=== PATIENT | female | born 1940 | race Caucasian/White ===

== ENCOUNTER 2018-12-15 08:48 | Day surgery (SDC) | payer OTHER ==
[2018-12-15] MEDS ORDERED: EPINEPHRINE/PF 1 MG/ML AMP ONE (09:22)
[2018-12-15] MEDS ORDERED: NS 0.9% VIAL 10 ML ONE (09:22)
[2018-12-15] MEDS ORDERED: DUOVISC 1 KIT OPTH ONE (09:23)
[2018-12-15] MEDS ORDERED: BALANCED SALT IRRIG PLAIN 500 ML BTL IRR ONE (09:23)
[2018-12-15] MEDS: TETRACAINE HCL 0.5% 2ML OPTH ONE ×2 (09:36→11:02)
[2018-12-15] MEDS: BUPIVACAINE 0.25% PF 10 ML VIAL ONE ×2 (09:36→11:03)
[2018-12-15] MEDS: LIDOCAINE 2% MPF 5 ML VIAL ONE ×2 (09:37→11:03)
[2018-12-15] MEDS ORDERED: NA CHLORIDE 0.9% 500 ML ONE (09:45)
[2018-12-15] MEDS: CYCLOPENTOLATE 1% OPTH 2 ML ONE ×3 (09:47→09:57)
[2018-12-15] MEDS: PHENYLEPHRINE 10% OPTH 5ML ONE ×3 (09:47→09:57)
[2018-12-15] MEDS ORDERED: PROPOFOL 200 MG/20 ML VIAL IV ONE (10:56)
[2018-12-15] MEDS ORDERED: LIDOCAINE 2% MPF 5 ML VIAL ONE (10:57)
--- NOTE | 2018-12-15 11:47 | P.BOP ---
Preoperative diagnosis: Nuclear sclerotic cataract and regular astigmatism OD Postoperative diagnosis: Same Primary procedure: Phacoemulsification with IOL OD Estimated blood loss: None Anesthesia: Local (Subtenon's infusion with anesthesia for cataract surgery) Complications: None Implants: SA6AT3 +21.0 @ 4 degrees Transferred to: Other (Day surgery) Condition: Good
[2018-12-15] MEDS ORDERED: MOXIFLOXACIN HCL 10 DROPS/ML **OR USE OPTH ONE (12:01)
[2018-12-15 12:28] VITALS: BP 124/60; TEMP 98.5; O2SAT 100
--- NOTE | 2018-12-16 02:19 | OP ---
Date of Procedure: 12/15/2018 Surgeon: Sindhu Jimenez MD Anesthesiologist: Jade Hamilton CRNA and Yovani Blackburn MD. Preoperative Diagnosis: Nuclear sclerotic cataract and regular astigmatism, right eye. Operation Performed: Phacoemulsification with toric intraocular lens implant, right eye. Anesthesia: Per cataract surgery. Complications: None. Description Of Procedure: In day surgery, the patient was prepped with Betadine and draped. A conjunctival incision was made in the inferior nasal quadrant with Connie scissors. A sub-Tenon block consisting of a 1:1 mixture of 2% Xylocaine and 0.25% bupivacaine was placed through the conjunctival incision with a blunt cannula. A Honan balloon was placed over the eye and the patient was transferred to the operating room. In the operating room the patient was prepped and draped in the usual sterile fashion for ophthalmic surgery. A lid speculum was placed in the right eye. Two paracentesis sites were made superiorly and inferiorly in the limbal cornea. Viscoat was placed in the anterior chamber and a crescent blade was used to make a corneal groove and tunnel, and a keratome was used to enter the anterior chamber. Provisc was placed in the anterior chamber and a 360 degree capsulotomy was performed with a cystitome. The lens was hydrodissected with BSS and rotated freely. The lens was removed with a stop and chop technique. 21.07 Phaco CDE was used to remove the lens. Residual cortex was removed with the irrigation and aspiration. Provisc was placed in the capsular bag. A SA6AT3 +21.0 lens was placed at 4 degrees in the capsular bag without complications. Irrigation and aspiration were used to remove residual viscoelastic. The paracentesis sites were hydrated with BSS. The wound and paracentesis sites were inspected and found to be watertight. Vigamox 0.07 cc was placed intracamerally at the end of the procedure. The eye was irrigated with balanced salt solution. The eye was patched with a soft cotton patch and Eldridge metal shield. The patient was returned to day surgery in good condition. Comments: Discharge Instructions: Ms. Rai is discharged to home in good condition and is to follow up with Dr. Jimenez in the morning. JESSY/MICHAEL Voice ID: [id number] Report ID: [id number] MTDD
== END 2018-12-15 12:20 | disposition home or self-care (01) ==
LOC: OR 08:48
PROVIDERS: ATTEND Ophthalmology Retina Specialist
PROC: 08RJ3JZ Replacement of Right Lens with Synthetic Substitute, Percutaneous Approach (ICD-10-PCS; principal; 2018-12-15 10:00)
DX: H25.11 Age-related nuclear cataract, right eye (principal); H52.221 Regular astigmatism, right eye; I10 Essential (primary) hypertension; G20 Parkinson's disease; E03.9 Hypothyroidism, unspecified; E78.00 Pure hypercholesterolemia, unspecified; Z79.82 Long term (current) use of aspirin; Z88.0 Allergy status to penicillin; Z88.2 Allergy status to sulfonamides; Z83.518 Family history of other specified eye disorder
CPT/HCPCS: 66984; J2704; J0171; V2630; V2787

== ENCOUNTER 2019-02-09 06:52 | Day surgery (SDC) | payer OTHER ==
[2019-02-09] MEDS ORDERED: LIDOCAINE 2% MPF 5 ML VIAL ONE ×2 (07:24→08:14)
[2019-02-09] MEDS ORDERED: BUPIVACAINE 0.25% PF 10 ML VIAL ONE (07:24)
[2019-02-09] MEDS ORDERED: CYCLOPENTOLATE 1% OPTH 2 ML ONE (07:24)
[2019-02-09] MEDS ORDERED: NA CHLORIDE 0.9% 500 ML ONE (07:25)
[2019-02-09] MEDS ORDERED: TETRACAINE HCL 0.5% 4ML OPTH ONE (07:25)
[2019-02-09] MEDS ORDERED: PHENYLEPHRINE 10% OPTH 5ML ONE (07:25)
[2019-02-09] MEDS ORDERED: PHENYLEPHRINE 10% OPTH 5ML OPTH ONE ×2 (07:40→07:45)
[2019-02-09] MEDS ORDERED: CYCLOPENTOLATE 1% OPTH 2 ML OPTH ONE ×2 (07:40→07:45)
[2019-02-09] MEDS ORDERED: PROPOFOL 200 MG/20 ML VIAL IV ONE (08:14)
[2019-02-09] MEDS ORDERED: BALANCED SALT IRRIG PLAIN 500 ML BTL IRR ONE (08:16)
[2019-02-09] MEDS ORDERED: EPINEPHRINE/PF 1 MG/ML AMP ONE (08:16)
[2019-02-09] MEDS ORDERED: NS 0.9% VIAL 10 ML ONE (08:16)
[2019-02-09] MEDS ORDERED: DUOVISC 1 KIT OPTH ONE (08:17)
[2019-02-09] MEDS ORDERED: MOXIFLOXACIN HCL 10 DROPS/ML **OR USE OPTH ONE (08:18)
--- NOTE | 2019-02-09 09:08 | P.BOP ---
Preoperative diagnosis: Nuclear sclerotic cataract OS Postoperative diagnosis: Same Primary procedure: Phacoemulsification with IOL OS Estimated blood loss: None Anesthesia: Local (Subtenon's infusion with anesthesia for cataract surgery) Complications: None Implants: SA60WF +20.0 Transferred to: Other (Day surgery) Condition: Good
[2019-02-09 09:24] VITALS: BP 121/65; TEMP 97.4; O2SAT 97
--- NOTE | 2019-02-09 18:53 | OP ---
Date of Procedure: 02/09/2019 Surgeon: Sindhu Jimenez MD Anesthesiologist: 1. Chavez Welsh CRNA. 2. Yovani Blackburn MD. Preoperative Diagnosis: Nuclear sclerotic cataract, left eye. Operation Performed: Phacoemulsification with intraocular lens implant, left eye. Anesthesia: Per cataract surgery. Complications: None. Description Of Procedure: In day surgery, the patient was prepped with Betadine and draped. A conjunctival incision was made in the inferior nasal quadrant with Connie scissors. A sub-Tenon block consisting of a 1:1 mixture of 2% Xylocaine and 0.25% bupivacaine was placed through the conjunctival incision with a blunt cannula. A Honan balloon was placed over the eye and the patient was transferred to the operating room. In the operating room the patient was prepped and draped in the usual sterile fashion for ophthalmic surgery. A lid speculum was placed in the left eye. Two paracentesis sites were made superiorly and inferiorly in the limbal cornea. Viscoat was placed in the anterior chamber and a crescent blade was used to make a corneal groove and tunnel, and a keratome was used to enter the anterior chamber. Provisc was placed in the anterior chamber and a 360 degree capsulotomy was performed with a cystitome. The lens was hydrodissected with BSS and rotated freely. The lens was removed with a stop and chop technique. 15.22 Phaco CDE was used to remove the lens. Residual cortex was removed with the irrigation and aspiration. Provisc was placed in the capsular bag. A SA60WF +20.0 lens was placed in the capsular bag without complications. Irrigation and aspiration was used to remove residual viscoelastic. The paracentesis sites were hydrated with BSS. The wound and paracentesis sites were inspected and found to be watertight. Vigamox 0.07 cc was placed intracamerally at the end of the procedure. The eye was irrigated with balanced salt solution. The eye was patched with a soft cotton patch and Eldridge metal shield. The patient was returned to day surgery in good condition. Comments: Discharge Instructions: Ms. Rai is discharged to home in good condition and is to follow up with Dr. Jimenez in the morning. JESSY/MICHAEL Voice ID: [id number] Report ID: [id number] MTDD
== END 2019-02-09 09:43 | disposition home or self-care (01) ==
LOC: OR 06:52
PROVIDERS: ATTEND Ophthalmology Retina Specialist
PROC: 08RK3JZ Replacement of Left Lens with Synthetic Substitute, Percutaneous Approach (ICD-10-PCS; principal; 2019-02-09 08:30)
DX: H25.12 Age-related nuclear cataract, left eye (principal); E03.9 Hypothyroidism, unspecified; I10 Essential (primary) hypertension; G20 Parkinson's disease; Z79.82 Long term (current) use of aspirin; Z79.899 Other long term (current) drug therapy
CPT/HCPCS: 66984; J2704; J0171

== ENCOUNTER 2021-07-06 18:08 | Emergency (ER) | payer OTHER ==
[2021-07-06] MEDS ORDERED: MECLIZINE HCL 12.5 MG TAB ONE (19:54)
[2021-07-06] MEDS ORDERED: METOCLOPRAMIDE 10 MG/2mL INJ ONE (19:54)
[2021-07-06] MEDS ORDERED: KETOROLAC 30 MG/ML INJ ONE (19:55)
[2021-07-06] MEDS ORDERED: ONDANSETRON 4 MG/2 ML VIAL ONE (19:55)
[2021-07-06] MEDS ORDERED: NA CHLORIDE 0.9% 1,000 ML ONE (19:55)
[2021-07-06 20:05] LABS: ALT/SGPT 8 U/L (12-78); AST/SGOT 15 U/L (15-37); Albumin 3.5 g/dL (3.4-5.0); Alkaline Phosphatase 60 U/L (45-117); BUN Blood Urea Nitrogen 15 mg/dL (7-18); Bicarbonate 29 mmol/L (21-32); Bilirubin Direct 0.1 mg/dL (0-0.2); Bilirubin Total 0.4 mg/dL (0.2-1.0); Glucose Level 116 mg/dL (74-106); Magnesium 2.3 mg/dL (1.8-2.4); NT PRO-BNP 352 pg/mL (<450); Potassium 3.8 mmol/L (3.5-5.1); Protein, Total 7.1 g/dL (6.4-8.2); Sodium Level 141 mmol/L (136-145); Troponin (Emerg Dept Use Only) < 0.02 ng/mL (0.0-0.045)
[2021-07-06 20:09] LABS: Urine Blood Negative (Negative); Urine Glucose Negative (Negative); Urine Protein Negative (Negative)
--- NOTE | 2021-07-06 20:34 | RAD REPORT ---
EXAM DESCRIPTION: CT - Head Brain Wo Cont - 07/06/2021 8:08 pm CLINICAL HISTORY: Dizziness COMPARISON: 2013 TECHNIQUE: Computed axial tomography of the head was obtained. IV contrast was not requested. All CT scans are performed using dose optimization technique as appropriate and may include automated exposure control or mA/KV adjustment according to patient size. FINDINGS: An intracranial bleed is not seen . The ventricles are normal in caliber. No extra-axial fluid collection is noted. Mild low-density areas within periventricular, deep and subcortical white matter likely represent isc hemic changes secondary to small vessel disease. Fluid within the sinuses/ mastoids is not seen. IMPRESSION: No acute intracranial abnormality is seen. If patient's symptoms persist MRI of the bra in would be recommended.
[2021-07-06 20:58] LABS: Absolute Lymphocytes (CBC) 1.3 K/uL (0.7-4.9); Basophils % 0.8 % (0-1.3); Hematocrit 43.6 % (36.0-45.0); MPV 9.1 fL (7.6-11.3); Protime INR 1.03; RBC Red Blood Cell Count 4.65 M/uL (3.86-4.86)
--- NOTE | 2021-07-06 22:03 | EDPHYS ---
Physician Documentation [facility] Name: Marti Rai Age: 80 yrs Sex: Female : 1940 Arrival Date: 07/06/2021 Time: 18:10 Bed 7 Private MD: ED Physician Renetta Boles HPI: 07/06 21:30 This 80 yrs old Female presents to ER via Ambulatory with complaints of ma2 Dizziness, High Blood Pressure. 21:30 The patient presents with vertigo. Onset: The symptoms/episode began/occurred suddenly, ma2 2 hour(s) ago. Associated signs and symptoms: Pertinent positives: Pertinent negatives: ataxia, combativeness, focal weakness, head injury, headache, palpitations, seizure, vomiting. Severity of symptoms: At their worst the symptoms were mild in the emergency department the symptoms are unchanged. The patient has experienced similar episodes in the past. He has had positional vertigo in the past, presents with same symptoms, feels spinning when she moves her head to the right side. No other symptom.. Historical: - Allergies: 18:26 PENICILLINS; vg1 - Home Meds: 18:26 levothyroxine oral [Active]; Metoprolol Tartrate Oral [Active]; amlodipine oral vg1 [Active]; duloxetine oral [Active]; Aspirin Oral [Active]; rosuvastatin oral [Active]; - PMHx: 18:26 Hypertensive disorder; Parkinson's disease; Hypothyroidism; vg1 - Immunization history:: Adult Immunizations up to date, Client reports receiving the 2nd dose of the Covid vaccine. - Social history:: Smoking status: Patient denies any tobacco usage or history of. - Family history:: not pertinent. ROS: 21:30 Constitutional: Negative for fever, chills, and weight loss. ma2 21:30 All other systems are negative. Exam: 21:30 Constitutional: This is a well developed, well nourished patient who is awake, alert, ma2 and in no acute distress. Head/Face: Normocephalic, atraumatic. Eyes: Pupils equal round and reactive to light, extra-ocular motions intact. Lids and lashes normal. Conjunctiva and sclera are non-icteric and not injected. Cornea within normal limits. Periorbital areas with no swelling, redness, or edema. ENT: Nares patent. No nasal discharge, no septal abnormalities noted. Tympanic membranes are normal and external auditory canals are clear. Oropharynx with no redness, swelling, or masses, exudates, or evidence of obstruction, uvula midline. Mucous membranes moist. Neck: Trachea midline, no thyromegaly or masses palpated, and no cervical lymphadenopathy. Supple, full range of motion without nuchal rigidity, or vertebral point tenderness. No Meningismus. Chest/axilla: Normal chest wall appearance and motion. Nontender with no deformity. No lesions are appreciated. Cardiovascular: Regular rate and rhythm with a normal S1 and S2. No gallops, murmurs, or rubs. Normal PMI, no JVD. No pulse deficits. Respiratory: Lungs have equal breath sounds bilaterally, clear to auscultation and percussion. No rales, rhonchi or wheezes noted. No increased work of breathing, no retractions or nasal flaring. Abdomen/GI: Soft, non-tender, with normal bowel sounds. No distension or tympany. No guarding or rebound. No evidence of tenderness throughout. Back: No spinal tenderness. No costovertebral tenderness. Full range of motion. Skin: Warm, dry with normal turgor. Normal color with no rashes, no lesions, and no evidence of cellulitis. MS/ Extremity: Pulses equal, no cyanosis. Neurovascular intact. Full, normal range of motion. Neuro: Awake and alert, GCS 15, oriented to person, place, time, and situation. Cranial nerves II-XII grossly intact. Motor strength 5/5 in all extremities. Sensory grossly intact. Cerebellar exam normal. Normal gait. Psych: Awake, alert, with orientation to person, place and time. Behavior, mood, and affect are within normal limits. Vital Signs: 18:23 BP 138 / 80; Pulse 68; Resp 16; Temp 97.9; Pulse Ox 98% ; Weight 68.49 kg; Height 5 ft. vg1 2 in. (157.48 cm); Pain 2/10; 18:23 Body Mass Index 27.62 (68.49 kg, 157.48 cm) vg1 MDM: 19:01 Patient medically screened. ma2 21:30 Differential diagnosis: hyperventilation, hypovolemia, idiopathic dizziness, ma2 near-syncope, vertigo. Data reviewed: vital signs, nurses notes. Counseling: I had a detailed discussion with the patient and/or guardian regarding: the historical points, exam findings, and any diagnostic results supporting the discharge/admit diagnosis, the presence of at least one elevated blood pressure reading (>120/80) during this emergency department visit. 22:00 Response to treatment: the patient's symptoms have markedly improved after treatment. ma2 ED course: And still have some vertigo, I recommend admission, given her symptoms not completely resolved, although work-up is unremarkable. She has UTI will treat with antibiotics. I had a detailed discussion with the patient she would like to go home, she is with the . She would like to go home and she will return if symptoms got worse. I discussed the risk of leaving despite my recommendation of being admitted. She understands all risk associated.. 07/06 19:01 Order name: Basic Metabolic Panel [facility] 07/06 19:01 Order name: CBC with Diff; Complete Time: 21:52 [facility] 07/06 19:01 Order name: LFT's; Complete Time: 20:31 [facility] 07/06 19:01 Order name: Magnesium; Complete Time: 20:31 [facility] 07/06 19:01 Order name: NT PRO-BNP; Complete Time: 20:31 [facility] 07/06 19:01 Order name: PT-INR; Complete Time: 21:52 [facility] 07/06 19:01 Order name: Troponin (emerg Dept Use Only); Complete Time: 20:31 [facility]2 07/06 19:02 Order name: Basic Metabolic Panel; Complete Time: 20:31 [facility] 07/06 19:04 Order name: CT Head Brain wo Cont; Complete Time: 20:50 il2 07/06 20:09 Order name: Urine Dipstick-Ancillary; Complete Time: 20:31 [facility] 07/06 19:01 Order name: EKG; Complete Time: 19:02 [facility] 07/06 19:01 Order name: Cardiac monitoring; Complete Time: 19:24 il2 07/06 19:01 Order name: EKG - Nurse/Tech; Complete Time: 19:24 il2 07/06 19:01 Order name: IV Saline Lock; Complete Time: 19:24 [facility] 07/06 19:01 Order name: Labs collected and sent; Complete Time: 19:24 [facility] 07/06 19:01 Order name: O2 Per Protocol; Complete Time: 19:24 ma2 07/06 19:01 Order name: O2 Sat Monitoring; Complete Time: 19:24 ma2 07/06 19:04 Order name: Urine Dipstick-Ancillary (obtain specimen); Complete Time: 20:15 ma2 Administered Medications: 19:43 Drug: NS 0.9% 1000 ml Route: IV; Rate: 1 bolus; Site: right antecubital; ea 19:43 Drug: Meclizine 50 mg Route: PO; ea 19:43 Drug: Zofran (Ondansetron) 4 mg Route: IVP; Site: right antecubital; ea 19:43 Drug: Reglan (metoCLOPramide) 20 mg Route: IVP; Site: right antecubital; ea 19:43 Drug: Ketorolac 30 mg Route: IVP; Site: right antecubital; ea 21:30 Drug: Rocephin (cefTRIAXone) 1 grams Route: IV; Rate: calculated rate; Site: right ea antecubital; Disposition Summary: 07/06/21 22:02 Discharge Ordered Location: Home ma2 Condition: Stable ma2 Diagnosis - Benign paroxysmal vertigo ma2 - UTI/ Urinary tract infection, site not specified ma2 Followup: ma2 - With: Gaetano Borden MD - When: Tomorrow - Reason: If symptoms return, Continuance of care Discharge Instructions: - Discharge Summary Sheet ma2 - Urinary Tract Infection, Adult ma2 - Vertigo, Soax-gp-Tmop ma2 Forms: - Medication Reconciliation Form ma2 - Thank You Letter ma2 - Antibiotic Education ma2 - Prescription Opioid Use ma2 Prescriptions: - Meclizine 25 mg Oral Tablet - take 1 tablet by ORAL route every 8 hours As needed; 30 tablet; Refills: 0, ma2 Product Selection Permitted - Cipro 500 mg Oral Tablet - take 1 tablet by ORAL route every 12 hours for 7 days; 14 tablet; Refills: 0, ma2 Product Selection Permitted Signatures: Dispatcher [employer] EDMS Li Franco, RN Renetta Garcia ea, MD MD ma2 Garcia, Victoria RN RN vg1 Corrections: (The following items were deleted from the chart) 19:59 19:02 Chest Single View+RAD.RAD.BRZ ordered. EDMS EDMS 22:24 19:37 CORONAVIRUS+MR.LAB.BRZ ordered. EDMS EDMS
--- NOTE | 2021-07-06 22:03 | ER ---
Nurse's Notes [facility] Name: Marti Rai Age: 80 yrs Sex: Female : 1940 Arrival Date: 07/06/2021 Time: 18:10 Bed 7 Private MD: Diagnosis: Benign paroxysmal vertigo;UTI/ Urinary tract infection, site not specified Presentation: 07/06 18:23 Chief complaint: Patient states: Pt states BP was high today, stated 153/80. Pt states vg1 has a headache, feels dizzy, and nauseous. Denies blurred vision or chest pain. Coronavirus screen: Vaccine status: Patient reports receiving the 2nd dose of the covid vaccine. Ebola Screen: Patient negative for fever greater than or equal to 101.5 degrees Fahrenheit, and additional compatible Ebola Virus Disease symptoms. Initial Sepsis Screen: Does the patient meet any 2 criteria? No. Patient's initial sepsis screen is negative. Does the patient have a suspected source of infection? No. Patient's initial sepsis screen is negative. Risk Assessment: Do you want to hurt yourself or someone else? Patient reports no desire to harm self or others. Onset of symptoms was July 06, 2021. 18:23 Method Of Arrival: Ambulatory vg1 18:23 Acuity: PAVAN 3 vg1 Triage Assessment: 18:26 General: Appears in no apparent distress. comfortable, Behavior is calm, cooperative. vg1 Pain: Denies pain. Historical: - Allergies: 18:26 PENICILLINS; vg1 - Home Meds: 18:26 levothyroxine oral [Active]; Metoprolol Tartrate Oral [Active]; amlodipine oral vg1 [Active]; duloxetine oral [Active]; Aspirin Oral [Active]; rosuvastatin oral [Active]; - PMHx: 18:26 Hypertensive disorder; Parkinson's disease; Hypothyroidism; vg1 - Immunization history:: Adult Immunizations up to date, Client reports receiving the 2nd dose of the Covid vaccine. - Social history:: Smoking status: Patient denies any tobacco usage or history of. - Family history:: not pertinent. Screenin:45 Abuse screen: Denies threats or abuse. Nutritional screening: No deficits noted. ea Tuberculosis screening: No symptoms or risk factors identified. Fall Risk None identified. Assessment: 19:45 General: Appears in no apparent distress. Behavior is calm, cooperative, appropriate ea for age. Pain: Denies pain. Neuro: Level of Consciousness is awake, alert, obeys commands, Oriented to person, place, time. Cardiovascular: Patient's skin is warm and dry. Respiratory: Airway is patent Respiratory effort is even, unlabored, Respiratory pattern is regular, symmetrical. Derm: Skin is pink, warm \T\ dry. Vital Signs: 18:23 BP 138 / 80; Pulse 68; Resp 16; Temp 97.9; Pulse Ox 98% ; Weight 68.49 kg; Height 5 ft. vg1 2 in. (157.48 cm); Pain 2/10; 18:23 Body Mass Index 27.62 (68.49 kg, 157.48 cm) vg1 ED Course: 18:10 Patient arrived in ED. rg4 18:25 Triage completed. vg1 18:26 Arm band placed on. vg1 18:30 Patient placed in an exam room, on a stretcher. ll1 19:01 Kl[facility]-C [facility]. la1 19:01 Renetta Boles MD is Attending Physician. ma2 19:04 Yaakov Rivers, JOSEE is Primary Nurse. ll1 19:30 Inserted saline lock: 20 gauge in right antecubital area, using aseptic technique. ea 19:45 Patient has correct armband on for positive identification. Bed in low position. Call ea light in reach. Side rails up X2. 20:08 CT Head Brain wo Cont In Process Unspecified. EDMS 20:12 Basic Metabolic Panel Sent. wg 22:02 Gaetano Borden MD is Referral Physician. ma2 Administered Medications: 19:43 Drug: NS 0.9% 1000 ml Route: IV; Rate: 1 bolus; Site: right antecubital; ea 19:43 Drug: Meclizine 50 mg Route: PO; ea 19:43 Drug: Zofran (Ondansetron) 4 mg Route: IVP; Site: right antecubital; ea 19:43 Drug: Reglan (metoCLOPramide) 20 mg Route: IVP; Site: right antecubital; ea 19:43 Drug: Ketorolac 30 mg Route: IVP; Site: right antecubital; ea 21:30 Drug: Rocephin (cefTRIAXone) 1 grams Route: IV; Rate: calculated rate; Site: right ea antecubital; Outcome: 22:02 Discharge ordered by MD. arias 23:05 Patient left the ED. [place] Signatures: Dispatcher [employer] EDNehal Chris RN RN Klaus Hernández, WASHATERIA ATTENDANT-C WASHATERIA ATTENDANT-Cla1 Helena Pete rg4 Li Franco RN RN ea Alzahri, Mohammad, MD MD ma2 Garcia, Victoria, RN RN vg1 Yaakov Rivers RN RN 1 Murali Webb RN wg
[2021-07-06] MEDS ORDERED: CEFTRIAXONE 1000 MG/VIAL ONE (22:12)
[2021-07-06 23:13] VITALS: BP 138/80; TEMP 97.9; O2SAT 98
--- NOTE | 2021-07-07 10:41 | EKG ---
Test Date: 2021-07-06 Test Time: 19:19:59 Treadle Cut Off Saw Operator: RONNIE MEASUREMENT RESULTS: Intervals: Rate: 66 [place]: 176 QRSD: 78 QT: 386 QTc: 404 [place]: P: 11 [place]: 176 QRS: -52 T: -20 INTERPRETIVE STATEMENTS: Normal sinus rhythm Left axis deviation Anterior infarct, age undetermined Abnormal ECG Compared to ECG 01/31/2014 14:07:46 No significant changes Electronically Signed On 07-07-21 10:39:48 CDT by Emerson Carrero
== END 2021-07-06 23:05 | disposition home or self-care (01) ==
LOC: ER 18:08
DX: H81.10 Benign paroxysmal vertigo, unspecified ear (principal); N39.0 Urinary tract infection, site not specified; I10 Essential (primary) hypertension; E03.9 Hypothyroidism, unspecified; G20 Parkinson's disease; Z79.82 Long term (current) use of aspirin; Z88.0 Allergy status to penicillin; Z20.822 Contact with and (suspected) exposure to COVID-19
CPT/HCPCS: 93005; 85025; 80048; 36415; 83735; 85610; 80076; 81003; 84484; 83880; 70450; 96375; 96374; 99284; U0003; J2765; J7030; J2405

== ENCOUNTER 2021-07-22 12:30 | Inpatient (IN) | payer OTHER ==
--- NOTE | 2021-07-22 14:02 | RAD REPORT ---
EXAM DESCRIPTION: RAD - Hip Left 2 View - 07/22/2021 1:57 pm CLINICAL HISTORY: PAIN COMPARISON: No comparisons FINDINGS: AP and frogleg views of the left hip were obtained. There is no fracture or dislocation. No acute or destructive bony process seen. Minimal hip joint de generative change present. Fracture of the left ephraim pelvis seen. IMPRESSION: Negative left hip examination for acute or significant findings.
--- NOTE | 2021-07-22 14:03 | RAD REPORT ---
EXAM DESCRIPTION: RAD - Knee Left 2 View - 07/22/2021 1:57 pm CLINICAL HISTORY: PAIN COMPARISON: No comparisons FINDINGS: No fracture, dislocation or periosteal reaction.No joint effusion seen. Lateral compartmen t narrowing is present. Minimal spurring at the patella articular margins. No soft tissue abnormality . IMPRESSION: Left knee joint degenerative change as detailed. No acute bone or joint finding. Clinical concerns for internal derangement or occult bony injury could be further assessed with MR im aging.
--- NOTE | 2021-07-22 14:03 | RAD REPORT ---
EXAM DESCRIPTION: RAD - Elbow Left 2 View - 07/22/2021 1:57 pm CLINICAL HISTORY: PAIN, fall COMPARISON: None. FINDINGS: No fracture is identified and no elevated posterior fat pad. There is no dislocation or pe riosteal reaction noted. No foreign body identified. Bandaging is in place posterior to the elbow emmanuel int. IMPRESSION: Negative left elbow examination.
[2021-07-22 14:17] LABS: Urine Blood Trace-intact (Negative); Urine Glucose Negative (Negative); Urine Protein 1+ (Negative)
[2021-07-22] MEDS ORDERED: LIDOCAINE 1% W/EPI 1:100,000 MDV 20 ML VIAL ONE (14:23)
--- NOTE | 2021-07-22 14:38 | RAD REPORT ---
EXAM DESCRIPTION: CT - Pelvis Wo Cont - 07/22/2021 2:17 pm CLINICAL HISTORY: Pain;Trauma, fall COMPARISON: Hip Left 2 View dated 07/22/2021 TECHNIQUE: Axial 2 millimeter thick images of the pelvis were obtained. Sagittal and coronal reforma tted images were generated and reviewed. All CT scans are performed using dose optimization technique as appropriate and may include automate d exposure control or mA/KV adjustment according to patient size. FINDINGS: Vertically-oriented left sacral ala fracture is present. Degenerative change present at th e left SI joint without acute component. Nondisplaced inferior pubic ramus fracture is present. There is fracture of the left superior pubic ramus at the pubic symphysis. No pubic symphysis diastases pr esent. Right hemipelvis is intact. Lower lumbar degenerative changes are present not fully assessed. Right h ip joint and proximal right femur is intact as well. No fracture of the left femoral head or neck. No dislocation is seen. There are subtle lucency change s in the superior aspect of the left greater trochanter. However, fracture is not confirmed. Contusion and edema changes are seen in the lateral subcutaneous fatty tissues of the pelvis. IMPRESSION: Left sacral ala fracture. Nondisplaced left ischium fracture Left superior pubic rami fracture extending into the pubic symphysis. Left femoral head and neck are intact. There is faint lucency along the superior aspect of the greate r trochanter without definitive fracture. Fracture is doubtful but can be re-evaluated with CT or MR imaging as clinical findings warrant.
--- NOTE | 2021-07-22 15:02 | ER ---
Nurse's Notes [facility] Name: Marti Rai Age: 80 yrs Sex: Female : 1940 Arrival Date: 07/22/2021 Time: 12:46 Bed 18 Private MD: Diagnosis: Fall on same level, unspecified;Laceration without foreign body of left elbow-hematoma;Fracture of other parts of pelvis-left sacral ala, nondisplaced left ischium fx, left superior rami fx extending iinto the pubic symphysis;Contusion of left knee Presentation: 07/22 12:50 Chief complaint: Patient states: MECHANICAL FALL FROM STANDING. Coronavirus screen: At bp this time, the client does not indicate any symptoms associated with coronavirus-19. Ebola Screen: No symptoms or risks identified at this time. Initial Sepsis Screen: Does the patient meet any 2 criteria? No. Patient's initial sepsis screen is negative. Does the patient have a suspected source of infection? No. Patient's initial sepsis screen is negative. Risk Assessment: Do you want to hurt yourself or someone else? Patient reports no desire to harm self or others. Onset of symptoms was July 22, 2021 at 12:00. 12:50 Method Of Arrival: EMS: [facility] bp 12:50 Acuity: PAVAN 3 bp Triage Assessment: 12:50 General: Appears in no apparent distress. uncomfortable, Behavior is cooperative, bp appropriate for age, anxious. Pain: Complains of pain in left hip, left elbow and left knee. EENT: No deficits noted. Neuro: Level of Consciousness is awake, alert, obeys commands, Oriented to Appropriate for age. Cardiovascular: No deficits noted. Respiratory: No deficits noted. GI: No signs and/or symptoms were reported involving the gastrointestinal system. : No signs and/or symptoms were reported regarding the genitourinary system. Derm: Wound noted left elbow. Musculoskeletal: No deficits noted. Historical: - Allergies: 13:00 PENICILLINS; bp - Home Meds: 13:01 amlodipine 2.5 mg oral tab 1 tab once daily [Active]; aspirin 81 mg oral tab 81 mg bp daily [Active]; rosuvastatin 5 mg oral tab 1 tab once daily [Active]; levothyroxine 75 mcg oral tab 1 tab once daily [Active]; duloxetine 30 mg oral CDRS 1 cap once daily [Active]; metoprolol succinate 50 mg oral CSpX 1 cap once daily [Active]; - PMHx: 13:00 Hypertensive disorder; Hypothyroidism; Parkinson's disease; bp - Immunization history:: Adult Immunizations unknown. - Social history:: Smoking status: Patient denies any tobacco usage or history of. Screenin:50 Abuse screen: Denies threats or abuse. Denies injuries from another. Nutritional bp screening: No deficits noted. Tuberculosis screening: No symptoms or risk factors identified. Fall Risk None identified. Assessment: 12:50 General: SEE TRIAGE NOTE. bp 15:00 Reassessment: No changes from previously documented assessment. Patient and/or family bp updated on plan of care and expected duration. Pain level reassessed. Patient is alert, oriented x 3, equal unlabored respirations, skin warm/dry/pink. ADMIT INITIATED. 16:30 Reassessment: PT MOVED TO HOSPITAL BED FROM STRETCHER. bp Vital Signs: 12:48 BP 140 / 84; Pulse 73; Resp 18; Temp 97.8(O); Pulse Ox 95% on R/A; Weight 68.04 kg; mh5 Height 5 ft. 2 in. (157.48 cm); Pain 5/10; 15:00 BP 128 / 99; Pulse 70; Resp 17; Pulse Ox 98% ; bp 17:00 BP 116 / 72; Pulse 72; Resp 18; Pulse Ox 98% ; bp 19:00 BP 113 / 64; Pulse 78; Resp 15; Temp 98; Pulse Ox 97% ; bp 20:52 BP 129 / 71 RA Sitting (auto/reg); Pulse 80 MON; Resp 15 S; Temp 98.4(O); Pulse Ox 96% bs2 on R/A; Pain 9/10; 12:48 Body Mass Index 27.44 (68.04 kg, 157.48 cm) [facility] ED Course: 12:46 Patient arrived in ED. [facility] 12:47 Patient has correct armband on for positive identification. Bed in low position. Call [facility] light in reach. Side rails up X2. Adult w/ patient. Warm blanket given. Pillow given. hall monitor on. Pulse ox on. NIBP on. 12:47 EKG done, by ED staff, reviewed by Lowell Kelly MD. mh5 12:49 Lowell Kelly MD is Attending Physician. dora 12:50 Arm band placed on. bp 12:56 Ben Zayas, JOSEE is Primary Nurse. bp 12:58 Triage completed. bp 13:57 Hip Left 2 View XRAY In Process Unspecified. EDMS 13:57 Elbow Left 2 View XRAY In Process Unspecified. EDMS 13:57 Knee Left 2 View XRAY In Process Unspecified. EDMS 14:17 CT Pelvis wo Cont: include both hips In Process Unspecified. EDMS 14:58 Geri Borden MD is Hospitalizing Provider. dora 15:07 Wound care: to laceration located on left elbow was cleaned with soap and water, mh5 dressed with ABD pads, PRESSURE DRESSING. 16:11 CLEANED UP PATIENT AND MOVED HER INTO A HOSPITAL BED . 5 16:25 Inserted saline lock: 20 gauge in right antecubital area, using aseptic technique. bp 17:30 Macias cath inserted, using sterile technique, 16 Fr., by ok, balloon inflated, to mh5 gravity drainage. 20:45 XRAY Chest (1 view) Sent. bs2 21:02 No provider procedures requiring assistance completed. Patient admitted, IV remains in bs2 place. 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 Exp: bp 02/17/2023. Lot #: [id number]. } Route: IM; Site: right deltoid; 16:28 Follow up: Response: No adverse reaction bp 14:15 Drug: Lidocaine-Epinephrine -1%: (1:100,000) 10 ml {Note: AT B/S FOR LMP.} Volume: 20 bp ml; Route: Infiltration; 16:25 Drug: NS 0.9% 1000 ml Route: IV; Rate: 125 ml/hr; Site: right forearm; bp 19:06 Follow up: IV Status: Infusion continued upon admission bp 16:25 Drug: Ancef (cefazolin) 1 grams Route: IVPB; Site: right forearm; bp 19:06 Follow up: IV Status: Completed infusion; IV Intake: 100ml bp 21:30 Drug: morphine 4 mg Route: IVP; Site: right forearm; bs2 21:31 Follow up: Response: No adverse reaction bs2 21:30 Drug: Zofran (Ondansetron) 4 mg Route: IVP; Site: right forearm; bs2 21:31 Follow up: Response: No adverse reaction bs2 Intake: 19:06 IV: 100ml; Total: 100ml. bp Outcome: 15:01 Decision to Hospitalize by Provider. dora 21:03 Admitted to Med/surg accompanied by carolyn, via stretcher, room 210, with chart. bs2 21:03 Condition: stable 21:03 Instructed on the need for admit. 21:56 Admitted to Med/surg Report called to Arpan TRIPP bs2 21:57 Patient left the ED. bs2 Signatures: Dispatcher [employer] EDLowell Macias MD MD cha Martinez, Maria [facility] Ben Zayas RN RN Cherelle Mchugh RN RN bs2 Corrections: (The following items were deleted from the chart) 13:08 13:00 Home Meds: amlodipine oral; bp bp 13:08 13:00 Home Meds: Aspirin Oral; bp bp 13:08 13:00 Home Meds: rosuvastatin Oral; bp bp 13:08 13:00 Home Meds: Metoprolol Tartrate Oral; bp bp 13:08 13:00 Home Meds: levothyroxine oral; bp bp 13:08 13:00 Home Meds: duloxetine Oral; bp bp
--- NOTE | 2021-07-22 15:02 | EDPHYS ---
Physician Documentation [facility] Name: Marti Rai Age: 80 yrs Sex: Female : 1940 Arrival Date: 07/22/2021 Time: 12:46 Bed 18 Private MD: ED Physician Lowell Kelly HPI: 07/22 14:52 This 80 yrs old Female presents to ER via EMS with complaints of Fall Injury. dora 14:52 Details of fall: The patient fell from an upright position, while walking. Onset: The dora symptoms/episode began/occurred just prior to arrival. Associated injuries: The patient sustained left arm and left leg, decreased range of motion. Severity of symptoms: At their worst the symptoms were moderate, in the emergency department the symptoms are unchanged. The patient has not experienced similar symptoms in the past. Historical: - Allergies: 13:00 PENICILLINS; bp - Home Meds: 13:01 amlodipine 2.5 mg oral tab 1 tab once daily [Active]; aspirin 81 mg oral tab 81 mg bp daily [Active]; rosuvastatin 5 mg oral tab 1 tab once daily [Active]; levothyroxine 75 mcg oral tab 1 tab once daily [Active]; duloxetine 30 mg oral CDRS 1 cap once daily [Active]; metoprolol succinate 50 mg oral CSpX 1 cap once daily [Active]; - PMHx: 13:00 Hypertensive disorder; Hypothyroidism; Parkinson's disease; bp - Immunization history:: Adult Immunizations unknown. - Social history:: Smoking status: Patient denies any tobacco usage or history of. ROS: 14:54 Constitutional: Negative for fever, chills, and weight loss, Eyes: Negative for injury, dora pain, redness, and discharge, ENT: Negative for injury, pain, and discharge, Neck: Negative for injury, pain, and swelling, Cardiovascular: Negative for chest pain, palpitations, and edema, Respiratory: Negative for shortness of breath, cough, wheezing, and pleuritic chest pain, Abdomen/GI: Negative for abdominal pain, nausea, vomiting, diarrhea, and constipation, Back: Negative for injury and pain, : Negative for injury, bleeding, discharge, and swelling, Skin: Negative for injury, rash, and discoloration, Psych: Negative for depression, anxiety, suicide ideation, homicidal ideation, and hallucinations, Allergy/Immunology: Negative for hives, rash, and allergies, Endocrine: Negative for neck swelling, polydipsia, polyuria, polyphagia, and marked weight changes. 14:54 MS/extremity: Positive for decreased range of motion, pain, tenderness, of the left elbow, left hip and groin, and left knee. Exam: 14:54 Constitutional: This is a well developed, well nourished patient who is awake, alert, dora and in no acute distress. Head/Face: Normocephalic, atraumatic. Eyes: Pupils equal round and reactive to light, extra-ocular motions intact. Lids and lashes normal. Conjunctiva and sclera are non-icteric and not injected. Cornea within normal limits. Periorbital areas with no swelling, redness, or edema. ENT: Nares patent. No nasal discharge, no septal abnormalities noted. Tympanic membranes are normal and external auditory canals are clear. Oropharynx with no redness, swelling, or masses, exudates, or evidence of obstruction, uvula midline. Mucous membranes moist. Neck: Trachea midline, no thyromegaly or masses palpated, and no cervical lymphadenopathy. Supple, full range of motion without nuchal rigidity, or vertebral point tenderness. No Meningismus. Chest/axilla: Normal chest wall appearance and motion. Nontender with no deformity. No lesions are appreciated. Cardiovascular: Regular rate and rhythm with a normal S1 and S2. No gallops, murmurs, or rubs. Normal PMI, no JVD. No pulse deficits. Respiratory: Lungs have equal breath sounds bilaterally, clear to auscultation and percussion. No rales, rhonchi or wheezes noted. No increased work of breathing, no retractions or nasal flaring. Abdomen/GI: Soft, non-tender, with normal bowel sounds. No distension or tympany. No guarding or rebound. No evidence of tenderness throughout. Back: No spinal tenderness. No costovertebral tenderness. Full range of motion. Female : Normal external genitalia. Neuro: Awake and alert, GCS 15, oriented to person, place, time, and situation. Cranial nerves II-XII grossly intact. Motor strength 5/5 in all extremities. Sensory grossly intact. Cerebellar exam normal. Normal gait. Psych: Awake, alert, with orientation to person, place and time. Behavior, mood, and affect are within normal limits. 14:54 Skin: injury, laceration(s), the wound is approximately 2.5 cm(s), with a depth of 1 cm(s), of the left elbow. 15:14 ECG was reviewed by the Attending Physician. [facility] Vital Signs: 12:48 BP 140 / 84; Pulse 73; Resp 18; Temp 97.8(O); Pulse Ox 95% on R/A; Weight 68.04 kg; 5 Height 5 ft. 2 in. (157.48 cm); Pain 5/10; 15:00 BP 128 / 99; Pulse 70; Resp 17; Pulse Ox 98% ; bp 17:00 BP 116 / 72; Pulse 72; Resp 18; Pulse Ox 98% ; bp 19:00 BP 113 / 64; Pulse 78; Resp 15; Temp 98; Pulse Ox 97% ; bp 20:52 BP 129 / 71 RA Sitting (auto/reg); Pulse 80 MON; Resp 15 S; Temp 98.4(O); Pulse Ox 96% bs2 on R/A; Pain 9/10; 12:48 Body Mass Index 27.44 (68.04 kg, 157.48 cm) [facility] MDM: 12:49 Patient medically screened. [facility] 14:54 Differential diagnosis: dislocation, open fracture, closed fracture, contusion, hip dora fracture, intertrochanteric fracture, femoral neck fracture, femoral shaft fracture. Differential diagnosis: abrasion, contusion, fracture, laceration, multiple trauma, sprain, strain. Data reviewed: vital signs, nurses notes, lab test result(s), EKG, radiologic studies, CT scan, plain films. 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 Test interpretation: by ED physician or midlevel provider: ECG, plain radiologic studies. Counseling: I had a detailed discussion with the patient and/or guardian regarding: the historical points, exam findings, and any diagnostic results supporting the discharge/admit diagnosis, lab results, radiology results, the need for further work-up and treatment in the hospital. 07/22 14:16 Order name: Urine Dipstick-Ancillary; Complete Time: 14:30 EDMS 07/22 14:52 Order name: Basic Metabolic Panel [facility] 07/22 14:52 Order name: CBC with Diff [facility] 07/22 14:52 Order name: LFT's [facility] 07/22 14:52 Order name: Magnesium [facility] 07/22 14:52 Order name: NT PRO-BNP [facility] 07/22 12:59 Order name: Hip Left 2 View XRAY; Complete Time: 14:30 bp 07/22 12:59 Order name: Elbow Left 2 View XRAY; Complete Time: 14:30 bp 07/22 12:59 Order name: Knee Left 2 View XRAY; Complete Time: 14:30 bp 07/22 13:58 Order name: CT Pelvis wo Cont: include both hips; Complete Time: 14:50 [facility] 07/22 14:52 Order name: PT-INR [facility] 07/22 14:52 Order name: Troponin (emerg Dept Use Only) [facility] 07/22 15:09 Order name: COVID-19 (Coronavirus) Document "Date of Onset" if Symptomatic 07/22 17:30 Order name: SARS-COV-2 RT PCR [facility] 07/22 13:59 Order name: Suture Tray Setup; Complete Time: 15:46 [facility] 07/22 13:59 Order name: Prolene, Sutures; Complete Time: 15:46 [facility] 07/22 14:52 Order name: XRAY Chest (1 view) [facility] 07/22 14:52 Order name: EKG; Complete Time: 14:53 [facility] 07/22 14:52 Order name: Cardiac monitoring; Complete Time: 16:29 [facility] 07/22 14:52 Order name: EKG - Nurse/Tech; Complete Time: 16:29 [facility] 07/22 14:52 Order name: IV Saline Lock; Complete Time: 16:29 [facility] 07/22 14:52 Order name: Labs collected and sent; Complete Time: 16:29 [facility] 07/22 15:06 Order name: CONS Physician Consult; Complete Time: 20:45 [facility] 07/22 16:28 Order name: RAD [facility] 07/22 14:52 Order name: O2 Per Protocol; Complete Time: 16:29 [facility] 07/22 14:52 Order name: O2 Sat Monitoring; Complete Time: 16:29 [facility] 07/22 14:52 Order name: Wound dressing: elbow; Complete Time: 15:07 [facility] EC:14 Rate is 73 beats/min. Rhythm is regular. QRS [place] is Normal. DE interval is normal. QRS dora interval is normal. QT interval is normal. No Q waves. T waves are Normal. No ST changes noted. Clinical impression: NSR w/ Non-specific ST/T Changes and No evidence of ischemia. Interpreted by me. Reviewed by me. 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 Exp: bp 02/17/2023. Lot #: [id number]. } Route: IM; Site: right deltoid; 16:28 Follow up: Response: No adverse reaction bp 14:15 Drug: Lidocaine-Epinephrine -1%: (1:100,000) 10 ml {Note: AT B/S FOR LMP.} Volume: 20 bp ml; Route: Infiltration; 16:25 Drug: NS 0.9% 1000 ml Route: IV; Rate: 125 ml/hr; Site: right forearm; bp 19:06 Follow up: IV Status: Infusion continued upon admission bp 16:25 Drug: Ancef (cefazolin) 1 grams Route: IVPB; Site: right forearm; bp 19:06 Follow up: IV Status: Completed infusion; IV Intake: 100ml bp 21:30 Drug: morphine 4 mg Route: IVP; Site: right forearm; bs2 21:31 Follow up: Response: No adverse reaction bs2 21:30 Drug: Zofran (Ondansetron) 4 mg Route: IVP; Site: right forearm; bs2 21:31 Follow up: Response: No adverse reaction bs2 Disposition Summary: 07/22/21 15:01 Hospitalization Ordered Hospitalization Status: Inpatient Admission dora Provider: Geri Borden cha Location: Telemetry/MedSurg (Inpatient) dora Condition: Stable dora Problem: new dora Symptoms: have improved dora Bed/Room Type: Standard dora Room Assignment: 210(07/22/21 18:43) eb Diagnosis - Fall on same level, unspecified dora - Laceration without foreign body of left elbow - hematoma dora - Fracture of other parts of pelvis - left sacral ala, nondisplaced left ischium fx, dora left superior rami fx extending iinto the pubic symphysis - Contusion of left knee dora Forms: - Medication Reconciliation Form dora - SBAR form dora Signatures: Dispatcher [employer] Lowell Arana MD MD cha Peltier, Brian, RN RN bp Brandie Liriano Bridget, RN RN bs2 Corrections: (The following items were deleted from the chart) 13:08 13:00 Home Meds: amlodipine oral; bp bp 13: 13:00 Home Meds: Aspirin Oral; bp bp 13: 13:00 Home Meds: rosuvastatin Oral; bp bp 13: 13:00 Home Meds: Metoprolol Tartrate Oral; bp bp 13: 13:00 Home Meds: levothyroxine oral; bp bp 13: 13:00 Home Meds: duloxetine Oral; bp bp 18:43 15:01 [facility] eb
[2021-07-22] MEDS ORDERED: NA CHLORIDE 0.9% 100 ML ONE (15:48)
[2021-07-22] MEDS ORDERED: CEFAZOLIN SODIUM 1 GM/VIAL ONE ×2 (15:48→23:34)
[2021-07-22] MEDS ORDERED: NA CHLORIDE 0.9% 1,000 ML ONE (15:48)
[2021-07-22] MEDS ORDERED: TETANUS & DIPHTHERIA TOX,ADULT 0.5 ML VIAL ONE (15:49)
--- NOTE | 2021-07-22 16:27 | RAD REPORT ---
EXAM DESCRIPTION: RAD - Chest Single View - 07/22/2021 3:26 pm CLINICAL HISTORY: COUGH COMPARISON: October 2019 TECHNIQUE: AP portable chest image was obtained 07/22/2021 3:26 pm . FINDINGS: No mass, consolidation or failure finding. Mild prominent interstitial pattern similar to comparison. Heart and vasculature are normal. No measurable pleural effusion and no pneumothorax. No acute bony abnormality seen. No acute aortic findings suspected. IMPRESSION: No acute cardiopulmonary process. No significant change from comparison study.
[2021-07-22 16:47] LABS: Absolute Lymphocytes (CBC) 1.1 K/uL (0.7-4.9); Basophils % 0.5 % (0-1.3); Hematocrit 48.3 % (36.0-45.0); Lymphocytes % 11.3 % (15.3-44.8); MPV 8.6 fL (7.6-11.3); RBC Red Blood Cell Count 5.11 M/uL (3.86-4.86)
[2021-07-22 16:53] LABS: Protime INR 1.03
[2021-07-22 17:10] LABS: ALT/SGPT 8 U/L (12-78); AST/SGOT 23 U/L (15-37); Albumin 3.9 g/dL (3.4-5.0); Alkaline Phosphatase 61 U/L (45-117); BUN Blood Urea Nitrogen 12 mg/dL (7-18); Bicarbonate 27 mmol/L (21-32); Bilirubin Direct 0.1 mg/dL (0-0.2); Bilirubin Total 0.5 mg/dL (0.2-1.0); Glucose Level 103 mg/dL (74-106); Magnesium 2.3 mg/dL (1.8-2.4); NT PRO-BNP 380 pg/mL (<450); Potassium 3.7 mmol/L (3.5-5.1); Protein, Total 7.8 g/dL (6.4-8.2); Sodium Level 142 mmol/L (136-145); Troponin (Emerg Dept Use Only) < 0.02 ng/mL (0.0-0.045)
[2021-07-22] MEDS ORDERED: ONDANSETRON 4 MG/2 ML VIAL IV PRN (20:47)
[2021-07-22] MEDS ORDERED: ACETAMINOPHEN 500 MG TAB PO PRN (20:47)
[2021-07-22] MEDS ORDERED: FAMOTIDINE 20 MG/2 ML VIAL IV ONE (21:00)
[2021-07-22] MEDS ORDERED: MORPHINE 4 MG/ML SYR ONE (21:42)
[2021-07-22] MEDS ORDERED: ONDANSETRON 4 MG/2 ML VIAL ONE (21:42)
[2021-07-22] MEDS: CEFAZOLIN/NS 1gm 1 GM/50 ML BAG IVPB SCH (22:00)
[2021-07-22] MEDS: NA CHLORIDE 0.9% 1,000 ML IV SCH (23:32)
[2021-07-22] MEDS ORDERED: NA CHLORIDE 0.9% 50 ML ONE (23:34)
[2021-07-23] MEDS: CEFAZOLIN/NS 1gm 1 GM/50 ML BAG IVPB SCH ×3 (04:00→17:02)
[2021-07-23] MEDS ORDERED: CEFAZOLIN SODIUM 1 GM/VIAL ONE (04:31)
[2021-07-23] MEDS ORDERED: NA CHLORIDE 0.9% 50 ML ONE (04:31)
[2021-07-23] MEDS: MORPHINE 2 MG/ML SYR IV PRN (05:29)
[2021-07-23] MEDS: NA CHLORIDE 0.9% 1,000 ML IV SCH (05:33)
[2021-07-23 06:04] LABS: Potassium 3.9 mmol/L (3.5-5.1)
[2021-07-23 06:11] LABS: Absolute Lymphocytes (CBC) 1.5 K/uL (0.7-4.9); Basophils % 0.4 % (0-1.3); Hematocrit 39.3 % (36.0-45.0); Lymphocytes % 21.3 % (15.3-44.8); MPV 8.5 fL (7.6-11.3); RBC Red Blood Cell Count 4.21 M/uL (3.86-4.86)
[2021-07-23] MEDS ORDERED: FAMOTIDINE 20 MG/2 ML VIAL IV SCH (09:00)
[2021-07-23] MEDS ORDERED: MAGNESIUM HYDROXIDE 8% 30 ML PO PRN (10:02)
--- NOTE | 2021-07-23 11:21 | CON ---
Date of Consultation: 07/23/2021 History Of Present Illness: This is my first time seeing this patient to my knowledge. She is a 80- year-old female, who unfortunately injured her left side after a fall. She was complaining of pain i n the left groin as well as left back and left elbow. She has a wrapped left elbow from apparent lac eration, which has been treated by the emergency department and I am not consulted for this. I am co nsulted, however, for pubic fractures as well as sacral ala fracture. Physical Examination: Otherwise she denies any other pain. Review of CT scan reveals a vertical fracture of the sacrum as well as fracture of the pubic rami. There does not appear to be any significant displacement, specif ically no vertical displacement. The SI joint itself appears to be intact. Assessment: This is a 80-year-old female, now with a sacral ala fracture as well as pubic rami fract ures. I think that she can treat this with protected weightbearing obviously, will be very painful a t least the beginning and definitely needs physical therapy. She can be weightbearing as tolerated; however, most likely we would relegate her to the use of a walker for at least 2 weeks, but not longe rAlexandru ARRIAGA/MICHAEL Voice ID: [id number] Report ID: [id number]
[2021-07-23] MEDS ORDERED: PNEUMOCOCCAL VACCINE 0.5 ML IMVAC ONE (12:00)
[2021-07-23] MEDS ORDERED: INFLUENZA VACCINE (for 6+ mo) 0.5 ML DOSE IMVAC ONE (12:00)
--- NOTE | 2021-07-23 12:08 | HP ---
Date of Admission: 07/23/2021 Chief Complaint: Fall and pain. History Of Present Illness: This is a 80-year-old very pleasant female patient, who was outside in her yard with flip-flops on and as she moved, she lost her balance and fell down on the ground. She was assisted to go back in her house and ambulance was called and she was brought into ER. After further evaluation, she was admitted to the hospital with left elbow laceration and fracture of pelvis and sacral ala. This morning when I saw her, she denied any complaints. Pain medication seems to be helping her with the pain. Allergies: TO PENICILLIN CAUSING THROAT SWELLING AND SULFA CAUSING NAUSEA. Medications: Amlodipine 2.5 mg daily, aspirin 81 mg daily, Caltrate plus D 1 tablet 2 times a day, carbidopa/levodopa 25/100 takes 1 tablet by mouth 4 times a day, vitamin D3 1000 units daily, duloxetine 30 mg daily, famotidine 40 mg daily at bedtime, fluticasone nasal spray 1 spray each nostril 2 times a day as needed for allergies, levothyroxine 75 mcg p.o. daily, metoprolol succinate 50 mg p.o. daily, pantoprazole 40 mg p.o. daily, rosuvastatin 5 mg p.o. daily, topiramate 25 mg p.o. daily at bedtime, and zolpidem 10 mg daily at bedtime as needed for sleep. Review of Systems: Musculoskeletal: As mentioned above. All other systems reviewed and negative. Past Medical History: Significant for Parkinson disease, hypothyroidism, impaired fasting glucose, hypertension, hyperlipidemia, gastroesophageal reflux disease, diverticulosis, osteoarthritis at multiple sites, osteoporosis. Past Surgical History: Cataract surgery, tubal ligation, D and C, arthroscopic knee surgery on the left knee. Family History: Father , had emphysema. Mother , had atherosclerosis. Brother has high blood pressure. Sister , had cerebral aneurysm and stroke. Social History: Negative for smoking and alcohol use. Immunization History: Her COVID-19 vaccine first dose was November 10, 2020, second dose December 08, 2020. Physical Examination: Vital Signs: Temperature 97.9, pulse 88, respiratory rate 97, blood pressure 111/61, height 5 feet 2 inches, weight 150 pounds. General: Awake, alert, oriented, not in distress. HEENT: Head atraumatic, normocephalic. Conjunctivae nonerythematous. Sclerae white. Mouth, no thrush or edema noted. Ears/Nose, no mass, lesion, discharge noted. Neck: Supple. No JVD, lymph nodes, bruit, thyromegaly noted. Lungs: Bilateral good equal air entry. Clear to auscultation. No rhonchi. No rales. Heart: Normal heart sounds, no murmur or gallop. Abdomen: Soft, bowel sounds normal. No guarding, rigidity, tenderness, mass, hepatosplenomegaly, distention, or bruit noted. Extremities: No leg edema. No calf tenderness. Skin: No rash, ulcer, cellulitis. Lymphatics: No lymph node enlargement in neck, supraclavicular, infraclavicular region. Neuro: No focal neurological deficit. Chest: Unremarkable. External Genitalia: Deferred. Rectal: Deferred. Musculoskeletal: Left elbow has a small laceration with sutures present. No evidence of any active discharge or bleeding. Has some surrounding bruising of the skin. Laboratory Data: Yesterday; white count 10.10, hemoglobin 16.1, platelets 191. Today; white count 6.9, hemoglobin 13.5, platelets 172. Yesterday; sodium 142, potassium 3.7, chloride 107, bicarb 27, BUN 12, creatinine 0.87, glucose 103. Liver function tests unremarkable. Troponin less than 0.02. This morning; sodium 141, potassium 3.9, chloride 110, bicarb 24, BUN 13, creatinine 0.88, glucose 105. Urinalysis; trace blood, 1+ protein, otherwise negative. COVID-19 test negative. CAT scan of the pelvis shows left sacral ala fracture, known displaced left ischium fracture, left superior pubic rami fracture extending into the pubic symphysis. Left femoral head and neck are intact. There is faint lucency along the superior aspect of the greater trochanter without definite fracture. X-ray of knee negative for any acute fracture. Impression: 1. Fracture of left superior pubic rami, pubic symphysis and left sacral ala. 2. Left elbow laceration. 3. Parkinson disease. 4. Hypertension. 5. Hyperlipidemia. 6. Impaired fasting glucose. 7. Gastroesophageal reflux disease. 8. Diverticulosis. 9. Osteoarthritis, multiple sites. 10. Osteoporosis. Plan: Admit the patient to hospital for further evaluation and management of this problem. The patient is appropriate for inpatient and is expected to spend 2 midnights in hospital. IV morphine was ordered on as needed basis for pain control and that seems to be helping her. We will start her on [place] 5 mg 3 times a day on a scheduled basis for pain control and still continue to use morphine as needed. We will go ahead and give her stool softener, Senokot-S 2 tablets 2 times a day and milk of magnesia daily as needed. She reports her last bowel movement was 2 days ago. Normally, she has bowel movement every day. We will continue home medications per order and DVT prophylaxis will be started using SCD and starting tomorrow, we will start Lovenox 40 mg subcutaneous injection daily. Orthopedic consultation from Dr. Harris was requested and we will consult Inpatient Rehab, Physical Therapy and Occupational Therapy. Details and plan of treatment discussed with the patient. Daily dressing changes will be provided to left elbow area. We will continue empiric antibiotic. She was started on cefazolin in the emergency room and she has tolerated that very well without any allergic reaction, so we will continue that at this point. MICHELLE/MODL Voice ID: [id number] MTDD
[2021-07-23] MEDS: CARBIDOPA/LEVODOPA 25/100 TAB PO SCH ×3 (13:05→21:07)
[2021-07-23] MEDS: HYDROCODONE/APAP 5/325 MG TAB PO SCH ×2 (14:00→21:07)
[2021-07-23] MEDS: TOPIRAMATE 25 MG PO SCH (21:00)
[2021-07-23] MEDS: ZOLPIDEM TARTRATE 5 MG TABLET PO SCH (21:07)
[2021-07-23] MEDS: DOCUSATE NA/SENNA CONC 1 TAB PO SCH (21:14)
[2021-07-24] MEDS: CEFAZOLIN/NS 1gm 1 GM/50 ML BAG IVPB SCH ×3 (01:27→17:29)
[2021-07-24] MEDS: AMLODIPINE 2.5 MG TAB PO SCH (05:24)
[2021-07-24] MEDS: METOPROLOL TAR 25 MG TAB PO SCH (05:25)
[2021-07-24 07:49] LABS: Absolute Lymphocytes (CBC) 1.1 K/uL (0.7-4.9); Basophils % 0.5 % (0-1.3); Hematocrit 38.8 % (36.0-45.0); Lymphocytes % 18.6 % (15.3-44.8); MPV 7.9 fL (7.6-11.3); RBC Red Blood Cell Count 4.12 M/uL (3.86-4.86)
--- NOTE | 2021-07-24 07:51 | PN ---
Date of Progress Note: 07/24/2021 Subjective: The patient was seen this morning for followup. She was lying in bed, not in distress. Slept well last night. She still has pain in her left pelvis area and left elbow region, which is u nder good control with current pain medication. Did not have any bowel movement yesterday. She does have a Macias catheter in place, which will think about removing it either later today or tomorrow. Objective: Vital Signs: Reviewed. Last temperature 97.8, pulse 76, respiratory rate 18, blood pres sure 126/59. HEENT: Examination unremarkable. Lungs: Clear to auscultation. Heart: Sounds normal. Abdomen: Soft. Bowel sounds normal. No guarding, rigidity, tenderness, or distention. Extremities: No leg edema. Impression: 1.Laceration, left elbow. 2.Fracture, left pelvis, involving pubic symphysis, left superior pubic rami, and left sacral ala. 3.Parkinson disease. 4.Hypertension. 5.Hyperlipidemia. 6.Osteoarthritis, multiple sites. Plan: We will go ahead and continue current medication. Continue current pain medication. We will go ahead and have Physical therapy and Occupational therapy work with the patient. We will request r the [facility] to evaluate her for inpatient rehab benefit and will see her tomorrow for followup. When I saw her this morning, she still did not have her SCD on, which was ordered yesterday morning and I did br ing this to charge nurse attention to have patient place SCD now and she will receive Lovenox for DVT prophylaxis as well. MICHELLE/MODL Voice ID: [id number] Report ID: [id number]
[2021-07-24 08:12] LABS: Magnesium 2.1 mg/dL (1.8-2.4); Potassium 3.4 mmol/L (3.5-5.1)
[2021-07-24 08:13] LABS: Thyroid Stimulating Hormone 4.96 uIU/mL (0.360-3.740)
[2021-07-24] MEDS: ROSUVASTATIN 5 MG PO SCH (09:00)
[2021-07-24] MEDS: DOCUSATE NA/SENNA CONC 1 TAB PO SCH ×2 (09:00→20:39)
[2021-07-24] MEDS: HYDROCODONE/APAP 5/325 MG TAB PO SCH ×3 (09:01→20:38)
[2021-07-24] MEDS: ASPIRIN EC 81 MG TAB PO SCH (09:01)
--- NOTE | 2021-07-24 09:01 | EKG ---
Test Date: 2021-07-22 Test Time: 11:38:53 Fruit Grader: MORRO MEASUREMENT RESULTS: Intervals: Rate: 73 RI: 164 QRSD: 84 QT: 378 QTc: 416 [place]: P: -1 RI: 164 QRS: -52 T: -4 INTERPRETIVE STATEMENTS: Sinus rhythm with premature atrial complexes Left axis deviation Low voltage QRS Abnormal ECG Compared to ECG 07/06/2021 19:19:59 Atrial premature complex(es) now present Low QRS voltage now present Myocardial infarct finding no longer present Electronically Signed On 07-24-21 08:57:42 CDT by Emerson Carrero
[2021-07-24] MEDS: ENOXAPARIN 40 MG/0.4 ML SQ SCH (09:03)
[2021-07-24] MEDS: CARBIDOPA/LEVODOPA 25/100 TAB PO SCH ×4 (09:04→20:39)
[2021-07-24] MEDS: LEVOTHYROXINE SOD 0.075 MG TAB PO SCH (09:05)
[2021-07-24] MEDS ORDERED: ACETAMINOPHEN 325 MG TABLET PO PRN (16:00)
[2021-07-24] MEDS ORDERED: POTASSIUM CL SA 10 MEQ TAB PO ONE (16:00)
[2021-07-24] MEDS: ZOLPIDEM TARTRATE 5 MG TABLET PO SCH (20:39)
[2021-07-24] MEDS: TOPIRAMATE 25 MG PO SCH (20:40)
[2021-07-25] MEDS: CEFAZOLIN/NS 1gm 1 GM/50 ML BAG IVPB SCH ×3 (00:45→17:22)
[2021-07-25] MEDS: METOPROLOL TAR 25 MG TAB PO SCH (05:15)
[2021-07-25] MEDS: AMLODIPINE 2.5 MG TAB PO SCH (05:16)
[2021-07-25] MEDS: HYDROCODONE/APAP 5/325 MG TAB PO SCH ×3 (08:27→20:22)
[2021-07-25] MEDS: ASPIRIN EC 81 MG TAB PO SCH (08:27)
[2021-07-25] MEDS: DOCUSATE NA/SENNA CONC 1 TAB PO SCH ×2 (08:27→20:24)
[2021-07-25] MEDS: CARBIDOPA/LEVODOPA 25/100 TAB PO SCH ×4 (08:27→20:24)
[2021-07-25] MEDS: LEVOTHYROXINE SOD 0.075 MG TAB PO SCH (08:27)
[2021-07-25] MEDS: ENOXAPARIN 40 MG/0.4 ML SQ SCH (08:29)
[2021-07-25] MEDS: ROSUVASTATIN 5 MG PO SCH (09:00)
--- NOTE | 2021-07-25 12:53 | PN ---
Date of Progress Note: 07/25/2021 Subjective: The patient was seen for followup this morning. She was lying in her bed, not in distre ss. Denies any new complaints. Her was with her at bedside. Vital signs reviewed. Intake- output records reviewed. She has not had a bowel movement since she has been in the hospital but tel ls me this is not unusual for her. Denies any abdominal pain. She has a Macias catheter in place ami t is draining yellowish-colored urine. Objective: Vital Signs: Reviewed. HEENT: Unremarkable. Lungs: Clear to auscultation. Heart: Sounds normal. Abdomen: Soft. Bowel sounds normal. No guarding, rigidity, tenderness, or distention. Extremities: No leg edema. Laboratory Data: There were no new labs today. Impression: 1.Laceration, left elbow. 2.Fracture, left pelvis involving pubic symphysis and left superior pubic rami and left sacral ala. 3.Hypertension. 4.Parkinson's disease. 5.Osteoarthritis, multiple sites. 6.Constipation. Plan: We will go ahead and remove her Macias catheter. The patient may use bedside commode. Physica l Therapy and Occupational Therapy to continue to work with her. We will continue DVT prophylaxis. Stool softener Senokot-S 2 tablets 2 times a day was ordered. We will continue that and she also has order for milk of magnesia on a p.r.n. basis. The patient was encouraged to participate with physic al therapy and we have consulted inpatient rehab yesterday. We are waiting for insurance approval. The patient's was in the room with her today and all the det ails were discussed with him. MICHELLE/MODL Voice ID: [id number] Report ID: [id number]
[2021-07-25] MEDS: ZOLPIDEM TARTRATE 5 MG TABLET PO SCH (20:23)
[2021-07-25] MEDS: TOPIRAMATE 25 MG PO SCH (20:24)
[2021-07-26] MEDS: CEFAZOLIN/NS 1gm 1 GM/50 ML BAG IVPB SCH ×3 (00:59→16:06)
[2021-07-26 06:09] LABS: Potassium 3.2 mmol/L (3.5-5.1)
[2021-07-26] MEDS ORDERED: POTASSIUM CL SA 10 MEQ TAB PO ONE (06:49)
[2021-07-26] MEDS: ROSUVASTATIN 5 MG PO SCH (09:00)
[2021-07-26] MEDS: AMLODIPINE 2.5 MG TAB PO SCH (09:02)
[2021-07-26] MEDS: CARBIDOPA/LEVODOPA 25/100 TAB PO SCH ×4 (09:03→21:00)
[2021-07-26] MEDS: DOCUSATE NA/SENNA CONC 1 TAB PO SCH ×2 (09:03→20:56)
[2021-07-26] MEDS: LEVOTHYROXINE SOD 0.075 MG TAB PO SCH (09:03)
[2021-07-26] MEDS: METOPROLOL TAR 25 MG TAB PO SCH (09:04)
[2021-07-26] MEDS: ASPIRIN EC 81 MG TAB PO SCH (09:04)
[2021-07-26] MEDS: HYDROCODONE/APAP 5/325 MG TAB PO SCH ×3 (09:04→20:56)
[2021-07-26] MEDS: ENOXAPARIN 40 MG/0.4 ML SQ SCH (09:05)
[2021-07-26] MEDS: ZOLPIDEM TARTRATE 5 MG TABLET PO SCH (20:57)
[2021-07-26] MEDS: TOPIRAMATE 25 MG PO SCH (21:00)
[2021-07-27] MEDS: CEFAZOLIN/NS 1gm 1 GM/50 ML BAG IVPB SCH (01:00)
[2021-07-27] MEDS: MORPHINE 2 MG/ML SYR IV PRN ×5 (01:03→20:32)
[2021-07-27 01:13] VITALS: BMI 25.0
[2021-07-27 05:37] LABS: Absolute Lymphocytes (CBC) 1.1 K/uL (0.7-4.9); Basophils % 0.5 % (0-1.3); Hematocrit 35.6 % (36.0-45.0); Lymphocytes % 16.7 % (15.3-44.8); MPV 8.5 fL (7.6-11.3); RBC Red Blood Cell Count 3.81 M/uL (3.86-4.86)
[2021-07-27 05:49] LABS: Magnesium 2.1 mg/dL (1.8-2.4); Potassium 3.5 mmol/L (3.5-5.1)
[2021-07-27] MEDS: AMLODIPINE 2.5 MG TAB PO SCH (06:00)
[2021-07-27] MEDS: METOPROLOL TAR 25 MG TAB PO SCH (06:00)
[2021-07-27] MEDS ORDERED: POTASSIUM CL SA 10 MEQ TAB PO ONE (06:57)
[2021-07-27] MEDS: D5 0.9 NS 1,000 ML IV SCH ×3 (07:36→20:37)
[2021-07-27] MEDS: Levofloxacin 750mg IV 750 MG/150 ML BAG IV SCH (08:09)
[2021-07-27] MEDS: ASPIRIN EC 81 MG TAB PO SCH (08:10)
[2021-07-27] MEDS: ENOXAPARIN 40 MG/0.4 ML SQ SCH (08:10)
[2021-07-27] MEDS: HYDROCODONE/APAP 5/325 MG TAB PO SCH ×5 (08:10→20:37)
[2021-07-27] MEDS: VANCOMYCIN 1.25 GM in NA CHLORIDE 0.9% 250 ML IVPB SCH (08:10)
[2021-07-27] MEDS: CARBIDOPA/LEVODOPA 25/100 TAB PO SCH ×7 (08:11→20:41)
[2021-07-27] MEDS: ROSUVASTATIN 5 MG PO SCH (08:11)
[2021-07-27] MEDS: DOCUSATE NA/SENNA CONC 1 TAB PO SCH ×2 (08:11→20:43)
[2021-07-27] MEDS: LEVOTHYROXINE SOD 0.075 MG TAB PO SCH (08:12)
--- NOTE | 2021-07-27 08:32 | DS ---
DAILY NOTE At this time, I am called to see her for her elbow. I was not really asked to see her before as most ly concerned about her sacral and pubic rami fracture. However, apparently, she is having some blood y discharge from her elbow and I am asked to see her. On physical examination, she was taken out of her dressing. Her skin is intact. There are some Prolene sutures there. There does appear to be a little bit of blood under the skin. She does have some redness, but I would not call this erythemato us or fluctuant. It does not appear to be frankly infected. At this time, I will go head and contin ue treating that with dressing, may have some continued bloody drainage. Hopefully, this will cease with time. Definitely, we would place a padded dressing on her elbow as she has already. Observe he r closely for any signs of infection. She is on antibiotics now for UTI, however, would check for an y signs of worsening. Otherwise, hopefully, this will improve with time. X-rays are normal. /MICHAEL Voice ID: [id number] Report ID: [id number]
--- NOTE | 2021-07-27 08:55 | PN ---
Date of Progress Note: 07/27/2021 Subjective: The patient was seen this morning for followup. Her was with her at bedside. S he reports that yesterday she did ambulate approximately 300 feet. She ambulated in the hallway very well which is much better than the day before, so it appears that she is progressing well with the p hysical therapy. She continues to have pain in her pelvis and left elbow and that requires narcotic pain medication use, but current pain medication seems to be helping her well. She did have bowel mo vement last night after we gave her laxatives. No abdominal pain. No nausea, no vomiting. Objective: Vital signs: Reviewed. She remains afebrile. HEENT: Unremarkable. Lungs: Clear to auscultation. Heart: Sounds normal. Abdomen: Soft. Bowel sounds normal. No guarding, rigidity, tenderness, or distention. Extremities: No leg edema. Left elbow was examined again and today the soft tissue swelling is jossy le more than yesterday, approximately 5-6 cm area of soft tissue swelling around the laceration. The superior part of the skin superior to the laceration has some loss of epidermal skin and appears sli ghtly yellowish in color. There is no active discharge or bleeding. Skin over the swelling is sligh tly warm to touch and erythematous. Laboratory Data: Sodium 141, potassium 3.5, chloride 107, bicarb 27, BUN 13, creatinine 0.65, glucos e 114. White count 6.5, hemoglobin 12.2, platelets 183. Impression: 1.Left elbow laceration. 2.Fracture, left sacral ala, left pubic symphysis, and left superior pubic rami. 3.Hypertension. 4.Hypokalemia. Plan: The patient's left elbow appears slightly worse today than yesterday. She has some soft tissu e swelling. I am concerned whether this is some blood collected inside or possibility of infected bl ood or pus. Considering her today's examination, I will go ahead and discontinue her cefazolin and w e will start her on vancomycin as well as Levaquin. We will keep her n.p.o. right now in case if Dr. Harris decides to take her to operating room for debridement procedure. Start her on IV fluid D5 normal saline. We will give 1 dose of potassium chloride 20 mEq p.o. x1 dose. Yesterday potassium was 3.2, today it is 3.5, so it is much better than yesterday. She continues to receive DVT prophyla xis with Lovenox. We will continue that and details of the plan of treatment discussed with the reji ent and her who was at bedside. MICHELLE/MODL Voice ID: [id number] Report ID: [id number]
--- NOTE | 2021-07-27 09:01 | PN ---
Date of Progress Note: 07/26/2021 Subjective: The patient was seen this morning for followup. No new complaints or problems reported by the patient. Lying in bed, not in distress. She did ambulate with physical therapy yesterday. C ontinues to have pain in her left elbow and pelvis region, but pain medication seems to help. Vital signs reviewed. She has not had a bowel movement since she has been in the hospital. Denies any abd ominal pain. Has a good appetite. Objective: Vital Signs: Reviewed. HEENT: Examination unremarkable. Lungs: Clear to auscultation. Heart: Sounds normal. Abdomen: Soft. Bowel sounds normal. No guarding, rigidity, tenderness, or distention. Extremities: No leg edema. Left elbow was examined today and has sutures present over this left elb ow laceration, has some underlying soft tissue swelling and range of motion is painful. There is no discharge, no bleeding. Laboratory Data: Sodium 141, potassium 3.2, chloride 106, bicarb 28, BUN 13, creatinine 0.76, glucos e 110. Impression: 1.Left elbow laceration. 2.Fracture, left pubic symphysis, left superior pubic rami and left sacral ala. 3.Hypokalemia. 4.Hypertension. 5.Parkinson disease. Plan: We will go ahead and replace potassium per order. Physical Therapy to continue to work with t he patient. Dr. Harris had evaluated her for pelvis fracture, but I have requested him to evaluat e her for left elbow laceration considering this soft tissue swelling that she has need to find out i f she needs any debridement procedure done or not. Meanwhile, we will continue her current antibiotic which is cefazolin. We will repeat blood work tomorrow. I will see her tomorrow for foll owup. MICHELLE/MODL Voice ID: [id number] Report ID: [id number]
--- NOTE | 2021-07-27 14:44 | ECHO ---
HEIGHT: 5 ft 5 in WEIGHT: 150 lb 0 oz DATE OF STUDY: 07/24/[address]: Gaetano Borden MD 2-DIMENSIONAL: YES M.MODE: YES DOPPLER: YES COLOR FLOW: YES TDS: YES PORTABLE: DEFINITY: BUBBLE STUDY: DIAGNOSIS: SUPRAVENTRICULAR TACHYCARDIA CARDIAC HISTORY: CATHERIZATION: NO SURGERY: NO PROSTHETIC VALVE: NO PACEMAKER: NO MEASUREMENTS (cm) DIASTOLIC (NORMALS) SYSTOLIC (NORMALS) IVSd 1.2 (0.6-1.2) LA Diam 2.9 (1.9-4.0) LVEF 61% LVIDd 4.7 (3.5-5.7) LVIDs 3.2 (2.0-3.5) %FS 32% LVPWd 1.1 (0.6-1.2) Ao Diam 2.6 (2.0-3.7) 2 DIMENSIONAL ASSESSMENT: RIGHT ATRIUM: NORMAL LEFT ATRIUM: NORMAL RIGHT VENTRICLE: NORMAL LEFT VENTRICLE: NORMAL TRICUSPID VALVE: NORMAL MITRAL VALVE: MILD MITRAL REGURGITATION PULMONIC VALVE: MILD PULMONIC INSUFFIENCY AORTIC VALVE: NORMAL PERICARDIAL EFFUSION: NONE AORTIC ROOT: NORMAL LEFT VENTRICULAR WALL MOTION: NORMAL DOPPLER/COLOR FLOW: SEE BELOW COMMENTS: NORMAL LEFT VENTRICULAR EJECTION FRACTION 60-65%. NORMAL WALL MOTION. MILD MITRAL REGURGITATION, MILD PULMONIC INSUFFIENCY. TECHNOLOGIST: NORMA ALEX
[2021-07-27 20:16] VITALS: O2SAT 97
[2021-07-27] MEDS: ZOLPIDEM TARTRATE 5 MG TABLET PO SCH ×2 (20:33→20:37)
[2021-07-27] MEDS: TOPIRAMATE 25 MG PO SCH (21:00)
[2021-07-28] MEDS: VANCOMYCIN 1.25 GM in NA CHLORIDE 0.9% 250 ML IVPB SCH (02:00)
[2021-07-28] MEDS: MORPHINE 2 MG/ML SYR IV PRN (04:56)
[2021-07-28] MEDS: METOPROLOL TAR 25 MG TAB PO SCH (06:34)
[2021-07-28] MEDS: AMLODIPINE 2.5 MG TAB PO SCH (06:34)
[2021-07-28] MEDS ORDERED: HYDROCODONE/APAP 7.5/325 MG TAB PO SCH (08:00)
[2021-07-28 08:05] VITALS: BP 134/66; TEMP 98.6
[2021-07-28] MEDS: Levofloxacin 750mg IV 750 MG/150 ML BAG IV SCH (08:39)
[2021-07-28] MEDS: DOCUSATE NA/SENNA CONC 1 TAB PO SCH (08:40)
[2021-07-28] MEDS: ASPIRIN EC 81 MG TAB PO SCH (08:40)
[2021-07-28] MEDS: ROSUVASTATIN 5 MG PO SCH (08:41)
[2021-07-28] MEDS: CARBIDOPA/LEVODOPA 25/100 TAB PO SCH (08:41)
[2021-07-28] MEDS: ENOXAPARIN 40 MG/0.4 ML SQ SCH (08:41)
[2021-07-28] MEDS: LEVOTHYROXINE SOD 0.075 MG TAB PO SCH (08:42)
--- NOTE | 2021-07-29 03:50 | DS ---
Date of Discharge: 07/28/2021 Disposition: Discharged to go to inpatient rehab. Physical Examination: HEENT: Unremarkable. Lungs: Clear to auscultation. Heart: Sounds normal. Abdomen: Soft. Bowel sounds normal. No guarding, rigidity, tenderness, distention. Extremities: No leg edema. Left buttocks and left upper lateral thigh have large area of bruising. Left upper extremity has sutures present over elbow laceration. No active discharge or bleeding. T his has a small area of soft tissue swelling over this elbow 4-5 cm in size, appears smaller today th an yesterday and has slightly pink and warm to touch skin over this, but overall it appears slightly better today than yesterday. The patient does have some bruising of the left arm as well. Laboratory Data: Upon admission; white count 10.10, hemoglobin 16.1, platelets 191. Last CBC yester day; white count 6.5, hemoglobin 12.2, platelets 183. Initial chemistry; sodium 142, potassium 3.7, chloride 107, bicarb 27, BUN 12, creatinine 0.87, glucose 103. Liver function tests unremarkable. T SH 4.96. Last chemistry yesterday; sodium 141, potassium 3.5, chloride 107, bicarb 27, BUN 13, creat inine 0.65, glucose 114. Lowest potassium was 3.2 on 07/26/2021. Echocardiogram on 07/24/2021; ejec tion fraction 61%, mild mitral regurgitation, mild pulmonary regurgitation. Final Diagnoses: 1.Fracture of left superior pubic rami, pubic symphysis, left sacral ala. 2.Left elbow laceration. 3.Hypokalemia. 4.Hypothyroidism. 5.Parkinson disease. 6.Hypertension. 7.Hyperlipidemia. 8.Impaired fasting glucose. 9.Gastroesophageal reflux disease. 10.Diverticulosis. 11.Osteoarthritis, multiple sites. 12.Osteoporosis. 13.Constipation. Hospital Course: This is a 80-year-old pleasant female patient, who was admitted to the hospital aft er she fell down in her backyard. Please see dictated H and P for more information. After the patie nt was evaluated in emergency room, she was admitted to hospital. SCD was ordered for DVT prophylaxi s. She was started on Lovenox 40 mg subcutaneous injection daily also for DVT prophylaxis. Home med ications were continued. Physical Therapy and Occupational Therapy were consulted and the patient di d start to participate well with the therapy. Inpatient rehab was consulted. Dr. Harris from [facility] was consulted for left elbow laceration as well as fracture of pelvis. No surgical i ntervention was recommended by him. Initially, the patient was on cefazolin antibiotic for her left elbow laceration problem and yesterday I changed antibiotic to Levaquin and vancomycin considering co ncerns about worsening of the left elbow soft tissue swelling underneath the laceration and some area of concern with warm and pink skin tender to touch over this left elbow region. I am concerned abou t some cellulitis. Dr. Harris did not suggest any debridement or any surgical intervention. So, we will continue this empiric antibiotics. Initially, she was given Menan 5 mg 3 times a day on a sc heduled basis with p.r.n. morphine for pain control. Today, she told me that she has experienced mor e pain so I have changed her Menan medication from 5 to 7.5 mg every 6 hours and we will still contin ue p.r.n. morphine. For first few days, she did not have any bowel movement, but after giving laxati ves, she had a bowel movement. We will continue to see her on rehab floor and she will receive physi carlos therapy per guidance of Dr. Campbell. MICHELLE/MODL Voice ID: [id number] Report ID: [id number]
== END 2021-07-28 10:06 | DRG 552 ==
LOC: ER 12:30 → ERHOLD 15:03 → 2ND 21:41
PROVIDERS: ADMIT Internal Medicine; ATTEND Internal Medicine
PROC: 0HQEXZZ Repair Left Lower Arm Skin, External Approach (ICD-10-PCS; principal; 2021-07-22)
DX: S32.10XA Unspecified fracture of sacrum, initial encounter for closed fracture (principal); S32.512A Fracture of superior rim of left pubis, initial encounter for closed fracture; S32.602A Unspecified fracture of left ischium, initial encounter for closed fracture; S32.502A Unspecified fracture of left pubis, initial encounter for closed fracture; N39.0 Urinary tract infection, site not specified; L03.114 Cellulitis of left upper limb; S51.012A Laceration without foreign body of left elbow, initial encounter; S80.02XA Contusion of left knee, initial encounter; E03.9 Hypothyroidism, unspecified; G20 Parkinson's disease; W18.30XA Fall on same level, unspecified, initial encounter; Y93.01 Activity, walking, marching and hiking; Y92.9 Unspecified place or not applicable; Z88.0 Allergy status to penicillin; Z79.82 Long term (current) use of aspirin; Z79.890 Hormone replacement therapy; Z79.899 Other long term (current) drug therapy; Z20.822 Contact with and (suspected) exposure to COVID-19; Z88.1 Allergy status to other antibiotic agents; K21.9 Gastro-esophageal reflux disease without esophagitis; M19.90 Unspecified osteoarthritis, unspecified site; E78.5 Hyperlipidemia, unspecified; I10 Essential (primary) hypertension; Z98.51 Tubal ligation status; R73.01 Impaired fasting glucose; K57.90 Diverticulosis of intestine, part unspecified, without perforation or abscess without bleeding; M81.0 Age-related osteoporosis without current pathological fracture; K59.00 Constipation, unspecified; E87.6 Hypokalemia
CPT/HCPCS: 36415; 51702; 71045; 72192; 80048; 80076; 81003; 83735; 83880; 84439; 84443; 84484; 85025; 85610; 90471; 90714; 93005; 93306; 96365; 96366; 96375; 97110; 97112; 97116; 97161; 97530; 99285; J0690; J1650; J2270; J2405; J3370; J7030; J7042; J7050; U0003

== ENCOUNTER 2021-07-24 11:09 | Inpatient (IN) | payer OTHER ==
--- NOTE | 2021-07-28 09:31 | R.PREADM ---
PRE-ADMISSION SCREENING FORM SCREENING DATE AND TIME 07/26/2021 08:53 (CDT) ANTICIPATED REHAB ADMISSION DATE 07/28/2021 REFERRING FACILITY [facility] REFERRAL DATE AND TIME 07/23/2021 10:03 (CDT) REFERRAL ROOM# 210 ACUTE ADMIT DATE 07/22/2021 Previous Rehabilitation(s): No. ATTENDING PHYSICIAN Roger Wall MD REFERRING PHYSICIAN [facility] CLINICAL LIAISON Jessie Erickson PHYSICIAN REVIEWER Dr. Abdelrahman Campbell M.D. MR# [id number] [facility] [id number] NAME PRABHAKAR HASTINGS [address] [facility] [facility] PHONE [facility] [id number] DATE OF 1940 AGE 80 SSN# [id number] GENDER female MARITAL STATUS RACE white ADMIT FROM 02 - [facility] PRE-HOSPITAL LIVING SETTING 01 - Home (private home/apt. board/care, assisted living, snf, transitional living) HOME TYPE AND DETAILS Type of home: single family house # of steps to enter the residence: 0 # of steps within the residence: 13 # of levels in the residence: 2 PRE-HOSPITAL LIVING WITH Family/Relatives FAMILY SUPPORT Yes FAMILY SUPPORT DETAILS Pt lives at home with PRIMARY FAMILY CONTACT NAME Galo Hastings PRIMARY FAMILY CONTACT PHONE PRIMARY FAMILY CONTACT RELATIONSHIP Spouse PHONE PRIMARY FAMILY CONTACT ON ADM.? no IS PRIMARY FAMILY CONTACT AUTH. REP.? no 1ST EMERGENCY CONTACT Galo Hastings 1ST CONTACT PHONE 1ST CONTACT RELATIONSHIP Spouse PHONE 1ST CONTACT ON ADM. no IS 1ST CONTACT AUTH. REP.? no PHONE 2ND CONTACT ON ADM.? no PATIENT EMPLOYMENT STATUS Retired (for age) PATIENT EMPLOYER No Employer PAYOR INFORMATION: 1ST PAYOR NAME Jacob Medicare 1ST PAYOR PHONE [phone] 1ST PAYOR POLICY ID [id number] INJURY/ILLNESS DUE TO ACCIDENT? No ANOTHER DEMOCRAT RESPONSIBLE? No PRIMARY REHAB/ACUTE DIAGNOSIS: Parkinson's Disease with resulting pelvic fx ONSET DATE 07/22/2021 REHAB IMPAIRMENT CATEGORY (HOLLY): 06 Neurological (Neuro) MEETS 60% rule PRIMARY DIAGNOSIS-RELATED SURGERIES: N/A INTERVENTIONS: - Fall Prevention Educate patient on proper use of AE/D to minimize fall risk Educate patient/family on fall prevention strategies Educate patient/family on fall hazards within the family Educate the patient with fall recovery - Safety Educate patient/family on proper caregiver assistance with a person with Parkinson's Disease Educate patient on memory recall strategies to increase carryover Educate patient on proper footwear when on uneven surfaces - Medication Management Assist with blood sugar control per doctor orders Assist with pain management - Diet Educate patient on diet to control glucose levels, gastroesophageal reflux disease, and diverticulosi s RISK FOR COMPLICATIONS: - Fx Educate on prevention of worsening pelvic fx Educate on proper precautions post sx - UTI Monitor for frequency, burning, discomfort, or incontinence - DVT CIELO hose; sequential compression device as needed/prescribed Routine checks/assessments of pt - Skin Breakdown Nursing will assess skin daily using assessment tool and will place on Skin Breakdown Precautions as Indicated per protocol - Pain Clinical staff will assess patient's pain level every shift per protocol to monitor for pain manageme nt effectiveness Medications will be given and the pain level reassessed. Clinical Staff may employ other methods such as: massage, distraction, decrease stimulus, etc. as needed Educate patient on pain management strategies - Falls Educated pt on fall prevention strategies to reduce/eliminate fall risk Patient will be evaluated for Fall Precautions and will be placed on Fall Precautions as indicated pe r protocol. - Impaired Safety Educate patient on safety hazards Educate patient on safety awareness strategies. SUMMARY OF ACUTE HOSPITALIZATION: Pt. is a 80 yo white female. On 07/22/2021 she was admitted to [facility] with diagnosis Parkinson's Diseas e with resulting pelvic fx. Her impairment category is Neurologic Conditions 03 - Parkinsonism (03.2). Pre-morbidly, Pt. was independent/mod-I in Locomotion, Safety Awareness, Social Cognition, Balance, S phincter Control, Communication, Endurance, Self-Care, and Transfers Control; and she had good Locomo tion, Safety Awareness, Social Cognition, Balance, Transfers Control, Sphincter Control, Self-Care, E ndurance, and Communication. Currently, she has deficits of Locomotion, Safety Awareness, Balance, Transfers Control, Self-Care, a nd Endurance. Pt. is now referred to [facility] for acute in-patient rehabilitation in order to maximize patient's functional independence in activities of daily living, strength, ROM, and mobi lity. Patient has realistic goal of being discharged at assistance level 7-Ind to reside at Home with Fami ly/Relatives. Ms. Prabhakar Hastings is a 80 yo white female that lives in a 2-story house with her . Ms. Hastings report s having her bedroom on the second floor. Ms. Hastings reported she was independent with all tasks, prior to hospitalization, within the community and at home. Ms. Hastings reported to [facility] on 07/22/2021 due to a reported mechanical fall from standing on an uneven surface while wearing flip -flops outside in her yard. Ms. Hastings recalls losing her balance and falling. Ms. Hastings was assisted to go back in her house and EMS brought her to the ED. Radiology reports indicate patient sustained a l aceration without foreign body of left elbow-hematoma, fracture of other parts of pelvis-left sacral ala, nondisplaced left ischium fx, left superior rami fx extending into the pubic symphysis, and cont usion of the left knee. Ms. Hastings has reported 2/10 pain on the left side to nursing; pain has been ad dressed. Ms. Hastings's lab results indicate low EGFR at 73 and elevated BP at 150/79 on 07/26/2021. Ms. Hastings is currently working with OT/PT. OT initial eval reports: Patient experiencing recent significan t decline in independence due to injuries from fall. She will benefit from skilled OT services to us e appropriate equipment and maximize independence with ADLs and IADLs. OT most recent assessment repo rts: Patient found seated in bedside chair, stating she was fatigued from her PT session, where she f eels she performed very well, and agreeable to OT session. UB exercises performed in all available pl anes/joints 2x10 reps for 5 different sets with increased timing, due to elbow "stinging pain" to lac eration area. Patient required min assist to steady elbow due to soreness during horizontal elbow fle x/extension with shoulder at 90 degrees abduction. Patient very participatory. PT initial eval report s: pt required MOD/MIN A with bed mobility, MIN A with transfers and gait using FWW. Pt exhibits impa ired ROM and strength on L LE, impaired standing b/t and decreased OOB tolerance indicating the need for PT services. PT recent visit reports: Patient requested to "try and use the restroom". Supine > sit w/ Min A. Unsupported EOB sitting for approx. 10 minutes x 1. Patient performed stand pivot tra nsfer to BS w/ Min A. Patient had a successful urination. Sit <> stand w/ Min A. Patient particip ated in gait tx. w/ RW w/ SBA for safety 130 ft. x 1. Patient presented w/ slow rubia, and receive d VC for upright posture. Patient performed a stand pivot transfer from WC > bedside chair w/ Min A. Pt demonstrates fair progress from initial evaluation. Pt demonstrates good cooperation and desire t o improve functional mobility to return to PLOF. Ms. Hastings expresses desire to maximize independence w ith ADL's/IADL's, safely return to her community, and decrease caregiver burden from her . Ms. Hastings demonstrates a strong necessity for acute IRF to also safely get to her room upstairs. With an interdisciplinary approach by acute IRF, pt. demonstrates great potential and motivation to get stron rosa, safer, and more independent to return to PLOF. It is reasonable and necessary for the patient t o come to acute IRF to safely dc. Pt is medically stable but in need of 24 hour nursing, doctor super vision, and oversight while receiving active and ongoing intensive (OT/PT/ST). The patient is reasona maria teresa expected to participate in 3 hours of therapy a day/15 hours a week. COVID-19 screening performed . Patient denies a new onset off ever, cough, difficulty breathing, sore throat, body aches and non- allergy nasal congestion in the past 24 hours. Patient denies travel outside of [place] in the past 14 days. Patient denies any contact with someone who has a confirmed diagnosis of or is under investigat ion for COVID-19 in the past 14days. Patient has been tested negative for COVID- 19. CONSULT: Neuro consult PAST MEDICAL HISTORY Parkinson's Disease Hypothyroidism Impaired Fasting Glucose Hypertension Hyperlipidemia gastroesophageal reflux disease (GERD) Diverticulosis Osteoarthritis at multiple sites osteoporosis PAST SURGICAL HISTORY: Cataract sx Tubal Ligation D and C Arthroscopic Knee Sx on left knee dates not provided MEDICATION ALLERGIES: Penicillins Sulfa ENVIRONMENTAL ALLERGIES: None Known - Substance Allergies None Known - Other Allergies None Known CODE STATUS: Full code WEIGHT/HEIGHT/BMI: WEIGHT 150 lbs HEIGHT 5' 2" BMI 27.4 DIET: - Diet Type Heart Healthy - Diet - Solid Texture Regular - Diet - Liquid Texture Regular - Tube Feed N/A SKIN DIAGRAM: Aching Left arm pain from laceration 11/16 Aching Left elbow pain from laceration 11/16 Aching Left knee pain from contusion 11/16 Aching pelvic pain from fx . REVIEW OF SYSTEMS: - Gen Alert and awake Lying in bed No apparent distress Oriented to: person, time, and place - Vital Signs Temperature: 98.2 F SBP/DBP: 150/79 Pulse: 100 Resp: 16 Vital signs stable, afebrile - CVS RRR VITAL SIGNS Temperature: 98.2 F forehead SBP/DBP: 150/79 Pulse: 100 Resp: 16 Vital signs stable, afebrile Vitals reported by nursing 07/26/2021 at 8 am. MEDICATIONS/TREATMENT: Other- See attached MAR (Medication Administration Record). CURRENT SPHINCTER CONTROL: Pre-hospital bladder status: unspecified # of bladder accidents in the last 7 days prior to screenin Pre-hospital bowel status: unspecified # of bowel accidents in the last 7 days prior to screenin Last Bowel Movement Date: 07/26/2021 CURRENT LOCOMOTION STATUS: distance walked 130 feet with RW DETAILED CURRENT FUNCTIONAL STATUS: - Bladder accident frequency: 7-Ind - No accidents in the past 7 days - Bowel accident frequency: 7-Ind - No accidents in the past 7 days - Walking score based on distance walked: 0(N/A) score based on distance walked: 2(50-149ft) - Wheelchair score based on distance traveled: 0(N/A) QI SCORES: - Self-Care A. Eating 05-Setup or clean-up assistance B. Oral hygiene 03-Partial/moderate assistance C. Toileting hygiene 03-Partial/moderate assistance E. Shower/bathe self 88-Not attempted due to medical condition or safety concerns F. Upper body dressing 03-Partial/moderate assistance G. Lower body dressing 03-Partial/moderate assistance H. Putting on/taking off footwear 02-Substantial/maximal assistance - Mobility A. Roll left and right 03-Partial/moderate assistance B. Sit to lying 03-Partial/moderate assistance C. Lying to sitting on side of bed 03-Partial/moderate assistance D. Sit to stand 03-Partial/moderate assistance E. Chair/vod-ls-tjbbb transfer 03-Partial/moderate assistance F. Toilet transfer 03-Partial/moderate assistance G. Car transfer 88-Not attempted due to medical condition or safety concerns I. Walk 10 feet 04-Supervision or touching assistance J. Walk 50 feet with two turns 04-Supervision or touching assistance K. Walk 150 feet 88-Not attempted due to medical condition or safety concerns L. Walking 10 feet on uneven surfaces 88-Not attempted due to medical condition or safety concerns M. 1 step (curb) 88-Not attempted due to medical condition or safety concerns N. 4 steps 88-Not attempted due to medical condition or safety concerns O. 12 steps 88-Not attempted due to medical condition or safety concerns P. Picking up object 88-Not attempted due to medical condition or safety concerns R. Wheel 50 feet with two turns S. Wheel 150 feet 09-Not applicable - Bladder and Bowel Bladder continence Bowel continence - Endurance Fair - Balance Fair - Safety Awareness Fair CURRENT FUNC. DEFICITS: Self-Care, Mobility, Endurance, Balance, and Safety Awareness CURRENT / PREVIOUS ASSISTIVE DEVICES: BSC Rolling Walker pt currently using these devices in the hospital HISTORY OF FALLS. HAS THE PATIENT HAD TWO OR MORE FALLS IN THE PAST YEAR OR ANY FALL WITH INJURY IN T HE PAST YEAR?: Yes PRIOR SURGERY. DID THE PATIENT HAVE MAJOR SURGERY DURING THE 100 DAYS PRIOR TO ADMISSION?: Unknown THERAPY NOTES FROM ACUTE CARE: Attached. SPECIAL NEEDS: - Safety Concerns Skin breakdown precautions needed due to skin breakdown risk - Weight-bearing status WBAT 2WW for 2weeks PRECAUTIONS: - Weight Bearing Precaution Weight bearing as tolerated 2WW for 2weeks - Fall Precaution Bed alarm fall bracelet PATIENT NEEDS ACTIVE AND ONGOING THERAPEUTIC INTERVENTION OF MULTIPLE THERAPY DISCIPLINES, INCLUDING: - Dietary and Nutrition Adequate Nutrition. Nutritional Education. Nutritional Supplements. - Occupational Therapy Cognitive Retraining. Evaluate and Treat. ADL Training. Transfer Training. Household Tasks. UE ROM. C ommunity Reintegration. Adaptive Equipment. Safety Awareness. UE Strengthening. Patient/Family Educat ion. Visual Perceptual Training. - Speech Therapy Cognitive Training. Expressive Language Skills. Memory Strategies. Receptive Language Skills. Speech Intelligibility Training. - Physical Therapy Gait Training. Evaluate and Treat. LE Strengthening. Balance Training. Mobility Training. Transfer Tr aining. Patient/Family Education. LE ROM. Safety Awareness. Medical Equipment Assessment and Evaluati on. PATIENT NEEDS CLOSE MEDICAL SUPERVISION BY A REHABILITATION PHYSICIAN FOR: Coordination of Treatment Team Wound Care Pain Management DVT Management medication management Medical and Co-Morbidity Management PATIENT REQUIRES 24X7 REHAB NURSING FOR MEDICAL AND FUNCTIONAL MGT. OF THE FOLLOWING DEFICITS: Disease Management Medication Management Patient/Family Education Providing Safe Environment Skin Integrity PATIENT REQUIRES INTENSIVE, COORDINATED INTERDISCIPLINARY APPROACH TO REHAB: Arranging Home Equipment/Services Discharge Planning Family Intervention/Training Commissions Analyst/Case Management PATIENT REHAB POTENTIAL: Linda HASTINGS is able and expected to receive 3 hours of individualized therapy daily on at least 5 of ever y 7 days Linda HASTINGS'luis enrique prognosis for significant practical improvement within a reasonable period of time appears Good Expected level of measurable improvement will be of a practical value to Linda HASTINGS's functional capacit y or adaptations to impairments Has a viable Discharge Plan Medically appropriate; condition is sufficiently stable to participate in intensive rehab program DISCHARGE PLAN: - Estimated Length of Stay (days) 13. - Consensus on plan Discharge plan has been discussed with primary caregiver. Patient/Family is in agreement with the ratna n. Primary caregiver is in agreement with the plan. - Patient/Family Goals Return home independently. - Planned Living Setting Upon Discharge Home, to live with Family/Relatives. Transitional Living. RECOMMENDED CARE LEVEL: IRF RECOMMENDATION DETAILS: Recommended Admission to Comprehensive Rehabilitation Program to Increase Functional Iron SCREENER'S COMPLETENESS CONFIRMATION: - Screening Confirmation The patient data collection on this preadmission screening form is finished PHYSICIANS REVIEW AND ADMISSION DETERMINATION Admit - Based on my review of the Pre-Admission Screening results, in my medical judgment and experie nce, I concur with the findings and recommend admission to [facility], as this patient requires an IRF level of care. SIGNATURE PANEL: Account Support Analyst - [electronically] signed by Yaneth Mondragon on 07/28/2021 at 08:47 (CDT) Account Support Analyst - [electronically] signed by Tay Means PT on 07/28/2021 at 08:50 (CDT) Physician Reviewer - [electronically] signed by Dr. Abdelrahman Campbell M.D. on 07/28/2021 at 09:30 (CDT )
[2021-07-28] MEDS: CARBIDOPA/LEVODOPA 25/100 TAB PO SCH ×3 (14:21→22:29)
[2021-07-28] MEDS: HYDROCODONE/APAP 5/325 MG TAB PO PRN ×2 (14:32→18:28)
--- NOTE | 2021-07-28 15:28 | R.HP ---
HISTORY AND PHYSICAL FACILITY: [facility] ENCOUNTER DATE AND TIME: 07/28/2021 15:22 (CDT) MR#: [id number] NAME PRABHAKAR HASTINGS ADDRESS: [address] [address] CITY: [place] STATE: [place]IP [id number] PHONE: DATE OF : 1940 AGE: 80 SSN# [id number] GENDER: Female DEXTERITY Unknown dexterity MARITAL STATUS RACE White PRE-HOSPITAL LIVING SETTING 01 - Home (private home/apt. board/care, assisted living, chcf, transitional living) PRE-HOSPITAL LIVING WITH Family/Relatives ENCOUNTER PHYSICIAN: Dr. Abdelrahman Campbell M.D. REFERRING DOCTOR: ROGER WALL DATE OF ADMISSION: 07/28/2021 10:50 (CDT) REFERRING FACILITY [facility] HOME TYPE AND DETAILS: Type of home: single family house # of steps to enter the residence: 0 # of steps within the residence: 13 # of levels in the residence: 2 ONSET DATE: 07/22/2021 PRIMARY DIAGNOSIS-RELATED SURGERIES: N/A HISTORY OF PRESENT ILLNESS (HPI): Pt. is a 80 yo white female. On 07/22/2021 she was admitted to [facility] with diagnosis Parkinson's Diseas e with resulting pelvic fx. Her impairment category is Neurologic Conditions 03 - Parkinsonism (03.2). Pre-morbidly, Pt. was independent/mod-I in Locomotion, Safety Awareness, Social Cognition, Balance, S phincter Control, Communication, Endurance, Self-Care, and Transfers Control; and she had good Locomo tion, Safety Awareness, Social Cognition, Balance, Transfers Control, Sphincter Control, Self-Care, E ndurance, and Communication. Currently, she has deficits of Locomotion, Safety Awareness, Balance, Transfers Control, Self-Care, a nd Endurance. Pt. is now referred to [facility] for acute in-patient rehabilitation in order to maximize patient's functional independence in activities of daily living, strength, ROM, and mobi lity. Patient has realistic goal of being discharged at assistance level 7-Ind to reside at Home with Fami ly/Relatives. Ms. Prabhakar Hastings is a 80 yo white female that lives in a 2-story house with her . Ms. Hastings report s having her bedroom on the second floor. Ms. Hastings reported she was independent with all tasks, prior to hospitalization, within the community and at home. Ms. Hastings reported to [facility] on 07/22/2021 due to a reported mechanical fall from standing on an uneven surface while wearing flip -flops outside in her yard. Ms. Hastings recalls losing her balance and falling. Ms. Hastings was assisted to go back in her house and EMS brought her to the ED. Radiology reports indicate patient sustained a l aceration without foreign body of left elbow-hematoma, fracture of other parts of pelvis-left sacral ala, nondisplaced left ischium fx, left superior rami fx extending into the pubic symphysis, and cont usion of the left knee. Ms. Hastings has reported 2/10 pain on the left side to nursing; pain has been ad dressed. Ms. Hastings's lab results indicate low EGFR at 73 and elevated BP at 150/79 on 07/26/2021. Ms. Hastings is currently working with OT/PT. OT initial eval reports: Patient experiencing recent significan t decline in independence due to injuries from fall. She will benefit from skilled OT services to us e appropriate equipment and maximize independence with ADLs and IADLs. OT most recent assessment repo rts: Patient found seated in bedside chair, stating she was fatigued from her PT session, where she f eels she performed very well, and agreeable to OT session. UB exercises performed in all available pl anes/joints 2x10 reps for 5 different sets with increased timing, due to elbow "stinging pain" to lac eration area. Patient required min assist to steady elbow due to soreness during horizontal elbow fle x/extension with shoulder at 90 degrees abduction. Patient very participatory. PT initial eval report s: pt required MOD/MIN A with bed mobility, MIN A with transfers and gait using FWW. Pt exhibits impa ired ROM and strength on L LE, impaired standing b/t and decreased OOB tolerance indicating the need for PT services. PT recent visit reports: Patient requested to "try and use the restroom". Supine > sit w/ Min A. Unsupported EOB sitting for approx. 10 minutes x 1. Patient performed stand pivot tra nsfer to [facility] w/ Min A. Patient had a successful urination. Sit <> stand w/ Min A. Patient particip ated in gait tx. w/ RW w/ SBA for safety 130 ft. x 1. Patient presented w/ slow rubia, and receive d VC for upright posture. Patient performed a stand pivot transfer from WC > bedside chair w/ Min A. Pt demonstrates fair progress from initial evaluation. Pt demonstrates good cooperation and desire t o improve functional mobility to return to PLOF. Ms. Hastings expresses desire to maximize independence w ith ADL's/IADL's, safely return to her community, and decrease caregiver burden from her . Ms. Hastings demonstrates a strong necessity for acute IRF to also safely get to her room upstairs. With an interdisciplinary approach by acute IRF, pt. demonstrates great potential and motivation to get stron rosa, safer, and more independent to return to PLOF. It is reasonable and necessary for the patient t o come to acute IRF to safely dc. Pt is medically stable but in need of 24 hour nursing, doctor super vision, and oversight while receiving active and ongoing intensive (OT/PT/ST). The patient is mahesh morel expected to participate in 3 hours of therapy a day/15 hours a week. COVID-19 screening performed . Patient denies a new onset off ever, cough, difficulty breathing, sore throat, body aches and non- allergy nasal congestion in the past 24 hours. Patient denies travel outside of [place] in the past 14 days. Patient denies any contact with someone who has a confirmed diagnosis of or is under investigat ion for COVID-19 in the past 14days. Patient has been tested negative for COVID- 19. MEDICATION ALLERGIES: Penicillins Sulfa ENVIRONMENTAL ALLERGIES: None Known - Substance Allergies None Known - Other Allergies None Known PAST MEDICAL HISTORY: Parkinson's Disease Hypothyroidism Impaired Fasting Glucose Hypertension Hyperlipidemia gastroesophageal reflux disease (GERD) Diverticulosis Osteoarthritis at multiple sites osteoporosis PAST SURGICAL HISTORY: Cataract sx Tubal Ligation D and C Arthroscopic Knee Sx on left knee dates not provided SOCIAL HISTORY: - Home Living Family/Relatives REVIEW OF SYSTEMS: - Gen No Chills Fatigue No Fever - Eyes No Double Vision No itchiness - ENMT Difficulty Swallowing - CVS No Chest Discomfort No Chest Pain No Fatigue No Weight Gain - Resp No Cough No Shortness of Breath - GI Continent No Abdominal Pain No Constipation No Diarrhea - Continent No Kidney Pain No Painful Urination No Urinary Urgency - MSK No Joint Pain Muscle Cramps Stiffness - Skin No Itching No Rash No Suspicious Lesions - Neuro Coordination Difficulty No Difficulty with Concentration No Memory Loss No Seizures Weakness - Psych No Anxiety No Depression No HIV Exposure No Persistent Infections No Seasonal Allergies - Endo No Cold/Heat Intolerance No Excessive Hunger No Excessive Thirst No Excessive Urination PHYSICAL EXAM - Gen Alert and awake Lying in bed No apparent distress Oriented to: person, time, and place - Skin No skin breakdown. Normacephalic - Eyes No abnormalities - ENMT No abnormalities - Neck No abnormalities - CVS RRR - Chest No abnormalities - Resp Clear to auscultation - Abd + bowel sounds - GI Soft Deferred - No abnormalities - Ext No significant edema - MSK 4/5 weakness in both lower extremities. - Neuro 4/5 strength bilaterally upper and lower extremities. - Psych No abnormalities VITAL SIGNS Temperature: 97.6 F SBP/DBP: 116/62 Pulse: 80 Resp: 16 NURSING: - Shower allowing shower PRECAUTIONS: - Weight Bearing Precaution Weight bearing as tolerated 2WW for 2weeks - Fall Precaution Bed alarm fall bracelet ACTIVITIES OOB only with supervision QI SCORES: - Self-Care A. Eating 05-Setup or clean-up assistance B. Oral hygiene 03-Partial/moderate assistance C. Toileting hygiene 03-Partial/moderate assistance E. Shower/bathe self 88-Not attempted due to medical condition or safety concerns F. Upper body dressing 03-Partial/moderate assistance G. Lower body dressing 03-Partial/moderate assistance H. Putting on/taking off footwear 02-Substantial/maximal assistance - Mobility A. Roll left and right 03-Partial/moderate assistance B. Sit to lying 03-Partial/moderate assistance C. Lying to sitting on side of bed 03-Partial/moderate assistance D. Sit to stand 03-Partial/moderate assistance E. Chair/qlm-[id number]-bdiud transfer 03-Partial/moderate assistance F. Toilet transfer 03-Partial/moderate assistance G. Car transfer 88-Not attempted due to medical condition or safety concerns I. Walk 10 feet 04-Supervision or touching assistance J. Walk 50 feet with two turns 04-Supervision or touching assistance K. Walk 150 feet 88-Not attempted due to medical condition or safety concerns L. Walking 10 feet on uneven surfaces 88-Not attempted due to medical condition or safety concerns M. 1 step (curb) 88-Not attempted due to medical condition or safety concerns N. 4 steps 88-Not attempted due to medical condition or safety concerns O. 12 steps 88-Not attempted due to medical condition or safety concerns P. Picking up object 88-Not attempted due to medical condition or safety concerns R. Wheel 50 feet with two turns S. Wheel 150 feet 09-Not applicable - Bladder and Bowel Bladder continence Bowel continence - Endurance Fair - Balance Fair - Safety Awareness Fair CURRENT FUNC. DEFICITS: Self-Care, Mobility, Endurance, Balance, and Safety Awareness MEDICATIONS: - Other See attached MAR (Medication Administration Record) ASSESSMENT: Pt. is a 80 yo white female.On 07/22/2021 she was admitted to [facility] with diagnosis Parkinson's Disease with resulting pelvic fx.Her impairment category is Neurologic Conditio ns 03 - Parkinsonism (03.2).Pre-morbidly, Pt. was independent/mod-I in Locomotion, Safety Awareness, Social Cognition, Balance, Sphincter Control, Communication, Endurance, Self-Care, and Transfers Con trol; and she had good Locomotion, Safety Awareness, Social Cognition, Balance, Transfers Control, Sp hincter Control, Self-Care, Endurance, and Communication.Currently, she has deficits of Locomotion, S afety Awareness, Balance, Transfers Control, Self-Care, and Endurance.Pt. is now referred to [facility] for acute in-patient rehabilitation in order to maximize patient's function al independence in activities of daily living, strength, ROM, and mobility.- Rehab Goal Patient has realistic goal of being discharged at assistance level 7-Ind to reside at Home with Fami ly/Relatives. Ms. Prabhakar Hastings is a 80 yo white female that lives in a 2-story house with her . Ms. Hastings report s having her bedroom on the second floor. Ms. Hastings reported she was independent with all tasks, prior to hospitalization, within the community and at home. Ms. Hastings reported to [facility] on 07/22/2021 due to a reported mechanical fall from standing on an uneven surface while wearing flip -flops outside in her yard. Ms. Hastings recalls losing her balance and falling. Ms. Hastings was assisted to go back in her house and EMS brought her to the ED. Radiology reports indicate patient sustained a l aceration without foreign body of left elbow-hematoma, fracture of other parts of pelvis-left sacral ala, nondisplaced left ischium fx, left superior rami fx extending into the pubic symphysis, and cont usion of the left knee. Ms. Hastings has reported 2/10 pain on the left side to nursing; pain has been ad dressed. Ms. Hastings's lab results indicate low EGFR at 73 and elevated BP at 150/79 on 07/26/2021. Ms. Hastings is currently working with OT/PT. OT initial eval reports: Patient experiencing recent significan t decline in independence due to injuries from fall. She will benefit from skilled OT services to us e appropriate equipment and maximize independence with ADLs and IADLs. OT most recent assessment repo rts: Patient found seated in bedside chair, stating she was fatigued from her PT session, where she f eels she performed very well, and agreeable to OT session. UB exercises performed in all available pl anes/joints 2x10 reps for 5 different sets with increased timing, due to elbow "stinging pain" to lac eration area. Patient required min assist to steady elbow due to soreness during horizontal elbow fle x/extension with shoulder at 90 degrees abduction. Patient very participatory. PT initial eval report s: pt required MOD/MIN A with bed mobility, MIN A with transfers and gait using FWW. Pt exhibits impa ired ROM and strength on L LE, impaired standing b/t and decreased OOB tolerance indicating the need for PT services. PT recent visit reports: Patient requested to "try and use the restroom". Supine > sit w/ Min A. Unsupported EOB sitting for approx. 10 minutes x 1. Patient performed stand pivot tra nsfer to [facility] w/ Min A. Patient had a successful urination. Sit <> stand w/ Min A. Patient particip ated in gait tx. w/ RW w/ SBA for safety 130 ft. x 1. Patient presented w/ slow rubia, and receive d VC for upright posture. Patient performed a stand pivot transfer from WC > bedside chair w/ Min A. Pt demonstrates fair progress from initial evaluation. Pt demonstrates good cooperation and desire t o improve functional mobility to return to OF. Ms. Hastings expresses desire to maximize independence w ith ADL's/IADL's, safely return to her community, and decrease caregiver burden from her . Ms. Hastings demonstrates a strong necessity for acute IRF to also safely get to her room upstairs. With an interdisciplinary approach by acute IRF, pt. demonstrates great potential and motivation to get stron rosa, safer, and more independent to return to [facility]. It is reasonable and necessary for the patient t o come to acute IRF to safely dc. Pt is medically stable but in need of 24 hour nursing, doctor super vision, and oversight while receiving active and ongoing intensive (OT/PT/ST). The patient is mahesh morel expected to participate in 3 hours of therapy a day/15 hours a week. COVID-19 screening performed . Patient denies a new onset off ever, cough, difficulty breathing, sore throat, body aches and non- allergy nasal congestion in the past 24 hours. Patient denies travel outside of [place] in the past 14 days. Patient denies any contact with someone who has a confirmed diagnosis of or is under investigat ion for COVID-19 in the past 14days. Patient has been tested negative for COVID- 19.REHAB PLAN: - Physical Therapy Gait dysfunction - to improve, our physical therapists will perform initial evaluation of pt's status upon admission and devise an individualized program for Gait Training, and Wheel Chair mobility Inability to transfer - to improve, our physical therapists will perform initial evaluation of pt's s tatus upon admission and devise an individualized program for Bed mobility Need for home safety evaluation - to improve, our physical therapists will perform initial evaluation of pt's status upon admission and devise an individualized program for Home Evaluation Need in caregiver upon discharge - to improve, our physical therapists will perform initial evaluatio n of pt's status upon admission and devise an individualized program for Caregiver Training New precaution - to improve, our physical therapists will perform initial evaluation of pt's status u bhavesh admission and devise an individualized program for Patient precaution education Edema - to improve, our physical therapists will perform initial evaluation of pt's status upon admi ssion and devise an individualized program for Elevation Training, and Lymphedema Therapy Poor balance - to improve, our physical therapists will perform initial evaluation of pt's status upo n admission and devise an individualized program for Balance Training Poor endurance - to improve, our physical therapists will perform initial evaluation of pt's status u bhavesh admission and devise an individualized program for Endurance Training Weakness - to improve, our physical therapists will perform initial evaluation of pt's status upon ad mission and devise an individualized program for Aquatic Therapy, Neuromuscular Reeducation, and Stre ngthening Achieving independence - to improve, our physical therapists will perform initial evaluation of pt's status upon admission and devise an individualized program for Community Reintegration Activities - Occupational Therapy ADL deficits - to improve, our occupation therapists will perform initial evaluation of pt's status u bhavesh admission and devise an individualized program for Bathing, Bed mobility, Community Reintegration , Cooking, Dressing, Eating, Fine Motor Skills, Grooming, Homemaking, Kitchen Mobility, Laundry, Beckie ent Education, Safety Awareness, Splinting - Positioning, Transfers(Toilet, Tub, Shower), and Wheel C hair Management Need for health care law specialist - to improve, our occupation therapists will perform initial evaluation of pt's s tatus upon admission and devise an individualized program for Caregiver Training Weakness - to improve, our occupation therapists will perform initial evaluation of pt's status upon admission and devise an individualized program for Aquatic Therapy, Balance, Endurance, UE ROM, and U E strengthening MEDICAL PLAN: - Diet Type Start Heart Healthy - Diet - Liquid Texture Start Regular - Tube Feed Start N/A - Weight Bearing Precaution Weight bearing as tolerated 2WW for 2weeks - Fall Precaution Bed alarm fall bracelet - Other See attached MAR (Medication Administration Record) - N/A Perform Neuro consult - Diet - Solid Texture Regular - Shower shower DISCHARGE PLAN: - Estimated Length of Stay (days) 13. - Consensus on plan Discharge plan has been discussed with primary caregiver. Patient/Family is in agreement with the ratna n. Primary caregiver is in agreement with the plan. - Patient/Family Goals Return home independently. - Planned Living Setting Upon Discharge Home, to live with Family/Relatives. Transitional Living. SIGNATURE PANEL: (CDT)
--- NOTE | 2021-07-28 15:31 | PAPE ---
POST ADMISSION PHYSICIAN EVALUATION PATIENT: [facility] MR# [id number] REFERRING DOCTOR ROGER WALL EVALUATION DATE AND TIME 07/28/2021 15:29 (CDT) NAME PRABHAKAR HASTINGS DATE OF 1940 AGE 80 PHONE SSN# [id number] GENDER female EVALUATING PHYSICIAN Dr. Abdelrahman Campbell M.D. ADMISSION DIAGNOSIS: Parkinson's Disease with resulting pelvic fx ONSET DATE 07/22/2021 POST-ADMISSION FUNCTIONAL/MEDICAL STATUS: - Bladder Same accident frequency: 7-Ind - No accidents in the past 7 days - Bowel Same accident frequency: 7-Ind - No accidents in the past 7 days - Walking Same score based on distance walked: 0(N/A) Same score based on distance walked: 2(50-149ft) - Wheelchair Same score based on distance traveled: 0(N/A) STATUS CHANGE EVALUATION: No change in Functional or Medical Status is identified compared with Pre-Admission screening. PATIENT NEEDS CLOSE MEDICAL SUPERVISION BY A REHABILITATION PHYSICIAN FOR: Coordination of Treatment Team Wound Care Pain Management DVT Management medication management Medical and Co-Morbidity Management PATIENT REQUIRES 24X7 REHAB NURSING FOR MEDICAL AND FUNCTIONAL MGT. OF THE FOLLOWING DEFICITS: Disease Management Medication Management Patient/Family Education Providing Safe Environment Skin Integrity PATIENT REQUIRES INTENSIVE, COORDINATED INTERDISCIPLINARY APPROACH TO REHAB: Arranging Home Equipment/Services Discharge Planning Family Intervention/Training Architectural Technician/Case Management LIST OF IDENTIFIED AND POTENTIAL PROBLEMS: Alteration in leisure activities Bladder, Incontinence Bowel, Incontinence Infection, Actual or Potential Mobility Impaired Pain, Alteration in Comfort Self Care Deficit Skin Integrity, Actual or Potential Urinary Tract Infection (UTI), Actual or Potential RISK FOR COMPLICATIONS - Fx Educate on prevention of worsening pelvic fx. Educate on proper precautions post sx. - UTI Monitor for frequency, burning, discomfort, or incontinence. - DVT CIELO hose; sequential compression device as needed/prescribed. Routine checks/assessments of pt. - Skin Breakdown Nursing will assess skin daily using assessment tool and will place on Skin Breakdown Precautions as Indicated per protocol. - Pain Clinical staff will assess patient's pain level every shift per protocol to monitor for pain manageme nt effectiveness. Medications will be given and the pain level reassessed. Clinical Staff may employ other methods such as: massage, distraction, decrease stimulus, etc. as needed. Educate patient on pa in management strategies. - Falls Educated pt on fall prevention strategies to reduce/eliminate fall risk. Patient will be evaluated fo r Fall Precautions and will be placed on Fall Precautions as indicated per protocol. - Impaired Safety Educate patient on safety hazards. Educate patient on safety awareness strategies. INTERVENTIONS - Fall Prevention Educate patient on proper use of AE/D to minimize fall risk. Educate patient/family on fall preventio n strategies. Educate patient/family on fall hazards within the family. Educate the patient with fall recovery. - Safety Educate patient/family on proper caregiver assistance with a person with Parkinson's Disease. Educate patient on memory recall strategies to increase carryover. Educate patient on proper footwear when o n uneven surfaces. - Medication Management Assist with blood sugar control per doctor orders. Assist with pain management. - Diet Educate patient on diet to control glucose levels, gastroesophageal reflux disease, and diverticulosi s. PATIENT COULD BE AT RISK FOR COMPLICATIONS FROM ADVERSE MEDICAL CONDITIONS DUE TO HIS/HER COMORBIDITI ES AND THE RIGORS OF THE INTENSIVE REHABILLITATION PROGRAM. METHODS OR INTERVENTIONS TO AVOID COMPLIC ATIONS INCLUDE: - Deep Vein Thrombosis (DVT) Prophylaxis therapy for prevention . Sequential Compression Device (SCD). TE D Hose. - Bleeding Assess lab values and manage abnormalities. Nursing to teach precautions for anti-coagulation therapy . Wound to be assessed every shift. - Infection Clinical staff to assess and manage the signs and symptoms of infection including fever, redness, war mth, etc. - Urinary Tract Infection - Falls Patient will be evaluated for Fall Precautions and will be placed on Fall Precautions as indicated pe r protocol. - Skin Breakdown Nursing will assess skin daily using assessment tool and will place on Skin Breakdown Precautions as indicated per protocol. - Pain Clinical staff may employ non-medication methods such as massage, distraction, decrease stimulus, etc . as needed. Clinical staff will assess patient's pain level every shift per protocol to assess and e nsure pain management effectiveness. Medications will be given and the pain level re-assessed. PRELIMINARY PLAN OF CARE: - Physical Therapy Patient needs Physical Therapy for a daily minimum of 1.5 hours at least 5 out of 7 days, to improve: Mobility, Strengthening, Transfers, Stretching, ROM, Endurance, Ability to manage stairs, Gait, and Balance. - Speech Therapy Patient needs Speech Therapy for a daily minimum of 0.5 hours at least 5 out of 7 days, to improve: S wallowing, Cognition, Language Skills, and Compensatory Strategies. - Rehabilitation Nursing Patient requires 24x7 Rehabilitation Nursing for: Pain Issues, Identifying and preventing risk factor s, Monitoring and reporting current medical conditions, Assisting with ambulation and transfer, Gm ting with all ADL-s, Teaching patients about disease process and medications, Family teaching, Provid ing safe environment, Bowel and Bladder Issues, Skin Integrity, and Medication Management. Patient needs Architectural Technician and/or Case Management for: Discharge Planning, Arranging Home Equipmen t or Services, and Family Interventions. - Dietary and Nutrition Services Patient needs Dietary and Nutrition Services for: Adequate Nutrition, Nutritional Supplements, and Nu tritional Education. - Occupational Therapy Patient needs Occupational Therapy for a daily minimum of 1.5 hours at least 5 out of 7 days, to impr ove Activities of Daily Living, including: Eating, Grooming, Bathing, Dressing, Toileting, Toilet Tra nsfers, Community Reintegration, Higher functional activities, Adaptive Equipment, Splinting, Househo ld Tasks, and Other activities as determined. QI SCORES: - Self-Care A. Eating 05-Setup or clean-up assistance B. Oral hygiene 03-Partial/moderate assistance C. Toileting hygiene 03-Partial/moderate assistance E. Shower/bathe self 88-Not attempted due to medical condition or safety concerns F. Upper body dressing 03-Partial/moderate assistance G. Lower body dressing 03-Partial/moderate assistance H. Putting on/taking off footwear 02-Substantial/maximal assistance - Mobility A. Roll left and right 03-Partial/moderate assistance B. Sit to lying 03-Partial/moderate assistance C. Lying to sitting on side of bed 03-Partial/moderate assistance D. Sit to stand 03-Partial/moderate assistance E. Chair/yda-fu-lsncg transfer 03-Partial/moderate assistance F. Toilet transfer 03-Partial/moderate assistance G. Car transfer 88-Not attempted due to medical condition or safety concerns I. Walk 10 feet 04-Supervision or touching assistance J. Walk 50 feet with two turns 04-Supervision or touching assistance K. Walk 150 feet 88-Not attempted due to medical condition or safety concerns L. Walking 10 feet on uneven surfaces 88-Not attempted due to medical condition or safety concerns M. 1 step (curb) 88-Not attempted due to medical condition or safety concerns N. 4 steps 88-Not attempted due to medical condition or safety concerns O. 12 steps 88-Not attempted due to medical condition or safety concerns P. Picking up object 88-Not attempted due to medical condition or safety concerns R. Wheel 50 feet with two turns S. Wheel 150 feet 09-Not applicable - Bladder and Bowel Bladder continence Bowel continence - Endurance Fair - Balance Fair - Safety Awareness Fair POTENTIAL FUNCTIONAL GOALS FOR PATIENT TO ACHIEVE BY DISCHARGE: - Safety Precaution Patient will remain free from falls or injury at time of discharge. - Bed Mobility Patient will perform bed mobility at 4-Bindu level of assistance. - Transfers Patient will complete transfers from bed to chair at 4-Bindu level of assistance. - Mobility Patient will ambulate 150 ft with 4-Bindu level of assistance with RW. PATIENT REHAB POTENTIAL Linda HASTINGS is able and expected to receive 3 hours of individualized therapy daily on at least 5 of ever y 7 days Linda HASTINGS's prognosis for significant practical improvement within a reasonable period of time appears Good Expected level of measurable improvement will be of a practical value to JaeAlexandru DARLING's functional capacit y or adaptations to impairments Has a viable Discharge Plan Medically appropriate; condition is sufficiently stable to participate in intensive rehab program DISCHARGE PLAN: - Estimated Length of Stay (days) 13. - Consensus on plan Discharge plan has been discussed with primary caregiver. Patient/Family is in agreement with the ratna n. Primary caregiver is in agreement with the plan. - Patient/Family Goals Return home independently. - Planned Living Setting Upon Discharge Home, to live with Family/Relatives. Transitional Living. CONCLUSION ON REHABILITATION NECESSITY: I have evaluated patient's pre-admission functional status and, comparing it to the patient's post-ad mission functional status now, I conclude that the pre-admission assessment was accurate. Patient's c ondition on admission supports the medical necessity of admission to IR[facility]. It is safe to proceed with patient's therapy program. SIGNATURE PANEL: (CDT)
[2021-07-28] MEDS: ZOLPIDEM TARTRATE 5 MG TABLET PO SCH (20:49)
[2021-07-28] MEDS: TOPIRAMATE 25 MG TAB PO SCH (20:50)
[2021-07-28] MEDS ORDERED: DOCUSATE NA/SENNA CONC 1 TAB PO PRN (20:53)
[2021-07-28] MEDS ORDERED: TOPIRAMATE 25 MG TAB PO SCH (21:00)
[2021-07-28] MEDS: TRAMADOL HCL 50 MG TAB PO PRN (21:18)
[2021-07-29] MEDS: METOPROLOL TAR 50 MG TAB PO SCH ×2 (05:53→08:52)
[2021-07-29] MEDS: AMLODIPINE 2.5 MG TAB PO SCH ×2 (05:54→08:52)
[2021-07-29] MEDS: HYDROCODONE/APAP 5/325 MG TAB PO PRN (05:54)
[2021-07-29 06:30] LABS: Absolute Lymphocytes (CBC) 1.2 K/uL (0.7-4.9); Basophils % 0.9 % (0-1.3); Hematocrit 34.9 % (36.0-45.0); Lymphocytes % 26.2 % (15.3-44.8); MPV 7.8 fL (7.6-11.3); RBC Red Blood Cell Count 3.72 M/uL (3.86-4.86)
[2021-07-29] MEDS: LEVOTHYROXINE SOD 0.075 MG TAB PO SCH (07:21)
[2021-07-29 07:44] LABS: Urine Appearance CLEAR (Clear); Urine Bilirubin NEGATIVE (Negative); Urine Blood NEGATIVE (Negative); Urine Color YELLOW (Yellow); Urine Glucose NEGATIVE (Negative); Urine Protein NEGATIVE (Negative); Urine Specific Gravity 1.015 (1.005-1.030); Urine Urobilinogen 0.2 mg/dL (0.2-1.0)
[2021-07-29] MEDS: CRESTOR 5 MG PO SCH (08:00)
[2021-07-29] MEDS: CALCIUM CARB 500MG/VIT D 200 IU TAB PO SCH (08:00)
[2021-07-29 08:01] LABS: Urine Bacteria <20 /HPF (<20); Urine Mucus 2+ /HPF (NONE SEEN); Urine RBC <5 /HPF (NONE SEEN); Urine Urothelial Cells <5 /HPF (NONE SEEN)
[2021-07-29] MEDS: TRAMADOL HCL 50 MG TAB PO PRN (08:30)
[2021-07-29] MEDS: ASPIRIN EC 81 MG TAB PO SCH (08:51)
[2021-07-29] MEDS: ENOXAPARIN 40 MG/0.4 ML SQ SCH (08:51)
[2021-07-29] MEDS: CARBIDOPA/LEVODOPA 25/100 TAB PO SCH ×4 (08:52→20:02)
[2021-07-29] MEDS: HYDROCODONE/APAP 7.5/325 MG TAB PO SCH ×3 (10:00→20:03)
--- NOTE | 2021-07-29 11:22 | PN ---
Date of Progress Note: 07/29/2021 Subjective: The patient was seen for followup. She was lying on the rehab floor. When I saw her, s he was sitting in the wheelchair. Objective: Vital Signs: Reviewed. HEENT: Unremarkable. Lungs: Clear to auscultation. No rhonchi. No rales. Heart: Sounds normal. Abdomen: Soft. Bowel sounds normal. No guarding, rigidity, tenderness, or distention. Extremities: No leg edema. Left elbow exam remains unchanged from yesterday. Laboratory Data: Today's chemistry result is pending. CBC shows white count 4.8, hemoglobin 11.9, p latelets 231. Urinalysis was negative. Impression: 1.Laceration, left elbow. 2.Cellulitis, left elbow. 3.Left pubic symphysis fracture, left sacral ala fracture, left superior pubic rami fracture. 4.Hypertension. 5.Constipation. 6.Parkinson disease. 7.Gastroesophageal reflux disease. Plan: We will continue current antihypertensive medication. After the patient was transferred yeste rday, I see some of her medications did not get continued, so I have reviewed her medications. Her p antoprazole and famotidine will be restarted. Her pain medication was increased yesterday on the [facility] floor, but unfortunately after transfer, she did not get that increase dose of pain medications, so I have made appropriate changes and we will put her back on hydrocodone 7.5 mg every 6 hours and discontinue 5 mg dose as well as discontinue tramadol. She was getting IV antibiotic yesterday on ma dical floor, but her IV got infiltrated, and nurses were not able to restart it, so I will go ahead a nd change it to oral antibiotic which will be Levaquin. She has not had a bowel movement in the last 3 days or so. We will go ahead and give her her Senokot-S 2 tablets 2 times a day and p.r.n. order for milk of magnesia as well as Dulcolax rectal suppository was ordered. Physical therapy will be co ntinued under guidance of Dr. Campbell. MICHELLE/MODL Voice ID: [id number] Report ID: [id number]
[2021-07-29] MEDS: levoFLOXacin 500 MG TAB PO SCH (12:31)
[2021-07-29 19:14] LABS: Albumin 2.6 g/dL (3.4-5.0); Magnesium 2.1 mg/dL (1.8-2.4); Potassium 3.3 mmol/L (3.5-5.1)
[2021-07-29] MEDS: ZOLPIDEM TARTRATE 5 MG TABLET PO SCH (20:02)
[2021-07-29] MEDS: TOPIRAMATE 25 MG TAB PO SCH (20:02)
[2021-07-29] MEDS: DOCUSATE NA/SENNA CONC 1 TAB PO SCH (20:02)
[2021-07-29] MEDS: FAMOTIDINE 20 MG TAB PO SCH (20:02)
[2021-07-30] MEDS: HYDROCODONE/APAP 7.5/325 MG TAB PO SCH ×4 (03:37→21:40)
[2021-07-30] MEDS: LEVOTHYROXINE SOD 0.075 MG TAB PO SCH (07:09)
[2021-07-30] MEDS: PANTOPRAZOLE 40MG TABLET PO SCH (07:09)
[2021-07-30] MEDS: AMLODIPINE 2.5 MG TAB PO SCH (08:00)
[2021-07-30] MEDS: METOPROLOL TAR 50 MG TAB PO SCH (08:00)
[2021-07-30] MEDS: CRESTOR 5 MG PO SCH (08:00)
[2021-07-30] MEDS: CALCIUM CARB 500MG/VIT D 200 IU TAB PO SCH (08:00)
[2021-07-30] MEDS: ENOXAPARIN 40 MG/0.4 ML SQ SCH (08:00)
[2021-07-30] MEDS: DOCUSATE NA/SENNA CONC 1 TAB PO SCH ×2 (08:00→19:25)
[2021-07-30] MEDS: ASPIRIN EC 81 MG TAB PO SCH (08:00)
[2021-07-30] MEDS: levoFLOXacin 500 MG TAB PO SCH (08:00)
[2021-07-30] MEDS: CARBIDOPA/LEVODOPA 25/100 TAB PO SCH ×4 (09:00→21:40)
[2021-07-30] MEDS ORDERED: POTASSIUM CL SA 10 MEQ TAB PO ONE (09:11)
--- NOTE | 2021-07-30 11:35 | PN ---
Date of Progress Note: 07/30/2021 Subjective: The patient was seen this morning for followup. She was in the wheelchair. Does not alejandro ve any abdominal pain, nausea, vomiting. Her appetite is fair. Objective: Vital Signs: Reviewed. HEENT: Unremarkable. Lungs: Clear to auscultation. Heart: Sounds normal. Abdomen: Soft. Bowel sounds normal. No guarding, rigidity, tenderness, or distention. Extremities: No leg edema. Impression: 1.Left elbow laceration. 2.Left superior pubic rami fracture. 3.Left sacral ala fracture. 4.Left pubic symphysis fracture. 5.Hypokalemia. 6.Hypertension. 7.Parkinson disease. 8.Constipation. Plan: The patient's potassium level from yesterday was 3.3. We will go ahead and give her 40 mEq po tassium chloride p.o. x1 today and then starting tomorrow 10 mEq potassium chloride daily. We will c ontinue current pain medication that seems to be helping her. Continue current Parkinson's medicatio n. Continue physical therapy under guidance of Dr. Campbell. We will also continue current antibiot ic, which is Levaquin for her cellulitis over left elbow laceration. She was encouraged to eat all h er 3 meals and to go ahead and have Ensure 1 can 2 times a day. Nurse was advised to go ahead and gi ve milk of magnesia 1 dose this afternoon around lunch time and if no bowel movement by evening time, then to use Dulcolax rectal suppository as the patient has not had a bowel movement in last 3 to 4 days. MICHELLE/MODL Voice ID: [id number] Report ID: [id number]
[2021-07-30] MEDS: MAGNESIUM HYDROXIDE 8% 30 ML PO PRN ×2 (11:38→19:25)
[2021-07-30] MEDS: ENSURE ENLIVE 237 ML CAN PO SCH (19:25)
[2021-07-30] MEDS: TOPIRAMATE 25 MG TAB PO SCH (21:40)
[2021-07-30] MEDS: ZOLPIDEM TARTRATE 5 MG TABLET PO SCH (21:40)
[2021-07-30] MEDS: FAMOTIDINE 20 MG TAB PO SCH (21:40)
[2021-07-31] MEDS: BISACODYL 10 MG RECTAL SUPP PR PRN (03:22)
[2021-07-31] MEDS: HYDROCODONE/APAP 7.5/325 MG TAB PO SCH ×4 (03:22→21:30)
[2021-07-31] MEDS: PANTOPRAZOLE 40MG TABLET PO SCH (06:39)
[2021-07-31] MEDS: ENOXAPARIN 40 MG/0.4 ML SQ SCH (06:39)
[2021-07-31] MEDS: LEVOTHYROXINE SOD 0.075 MG TAB PO SCH (06:39)
[2021-07-31] MEDS: LIDOCAINE 4% PATCH TOP SCH (07:26)
[2021-07-31] MEDS: ENSURE ENLIVE 237 ML CAN PO SCH ×2 (07:38→19:17)
[2021-07-31] MEDS: DOCUSATE NA/SENNA CONC 1 TAB PO SCH ×2 (07:38→19:18)
[2021-07-31] MEDS: AMLODIPINE 2.5 MG TAB PO SCH (07:38)
[2021-07-31] MEDS: levoFLOXacin 500 MG TAB PO SCH (07:39)
[2021-07-31] MEDS: POTASSIUM CL SA 10 MEQ TAB PO SCH (07:39)
[2021-07-31] MEDS: METOPROLOL TAR 50 MG TAB PO SCH (07:39)
[2021-07-31] MEDS: ASPIRIN EC 81 MG TAB PO SCH (07:39)
[2021-07-31] MEDS: CARBIDOPA/LEVODOPA 25/100 TAB PO SCH ×4 (07:51→21:30)
[2021-07-31] MEDS: CALCIUM CARB 500MG/VIT D 200 IU TAB PO SCH (07:55)
[2021-07-31] MEDS: CRESTOR 5 MG PO SCH (08:00)
[2021-07-31] MEDS: MAGNESIUM HYDROXIDE 8% 30 ML PO PRN (11:51)
[2021-07-31] MEDS: TRAMADOL HCL 50 MG TAB PO PRN ×2 (12:45→19:16)
--- NOTE | 2021-07-31 18:04 | R.PN ---
PROGRESS NOTES ENCOUNTER DATE AND TIME: 07/31/2021 17:57 (CDT) NAME PRABHAKAR HASTINGS DATE OF : 1940 DATE OF ADMISSION: 07/28/2021 10:50 (CDT) Parkinson's Disease with resulting pelvic fxCHIEF COMPLAINT: Traumatic pelvic fracture and left elbow laceration SUBJECTIVE: Pt denied any depression. Pt denied any Shortness of Breath. She reports moderate pelvic pain with therapy. Her medication regimen was adjusted. She is making fair overall progress with therapy. Her labs were reviewed and are stable. VITAL SIGNS Temperature: 97.8 F SBP/DBP: 118/72 Pulse: 78 Resp: 15 MEDICATION ALLERGIES: Penicillins Sulfa ENVIRONMENTAL ALLERGIES: None Known - Substance Allergies None Known - Other Allergies None Known CONSULT: Perform Neuro consult NURSING: - Shower allowing shower PRECAUTIONS: - Weight Bearing Precaution Weight bearing as tolerated 2WW for 2weeks - Fall Precaution Bed alarm fall bracelet ACTIVITIES OOB only with supervision THERAPIES: - Dietary and Nutrition Adequate Nutrition. Nutritional Education. Nutritional Supplements. - Occupational Therapy Cognitive Retraining. Evaluate and Treat. ADL Training. Transfer Training. Household Tasks. UE ROM. C ommunity Reintegration. Adaptive Equipment. Safety Awareness. UE Strengthening. Patient/Family Educat ion. Visual Perceptual Training. - Speech Therapy Cognitive Training. Expressive Language Skills. Memory Strategies. Receptive Language Skills. Speech Intelligibility Training. - Physical Therapy Gait Training. Evaluate and Treat. LE Strengthening. Balance Training. Mobility Training. Transfer Tr aining. Patient/Family Education. LE ROM. Safety Awareness. Medical Equipment Assessment and Evaluati on. PHYSICAL EXAM - Gen Alert and awake Lying in bed No apparent distress Oriented to: person, time, and place - Skin No skin breakdown. Normacephalic - Eyes No abnormalities - ENMT No abnormalities - Neck No abnormalities - CVS RRR - Chest No abnormalities - Resp Clear to auscultation - Abd + bowel sounds - GI Soft Deferred - No abnormalities - Ext No significant edema - MSK 4/5 weakness in both lower extremities. - Neuro 4/5 strength bilaterally upper and lower extremities. - Psych No abnormalities ASSESSMENT: Pt. is a 80 yo white female.On 07/22/2021 she was admitted to [facility] with diagnosis Parkinson's Disease with resulting pelvic fx.Her impairment category is Neurologic Conditio ns 03 - Parkinsonism (03.2).Pre-morbidly, Pt. was independent/mod-I in Locomotion, Safety Awareness, Social Cognition, Balance, Sphincter Control, Communication, Endurance, Self-Care, and Transfers Con trol; and she had good Locomotion, Safety Awareness, Social Cognition, Balance, Transfers Control, Sp hincter Control, Self-Care, Endurance, and Communication.Currently, she has deficits of Locomotion, S afety Awareness, Balance, Transfers Control, Self-Care, and Endurance.Pt. is now referred to [facility] for acute in-patient rehabilitation in order to maximize patient's function al independence in activities of daily living, strength, ROM, and mobility.- Rehab Goal Patient has realistic goal of being discharged at assistance level 7-Ind to reside at Home with Fami ly/Relatives. MDM/PLAN: - Physical Therapy Gait dysfunction - to improve, our physical therapists will perform initial evaluation of pt's statu s upon admission and devise an individualized program for Gait Training, and Wheel Chair mobility Inability to transfer - to improve, our physical therapists will perform initial evaluation of pt's status upon admission and devise an individualized program for Bed mobility Need for home safety evaluation - to improve, our physical therapists will perform initial evaluatio n of pt's status upon admission and devise an individualized program for Home Evaluation Need in caregiver upon discharge - to improve, our physical therapists will perform initial evaluati on of pt's status upon admission and devise an individualized program for Caregiver Training New precaution - to improve, our physical therapists will perform initial evaluation of pt's status upon admission and devise an individualized program for Patient precaution education Edema - to improve, our physical therapists will perform initial evaluation of pt's status upon admis keli and devise an individualized program for Elevation Training, and Lymphedema Therapy Poor balance - to improve, our physical therapists will perform initial evaluation of pt's status up on admission and devise an individualized program for Balance Training Poor endurance - to improve, our physical therapists will perform initial evaluation of pt's status upon admission and devise an individualized program for Endurance Training Weakness - to improve, our physical therapists will perform initial evaluation of pt's status upon a dmission and devise an individualized program for Aquatic Therapy, Neuromuscular Reeducation, and Str engthening Achieving independence - to improve, our physical therapists will perform initial evaluation of pt's status upon admission and devise an individualized program for Community Reintegration Activities - Occupational Therapy ADL deficits - to improve, our occupation therapists will perform initial evaluation of pt's status upon admission and devise an individualized program for Bathing, Bed mobility, Community Reintegratio n, Cooking, Dressing, Eating, Fine Motor Skills, Grooming, Homemaking, Kitchen Mobility, Laundry, Pat ient Education, Safety Awareness, Splinting - Positioning, Transfers(Toilet, Tub, Shower), and Wheel Chair Management Need for child day care teacher - to improve, our occupation therapists will perform initial evaluation of pt's status upon admission and devise an individualized program for Caregiver Training Weakness - to improve, our occupation therapists will perform initial evaluation of pt's status upon admission and devise an individualized program for Aquatic Therapy, Balance, Endurance, UE ROM, and UE strengthening - Other See attached MAR (Medication Administration Record) - Diet Type Continue Heart Healthy - Diet - Liquid Texture Continue Regular - Tube Feed Continue N/A - Weight Bearing Precaution Weight bearing as tolerated 2WW for 2weeks - Fall Precaution Bed alarm fall bracelet - N/A Perform Neuro consult - Diet - Solid Texture Continue Regular - Shower allowing shower FUNCTIONAL STATUS: UPDATED AT WEEKLY TEAM CONFERENCE - Bladder Same accident frequency: 7-Ind - No accidents in the past 7 days - Bowel Same accident frequency: 7-Ind - No accidents in the past 7 days - Walking Same score based on distance walked: 0(N/A) Same score based on distance walked: 2(50-149ft) - Wheelchair Same score based on distance traveled: 0(N/A) FUNCTIONAL STATUS: - Self-Care A. Eating Ind B. Grooming Ind C. Bathing Bindu D. Dressing - Upper Bindu E. Dressing - Lower modA F. Toileting Bindu - Sphincter Control G. Bladder control Vi H. Bowel control Vi - Transfers Control I. Bed/Chair/Wheelchair sup J. Toilet sup K. Tub/Shower sup - Locomotion L. Walk/Wheelchair (B) Bindu M. Stairs maxA - Communication N. Comprehension (B) Vi O. Expression (B) Vi - Social Cognition P. Social Interaction Ind Q. Problem Solving Vi R. Memory Vi - Endurance Fair - Balance Fair - Safety Awareness Good QI SCORES: - Self-Care A. Eating 05-Setup or clean-up assistance B. Oral hygiene 03-Partial/moderate assistance C. Toileting hygiene 03-Partial/moderate assistance E. Shower/bathe self 88-Not attempted due to medical condition or safety concerns F. Upper body dressing 03-Partial/moderate assistance G. Lower body dressing 03-Partial/moderate assistance H. Putting on/taking off footwear 02-Substantial/maximal assistance - Mobility A. Roll left and right 03-Partial/moderate assistance B. Sit to lying 03-Partial/moderate assistance C. Lying to sitting on side of bed 03-Partial/moderate assistance D. Sit to stand 03-Partial/moderate assistance E. Chair/bov-bo-cifbx transfer 03-Partial/moderate assistance F. Toilet transfer 03-Partial/moderate assistance G. Car transfer 88-Not attempted due to medical condition or safety concerns I. Walk 10 feet 04-Supervision or touching assistance J. Walk 50 feet with two turns 04-Supervision or touching assistance K. Walk 150 feet 88-Not attempted due to medical condition or safety concerns L. Walking 10 feet on uneven surfaces 88-Not attempted due to medical condition or safety concerns M. 1 step (curb) 88-Not attempted due to medical condition or safety concerns N. 4 steps 88-Not attempted due to medical condition or safety concerns O. 12 steps 88-Not attempted due to medical condition or safety concerns P. Picking up object 88-Not attempted due to medical condition or safety concerns R. Wheel 50 feet with two turns S. Wheel 150 feet 09-Not applicable - Bladder and Bowel Bladder continence Bowel continence - Endurance Fair - Balance Fair - Safety Awareness Fair [facility] DEFIC[facility]: Self-Care, Mobility, Endurance, Balance, and Safety Awareness SIGNATURE PANEL: (CDT)
[2021-07-31] MEDS: FAMOTIDINE 20 MG TAB PO SCH (19:16)
[2021-07-31] MEDS: TOPIRAMATE 25 MG TAB PO SCH (19:18)
[2021-07-31] MEDS: ZOLPIDEM TARTRATE 5 MG TABLET PO SCH (21:30)
--- NOTE | 2021-07-31 23:04 | PN ---
Date of Progress Note: 07/31/2021 Subjective: The patient was seen for followup this morning. She was sitting at the bedside. Denied any complaints. Objective: Vital Signs: Reviewed. HEENT: Unremarkable. Lungs: Clear to auscultation. Heart: Sounds normal. Abdomen: Soft. Bowel sounds normal. No guarding, rigidity, tenderness, or distention. Extremities: No leg edema. Left elbow exam shows improvement in area of swelling and redness. There is definite improvement compared to how it was for last several days. Impression: 1. Cellulitis, left elbow. 2. Laceration, left elbow. 3. Fracture, left sacral ala, left pubic symphysis, left superior pubic rami. 4. Hypertension. 5. Parkinson disease. 6. Constipation. Plan: The patient had a small bowel movement early this morning. Nurse was advised to give her milk of magnesia this morning, and if needed, Dulcolax rectal suppository to be given again today. Continue Senokot-S. Continue current Parkinson's medication and continue current pain medication, which seems to be controlling her pain well. We will continue to follow with Dr. Campbell for physical therapy. We will also continue Levaquin for her cellulitis of left elbow and it appears that she has responded well to this treatment. MICHELLE/MODL Voice ID: [id number] Report ID: [id number] MTDD
[2021-08-01] MEDS: HYDROCODONE/APAP 7.5/325 MG TAB PO SCH ×5 (04:00→21:44)
[2021-08-01] MEDS: PANTOPRAZOLE 40MG TABLET PO SCH (06:17)
[2021-08-01] MEDS: LEVOTHYROXINE SOD 0.075 MG TAB PO SCH (06:17)
[2021-08-01] MEDS: LIDOCAINE 4% PATCH TOP SCH (06:49)
[2021-08-01] MEDS: ENOXAPARIN 40 MG/0.4 ML SQ SCH (07:24)
[2021-08-01] MEDS: AMLODIPINE 2.5 MG TAB PO SCH (07:54)
[2021-08-01] MEDS: METOPROLOL TAR 50 MG TAB PO SCH (07:55)
[2021-08-01] MEDS: DOCUSATE NA/SENNA CONC 1 TAB PO SCH ×3 (07:55→20:11)
[2021-08-01] MEDS: POTASSIUM CL SA 10 MEQ TAB PO SCH (07:55)
[2021-08-01] MEDS: ASPIRIN EC 81 MG TAB PO SCH (07:55)
[2021-08-01] MEDS: levoFLOXacin 500 MG TAB PO SCH (07:56)
[2021-08-01] MEDS: IBUPROFEN 200 MG TAB PO SCH ×3 (07:56→17:26)
[2021-08-01] MEDS: ENSURE ENLIVE 237 ML CAN PO SCH ×2 (07:57→20:00)
[2021-08-01] MEDS: CALCIUM CARB 500MG/VIT D 200 IU TAB PO SCH (07:57)
[2021-08-01] MEDS: CARBIDOPA/LEVODOPA 25/100 TAB PO SCH ×4 (07:57→20:11)
[2021-08-01] MEDS: CRESTOR 5 MG PO SCH (08:00)
[2021-08-01] MEDS: TOPIRAMATE 25 MG TAB PO SCH (20:11)
[2021-08-01] MEDS: FAMOTIDINE 20 MG TAB PO SCH (20:11)
[2021-08-01] MEDS: ZOLPIDEM TARTRATE 5 MG TABLET PO SCH (20:11)
[2021-08-01] MEDS: TRAMADOL HCL 50 MG TAB PO PRN (23:54)
--- NOTE | 2021-08-02 01:01 | PN ---
Date of Progress Note: 08/01/2021 Subjective: The patient was seen this morning for followup. She was lying in bed, not in distress. Her was with her at bedside. She still continues to have lot of pain in her hip area. Objective: Vital Signs: Reviewed. HEENT: Unremarkable. Lungs: Clear to auscultation. Heart: Sounds normal. Abdomen: Soft. Bowel sounds normal. No guarding, rigidity, tenderness, or distention. Extremities: No leg edema. Her left elbow exam shows area of swelling is improving and warmness has improved significantly from area of swelling. No open wound. No discharge. No bleeding. In the l ast 48 hours, I have seen significant improvement. Impression: 1.Left elbow laceration. 2.Cellulitis, left elbow. 3.Fracture, left sacral ala, left pubic symphysis, left superior pubic rami. 4.Hypertension. 5.Parkinson's disease. 6.Constipation, had multiple bowel movements after we gave her some laxatives yesterday, so she will not obviously take any laxative today. Plan: We will continue current pain medication, which is her hydrocodone, but she is still reporting significant pain, so we will add Motrin 400 mg 3 times a day after each meal. Continue current Levaquin. Continue physical therapy under guidance of Dr. Campbell, and I will see her tomorrow for followup. MICHELLE/MODL Voice ID: [id number] Report ID: [id number]
[2021-08-02] MEDS: HYDROCODONE/APAP 7.5/325 MG TAB PO SCH ×4 (03:49→22:05)
[2021-08-02 05:11] LABS: Absolute Lymphocytes (CBC) 1.4 K/uL (0.7-4.9); Basophils % 0.8 % (0-1.3); Hematocrit 34.5 % (36.0-45.0); Lymphocytes % 28.9 % (15.3-44.8); RBC Red Blood Cell Count 3.69 M/uL (3.86-4.86)
[2021-08-02 05:25] LABS: Albumin 2.5 g/dL (3.4-5.0); Magnesium 2.5 mg/dL (1.8-2.4); Potassium 3.9 mmol/L (3.5-5.1); Prealbumin 14.7 mg/dL (20-40)
[2021-08-02] MEDS: PANTOPRAZOLE 40MG TABLET PO SCH (06:22)
[2021-08-02] MEDS: ENOXAPARIN 40 MG/0.4 ML SQ SCH (06:22)
[2021-08-02] MEDS: LEVOTHYROXINE SOD 0.075 MG TAB PO SCH (06:22)
[2021-08-02] MEDS: LIDOCAINE 4% PATCH TOP SCH (07:20)
[2021-08-02] MEDS: CRESTOR 5 MG PO SCH (08:00)
[2021-08-02] MEDS: TRAMADOL HCL 50 MG TAB PO PRN (08:08)
[2021-08-02] MEDS: CARBIDOPA/LEVODOPA 25/100 TAB PO SCH ×4 (08:39→20:18)
[2021-08-02] MEDS: POTASSIUM CL SA 10 MEQ TAB PO SCH (08:39)
[2021-08-02] MEDS: IBUPROFEN 200 MG TAB PO SCH ×3 (08:39→17:20)
[2021-08-02] MEDS: ASPIRIN EC 81 MG TAB PO SCH (08:39)
[2021-08-02] MEDS: METOPROLOL TAR 50 MG TAB PO SCH (08:40)
[2021-08-02] MEDS: ENSURE ENLIVE 237 ML CAN PO SCH ×2 (08:40→20:00)
[2021-08-02] MEDS: DOCUSATE NA/SENNA CONC 1 TAB PO SCH ×3 (08:40→20:18)
[2021-08-02] MEDS: CALCIUM CARB 500MG/VIT D 200 IU TAB PO SCH (08:40)
[2021-08-02] MEDS: AMLODIPINE 2.5 MG TAB PO SCH (08:40)
[2021-08-02] MEDS: levoFLOXacin 500 MG TAB PO SCH (08:40)
[2021-08-02] MEDS: FAMOTIDINE 20 MG TAB PO SCH (20:18)
[2021-08-02] MEDS: TOPIRAMATE 25 MG TAB PO SCH (20:18)
[2021-08-02] MEDS: ZOLPIDEM TARTRATE 5 MG TABLET PO SCH (20:18)
[2021-08-03] MEDS: TRAMADOL HCL 50 MG TAB PO PRN ×2 (01:14→07:08)
[2021-08-03] MEDS: HYDROCODONE/APAP 7.5/325 MG TAB PO SCH ×4 (04:10→21:05)
--- NOTE | 2021-08-03 06:54 | PN ---
Date of Progress Note: 08/02/2021 Subjective: The patient was seen this morning for followup. She was lying in bed, not in distress. Her was with her at bedside. Overall, her pain is under better control with addition of ibu profen. She also had a bowel movement yesterday. Denies any abdominal pain, nausea, vomiting. Over all feels better. Objective: Vital Signs: Reviewed. HEENT: Unremarkable. Lungs: Clear to auscultation. Heart: Sounds normal. Abdomen: Soft. Bowel sounds normal. No guarding, rigidity, tenderness, or distention. Extremities: No leg edema. Left elbow examination shows significant improvement compared to a few d ays ago. The swelling is less. Area of redness and warmness is also significantly better. No open wound. No discharge. No bleeding. Laboratory Data: Sodium 138, potassium 3.9, chloride 103, bicarb 32, BUN 20, creatinine 0.95, glucos e 100. White count 5, hemoglobin 11.7, and platelet count 276. Impression: 1.Laceration, left elbow. 2.Cellulitis, left elbow. 3.Fracture, left sacral ala, left pubic symphysis, left superior pubic rami. 4.Hypertension. 5.Parkinson disease. Plan: We will continue current medications, continue current antibiotics which is Levaquin, continue current DVT prophylaxis, Parkinson's medications, and current pain medications. The patient will co ntinue to receive physical therapy under guidance of Dr. Campbell. Left elbow is improving very well for the last 2 to 3 days, then we will continue dressing changes daily and I will follow up tomorrow. MICHELLE/MODL Voice ID: [id number] Report ID: [id number]
[2021-08-03] MEDS: LEVOTHYROXINE SOD 0.075 MG TAB PO SCH (07:08)
[2021-08-03] MEDS: PANTOPRAZOLE 40MG TABLET PO SCH (07:09)
[2021-08-03] MEDS: CRESTOR 5 MG PO SCH (08:00)
[2021-08-03] MEDS: CALCIUM CARB 500MG/VIT D 200 IU TAB PO SCH (08:26)
[2021-08-03] MEDS: ASPIRIN EC 81 MG TAB PO SCH (08:26)
[2021-08-03] MEDS: ENOXAPARIN 40 MG/0.4 ML SQ SCH (08:26)
[2021-08-03] MEDS: LIDOCAINE 4% PATCH TOP SCH (08:26)
[2021-08-03] MEDS: AMLODIPINE 2.5 MG TAB PO SCH (08:26)
[2021-08-03] MEDS: METOPROLOL TAR 50 MG TAB PO SCH (08:26)
[2021-08-03] MEDS: levoFLOXacin 500 MG TAB PO SCH (08:27)
[2021-08-03] MEDS: DOCUSATE NA/SENNA CONC 1 TAB PO SCH ×2 (08:27→20:02)
[2021-08-03] MEDS: IBUPROFEN 200 MG TAB PO SCH ×3 (08:27→16:29)
[2021-08-03] MEDS: MAGNESIUM HYDROXIDE 8% 30 ML PO PRN (08:27)
[2021-08-03] MEDS: POTASSIUM CL SA 10 MEQ TAB PO SCH (08:27)
[2021-08-03] MEDS: CARBIDOPA/LEVODOPA 25/100 TAB PO SCH ×4 (08:27→20:02)
[2021-08-03] MEDS: ENSURE ENLIVE 237 ML CAN PO SCH ×2 (08:28→20:02)
--- NOTE | 2021-08-03 09:52 | P.RH.PN ---
Estimated Length of Stay: 14 Expected Discharge Date: 08/11/21 Discharge Disposition Plan: Home Family Support: Yes Halfway Goal: Mobility, Transfers, Self Care Vital Signs: Last Vital Signs Temp 97.8 F 08/03/21 07:17 Pulse 85 08/03/21 08:26 Resp 18 08/03/21 08:08 BP 138/61 08/03/21 08:26 Pulse Ox 96 08/03/21 08:08 Laboratory: Laboratory Last Values WBC 5.00 K/uL (4.3-10.9) 08/02/21 04:15 RBC 3.69 M/uL (3.86-4.86) L 08/02/21 04:15 Hgb 11.7 g/dL (12.0-15.0) L 08/02/21 04:15 Hct 34.5 % (36.0-45.0) L 08/02/21 04:15 MCV 93.5 fL (80-100) 08/02/21 04:15 MCH 31.7 pg (27.0-35.0) 08/02/21 04:15 MCHC 33.9 g/dL (32.0-36.0) 08/02/21 04:15 RDW 13.1 % (12.1-15.2) 08/02/21 04:15 Plt Count 276 K/uL (152-406) 08/02/21 04:15 MPV 8.0 fL (7.6-11.3) 08/02/21 04:15 Neutrophils % 51.3 % (41.7-73.7) 08/02/21 04:15 Lymphocytes % 28.9 % (15.3-44.8) 08/02/21 04:15 Monocytes % 14.3 % (3.3-12.3) H 08/02/21 04:15 Eosinophils % 4.7 % (0-4.4) H 08/02/21 04:15 Basophils % 0.8 % (0-1.3) 08/02/21 04:15 Absolute Neutrophils 2.5 K/uL (1.8-8.0) 08/02/21 04:15 Absolute Lymphocytes 1.4 K/uL (0.7-4.9) 08/02/21 04:15 Absolute Monocytes 0.7 K/uL (0.1-1.3) 08/02/21 04:15 Absolute Eosinophils 0.2 K/uL (0-0.5) 08/02/21 04:15 Absolute Basophils 0.0 K/uL (0-0.5) 08/02/21 04:15 Sodium 138 mmol/L (136-145) 08/02/21 04:15 Potassium 3.9 mmol/L (3.5-5.1) 08/02/21 04:15 Chloride 103 mmol/L (98-107) 08/02/21 04:15 Carbon Dioxide 32 mmol/L (21-32) 08/02/21 04:15 BUN 20 mg/dL (7-18) H 08/02/21 04:15 Creatinine 0.95 mg/dL (0.55-1.3) 08/02/21 04:15 Estimated GFR 57 mL/min (=/>90) L 08/02/21 04:15 Glucose 100 mg/dL (74-106) 08/02/21 04:15 Calcium 9.0 mg/dL (8.5-10.1) 08/02/21 04:15 Magnesium 2.5 mg/dL (1.8-2.4) H 08/02/21 04:15 Albumin 2.5 g/dL (3.4-5.0) L 08/02/21 04:15 Prealbumin 14.7 mg/dL (20-40) L 08/02/21 04:15 Urine Color Yellow (Yellow) 07/29/21 06:00 Urine Appearance Clear (Clear) 07/29/21 06:00 Urine pH 7.0 (5.0-7.0) 07/29/21 06:00 Ur Specific [place] 1.015 (1.005-1.030) 07/29/21 06:00 Glucose (UA)(Auto) Negative (Negative) 07/29/21 06:00 Urine Ketones 1+ (Negative) H 07/29/21 06:00 Urine Blood Negative (Negative) 07/29/21 06:00 Urine Nitrite Negative (Negative) 07/29/21 06:00 Urine Bilirubin Negative (Negative) 07/29/21 06:00 Urine Urobilinogen 0.2 mg/dL (0.2-1.0) 07/29/21 06:00 Ur Leukocyte Esterase Negative (Negative) 07/29/21 06:00 Urine RBC <5 /HPF (NONE SEEN) 07/29/21 06:00 Urine WBC 5-10 /HPF (<5) H 07/29/21 06:00 Ur Squamous Epith Cells 5-10 /HPF (NONE SEEN) H 07/29/21 06:00 Ur Urothelial Cells <5 /HPF (NONE SEEN) 07/29/21 06:00 Urine Bacteria <20 /HPF (<20) 07/29/21 06:00 Hyaline Casts 0-5 /LPF (NONE SEEN) 07/29/21 06:00 Urine Mucus 2+ /HPF (NONE SEEN) 07/29/21 06:00 Urine Culture Reflexed Not needed 07/29/21 06:00 Urine Total Protein Negative (Negative) 07/29/21 06:00 Weight: 155 lb Wound Present: Yes Closed Surgical Incision Present: No Negative Pressure Wound Therapy Present: No Physician Update: Bed mobility contact guard. Walking 250' with standby assistance. Improving well overall. She still complains of up to 8/10 pain. 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 Please see the Rehabilitation Signature page for all necessary signatures.
[2021-08-03] MEDS: FAMOTIDINE 20 MG TAB PO SCH (20:02)
[2021-08-03] MEDS: TOPIRAMATE 25 MG TAB PO SCH (20:02)
[2021-08-03] MEDS: ZOLPIDEM TARTRATE 5 MG TABLET PO SCH (20:56)
--- NOTE | 2021-08-04 01:57 | PN ---
Date of Progress Note: 08/03/2021 Subjective: Patient was seen this morning for followup. No new complaints, problems reported. Her was with her at bedside. Objective: General: Lying in bed, not in distress. Vital Signs: Reviewed. HEENT: Examination unremarkable. Lungs: Clear to auscultation. Cardiac: Heart sounds normal. Abdomen: Soft. Bowel sounds normal. No guarding, rigidity, tenderness, or distention. Extremities: No leg edema. Left elbow exam shows significant improvement in the area of swelling, r edness, warmness, etc. Impression: 1.Left elbow laceration. 2.Left elbow cellulitis. 3.Fracture, left sacral ala, left superior pubic rami, left pubic symphysis. 4.Parkinson's disease. 5.Hypertension. Plan: We will go ahead and continue current medications. Continue Levaquin. Continue current DVT p rophylaxis, antihypertensive medication, and Parkinson medication. The patient's pain is under fan r control with current pain medication, and we will continue physical therapy under guidance of Dr. Giancarlo stallings. I will be out of town starting tomorrow morning until Saturday morning and Hospitalist Renetta wang will cover this patient in my absence, and I have communicated details with Dr. Ogden. MICHELLE/MODL Voice ID: [id number] Report ID: [id number]
--- NOTE | 2021-08-04 02:10 | R.PN ---
PROGRESS NOTES ENCOUNTER DATE AND TIME: 08/02/2021 16:59 (CDT) NAME PRABHAKAR HASTINGS DATE OF : 1940 DATE OF ADMISSION: 07/28/2021 10:50 (CDT) Parkinson's Disease with resulting pelvic fxCHIEF COMPLAINT: Traumatic pelvic fracture and left elbow laceration SUBJECTIVE: Pt denied any depression. Pt denied any Shortness of Breath. She reports moderate pelvic pain with therapy. Her medication regimen was adjusted. Her labs were reviewed and are stable. Ambulated 450' with standby assistance using a rolling walker. WBC 5.0, RBC 11.7, prealbumin 14.7 VITAL SIGNS Temperature: 97.8 F SBP/DBP: 119/62 Pulse: 86 Resp: 15 MEDICATION ALLERGIES: Penicillins Sulfa ENVIRONMENTAL ALLERGIES: None Known - Substance Allergies None Known - Other Allergies None Known CONSULT: Perform Neuro consult NURSING: - Shower allowing shower PRECAUTIONS: - Weight Bearing Precaution Weight bearing as tolerated 2WW for 2weeks - Fall Precaution Bed alarm fall bracelet ACTIVITIES OOB only with supervision THERAPIES: - Dietary and Nutrition Adequate Nutrition. Nutritional Education. Nutritional Supplements. - Occupational Therapy Cognitive Retraining. Evaluate and Treat. ADL Training. Transfer Training. Household Tasks. UE ROM. C ommunity Reintegration. Adaptive Equipment. Safety Awareness. UE Strengthening. Patient/Family Educat ion. Visual Perceptual Training. - Speech Therapy Cognitive Training. Expressive Language Skills. Memory Strategies. Receptive Language Skills. Speech Intelligibility Training. - Physical Therapy Gait Training. Evaluate and Treat. LE Strengthening. Balance Training. Mobility Training. Transfer Tr aining. Patient/Family Education. LE ROM. Safety Awareness. Medical Equipment Assessment and Evaluati on. PHYSICAL EXAM - Gen Alert and awake Lying in bed No apparent distress Oriented to: person, time, and place - Skin No skin breakdown. Normacephalic - Eyes No abnormalities - ENMT No abnormalities - Neck No abnormalities - CVS RRR - Chest No abnormalities - Resp Clear to auscultation - Abd + bowel sounds - GI Soft Deferred - No abnormalities - Ext No significant edema - MSK 4/5 weakness in both lower extremities. - Neuro 4/5 strength bilaterally upper and lower extremities. - Psych No abnormalities ASSESSMENT: Pt. is a 80 yo white female.On 07/22/2021 she was admitted to [facility] with diagnosis Parkinson's Disease with resulting pelvic fx.Her impairment category is Neurologic Conditio ns 03 - Parkinsonism (03.2).Pre-morbidly, Pt. was independent/mod-I in Locomotion, Safety Awareness, Social Cognition, Balance, Sphincter Control, Communication, Endurance, Self-Care, and Transfers Con trol; and she had good Locomotion, Safety Awareness, Social Cognition, Balance, Transfers Control, Sp hincter Control, Self-Care, Endurance, and Communication.Currently, she has deficits of Locomotion, S afety Awareness, Balance, Transfers Control, Self-Care, and Endurance.Pt. is now referred to [facility] for acute in-patient rehabilitation in order to maximize patient's function al independence in activities of daily living, strength, ROM, and mobility.- Rehab Goal Patient has realistic goal of being discharged at assistance level 7-Ind to reside at Home with Fami ly/Relatives. MDM/PLAN: - Physical Therapy Gait dysfunction - to improve, our physical therapists will perform initial evaluation of pt's statu s upon admission and devise an individualized program for Gait Training, and Wheel Chair mobility Inability to transfer - to improve, our physical therapists will perform initial evaluation of pt's status upon admission and devise an individualized program for Bed mobility Need for home safety evaluation - to improve, our physical therapists will perform initial evaluatio n of pt's status upon admission and devise an individualized program for Home Evaluation Need in caregiver upon discharge - to improve, our physical therapists will perform initial evaluati on of pt's status upon admission and devise an individualized program for Caregiver Training New precaution - to improve, our physical therapists will perform initial evaluation of pt's status upon admission and devise an individualized program for Patient precaution education Edema - to improve, our physical therapists will perform initial evaluation of pt's status upon admi ssion and devise an individualized program for Elevation Training, and Lymphedema Therapy Poor balance - to improve, our physical therapists will perform initial evaluation of pt's status up on admission and devise an individualized program for Balance Training Poor endurance - to improve, our physical therapists will perform initial evaluation of pt's status upon admission and devise an individualized program for Endurance Training Weakness - to improve, our physical therapists will perform initial evaluation of pt's status upon a dmission and devise an individualized program for Aquatic Therapy, Neuromuscular Reeducation, and Str engthening Achieving independence - to improve, our physical therapists will perform initial evaluation of pt's status upon admission and devise an individualized program for Community Reintegration Activities - Occupational Therapy ADL deficits - to improve, our occupation therapists will perform initial evaluation of pt's status upon admission and devise an individualized program for Bathing, Bed mobility, Community Reintegratio n, Cooking, Dressing, Eating, Fine Motor Skills, Grooming, Homemaking, Kitchen Mobility, Laundry, Pat ient Education, Safety Awareness, Splinting - Positioning, Transfers(Toilet, Tub, Shower), and Wheel Chair Management Need for landcare officer - to improve, our occupation therapists will perform initial evaluation of pt's status upon admission and devise an individualized program for Caregiver Training Weakness - to improve, our occupation therapists will perform initial evaluation of pt's status upon admission and devise an individualized program for Aquatic Therapy, Balance, Endurance, UE ROM, and UE strengthening - Other See attached MAR (Medication Administration Record) - Diet Type Continue Heart Healthy - Diet - Liquid Texture Continue Regular - Tube Feed Continue N/A - Weight Bearing Precaution Weight bearing as tolerated 2WW for 2weeks - Fall Precaution Bed alarm fall bracelet - N/A Perform Neuro consult - Diet - Solid Texture Continue Regular - Shower allowing shower FUNCTIONAL STATUS: UPDATED AT WEEKLY TEAM CONFERENCE - Bladder Same accident frequency: 7-Ind - No accidents in the past 7 days - Bowel Same accident frequency: 7-Ind - No accidents in the past 7 days - Walking Same score based on distance walked: 0(N/A) Same score based on distance walked: 2(50-149ft) - Wheelchair Same score based on distance traveled: 0(N/A) FUNCTIONAL STATUS: - Self-Care A. Eating Ind B. Grooming Ind C. Bathing Bindu D. Dressing - Upper Bindu E. Dressing - Lower modA F. Toileting Bindu - Sphincter Control G. Bladder control Vi H. Bowel control Vi - Transfers Control I. Bed/Chair/Wheelchair sup J. Toilet sup K. Tub/Shower sup - Locomotion L. Walk/Wheelchair (B) Bindu M. Stairs maxA - Communication N. Comprehension (B) Vi O. Expression (B) Vi - Social Cognition P. Social Interaction Ind Q. Problem Solving Vi R. Memory Vi - Endurance Fair - Balance Fair - Safety Awareness Good QI SCORES: - Self-Care A. Eating 05-Setup or clean-up assistance B. Oral hygiene 03-Partial/moderate assistance C. Toileting hygiene 03-Partial/moderate assistance E. Shower/bathe self 88-Not attempted due to medical condition or safety concerns F. Upper body dressing 03-Partial/moderate assistance G. Lower body dressing 03-Partial/moderate assistance H. Putting on/taking off footwear 02-Substantial/maximal assistance - Mobility A. Roll left and right 03-Partial/moderate assistance B. Sit to lying 03-Partial/moderate assistance C. Lying to sitting on side of bed 03-Partial/moderate assistance D. Sit to stand 03-Partial/moderate assistance E. Chair/[id number] transfer 03-Partial/moderate assistance F. Toilet transfer 03-Partial/moderate assistance G. Car transfer 88-Not attempted due to medical condition or safety concerns I. Walk 10 feet 04-Supervision or touching assistance J. Walk 50 feet with two turns 04-Supervision or touching assistance K. Walk 150 feet 88-Not attempted due to medical condition or safety concerns L. Walking 10 feet on uneven surfaces 88-Not attempted due to medical condition or safety concerns M. 1 step (curb) 88-Not attempted due to medical condition or safety concerns N. 4 steps 88-Not attempted due to medical condition or safety concerns O. 12 steps 88-Not attempted due to medical condition or safety concerns P. Picking up object 88-Not attempted due to medical condition or safety concerns R. Wheel 50 feet with two turns S. Wheel 150 feet 09-Not applicable - Bladder and Bowel Bladder continence Bowel continence - Endurance Fair - Balance Fair - Safety Awareness Fair CURRENT FUNC. DEFICITS: Self-Care, Mobility, Endurance, Balance, and Safety Awareness SIGNATURE PANEL: (CDT)
--- NOTE | 2021-08-04 02:10 | R.PN ---
PROGRESS NOTES ENCOUNTER DATE AND TIME: 08/01/2021 18:24 (CDT) NAME PRABHAKAR HASTINGS DATE OF : 1940 DATE OF ADMISSION: 07/28/2021 10:50 (CDT) Parkinson's Disease with resulting pelvic fxCHIEF COMPLAINT: Traumatic pelvic fracture and left elbow laceration SUBJECTIVE: Pt denied any depression. Pt denied any Shortness of Breath. She reports moderate pelvic pain with therapy. Her medication regimen was adjusted. Her labs were reviewed and are stable. Ambulated 400' with supervision using a rolling walker. VITAL SIGNS Temperature: 97.3 F SBP/DBP: 136/58 Pulse: 89 Resp: 16 MEDICATION ALLERGIES: Penicillins Sulfa ENVIRONMENTAL ALLERGIES: None Known - Substance Allergies None Known - Other Allergies None Known CONSULT: Perform Neuro consult NURSING: - Shower allowing shower PRECAUTIONS: - Weight Bearing Precaution Weight bearing as tolerated 2WW for 2weeks - Fall Precaution Bed alarm fall bracelet ACTIVITIES OOB only with supervision THERAPIES: - Dietary and Nutrition Adequate Nutrition. Nutritional Education. Nutritional Supplements. - Occupational Therapy Cognitive Retraining. Evaluate and Treat. ADL Training. Transfer Training. Household Tasks. UE ROM. C ommunity Reintegration. Adaptive Equipment. Safety Awareness. UE Strengthening. Patient/Family Educat ion. Visual Perceptual Training. - Speech Therapy Cognitive Training. Expressive Language Skills. Memory Strategies. Receptive Language Skills. Speech Intelligibility Training. - Physical Therapy Gait Training. Evaluate and Treat. LE Strengthening. Balance Training. Mobility Training. Transfer Tr aining. Patient/Family Education. LE ROM. Safety Awareness. Medical Equipment Assessment and Evaluati on. PHYSICAL EXAM - Gen Alert and awake Lying in bed No apparent distress Oriented to: person, time, and place - Skin No skin breakdown. Normacephalic - Eyes No abnormalities - ENMT No abnormalities - Neck No abnormalities - CVS RRR - Chest No abnormalities - Resp Clear to auscultation - Abd + bowel sounds - GI Soft Deferred - No abnormalities - Ext No significant edema - MSK 4/5 weakness in both lower extremities. - Neuro 4/5 strength bilaterally upper and lower extremities. - Psych No abnormalities ASSESSMENT: Pt. is a 80 yo white female.On 07/22/2021 she was admitted to [facility] with diagnosis Parkinson's Disease with resulting pelvic fx.Her impairment category is Neurologic Conditio ns 03 - Parkinsonism (03.2).Pre-morbidly, Pt. was independent/mod-I in Locomotion, Safety Awareness, Social Cognition, Balance, Sphincter Control, Communication, Endurance, Self-Care, and Transfers Con trol; and she had good Locomotion, Safety Awareness, Social Cognition, Balance, Transfers Control, Sp hincter Control, Self-Care, Endurance, and Communication.Currently, she has deficits of Locomotion, S afety Awareness, Balance, Transfers Control, Self-Care, and Endurance.Pt. is now referred to [facility] for acute in-patient rehabilitation in order to maximize patient's function al independence in activities of daily living, strength, ROM, and mobility.- Rehab Goal Patient has realistic goal of being discharged at assistance level 7-Ind to reside at Home with Fami ly/Relatives. MDM/PLAN: - Physical Therapy Gait dysfunction - to improve, our physical therapists will perform initial evaluation of pt's statu s upon admission and devise an individualized program for Gait Training, and Wheel Chair mobility Inability to transfer - to improve, our physical therapists will perform initial evaluation of pt's status upon admission and devise an individualized program for Bed mobility Need for home safety evaluation - to improve, our physical therapists will perform initial evaluatio n of pt's status upon admission and devise an individualized program for Home Evaluation Need in caregiver upon discharge - to improve, our physical therapists will perform initial evaluati on of pt's status upon admission and devise an individualized program for Caregiver Training New precaution - to improve, our physical therapists will perform initial evaluation of pt's status upon admission and devise an individualized program for Patient precaution education Edema - to improve, our physical therapists will perform initial evaluation of pt's status upon admi ssion and devise an individualized program for Elevation Training, and Lymphedema Therapy Poor balance - to improve, our physical therapists will perform initial evaluation of pt's status up on admission and devise an individualized program for Balance Training Poor endurance - to improve, our physical therapists will perform initial evaluation of pt's status upon admission and devise an individualized program for Endurance Training Weakness - to improve, our physical therapists will perform initial evaluation of pt's status upon a dmission and devise an individualized program for Aquatic Therapy, Neuromuscular Reeducation, and Str engthening Achieving independence - to improve, our physical therapists will perform initial evaluation of pt's status upon admission and devise an individualized program for Community Reintegration Activities - Occupational Therapy ADL deficits - to improve, our occupation therapists will perform initial evaluation of pt's status upon admission and devise an individualized program for Bathing, Bed mobility, Community Reintegratio n, Cooking, Dressing, Eating, Fine Motor Skills, Grooming, Homemaking, Kitchen Mobility, Laundry, Pat ient Education, Safety Awareness, Splinting - Positioning, Transfers(Toilet, Tub, Shower), and Wheel Chair Management Need for physician primary care sports medicine - to improve, our occupation therapists will perform initial evaluation of pt's status upon admission and devise an individualized program for Caregiver Training Weakness - to improve, our occupation therapists will perform initial evaluation of pt's status upon admission and devise an individualized program for Aquatic Therapy, Balance, Endurance, UE ROM, and UE strengthening - Other See attached MAR (Medication Administration Record) - Diet Type Continue Heart Healthy - Diet - Liquid Texture Continue Regular - Tube Feed Continue N/A - Weight Bearing Precaution Weight bearing as tolerated 2WW for 2weeks - Fall Precaution Bed alarm fall bracelet - N/A Perform Neuro consult - Diet - Solid Texture Continue Regular - Shower allowing shower FUNCTIONAL STATUS: UPDATED AT WEEKLY TEAM CONFERENCE - Bladder Same accident frequency: 7-Ind - No accidents in the past 7 days - Bowel Same accident frequency: 7-Ind - No accidents in the past 7 days - Walking Same score based on distance walked: 0(N/A) Same score based on distance walked: 2(50-149ft) - Wheelchair Same score based on distance traveled: 0(N/A) FUNCTIONAL STATUS: - Self-Care A. Eating Ind B. Grooming Ind C. Bathing Bindu D. Dressing - Upper Bindu E. Dressing - Lower modA F. Toileting Bindu - Sphincter Control G. Bladder control Vi H. Bowel control Vi - Transfers Control I. Bed/Chair/Wheelchair sup J. Toilet sup K. Tub/Shower sup - Locomotion L. Walk/Wheelchair (B) Bindu M. Stairs maxA - Communication N. Comprehension (B) Vi O. Expression (B) Vi - Social Cognition P. Social Interaction Ind Q. Problem Solving Vi R. Memory Vi - Endurance Fair - Balance Fair - Safety Awareness Good QI SCORES: - Self-Care A. Eating 05-Setup or clean-up assistance B. Oral hygiene 03-Partial/moderate assistance C. Toileting hygiene 03-Partial/moderate assistance E. Shower/bathe self 88-Not attempted due to medical condition or safety concerns F. Upper body dressing 03-Partial/moderate assistance G. Lower body dressing 03-Partial/moderate assistance H. Putting on/taking off footwear 02-Substantial/maximal assistance - Mobility A. Roll left and right 03-Partial/moderate assistance B. Sit to lying 03-Partial/moderate assistance C. Lying to sitting on side of bed 03-Partial/moderate assistance D. Sit to stand 03-Partial/moderate assistance E. Chair/[id number] transfer 03-Partial/moderate assistance F. Toilet transfer 03-Partial/moderate assistance G. Car transfer 88-Not attempted due to medical condition or safety concerns I. Walk 10 feet 04-Supervision or touching assistance J. Walk 50 feet with two turns 04-Supervision or touching assistance K. Walk 150 feet 88-Not attempted due to medical condition or safety concerns L. Walking 10 feet on uneven surfaces 88-Not attempted due to medical condition or safety concerns M. 1 step (curb) 88-Not attempted due to medical condition or safety concerns N. 4 steps 88-Not attempted due to medical condition or safety concerns O. 12 steps 88-Not attempted due to medical condition or safety concerns P. Picking up object 88-Not attempted due to medical condition or safety concerns R. Wheel 50 feet with two turns S. Wheel 150 feet 09-Not applicable - Bladder and Bowel Bladder continence Bowel continence - Endurance Fair - Balance Fair - Safety Awareness Fair [facility] DEFIC[facility]: Self-Care, Mobility, Endurance, Balance, and Safety Awareness SIGNATURE PANEL: (CDT)
[2021-08-04] MEDS: HYDROCODONE/APAP 7.5/325 MG TAB PO SCH ×4 (03:26→21:07)
[2021-08-04] MEDS: TRAMADOL HCL 50 MG TAB PO PRN ×2 (05:38→12:52)
[2021-08-04] MEDS: PANTOPRAZOLE 40MG TABLET PO SCH (06:35)
[2021-08-04] MEDS: LEVOTHYROXINE SOD 0.075 MG TAB PO SCH (06:36)
[2021-08-04] MEDS: CRESTOR 5 MG PO SCH (08:00)
[2021-08-04] MEDS: ENOXAPARIN 40 MG/0.4 ML SQ SCH (08:34)
[2021-08-04] MEDS: LIDOCAINE 4% PATCH TOP SCH (08:34)
[2021-08-04] MEDS: POTASSIUM CL SA 10 MEQ TAB PO SCH (08:34)
[2021-08-04] MEDS: DOCUSATE NA/SENNA CONC 1 TAB PO SCH ×2 (08:34→19:37)
[2021-08-04] MEDS: METOPROLOL TAR 50 MG TAB PO SCH (08:34)
[2021-08-04] MEDS: levoFLOXacin 500 MG TAB PO SCH (08:34)
[2021-08-04] MEDS: CARBIDOPA/LEVODOPA 25/100 TAB PO SCH ×4 (08:34→21:07)
[2021-08-04] MEDS: ASPIRIN EC 81 MG TAB PO SCH (08:34)
[2021-08-04] MEDS: AMLODIPINE 2.5 MG TAB PO SCH (08:35)
[2021-08-04] MEDS: IBUPROFEN 200 MG TAB PO SCH ×3 (08:35→18:03)
[2021-08-04] MEDS: CALCIUM CARB 500MG/VIT D 200 IU TAB PO SCH (08:36)
[2021-08-04] MEDS: ENSURE ENLIVE 237 ML CAN PO SCH ×2 (08:36→19:37)
[2021-08-04] MEDS: FAMOTIDINE 20 MG TAB PO SCH (19:36)
[2021-08-04] MEDS: TOPIRAMATE 25 MG TAB PO SCH (19:36)
[2021-08-04] MEDS: ZOLPIDEM TARTRATE 5 MG TABLET PO SCH (21:08)
[2021-08-05] MEDS: HYDROCODONE/APAP 7.5/325 MG TAB PO SCH ×4 (03:47→21:24)
[2021-08-05 05:25] VITALS: BMI 26.4
[2021-08-05] MEDS: PANTOPRAZOLE 40MG TABLET PO SCH (06:46)
[2021-08-05] MEDS: LEVOTHYROXINE SOD 0.075 MG TAB PO SCH (06:46)
[2021-08-05] MEDS: LIDOCAINE 4% PATCH TOP SCH (06:46)
[2021-08-05] MEDS: TRAMADOL HCL 50 MG TAB PO PRN ×2 (06:50→19:07)
[2021-08-05] MEDS: ENOXAPARIN 40 MG/0.4 ML SQ SCH (06:56)
[2021-08-05] MEDS: CRESTOR 5 MG PO SCH (08:00)
[2021-08-05] MEDS: ENSURE ENLIVE 237 ML CAN PO SCH ×2 (08:19→19:07)
[2021-08-05] MEDS: ASPIRIN EC 81 MG TAB PO SCH (08:19)
[2021-08-05] MEDS: DOCUSATE NA/SENNA CONC 1 TAB PO SCH ×2 (08:19→19:07)
[2021-08-05] MEDS: CALCIUM CARB 500MG/VIT D 200 IU TAB PO SCH (08:19)
[2021-08-05] MEDS: POTASSIUM CL SA 10 MEQ TAB PO SCH (08:20)
[2021-08-05] MEDS: levoFLOXacin 500 MG TAB PO SCH (08:20)
[2021-08-05] MEDS: METOPROLOL TAR 50 MG TAB PO SCH (08:20)
[2021-08-05] MEDS: AMLODIPINE 2.5 MG TAB PO SCH (08:20)
[2021-08-05] MEDS: CARBIDOPA/LEVODOPA 25/100 TAB PO SCH ×4 (08:20→21:24)
[2021-08-05] MEDS: IBUPROFEN 200 MG TAB PO SCH ×3 (08:21→17:20)
[2021-08-05] MEDS: FAMOTIDINE 20 MG TAB PO SCH (19:06)
[2021-08-05] MEDS: TOPIRAMATE 25 MG TAB PO SCH (19:06)
[2021-08-05] MEDS: ZOLPIDEM TARTRATE 5 MG TABLET PO SCH (21:24)
[2021-08-06] MEDS: HYDROCODONE/APAP 7.5/325 MG TAB PO SCH ×4 (04:58→21:24)
[2021-08-06 05:41] LABS: Urine Appearance CLOUDY (Clear); Urine Bilirubin NEGATIVE (Negative); Urine Blood NEGATIVE (Negative); Urine Color YELLOW (Yellow); Urine Glucose NEGATIVE (Negative); Urine Microscopic Reflex NO UMIC; Urine Protein NEGATIVE (Negative); Urine Specific Gravity 1.015 (1.005-1.030); Urine Urobilinogen 0.2 mg/dL (0.2-1.0); Urine pH 7.5 (5.0-7.0)
[2021-08-06] MEDS: PANTOPRAZOLE 40MG TABLET PO SCH (06:32)
[2021-08-06] MEDS: ENOXAPARIN 40 MG/0.4 ML SQ SCH (06:32)
[2021-08-06] MEDS: LEVOTHYROXINE SOD 0.075 MG TAB PO SCH (06:32)
[2021-08-06] MEDS: LIDOCAINE 4% PATCH TOP SCH (06:33)
[2021-08-06] MEDS: ENSURE ENLIVE 237 ML CAN PO SCH ×2 (07:48→18:16)
[2021-08-06] MEDS: CRESTOR 5 MG PO SCH (08:00)
[2021-08-06] MEDS: IBUPROFEN 200 MG TAB PO SCH ×3 (08:06→17:05)
[2021-08-06] MEDS: ASPIRIN EC 81 MG TAB PO SCH (08:06)
[2021-08-06] MEDS: CALCIUM CARB 500MG/VIT D 200 IU TAB PO SCH (08:07)
[2021-08-06] MEDS: CARBIDOPA/LEVODOPA 25/100 TAB PO SCH ×4 (08:07→21:25)
[2021-08-06] MEDS: METOPROLOL TAR 50 MG TAB PO SCH (08:07)
[2021-08-06] MEDS: DOCUSATE NA/SENNA CONC 1 TAB PO SCH ×2 (08:08→18:15)
[2021-08-06] MEDS: AMLODIPINE 2.5 MG TAB PO SCH (08:08)
[2021-08-06] MEDS: levoFLOXacin 500 MG TAB PO SCH (08:08)
[2021-08-06] MEDS: POTASSIUM CL SA 10 MEQ TAB PO SCH (08:09)
[2021-08-06] MEDS: TRAMADOL HCL 50 MG TAB PO PRN (18:15)
[2021-08-06] MEDS: FAMOTIDINE 20 MG TAB PO SCH (18:18)
[2021-08-06] MEDS: TOPIRAMATE 25 MG TAB PO SCH (18:18)
[2021-08-06] MEDS: ZOLPIDEM TARTRATE 5 MG TABLET PO SCH (21:24)
[2021-08-07] MEDS: HYDROCODONE/APAP 7.5/325 MG TAB PO SCH ×4 (03:07→21:27)
[2021-08-07] MEDS: TRAMADOL HCL 50 MG TAB PO PRN ×2 (05:03→12:41)
[2021-08-07 05:22] LABS: Absolute Lymphocytes (CBC) 1.7 K/uL (0.7-4.9); Basophils % 0.6 % (0-1.3); Hematocrit 38.9 % (36.0-45.0); Lymphocytes % 29.5 % (15.3-44.8); MPV 7.7 fL (7.6-11.3); RBC Red Blood Cell Count 4.13 M/uL (3.86-4.86)
[2021-08-07 05:46] LABS: Magnesium 2.4 mg/dL (1.8-2.4); Potassium 3.4 mmol/L (3.5-5.1)
[2021-08-07] MEDS ORDERED: FENTANYL 25 MCG/PATCH TD SCH (07:00)
[2021-08-07] MEDS: LEVOTHYROXINE SOD 0.075 MG TAB PO SCH (07:01)
[2021-08-07] MEDS: PANTOPRAZOLE 40MG TABLET PO SCH (07:01)
[2021-08-07] MEDS: CRESTOR 5 MG PO SCH (08:00)
[2021-08-07] MEDS: ENOXAPARIN 40 MG/0.4 ML SQ SCH (08:34)
[2021-08-07] MEDS: DOCUSATE NA/SENNA CONC 1 TAB PO SCH ×2 (08:35→20:00)
[2021-08-07] MEDS: AMLODIPINE 2.5 MG TAB PO SCH (08:35)
[2021-08-07] MEDS: IBUPROFEN 200 MG TAB PO SCH ×3 (08:35→17:08)
[2021-08-07] MEDS: ASPIRIN EC 81 MG TAB PO SCH (08:35)
[2021-08-07] MEDS: POTASSIUM CL SA 10 MEQ TAB PO SCH (08:35)
[2021-08-07] MEDS: CALCIUM CARB 500MG/VIT D 200 IU TAB PO SCH (08:37)
[2021-08-07] MEDS: METOPROLOL TAR 50 MG TAB PO SCH (08:37)
[2021-08-07] MEDS: levoFLOXacin 500 MG TAB PO SCH (08:37)
[2021-08-07] MEDS: CARBIDOPA/LEVODOPA 25/100 TAB PO SCH ×4 (08:37→21:26)
[2021-08-07] MEDS: ENSURE ENLIVE 237 ML CAN PO SCH ×2 (08:38→20:14)
[2021-08-07] MEDS: LIDOCAINE 4% PATCH TOP SCH (08:38)
--- NOTE | 2021-08-07 14:09 | RAD REPORT ---
EXAM DESCRIPTION: RAD - Hip Left 2 View - 08/07/2021 1:58 pm CLINICAL HISTORY: fracture, followup COMPARISON: Hip Left 2 View dated 07/22/2021; Pelvis Wo Cont dated 07/22/2021 FINDINGS: Increased displacement noted at the left inferior pubic ramus fracture. Comminuted pubic s ymphysis fractures not as well appreciated. Mild left acetabular degenerative changes. IMPRESSION: The left inferior pubic ramus fracture has slight increased displacement. Comminuted pub ic symphysis fracture not as well visualized
--- NOTE | 2021-08-07 14:10 | RAD REPORT ---
EXAM DESCRIPTION: RAD - Pelvis - 08/07/2021 1:58 pm CLINICAL HISTORY: fracture, followup COMPARISON: Pelvis Wo Cont dated 07/22/2021; Chest Single View dated 07/22/2021; Hip Left 2 View manuel ed 07/22/2021 FINDINGS: Grossly similar alignment of the left sacral sanya are fracture. The left inferior pubic emmanuel us fracture displacement is slightly worse. There has also been some increased displacement at the co mminuted pubic symphyseal fracture . IMPRESSION: Compared with the CT from 07/22/2021, increased displacement of the left pubic symphysea l and inferior pubic ramus fracture.
--- NOTE | 2021-08-07 14:12 | RAD REPORT ---
EXAM DESCRIPTION: RAD - Sacrum - 08/07/2021 1:58 pm CLINICAL HISTORY: fracture, followup COMPARISON: No comparisons FINDINGS: The known left sacral alar fracture is not as well visualized. There is overlying bowel co ntents. These fractures are also not well also. Pubic symphysis and left inferior pubic ramus fractur e again noted. IMPRESSION: Difficult to evaluate/compare the known left sacral alar fracture as it is not well visu alized without CT. As noted on the pelvic radiograph, there is increased displacement at the left obt urator ring fractures.
--- NOTE | 2021-08-07 17:58 | R.PN ---
PROGRESS NOTES ENCOUNTER DATE AND TIME: 08/07/2021 17:49 (CDT) NAME PRABHAKAR HASTINGS DATE OF : 1940 DATE OF ADMISSION: 07/28/2021 10:50 (CDT) Parkinson's Disease with resulting pelvic fxCHIEF COMPLAINT: Traumatic pelvic fracture and left elbow laceration SUBJECTIVE: Pt denied any depression. Pt denied any Shortness of Breath. She reports moderate pelvic pain with therapy. Her medication regimen was adjusted. Her labs were reviewed and are stable. Ambulated 500' with supervision using a rolling walker. CBC with differential is normal. K+ is 3.4. Self-propelled wheelchair 250' with standby assistance. Repeat left inferior pubic ramus and symphyseal fractures show slight increased displacement. Now on fentanyl patch 25 mcg every 3 days. VITAL SIGNS Temperature: 97.9 F SBP/DBP: 128/60 Pulse: 81 Resp: 16 MEDICATION ALLERGIES: Penicillins Sulfa ENVIRONMENTAL ALLERGIES: None Known - Substance Allergies None Known - Other Allergies None Known CONSULT: Perform Neuro consult NURSING: - Shower allowing shower PRECAUTIONS: - Weight Bearing Precaution Weight bearing as tolerated 2WW for 2weeks - Fall Precaution Bed alarm fall bracelet ACTIVITIES OOB only with supervision THERAPIES: - Dietary and Nutrition Adequate Nutrition. Nutritional Education. Nutritional Supplements. - Occupational Therapy Cognitive Retraining. Evaluate and Treat. ADL Training. Transfer Training. Household Tasks. UE ROM. C ommunity Reintegration. Adaptive Equipment. Safety Awareness. UE Strengthening. Patient/Family Educat ion. Visual Perceptual Training. - Speech Therapy Cognitive Training. Expressive Language Skills. Memory Strategies. Receptive Language Skills. Speech Intelligibility Training. - Physical Therapy Gait Training. Evaluate and Treat. LE Strengthening. Balance Training. Mobility Training. Transfer Tr aining. Patient/Family Education. LE ROM. Safety Awareness. Medical Equipment Assessment and Evaluati on. PHYSICAL EXAM - Gen Alert and awake Lying in bed No apparent distress Oriented to: person, time, and place - Skin No skin breakdown. Normacephalic - Eyes No abnormalities - ENMT No abnormalities - Neck No abnormalities - CVS RRR - Chest No abnormalities - Resp Clear to auscultation - Abd + bowel sounds - GI Soft Deferred - No abnormalities - Ext No significant edema - MSK 4/5 weakness in both lower extremities. - Neuro 4/5 strength bilaterally upper and lower extremities. - Psych No abnormalities ASSESSMENT: Pt. is a 80 yo white female.On 07/22/2021 she was admitted to [facility] with diagnosis Parkinson's Disease with resulting pelvic fx.Her impairment category is Neurologic Conditio ns 03 - Parkinsonism (03.2).Pre-morbidly, Pt. was independent/mod-I in Locomotion, Safety Awareness, Social Cognition, Balance, Sphincter Control, Communication, Endurance, Self-Care, and Transfers Con trol; and she had good Locomotion, Safety Awareness, Social Cognition, Balance, Transfers Control, Sp hincter Control, Self-Care, Endurance, and Communication.Currently, she has deficits of Locomotion, S afety Awareness, Balance, Transfers Control, Self-Care, and Endurance.Pt. is now referred to [facility] for acute in-patient rehabilitation in order to maximize patient's function al independence in activities of daily living, strength, ROM, and mobility.- Rehab Goal Patient has realistic goal of being discharged at assistance level 7-Ind to reside at Home with Fami ly/Relatives. MDM/PLAN: - Physical Therapy Gait dysfunction - to improve, our physical therapists will perform initial evaluation of pt's statu s upon admission and devise an individualized program for Gait Training, and Wheel Chair mobility Inability to transfer - to improve, our physical therapists will perform initial evaluation of pt's status upon admission and devise an individualized program for Bed mobility Need for home safety evaluation - to improve, our physical therapists will perform initial evaluatio n of pt's status upon admission and devise an individualized program for Home Evaluation Need in caregiver upon discharge - to improve, our physical therapists will perform initial evaluati on of pt's status upon admission and devise an individualized program for Caregiver Training New precaution - to improve, our physical therapists will perform initial evaluation of pt's status upon admission and devise an individualized program for Patient precaution education Edema - to improve, our physical therapists will perform initial evaluation of pt's status upon admi ssion and devise an individualized program for Elevation Training, and Lymphedema Therapy Poor balance - to improve, our physical therapists will perform initial evaluation of pt's status up on admission and devise an individualized program for Balance Training Poor endurance - to improve, our physical therapists will perform initial evaluation of pt's status upon admission and devise an individualized program for Endurance Training Weakness - to improve, our physical therapists will perform initial evaluation of pt's status upon a dmission and devise an individualized program for Aquatic Therapy, Neuromuscular Reeducation, and Str engthening Achieving independence - to improve, our physical therapists will perform initial evaluation of pt's status upon admission and devise an individualized program for Community Reintegration Activities - Occupational Therapy ADL deficits - to improve, our occupation therapists will perform initial evaluation of pt's status upon admission and devise an individualized program for Bathing, Bed mobility, Community Reintegratio n, Cooking, Dressing, Eating, Fine Motor Skills, Grooming, Homemaking, Kitchen Mobility, Laundry, Pat ient Education, Safety Awareness, Splinting - Positioning, Transfers(Toilet, Tub, Shower), and Wheel Chair Management Need for direct care counselor - to improve, our occupation therapists will perform initial evaluation of pt's status upon admission and devise an individualized program for Caregiver Training Weakness - to improve, our occupation therapists will perform initial evaluation of pt's status upon admission and devise an individualized program for Aquatic Therapy, Balance, Endurance, UE ROM, and UE strengthening - Other See attached MAR (Medication Administration Record) - Diet Type Continue Heart Healthy - Diet - Liquid Texture Continue Regular - Tube Feed Continue N/A - Weight Bearing Precaution Weight bearing as tolerated 2WW for 2weeks - Fall Precaution Bed alarm fall bracelet - N/A Perform Neuro consult - Diet - Solid Texture Continue Regular - Shower allowing shower FUNCTIONAL STATUS: UPDATED AT WEEKLY TEAM CONFERENCE - Bladder Same accident frequency: 7-Ind - No accidents in the past 7 days - Bowel Same accident frequency: 7-Ind - No accidents in the past 7 days - Walking Same score based on distance walked: 0(N/A) Same score based on distance walked: 2(50-149ft) - Wheelchair Same score based on distance traveled: 0(N/A) FUNCTIONAL STATUS: - Self-Care A. Eating Ind B. Grooming Ind C. Bathing Bindu D. Dressing - Upper Bindu E. Dressing - Lower modA F. Toileting Bindu - Sphincter Control G. Bladder control Vi H. Bowel control Vi - Transfers Control I. Bed/Chair/Wheelchair sup J. Toilet sup K. Tub/Shower sup - Locomotion L. Walk/Wheelchair (B) Bindu M. Stairs maxA - Communication N. Comprehension (B) Vi O. Expression (B) Vi - Social Cognition P. Social Interaction Ind Q. Problem Solving Vi R. Memory Vi - Endurance Fair - Balance Fair - Safety Awareness Good QI SCORES: - Self-Care A. Eating 05-Setup or clean-up assistance B. Oral hygiene 03-Partial/moderate assistance C. Toileting hygiene 03-Partial/moderate assistance E. Shower/bathe self 88-Not attempted due to medical condition or safety concerns F. Upper body dressing 03-Partial/moderate assistance G. Lower body dressing 03-Partial/moderate assistance H. Putting on/taking off footwear 02-Substantial/maximal assistance - Mobility A. Roll left and right 03-Partial/moderate assistance B. Sit to lying 03-Partial/moderate assistance C. Lying to sitting on side of bed 03-Partial/moderate assistance D. Sit to stand 03-Partial/moderate assistance E. Chair/cmm-la-[id number] transfer 03-Partial/moderate assistance F. Toilet transfer 03-Partial/moderate assistance G. Car transfer 88-Not attempted due to medical condition or safety concerns I. Walk 10 feet 04-Supervision or touching assistance J. Walk 50 feet with two turns 04-Supervision or touching assistance K. Walk 150 feet 88-Not attempted due to medical condition or safety concerns L. Walking 10 feet on uneven surfaces 88-Not attempted due to medical condition or safety concerns M. 1 step (curb) 88-Not attempted due to medical condition or safety concerns N. 4 steps 88-Not attempted due to medical condition or safety concerns O. 12 steps 88-Not attempted due to medical condition or safety concerns P. Picking up object 88-Not attempted due to medical condition or safety concerns R. Wheel 50 feet with two turns S. Wheel 150 feet 09-Not applicable - Bladder and Bowel Bladder continence Bowel continence - Endurance Fair - Balance Fair - Safety Awareness Fair CURRENT FUNC. DEFICITS: Self-Care, Mobility, Endurance, Balance, and Safety Awareness SIGNATURE PANEL: (CDT)
[2021-08-07] MEDS: TOPIRAMATE 25 MG TAB PO SCH (19:59)
[2021-08-07] MEDS: FAMOTIDINE 20 MG TAB PO SCH (20:00)
[2021-08-07] MEDS: ZOLPIDEM TARTRATE 5 MG TABLET PO SCH (21:27)
--- NOTE | 2021-08-08 01:02 | PN ---
Date of Progress Note: 08/07/2021 Subjective: The patient was seen this morning for followup. Her was with her at bedside. T he patient was complaining of a lot of pain in her left hip and pelvis area that started on Saturday. She had pain ever since she came into the hospital, but it was under fairly good control with pain medication, but over the weekend, her pain got worse. This morning she was very uncomfortable with o ngoing pain and requested something to be done for her pain control. She still has some constipation , but has had small bowel movement. Objective: Vital Signs: Reviewed. HEENT: Unremarkable. Lungs: Clear to auscultation. Heart: Heart sounds normal. Abdomen: Soft. Bowel sounds normal. No guarding, rigidity, tenderness, or distention. Extremities: No leg edema. Left elbow exam shows very minimal area of soft tissue swelling over lef t elbow region, overall much better. No tenderness. Well-healed laceration. Laboratory Data: White count 5.7, hemoglobin 13.3, platelets 346. Sodium 139, potassium 3.4, chlori de 103, bicarb 28, BUN 14, creatinine 0.88, glucose 108. Impression: 1.Left elbow laceration. 2.Cellulitis, left elbow. 3.Fracture, left sacral ala, left pubic symphysis, left superior pubic rami. 4.Hypertension. 5.Parkinson disease. 6.Constipation. Plan: We will continue current medication, continue current stool softener, milk of magnesia, [place] rectal suppository. Continue current Parkinson's medication. The patient is currently on hydroco done and ibuprofen. We will continue that and I will add fentanyl patch 25 mcg every 3 days. X-ray was ordered. We will follow up on her pelvis and sacrum x-ray. I will see her tomorrow for followup. MICHELLE/MODL Voice ID: [id number] Report ID: [id number]
[2021-08-08] MEDS: HYDROCODONE/APAP 7.5/325 MG TAB PO SCH ×4 (04:32→21:30)
[2021-08-08] MEDS: PANTOPRAZOLE 40MG TABLET PO SCH (07:07)
[2021-08-08] MEDS: LEVOTHYROXINE SOD 0.075 MG TAB PO SCH (07:27)
[2021-08-08] MEDS: TRAMADOL HCL 50 MG TAB PO PRN ×3 (07:28→16:56)
[2021-08-08] MEDS: CRESTOR 5 MG PO SCH (08:00)
[2021-08-08] MEDS: AMLODIPINE 2.5 MG TAB PO SCH (08:14)
[2021-08-08] MEDS: IBUPROFEN 200 MG TAB PO SCH ×4 (08:14→17:00)
[2021-08-08] MEDS: METOPROLOL TAR 50 MG TAB PO SCH (08:15)
[2021-08-08] MEDS: ENOXAPARIN 40 MG/0.4 ML SQ SCH (08:35)
[2021-08-08] MEDS: levoFLOXacin 500 MG TAB PO SCH (08:36)
[2021-08-08] MEDS: ASPIRIN EC 81 MG TAB PO SCH (08:36)
[2021-08-08] MEDS: DOCUSATE NA/SENNA CONC 1 TAB PO SCH ×2 (08:36→20:23)
[2021-08-08] MEDS: CARBIDOPA/LEVODOPA 25/100 TAB PO SCH ×5 (08:36→20:23)
[2021-08-08] MEDS: POTASSIUM CL SA 10 MEQ TAB PO SCH (08:37)
[2021-08-08] MEDS: LIDOCAINE 4% PATCH TOP SCH (08:37)
[2021-08-08] MEDS: ENSURE ENLIVE 237 ML CAN PO SCH ×2 (08:37→20:00)
[2021-08-08] MEDS: CALCIUM CARB 500MG/VIT D 200 IU TAB PO SCH (08:44)
--- NOTE | 2021-08-08 13:18 | RAD REPORT ---
EXAM DESCRIPTION: CT - Pelvis Wo Cont - 08/08/2021 12:56 pm CLINICAL HISTORY: fracture Fall, pain, history fracture. COMPARISON: Pelvis Wo Cont dated 07/22/2021; Hip Left 2 View dated 08/07/2021; Pelvis dated 08/07/2021 TECHNIQUE: All CT scans are performed using dose optimization technique as appropriate and may inclu de automated exposure control or mA/KV adjustment according to patient size. FINDINGS: Moderately displaced fracture of the inferior pubic ramus and superior pubic ramus at the symphysis seen. The left hip appears intact. A left hip fracture is not seen. Left sacral ala fracture again noted. No intrapelvic mass or hematoma seen. IMPRESSION: No acute fractures seen.
--- NOTE | 2021-08-08 17:33 | R.PN ---
PROGRESS NOTES ENCOUNTER DATE AND TIME: 08/08/2021 17:26 (CDT) NAME PRABHAKAR HASTINGS DATE OF : 1940 DATE OF ADMISSION: 07/28/2021 10:50 (CDT) Parkinson's Disease with resulting pelvic fxCHIEF COMPLAINT: Traumatic pelvic fracture and left elbow laceration SUBJECTIVE: Pt denied any depression. Pt denied any Shortness of Breath. She reports moderate pelvic pain with therapy. Her medication regimen was adjusted. Her labs were reviewed and are stable. Ambulated 500' with supervision using a rolling walker. CBC with differential is normal. K+ is 3.4. Self-propelled wheelchair 250' with standby assistance and slow rubia. Repeat left inferior pubic ramus and symphyseal fractures show slight increased displacement. Now on fentanyl patch 25 mcg every [address] shows moderate displaced fracture of the inferior and superior pubic ramus at the symphysis . VITAL SIGNS Temperature: 97.4 F SBP/DBP: 134/81 Pulse: 88 Resp: 16 MEDICATION ALLERGIES: Penicillins Sulfa ENVIRONMENTAL ALLERGIES: None Known - Substance Allergies None Known - Other Allergies None Known CONSULT: Perform Neuro consult NURSING: - Shower allowing shower PRECAUTIONS: - Weight Bearing Precaution Weight bearing as tolerated 2WW for 2weeks - Fall Precaution Bed alarm fall bracelet ACTIVITIES OOB only with supervision THERAPIES: - Dietary and Nutrition Adequate Nutrition. Nutritional Education. Nutritional Supplements. - Occupational Therapy Cognitive Retraining. Evaluate and Treat. ADL Training. Transfer Training. Household Tasks. UE ROM. C ommunity Reintegration. Adaptive Equipment. Safety Awareness. UE Strengthening. Patient/Family Educat ion. Visual Perceptual Training. - Speech Therapy Cognitive Training. Expressive Language Skills. Memory Strategies. Receptive Language Skills. Speech Intelligibility Training. - Physical Therapy Gait Training. Evaluate and Treat. LE Strengthening. Balance Training. Mobility Training. Transfer Tr aining. Patient/Family Education. LE ROM. Safety Awareness. Medical Equipment Assessment and Evaluati on. PHYSICAL EXAM - Gen Alert and awake Lying in bed No apparent distress Oriented to: person, time, and place - Skin No skin breakdown. Normacephalic - Eyes No abnormalities - ENMT No abnormalities - Neck No abnormalities - CVS RRR - Chest No abnormalities - Resp Clear to auscultation - Abd + bowel sounds - GI Soft Deferred - No abnormalities - Ext No significant edema - MSK 4/5 weakness in both lower extremities. - Neuro 4/5 strength bilaterally upper and lower extremities. - Psych No abnormalities ASSESSMENT: Pt. is a 80 yo white female.On 07/22/2021 she was admitted to [facility] with diagnosis Parkinson's Disease with resulting pelvic fx.Her impairment category is Neurologic Conditio ns 03 - Parkinsonism (03.2).Pre-morbidly, Pt. was independent/mod-I in Locomotion, Safety Awareness, Social Cognition, Balance, Sphincter Control, Communication, Endurance, Self-Care, and Transfers Con trol; and she had good Locomotion, Safety Awareness, Social Cognition, Balance, Transfers Control, Sp hincter Control, Self-Care, Endurance, and Communication.Currently, she has deficits of Locomotion, S afety Awareness, Balance, Transfers Control, Self-Care, and Endurance.Pt. is now referred to [facility] for acute in-patient rehabilitation in order to maximize patient's function al independence in activities of daily living, strength, ROM, and mobility.- Rehab Goal Patient has realistic goal of being discharged at assistance level 7-Ind to reside at Home with Fami ly/Relatives. MDM/PLAN: - Physical Therapy Gait dysfunction - to improve, our physical therapists will perform initial evaluation of pt's statu s upon admission and devise an individualized program for Gait Training, and Wheel Chair mobility Inability to transfer - to improve, our physical therapists will perform initial evaluation of pt's status upon admission and devise an individualized program for Bed mobility Need for home safety evaluation - to improve, our physical therapists will perform initial evaluatio n of pt's status upon admission and devise an individualized program for Home Evaluation Need in caregiver upon discharge - to improve, our physical therapists will perform initial evaluati on of pt's status upon admission and devise an individualized program for Caregiver Training New precaution - to improve, our physical therapists will perform initial evaluation of pt's status upon admission and devise an individualized program for Patient precaution education Edema - to improve, our physical therapists will perform initial evaluation of pt's status upon admi ssion and devise an individualized program for Elevation Training, and Lymphedema Therapy Poor balance - to improve, our physical therapists will perform initial evaluation of pt's status up on admission and devise an individualized program for Balance Training Poor endurance - to improve, our physical therapists will perform initial evaluation of pt's status upon admission and devise an individualized program for Endurance Training Weakness - to improve, our physical therapists will perform initial evaluation of pt's status upon a dmission and devise an individualized program for Aquatic Therapy, Neuromuscular Reeducation, and Str engthening Achieving independence - to improve, our physical therapists will perform initial evaluation of pt's status upon admission and devise an individualized program for Community Reintegration Activities - Occupational Therapy ADL deficits - to improve, our occupation therapists will perform initial evaluation of pt's status upon admission and devise an individualized program for Bathing, Bed mobility, Community Reintegratio n, Cooking, Dressing, Eating, Fine Motor Skills, Grooming, Homemaking, Kitchen Mobility, Laundry, Pat ient Education, Safety Awareness, Splinting - Positioning, Transfers(Toilet, Tub, Shower), and Wheel Chair Management Need for animal caregiver - to improve, our occupation therapists will perform initial evaluation of pt's status upon admission and devise an individualized program for Caregiver Training Weakness - to improve, our occupation therapists will perform initial evaluation of pt's status upon admission and devise an individualized program for Aquatic Therapy, Balance, Endurance, UE ROM, and UE strengthening - Other See attached MAR (Medication Administration Record) - Diet Type Continue Heart Healthy - Diet - Liquid Texture Continue Regular - Tube Feed Continue N/A - Weight Bearing Precaution Weight bearing as tolerated 2WW for 2weeks - Fall Precaution Bed alarm fall bracelet - N/A Perform Neuro consult - Diet - Solid Texture Continue Regular - Shower allowing shower FUNCTIONAL STATUS: UPDATED AT WEEKLY TEAM CONFERENCE - Bladder Same accident frequency: 7-Ind - No accidents in the past 7 days - Bowel Same accident frequency: 7-Ind - No accidents in the past 7 days - Walking Same score based on distance walked: 0(N/A) Same score based on distance walked: 2(50-149ft) - Wheelchair Same score based on distance traveled: 0(N/A) FUNCTIONAL STATUS: - Self-Care A. Eating Ind B. Grooming Ind C. Bathing Bindu D. Dressing - Upper Bindu E. Dressing - Lower modA F. Toileting Bindu - Sphincter Control G. Bladder control Vi H. Bowel control Vi - Transfers Control I. Bed/Chair/Wheelchair sup J. Toilet sup K. Tub/Shower sup - Locomotion L. Walk/Wheelchair (B) Bindu M. Stairs maxA - Communication N. Comprehension (B) Vi O. Expression (B) Vi - Social Cognition P. Social Interaction Ind Q. Problem Solving Vi R. Memory Vi - Endurance Fair - Balance Fair - Safety Awareness Good QI SCORES: - Self-Care A. Eating 05-Setup or clean-up assistance B. Oral hygiene 03-Partial/moderate assistance C. Toileting hygiene 03-Partial/moderate assistance E. Shower/bathe self 88-Not attempted due to medical condition or safety concerns F. Upper body dressing 03-Partial/moderate assistance G. Lower body dressing 03-Partial/moderate assistance H. Putting on/taking off footwear 02-Substantial/maximal assistance - Mobility A. Roll left and right 03-Partial/moderate assistance B. Sit to lying 03-Partial/moderate assistance C. Lying to sitting on side of bed 03-Partial/moderate assistance D. Sit to stand 03-Partial/moderate assistance E. Chair/ytl-rp-[id number] transfer 03-Partial/moderate assistance F. Toilet transfer 03-Partial/moderate assistance G. Car transfer 88-Not attempted due to medical condition or safety concerns I. Walk 10 feet 04-Supervision or touching assistance J. Walk 50 feet with two turns 04-Supervision or touching assistance K. Walk 150 feet 88-Not attempted due to medical condition or safety concerns L. Walking 10 feet on uneven surfaces 88-Not attempted due to medical condition or safety concerns M. 1 step (curb) 88-Not attempted due to medical condition or safety concerns N. 4 steps 88-Not attempted due to medical condition or safety concerns O. 12 steps 88-Not attempted due to medical condition or safety concerns P. Picking up object 88-Not attempted due to medical condition or safety concerns R. Wheel 50 feet with two turns S. Wheel 150 feet 09-Not applicable - Bladder and Bowel Bladder continence Bowel continence - Endurance Fair - Balance Fair - Safety Awareness Fair CURRENT FUNC. DEFICITS: Self-Care, Mobility, Endurance, Balance, and Safety Awareness SIGNATURE PANEL: (CDT)
[2021-08-08] MEDS: GABAPENTIN 100 MG CAP PO SCH (20:22)
[2021-08-08] MEDS: FAMOTIDINE 20 MG TAB PO SCH (20:22)
[2021-08-08] MEDS: TOPIRAMATE 25 MG TAB PO SCH (20:23)
--- NOTE | 2021-08-08 21:12 | PN ---
Date of Progress Note: 08/08/2021 Subjective: The patient was seen this morning for followup. Her was with her at bedside. S he still continues to have significant amount of pain to her left pelvis area. Current pain medicati on has not helped her adequately. Objective: Vital Signs: Reviewed. HEENT: Examination unremarkable. Lungs: Clear to auscultation. Heart: Sounds normal. Abdomen: Soft, bowel sounds normal. No guarding, rigidity, tenderness, distention. Extremities: No leg edema. Laboratory Data: The patient's x-ray results from yesterday reviewed with her today. Impression: 1.Fracture, left sacral ala, left pubic symphysis, left superior pubic rami. 2.Hypertension. 3.Parkinson disease. Plan: We will continue current medications. Continue current pain medication. Orthopedic consultat ion was requested from Dr. Harris and he did call me and discussed details with me and he requeste d that we should go ahead and get a CAT scan of the pelvis done, which was ordered and we will follow up with him for his recommendation. We will see patient tomorrow morning for followup. MICHELLE/MODL Voice ID: [id number] Report ID: [id number]
[2021-08-08] MEDS: ZOLPIDEM TARTRATE 5 MG TABLET PO SCH (21:30)
[2021-08-09] MEDS: HYDROCODONE/APAP 7.5/325 MG TAB PO SCH ×4 (04:18→21:10)
[2021-08-09] MEDS: LEVOTHYROXINE SOD 0.075 MG TAB PO SCH (06:45)
[2021-08-09] MEDS: ENOXAPARIN 40 MG/0.4 ML SQ SCH (06:45)
[2021-08-09] MEDS: PANTOPRAZOLE 40MG TABLET PO SCH (06:45)
[2021-08-09] MEDS ORDERED: ONDANSETRON 4 MG/2 ML VIAL IV PRN (07:49)
[2021-08-09] MEDS ORDERED: FENTANYL 50 MCG/PATCH TD SCH (08:00)
[2021-08-09] MEDS ORDERED: FENTANYL 25 MCG/PATCH TD SCH (08:00)
[2021-08-09] MEDS: CRESTOR 5 MG PO SCH (08:00)
[2021-08-09] MEDS: MORPHINE 2 MG/ML SYR IV PRN ×3 (08:12→22:30)
[2021-08-09] MEDS: DOCUSATE NA/SENNA CONC 1 TAB PO SCH ×2 (08:36→19:35)
[2021-08-09] MEDS: GABAPENTIN 100 MG CAP PO SCH ×2 (08:36→19:36)
[2021-08-09] MEDS: AMLODIPINE 2.5 MG TAB PO SCH (08:37)
[2021-08-09] MEDS: ASPIRIN EC 81 MG TAB PO SCH (08:37)
[2021-08-09] MEDS: levoFLOXacin 500 MG TAB PO SCH (08:38)
[2021-08-09] MEDS: CALCIUM CARB 500MG/VIT D 200 IU TAB PO SCH (08:38)
[2021-08-09] MEDS: POTASSIUM CL SA 10 MEQ TAB PO SCH (08:38)
[2021-08-09] MEDS: CARBIDOPA/LEVODOPA 25/100 TAB PO SCH ×4 (08:38→21:02)
[2021-08-09] MEDS: METOPROLOL TAR 50 MG TAB PO SCH (08:39)
[2021-08-09] MEDS: IBUPROFEN 200 MG TAB PO SCH ×3 (08:39→17:12)
[2021-08-09] MEDS: ENSURE ENLIVE 237 ML CAN PO SCH ×2 (08:40→19:36)
[2021-08-09] MEDS: LIDOCAINE 4% PATCH TOP SCH (09:18)
--- NOTE | 2021-08-09 09:30 | CON ---
Date of Consultation: 08/08/2021 I am called by Dr. Borden as the patient apparently has had increasing pain over the weekend. Had x-ra ys taken. X-rays demonstrate perhaps some superior migration of the left hemipelvis, although it cou ld also be in the coronal plane posteriorly. Posterior structures are not well visualized on the x-r ay. I have discussed this with Dr. Borden. I think she should be touchdown weightbearing for now. We will obtain a CT scan. Her sacral fracture and pelvic fracture are somewhat consistent with a later al compression type fracture and assumed would be stable, though slightly displaced. If she has had some displacement, most likely our options are limited as the fixation of this area is complicated by osteopenia and perhaps touchdown weightbearing and observation would be considered as the pain impro ves. Obviously, keeping her bed-bound with could possibly be an option; however, this wou ld most likely cause more problems that with all. We will follow up with Dr. Borden. CRIS Voice ID: [id number] Report ID: [id number]
[2021-08-09] MEDS: MAGNESIUM HYDROXIDE 8% 30 ML PO PRN (11:29)
[2021-08-09] MEDS: BISACODYL 10 MG RECTAL SUPP PR PRN (15:46)
--- NOTE | 2021-08-09 20:24 | R.PN ---
PROGRESS NOTES ENCOUNTER DATE AND TIME: 08/09/2021 20:20 (CDT) NAME PRABHAKAR HASTINGS DATE OF : 1940 DATE OF ADMISSION: 07/28/2021 10:50 (CDT) Parkinson's Disease with resulting pelvic fxCHIEF COMPLAINT: Traumatic pelvic fracture and left elbow laceration SUBJECTIVE: Pt denied any depression. Pt denied any Shortness of Breath. She reports moderate pelvic pain with therapy. Her medication regimen was adjusted. Her labs were reviewed and are stable. Ambulated 500' with supervision using a rolling walker. CBC with differential is normal. K+ is 3.4. Pelvic CT shows moderate displaced fracture of the inferior and superior pubic ramus at the symphysis . Dr. Harris recommends conservative nonsurgical treatment. Therapeutic exercises done with minimum assistance in bed. Transfers done with minimum assistance. VITAL SIGNS Temperature: 97.6 F SBP/DBP: 142/67 Pulse: 102 Resp: 16 MEDICATION ALLERGIES: Penicillins Sulfa ENVIRONMENTAL ALLERGIES: None Known - Substance Allergies None Known - Other Allergies None Known CONSULT: Perform Neuro consult NURSING: - Shower allowing shower PRECAUTIONS: - Weight Bearing Precaution Weight bearing as tolerated 2WW for 2weeks - Fall Precaution Bed alarm fall bracelet ACTIVITIES OOB only with supervision THERAPIES: - Dietary and Nutrition Adequate Nutrition. Nutritional Education. Nutritional Supplements. - Occupational Therapy Cognitive Retraining. Evaluate and Treat. ADL Training. Transfer Training. Household Tasks. UE ROM. C ommunity Reintegration. Adaptive Equipment. Safety Awareness. UE Strengthening. Patient/Family Educat ion. Visual Perceptual Training. - Speech Therapy Cognitive Training. Expressive Language Skills. Memory Strategies. Receptive Language Skills. Speech Intelligibility Training. - Physical Therapy Gait Training. Evaluate and Treat. LE Strengthening. Balance Training. Mobility Training. Transfer Tr aining. Patient/Family Education. LE ROM. Safety Awareness. Medical Equipment Assessment and Evaluati on. PHYSICAL EXAM - Gen Alert and awake Lying in bed No apparent distress Oriented to: person, time, and place - Skin No skin breakdown. Normacephalic - Eyes No abnormalities - ENMT No abnormalities - Neck No abnormalities - CVS RRR - Chest No abnormalities - Resp Clear to auscultation - Abd + bowel sounds - GI Soft Deferred - No abnormalities - Ext No significant edema - MSK 4/5 weakness in both lower extremities. - Neuro 4/5 strength bilaterally upper and lower extremities. - Psych No abnormalities ASSESSMENT: Pt. is a 80 yo white female.On 07/22/2021 she was admitted to [facility] with diagnosis Parkinson's Disease with resulting pelvic fx.Her impairment category is Neurologic Conditio ns 03 - Parkinsonism (03.2).Pre-morbidly, Pt. was independent/mod-I in Locomotion, Safety Awareness, Social Cognition, Balance, Sphincter Control, Communication, Endurance, Self-Care, and Transfers Con trol; and she had good Locomotion, Safety Awareness, Social Cognition, Balance, Transfers Control, Sp hincter Control, Self-Care, Endurance, and Communication.Currently, she has deficits of Locomotion, S afety Awareness, Balance, Transfers Control, Self-Care, and Endurance.Pt. is now referred to [facility] for acute in-patient rehabilitation in order to maximize patient's function al independence in activities of daily living, strength, ROM, and mobility.- Rehab Goal Patient has realistic goal of being discharged at assistance level 7-Ind to reside at Home with Fami ly/Relatives. MDM/PLAN: - Physical Therapy Gait dysfunction - to improve, our physical therapists will perform initial evaluation of pt's statu s upon admission and devise an individualized program for Gait Training, and Wheel Chair mobility Inability to transfer - to improve, our physical therapists will perform initial evaluation of pt's status upon admission and devise an individualized program for Bed mobility Need for home safety evaluation - to improve, our physical therapists will perform initial evaluatio n of pt's status upon admission and devise an individualized program for Home Evaluation Need in caregiver upon discharge - to improve, our physical therapists will perform initial evaluati on of pt's status upon admission and devise an individualized program for Caregiver Training New precaution - to improve, our physical therapists will perform initial evaluation of pt's status upon admission and devise an individualized program for Patient precaution education Edema - to improve, our physical therapists will perform initial evaluation of pt's status upon admi ssion and devise an individualized program for Elevation Training, and Lymphedema Therapy Poor balance - to improve, our physical therapists will perform initial evaluation of pt's status up on admission and devise an individualized program for Balance Training Poor endurance - to improve, our physical therapists will perform initial evaluation of pt's status upon admission and devise an individualized program for Endurance Training Weakness - to improve, our physical therapists will perform initial evaluation of pt's status upon a dmission and devise an individualized program for Aquatic Therapy, Neuromuscular Reeducation, and Str engthening Achieving independence - to improve, our physical therapists will perform initial evaluation of pt's status upon admission and devise an individualized program for Community Reintegration Activities - Occupational Therapy ADL deficits - to improve, our occupation therapists will perform initial evaluation of pt's status upon admission and devise an individualized program for Bathing, Bed mobility, Community Reintegratio n, Cooking, Dressing, Eating, Fine Motor Skills, Grooming, Homemaking, Kitchen Mobility, Laundry, Pat ient Education, Safety Awareness, Splinting - Positioning, Transfers(Toilet, Tub, Shower), and Wheel Chair Management Need for behavioral health care manager - to improve, our occupation therapists will perform initial evaluation of pt's status upon admission and devise an individualized program for Caregiver Training Weakness - to improve, our occupation therapists will perform initial evaluation of pt's status upon admission and devise an individualized program for Aquatic Therapy, Balance, Endurance, UE ROM, and UE strengthening - Other See attached MAR (Medication Administration Record) - Diet Type Continue Heart Healthy - Diet - Liquid Texture Continue Regular - Tube Feed Continue N/A - Weight Bearing Precaution Weight bearing as tolerated 2WW for 2weeks - Fall Precaution Bed alarm fall bracelet - N/A Perform Neuro consult - Diet - Solid Texture Continue Regular - Shower allowing shower FUNCTIONAL STATUS: UPDATED AT WEEKLY TEAM CONFERENCE - Bladder Same accident frequency: 7-Ind - No accidents in the past 7 days - Bowel Same accident frequency: 7-Ind - No accidents in the past 7 days - Walking Same score based on distance walked: 0(N/A) Same score based on distance walked: 2(50-149ft) - Wheelchair Same score based on distance traveled: 0(N/A) FUNCTIONAL STATUS: - Self-Care A. Eating Ind B. Grooming Ind C. Bathing Bindu D. Dressing - Upper Bindu E. Dressing - Lower modA F. Toileting Bindu - Sphincter Control G. Bladder control Vi H. Bowel control Vi - Transfers Control I. Bed/Chair/Wheelchair sup J. Toilet sup K. Tub/Shower sup - Locomotion L. Walk/Wheelchair (B) Binud M. Stairs maxA - Communication N. Comprehension (B) Vi O. Expression (B) Vi - Social Cognition P. Social Interaction Ind Q. Problem Solving Vi R. Memory Vi - Endurance Fair - Balance Fair - Safety Awareness Good QI SCORES: - Self-Care A. Eating 05-Setup or clean-up assistance B. Oral hygiene 03-Partial/moderate assistance C. Toileting hygiene 03-Partial/moderate assistance E. Shower/bathe self 88-Not attempted due to medical condition or safety concerns F. Upper body dressing 03-Partial/moderate assistance G. Lower body dressing 03-Partial/moderate assistance H. Putting on/taking off footwear 02-Substantial/maximal assistance - Mobility A. Roll left and right 03-Partial/moderate assistance B. Sit to lying 03-Partial/moderate assistance C. Lying to sitting on side of bed 03-Partial/moderate assistance D. Sit to stand 03-Partial/moderate assistance E. Chair/zeh-fh-wjpxb transfer 03-Partial/moderate assistance F. Toilet transfer 03-Partial/moderate assistance G. Car transfer 88-Not attempted due to medical condition or safety concerns I. Walk 10 feet 04-Supervision or touching assistance J. Walk 50 feet with two turns 04-Supervision or touching assistance K. Walk 150 feet 88-Not attempted due to medical condition or safety concerns L. Walking 10 feet on uneven surfaces 88-Not attempted due to medical condition or safety concerns M. 1 step (curb) 88-Not attempted due to medical condition or safety concerns N. 4 steps 88-Not attempted due to medical condition or safety concerns O. 12 steps 88-Not attempted due to medical condition or safety concerns P. Picking up object 88-Not attempted due to medical condition or safety concerns R. Wheel 50 feet with two turns S. Wheel 150 feet 09-Not applicable - Bladder and Bowel Bladder continence Bowel continence - Endurance Fair - Balance Fair - Safety Awareness Fair CURRENT FUNC. DEFICITS: Self-Care, Mobility, Endurance, Balance, and Safety Awareness SIGNATURE PANEL: (CDT)
[2021-08-09] MEDS: TOPIRAMATE 25 MG TAB PO SCH (21:01)
[2021-08-09] MEDS: ZOLPIDEM TARTRATE 5 MG TABLET PO SCH (21:01)
[2021-08-09] MEDS: FAMOTIDINE 20 MG TAB PO SCH (21:01)
--- NOTE | 2021-08-09 23:24 | PN ---
Date of Progress Note: 08/09/2021 History Of Present Illness: Patient was seen this morning for followup. No new complaints or proble ms reported by her except ongoing pain in her left pelvis area. She is getting ibuprofen, hydrocodon e, and fentanyl patch and still her pain is not controlled. In fact, her pain has gotten worse in la st 2-3 days to the extent that now she is having significant pain with any movement in the bed. She has hard time changing position in the bed without having significant pain and every time she tries t o get out of the bed to even try to urinate, she has significant pain and requires lot of assistance. Physical Examination: HEENT: Unremarkable. LUNGS: Clear to auscultation. HEART: Heart sounds normal. ABDOMEN: Soft, bowel sounds normal. No guarding, rigidity, tenderness. : Presence of distended bladder noted on palpation and percussion of the suprapubic area. EXTREMITIES: No leg edema. Laboratory Data: Her CAT scan of the pelvis reviewed with her showing pelvis fracture with displacem ent. Impression: 1.Fracture, left sacral ala, left pubic symphysis, left superior pubic rami, displaced. 2.Hypertension. 3.Parkinson disease. 4.Constipation. Plan: We will go ahead and increase the fentanyl patch from 25 mcg to 50 mcg dose. Continue ibuprof en. Continue hydrocodone. We will go ahead and start her on IV morphine. Macias catheter was ordere d for urinary retention and with this worsening pain due to pelvis fracture problem we will try to ke ep the catheter in for 24-48 hours and then decide about removal of Macias catheter. I did call and d iscussed details with Dr. Harris and he informed me that he has reviewed CAT scan and the patient does not need any surgical intervention and he also recommended touchdown weightbearing to left leg. I will see her tomorrow for followup. MICHELLE/MODL Voice ID: [id number] Report ID: [id number]
[2021-08-10] MEDS: HYDROCODONE/APAP 7.5/325 MG TAB PO SCH ×4 (04:13→21:24)
[2021-08-10 04:50] LABS: Absolute Lymphocytes (CBC) 1.4 K/uL (0.7-4.9); Basophils % 0.6 % (0-1.3); Hematocrit 35.8 % (36.0-45.0); Lymphocytes % 18.3 % (15.3-44.8); RBC Red Blood Cell Count 3.79 M/uL (3.86-4.86)
[2021-08-10 04:57] LABS: AST/SGOT 11 U/L (15-37); Albumin 2.5 g/dL (3.4-5.0); Alkaline Phosphatase 121 U/L (45-117); BUN Blood Urea Nitrogen 21 mg/dL (7-18); Bicarbonate 30 mmol/L (21-32); Bilirubin Total 0.3 mg/dL (0.2-1.0); Glucose Level 110 mg/dL (74-106); Magnesium 2.5 mg/dL (1.8-2.4); Potassium 3.8 mmol/L (3.5-5.1); Prealbumin 14.2 mg/dL (20-40); Protein, Total 6.3 g/dL (6.4-8.2); Sodium Level 139 mmol/L (136-145)
[2021-08-10 05:17] LABS: ALT/SGPT < 6 U/L (12-78)
[2021-08-10] MEDS: LEVOTHYROXINE SOD 0.075 MG TAB PO SCH (06:28)
[2021-08-10] MEDS: PANTOPRAZOLE 40MG TABLET PO SCH (06:28)
[2021-08-10] MEDS: ENOXAPARIN 40 MG/0.4 ML SQ SCH (06:29)
[2021-08-10] MEDS: LIDOCAINE 4% PATCH TOP SCH (06:45)
[2021-08-10] MEDS: CRESTOR 5 MG PO SCH (08:00)
[2021-08-10] MEDS: GABAPENTIN 100 MG CAP PO SCH ×2 (08:40→19:02)
[2021-08-10] MEDS: POTASSIUM CL SA 10 MEQ TAB PO SCH (08:40)
[2021-08-10] MEDS: ENSURE ENLIVE 237 ML CAN PO SCH ×2 (08:40→19:02)
[2021-08-10] MEDS: IBUPROFEN 200 MG TAB PO SCH ×3 (08:41→17:13)
[2021-08-10] MEDS: CARBIDOPA/LEVODOPA 25/100 TAB PO SCH ×4 (08:42→21:24)
[2021-08-10] MEDS: levoFLOXacin 500 MG TAB PO SCH (08:42)
[2021-08-10] MEDS: METOPROLOL TAR 50 MG TAB PO SCH (08:43)
[2021-08-10] MEDS: AMLODIPINE 2.5 MG TAB PO SCH (08:44)
[2021-08-10] MEDS: ASPIRIN EC 81 MG TAB PO SCH (08:44)
[2021-08-10] MEDS: DOCUSATE NA/SENNA CONC 1 TAB PO SCH ×2 (08:44→19:02)
[2021-08-10] MEDS: CALCIUM CARB 500MG/VIT D 200 IU TAB PO SCH (09:07)
[2021-08-10] MEDS: MORPHINE 2 MG/ML SYR IV PRN (09:51)
[2021-08-10] MEDS: TRAMADOL HCL 50 MG TAB PO PRN (11:48)
[2021-08-10] MEDS: FAMOTIDINE 20 MG TAB PO SCH (19:01)
[2021-08-10] MEDS: NA CHLORIDE 0.9% 1,000 ML IV SCH (19:01)
[2021-08-10] MEDS: TOPIRAMATE 25 MG TAB PO SCH (19:02)
[2021-08-10] MEDS: ZOLPIDEM TARTRATE 5 MG TABLET PO SCH (19:02)
--- NOTE | 2021-08-10 19:41 | R.PN ---
PROGRESS NOTES ENCOUNTER DATE AND TIME: 08/10/2021 19:35 (CDT) NAME PRABHAKAR HASTINGS DATE OF : 1940 DATE OF ADMISSION: 07/28/2021 10:50 (CDT) Parkinson's Disease with resulting pelvic fxCHIEF COMPLAINT: Traumatic pelvic fracture and left elbow laceration SUBJECTIVE: Pt denied any depression. Pt denied any Shortness of Breath. CBC with differential is essentially normal. K+ is 3.8, prealbumin 14.2. Pelvic CT shows moderate displaced fracture of the inferior and superior pubic ramus at the symphysis . Dr. Harris recommends conservative nonsurgical treatment. Therapeutic exercises done with minimum assistance in bed. Transfers done with minimum assistance. Ambulated 4' with moderate assistance using a rolling walker. VITAL SIGNS Temperature: 97.8 F SBP/DBP: 124/74 Pulse: 90 Resp: 16 MEDICATION ALLERGIES: Penicillins Sulfa ENVIRONMENTAL ALLERGIES: None Known - Substance Allergies None Known - Other Allergies None Known CONSULT: Perform Neuro consult NURSING: - Shower allowing shower PRECAUTIONS: - Weight Bearing Precaution Weight bearing as tolerated 2WW for 2weeks - Fall Precaution Bed alarm fall bracelet ACTIVITIES OOB only with supervision THERAPIES: - Dietary and Nutrition Adequate Nutrition. Nutritional Education. Nutritional Supplements. - Occupational Therapy Cognitive Retraining. Evaluate and Treat. ADL Training. Transfer Training. Household Tasks. UE ROM. C ommunity Reintegration. Adaptive Equipment. Safety Awareness. UE Strengthening. Patient/Family Educat ion. Visual Perceptual Training. - Speech Therapy Cognitive Training. Expressive Language Skills. Memory Strategies. Receptive Language Skills. Speech Intelligibility Training. - Physical Therapy Gait Training. Evaluate and Treat. LE Strengthening. Balance Training. Mobility Training. Transfer Tr aining. Patient/Family Education. LE ROM. Safety Awareness. Medical Equipment Assessment and Evaluati on. PHYSICAL EXAM - Gen Alert and awake Lying in bed No apparent distress Oriented to: person, time, and place - Skin No skin breakdown. Normacephalic - Eyes No abnormalities - ENMT No abnormalities - Neck No abnormalities - CVS RRR - Chest No abnormalities - Resp Clear to auscultation - Abd + bowel sounds - GI Soft Deferred - No abnormalities - Ext No significant edema - MSK 4/5 weakness in both lower extremities. - Neuro 4/5 strength bilaterally upper and lower extremities. - Psych No abnormalities ASSESSMENT: Pt. is a 80 yo white female.On 07/22/2021 she was admitted to [facility] with diagnosis Parkinson's Disease with resulting pelvic fx.Her impairment category is Neurologic Conditio ns 03 - Parkinsonism (03.2).Pre-morbidly, Pt. was independent/mod-I in Locomotion, Safety Awareness, Social Cognition, Balance, Sphincter Control, Communication, Endurance, Self-Care, and Transfers Con trol; and she had good Locomotion, Safety Awareness, Social Cognition, Balance, Transfers Control, Sp hincter Control, Self-Care, Endurance, and Communication.Currently, she has deficits of Locomotion, S afety Awareness, Balance, Transfers Control, Self-Care, and Endurance.Pt. is now referred to [facility] for acute in-patient rehabilitation in order to maximize patient's function al independence in activities of daily living, strength, ROM, and mobility.- Rehab Goal Patient has realistic goal of being discharged at assistance level 7-Ind to reside at Home with Fami ly/Relatives. MDM/PLAN: - Physical Therapy Gait dysfunction - to improve, our physical therapists will perform initial evaluation of pt's statu s upon admission and devise an individualized program for Gait Training, and Wheel Chair mobility Inability to transfer - to improve, our physical therapists will perform initial evaluation of pt's status upon admission and devise an individualized program for Bed mobility Need for home safety evaluation - to improve, our physical therapists will perform initial evaluatio n of pt's status upon admission and devise an individualized program for Home Evaluation Need in caregiver upon discharge - to improve, our physical therapists will perform initial evaluati on of pt's status upon admission and devise an individualized program for Caregiver Training New precaution - to improve, our physical therapists will perform initial evaluation of pt's status upon admission and devise an individualized program for Patient precaution education Edema - to improve, our physical therapists will perform initial evaluation of pt's status upon admi ssion and devise an individualized program for Elevation Training, and Lymphedema Therapy Poor balance - to improve, our physical therapists will perform initial evaluation of pt's status up on admission and devise an individualized program for Balance Training Poor endurance - to improve, our physical therapists will perform initial evaluation of pt's status upon admission and devise an individualized program for Endurance Training Weakness - to improve, our physical therapists will perform initial evaluation of pt's status upon a dmission and devise an individualized program for Aquatic Therapy, Neuromuscular Reeducation, and Str engthening Achieving independence - to improve, our physical therapists will perform initial evaluation of pt's status upon admission and devise an individualized program for Community Reintegration Activities - Occupational Therapy ADL deficits - to improve, our occupation therapists will perform initial evaluation of pt's status upon admission and devise an individualized program for Bathing, Bed mobility, Community Reintegratio n, Cooking, Dressing, Eating, Fine Motor Skills, Grooming, Homemaking, Kitchen Mobility, Laundry, Pat ient Education, Safety Awareness, Splinting - Positioning, Transfers(Toilet, Tub, Shower), and Wheel Chair Management Need for care technician - to improve, our occupation therapists will perform initial evaluation of pt's status upon admission and devise an individualized program for Caregiver Training Weakness - to improve, our occupation therapists will perform initial evaluation of pt's status upon admission and devise an individualized program for Aquatic Therapy, Balance, Endurance, UE ROM, and UE strengthening - Other See attached MAR (Medication Administration Record) - Diet Type Continue Heart Healthy - Diet - Liquid Texture Continue Regular - Tube Feed Continue N/A - Weight Bearing Precaution Weight bearing as tolerated 2WW for 2weeks - Fall Precaution Bed alarm fall bracelet - N/A Perform Neuro consult - Diet - Solid Texture Continue Regular - Shower allowing shower FUNCTIONAL STATUS: UPDATED AT WEEKLY TEAM CONFERENCE - Bladder Same accident frequency: 7-Ind - No accidents in the past 7 days - Bowel Same accident frequency: 7-Ind - No accidents in the past 7 days - Walking Same score based on distance walked: 0(N/A) Same score based on distance walked: 2(50-149ft) - Wheelchair Same score based on distance traveled: 0(N/A) FUNCTIONAL STATUS: - Self-Care A. Eating Ind B. Grooming Ind C. Bathing Bindu D. Dressing - Upper Bindu E. Dressing - Lower modA F. Toileting Bindu - Sphincter Control G. Bladder control Vi H. Bowel control Vi - Transfers Control I. Bed/Chair/Wheelchair sup J. Toilet sup K. Tub/Shower sup - Locomotion L. Walk/Wheelchair (B) Bindu M. Stairs maxA - Communication N. Comprehension (B) Vi O. Expression (B) Vi - Social Cognition P. Social Interaction Ind Q. Problem Solving Vi R. Memory Vi - Endurance Fair - Balance Fair - Safety Awareness Good QI SCORES: - Self-Care A. Eating 05-Setup or clean-up assistance B. Oral hygiene 03-Partial/moderate assistance C. Toileting hygiene 03-Partial/moderate assistance E. Shower/bathe self 88-Not attempted due to medical condition or safety concerns F. Upper body dressing 03-Partial/moderate assistance G. Lower body dressing 03-Partial/moderate assistance H. Putting on/taking off footwear 02-Substantial/maximal assistance - Mobility A. Roll left and right 03-Partial/moderate assistance B. Sit to lying 03-Partial/moderate assistance C. Lying to sitting on side of bed 03-Partial/moderate assistance D. Sit to stand 03-Partial/moderate assistance E. Chair/cqi-so-roabq transfer 03-Partial/moderate assistance F. Toilet transfer 03-Partial/moderate assistance G. Car transfer 88-Not attempted due to medical condition or safety concerns I. Walk 10 feet 04-Supervision or touching assistance J. Walk 50 feet with two turns 04-Supervision or touching assistance K. Walk 150 feet 88-Not attempted due to medical condition or safety concerns L. Walking 10 feet on uneven surfaces 88-Not attempted due to medical condition or safety concerns M. 1 step (curb) 88-Not attempted due to medical condition or safety concerns N. 4 steps 88-Not attempted due to medical condition or safety concerns O. 12 steps 88-Not attempted due to medical condition or safety concerns P. Picking up object 88-Not attempted due to medical condition or safety concerns R. Wheel 50 feet with two turns S. Wheel 150 feet 09-Not applicable - Bladder and Bowel Bladder continence Bowel continence - Endurance Fair - Balance Fair - Safety Awareness Fair CURRENT FUNC. DEFICITS: Self-Care, Mobility, Endurance, Balance, and Safety Awareness SIGNATURE PANEL: (CDT)
--- NOTE | 2021-08-10 22:25 | PN ---
Date of Progress Note: 08/10/2021 Subjective: The patient was seen this morning for followup. Her was with her at bedside. Objective: Vital Signs: Reviewed. HEENT: Examination unremarkable. Lungs: Clear to auscultation. Heart: Heart sounds normal. Abdomen: Soft, bowel sounds normal. No guarding, rigidity, tenderness, distention. Extremities: N o leg edema. Left elbow exam shows significant improvement. Most of her soft tissue swelling has re solved very minimal area of pink discoloration of the skin at the tip of the elbow. Otherwise, it is significantly better compared to before. She does not have any sutures. Area of laceration has hea led very well. Laboratory Data: Sodium 139, potassium 3.8, chloride 105, bicarb 30, BUN 21, creatinine 0.78, glucos e 110. Liver function tests unremarkable. Albumin 2.5. White count 7.7, hemoglobin 12.1, platelets 323. Impression: 1.Fracture, left sacral ala, left pubic symphysis, left superior pubic rami. 2.Cellulitis, left elbow. 3.Urinary retention. 4.Constipation. 5.Parkinson disease. Plan: We will continue to keep the Macias catheter in place. Her pain is being addressed with help o f ibuprofen, hydrocodone, IV morphine, and fentanyl patch. Fentanyl patch dose was increased yesterd ay to 50 mcg. She did sleep well last night as reported by the patient's . We will continue to follow up with Dr. Campbell for physical therapy. I will see her tomorrow for followup. Her urin e output was about 400 cc for the day today and her urine was concentrated. We will go ahead and sta rt her on IV fluid normal saline at 75 cc/hour. I will see her tomorrow morning. For constipation, she takes stool softener which we will continue that. Milk of magnesia and Dulcolax rectal supposito ry dose will be given today as per my instruction to the staff. MICHELLE/MODL Voice ID: [id number] Report ID: [id number]
[2021-08-11] MEDS: HYDROCODONE/APAP 7.5/325 MG TAB PO SCH ×3 (04:00→09:06)
[2021-08-11 07:09] VITALS: BP 127/73; TEMP 97.9
[2021-08-11] MEDS: PANTOPRAZOLE 40MG TABLET PO SCH (07:30)
[2021-08-11] MEDS: LEVOTHYROXINE SOD 0.075 MG TAB PO SCH (07:30)
[2021-08-11] MEDS: IBUPROFEN 200 MG TAB PO SCH (07:31)
[2021-08-11] MEDS: CRESTOR 5 MG PO SCH (08:00)
[2021-08-11] MEDS: MORPHINE 2 MG/ML SYR IV PRN ×2 (08:09→12:33)
[2021-08-11] MEDS: LIDOCAINE 4% PATCH TOP SCH (08:19)
[2021-08-11] MEDS: CALCIUM CARB 500MG/VIT D 200 IU TAB PO SCH (08:20)
[2021-08-11] MEDS: DOCUSATE NA/SENNA CONC 1 TAB PO SCH (08:20)
[2021-08-11] MEDS: AMLODIPINE 2.5 MG TAB PO SCH (08:20)
[2021-08-11] MEDS: ASPIRIN EC 81 MG TAB PO SCH (08:21)
[2021-08-11] MEDS: CARBIDOPA/LEVODOPA 25/100 TAB PO SCH (08:21)
[2021-08-11] MEDS: levoFLOXacin 500 MG TAB PO SCH (08:21)
[2021-08-11] MEDS: POTASSIUM CL SA 10 MEQ TAB PO SCH (08:21)
[2021-08-11] MEDS: GABAPENTIN 100 MG CAP PO SCH (08:21)
[2021-08-11] MEDS: METOPROLOL TAR 50 MG TAB PO SCH (08:21)
[2021-08-11] MEDS: ENOXAPARIN 40 MG/0.4 ML SQ SCH (08:21)
[2021-08-11] MEDS: ENSURE ENLIVE 237 ML CAN PO SCH (08:22)
[2021-08-11] MEDS: NA CHLORIDE 0.9% 1,000 ML IV SCH (09:20)
--- NOTE | 2021-08-11 10:31 | P.RH.PN ---
Estimated Length of Stay: 15 Expected Discharge Date: 08/11/21 Discharge Disposition Plan: Home Family Support: Yes Fdc Goal: Mobility, Transfers, Self Care Vital Signs: Last Vital Signs Temp 97.9 F 08/11/21 07:08 Pulse 103 H 08/11/21 08:21 Resp 16 08/11/21 09:06 BP 127/73 08/11/21 08:21 Pulse Ox 98 08/11/21 09:06 Laboratory: Laboratory Last Values WBC 7.70 K/uL (4.3-10.9) D 08/10/21 04:19 RBC 3.79 M/uL (3.86-4.86) L 08/10/21 04:19 Hgb 12.1 g/dL (12.0-15.0) 08/10/21 04:19 Hct 35.8 % (36.0-45.0) L 08/10/21 04:19 MCV 94.6 fL (80-100) 08/10/21 04:19 MCH 32.0 pg (27.0-35.0) 08/10/21 04:19 MCHC 33.8 g/dL (32.0-36.0) 08/10/21 04:19 RDW 13.6 % (12.1-15.2) 08/10/21 04:19 Plt Count 323 K/uL (152-406) 08/10/21 04:19 MPV 8.0 fL (7.6-11.3) 08/10/21 04:19 Neutrophils % 65.7 % (41.7-73.7) 08/10/21 04:19 Lymphocytes % 18.3 % (15.3-44.8) 08/10/21 04:19 Monocytes % 12.6 % (3.3-12.3) H 08/10/21 04:19 Eosinophils % 2.8 % (0-4.4) 08/10/21 04:19 Basophils % 0.6 % (0-1.3) 08/10/21 04:19 Absolute Neutrophils 5.1 K/uL (1.8-8.0) 08/10/21 04:19 Absolute Lymphocytes 1.4 K/uL (0.7-4.9) 08/10/21 04:19 Absolute Monocytes 1.0 K/uL (0.1-1.3) 08/10/21 04:19 Absolute Eosinophils 0.2 K/uL (0-0.5) 08/10/21 04:19 Absolute Basophils 0.0 K/uL (0-0.5) 08/10/21 04:19 Sodium 139 mmol/L (136-145) 08/10/21 04:19 Potassium 3.8 mmol/L (3.5-5.1) 08/10/21 04:19 Chloride 105 mmol/L (98-107) 08/10/21 04:19 Carbon Dioxide 30 mmol/L (21-32) 08/10/21 04:19 BUN 21 mg/dL (7-18) H 08/10/21 04:19 Creatinine 0.78 mg/dL (0.55-1.3) 08/10/21 04:19 Estimated GFR 71 mL/min (=/>90) L 08/10/21 04:19 Glucose 110 mg/dL (74-106) H 08/10/21 04:19 Calcium 8.8 mg/dL (8.5-10.1) 08/10/21 04:19 Magnesium 2.5 mg/dL (1.8-2.4) H 08/10/21 04:19 Total Bilirubin 0.3 mg/dL (0.2-1.0) 08/10/21 04:19 AST 11 U/L (15-37) L 08/10/21 04:19 ALT < 6 U/L (12-78) L 08/10/21 04:19 Alkaline Phosphatase 121 U/L (45-117) H 08/10/21 04:19 Serum Total Protein 6.3 g/dL (6.4-8.2) L 08/10/21 04:19 Albumin 2.5 g/dL (3.4-5.0) L 08/10/21 04:19 Globulin 3.8 g/dL (2.3-3.5) H 08/10/21 04:19 Albumin/Globulin Ratio 0.7 (1.1-1.8) L 08/10/21 04:19 Prealbumin 14.2 mg/dL (20-40) L 08/10/21 04:19 Urine Color Yellow (Yellow) 08/06/21 05:13 Urine Appearance Cloudy (Clear) 08/06/21 05:13 Urine pH 7.5 (5.0-7.0) H 08/06/21 05:13 Ur Specific Ross 1.015 (1.005-1.030) 08/06/21 05:13 Glucose (UA)(Auto) Negative (Negative) 08/06/21 05:13 Urine Ketones 2+ (Negative) H 08/06/21 05:13 Urine Blood Negative (Negative) 08/06/21 05:13 Urine Nitrite Negative (Negative) 08/06/21 05:13 Urine Bilirubin Negative (Negative) 08/06/21 05:13 Urine Urobilinogen 0.2 mg/dL (0.2-1.0) 08/06/21 05:13 Ur Leukocyte Esterase Negative (Negative) 08/06/21 05:13 Urine RBC Cancelled 08/06/21 05:13 Urine WBC Cancelled 08/06/21 05:13 Ur Squamous Epith Cells Cancelled 08/06/21 05:13 Ur Urothelial Cells Cancelled 08/06/21 05:13 Calcium Oxalate Crystal Cancelled 08/06/21 05:13 Uric Acid Crystals Cancelled 08/06/21 05:13 Triple Phos Crystals Cancelled 08/06/21 05:13 Other Crystals Cancelled 08/06/21 05:13 Amorphous Sediment Cancelled 08/06/21 05:13 Glitter Cells Cancelled 08/06/21 05:13 Urine Bacteria Cancelled 08/06/21 05:13 Hyaline Casts Cancelled 08/06/21 05:13 Fine Granular Casts Cancelled 08/06/21 05:13 Coarse Granular Casts Cancelled 08/06/21 05:13 Waxy Casts Cancelled 08/06/21 05:13 RBC Casts Cancelled 08/06/21 05:13 WBC Casts Cancelled 08/06/21 05:13 Urine Mucus Cancelled 08/06/21 05:13 Urine Other Cancelled 08/06/21 05:13 Urine Trichomonas Cancelled 08/06/21 05:13 Urine Yeast Cancelled 08/06/21 05:13 Ur Yeast w Hyphae Cancelled 08/06/21 05:13 Urine Yeast (Budding) Cancelled 08/06/21 05:13 Urine Sperm Cancelled 08/06/21 05:13 Urine Culture Reflexed Cancelled 08/06/21 05:13 Urine Total Volume Cancelled 08/06/21 05:13 Urine Total Protein Negative (Negative) 08/06/21 05:13 SARS-CoV-2 Rap RNA(RT-PCR) Negative (NEGATIVE) 08/05/21 07:00 Weight: 159 lb 3.2 oz Wound Present: Yes Closed Surgical Incision Present: No Negative Pressure Wound Therapy Present: No Physician Update: She has worsening pelvic pain due to further displaced pelvic fracture. Dr. Borden, Dr. Harris and Dr. Sami Rangel consulted and determined the patient should be transferred to [place] for possible emergency surgery. Due to the receiving hospital situation, Dr. Rangel requested she be discharged and sent to the emergency room of [facility] with admitting medical doctor Dr. Preston Torres. She will be sent by ambulance. Therapy will be put on hold. She currently requires total assistance to perform ADLs, transfers and mobilization due to severe pain. Functional Improvement: Patient was performing well w/ her therapy, however began to experience increased pain in pelvic region; scans indicated increased displacement. Patient severely impacted by change in pain, therefore a significant decrease in patient's physical ability and goal progress. 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 Please see the Rehabilitation Signature page for all necessary signatures.
--- NOTE | 2021-08-11 20:09 | R.PN ---
PROGRESS NOTES ENCOUNTER DATE AND TIME: 08/11/2021 20:01 (CDT) NAME PRABHAKAR HASTINGS DATE OF : 1940 DATE OF ADMISSION: 07/28/2021 10:50 (CDT) Parkinson's Disease with resulting pelvic fxCHIEF COMPLAINT: Traumatic pelvic fracture and left elbow laceration SUBJECTIVE: Pt denied any depression. Pt denied any Shortness of Breath. CBC with differential is essentially normal. K+ is 3.8, prealbumin 14.2. Pelvic CT shows moderate displaced fracture of the inferior and superior pubic ramus at the symphysis . Dr. Harris consulted with Dr. Borden and Dr. Rangel who recommended the patient be further evaluated in [place] for possible surgical intervention. She was discharged to follow-up later today with Dr. Rangel. The previous note today, in error, stated she will be transferred to [place]. Therapeutic exercises done with minimum assistance in bed. Transfers done with minimum assistance. VITAL SIGNS Temperature: 98.2 F SBP/DBP: 127/76 Pulse: 85 Resp: 16 MEDICATION ALLERGIES: Penicillins Sulfa ENVIRONMENTAL ALLERGIES: None Known - Substance Allergies None Known - Other Allergies None Known CONSULT: Perform Neuro consult NURSING: - Shower allowing shower PRECAUTIONS: - Weight Bearing Precaution Weight bearing as tolerated 2WW for 2weeks - Fall Precaution Bed alarm fall bracelet ACTIVITIES OOB only with supervision THERAPIES: - Dietary and Nutrition Adequate Nutrition. Nutritional Education. Nutritional Supplements. - Occupational Therapy Cognitive Retraining. Evaluate and Treat. ADL Training. Transfer Training. Household Tasks. UE ROM. C ommunity Reintegration. Adaptive Equipment. Safety Awareness. UE Strengthening. Patient/Family Educat ion. Visual Perceptual Training. - Speech Therapy Cognitive Training. Expressive Language Skills. Memory Strategies. Receptive Language Skills. Speech Intelligibility Training. - Physical Therapy Gait Training. Evaluate and Treat. LE Strengthening. Balance Training. Mobility Training. Transfer Tr aining. Patient/Family Education. LE ROM. Safety Awareness. Medical Equipment Assessment and Evaluati on. PHYSICAL EXAM - Gen Alert and awake Lying in bed No apparent distress Oriented to: person, time, and place - Skin No skin breakdown. Normacephalic - Eyes No abnormalities - ENMT No abnormalities - Neck No abnormalities - CVS RRR - Chest No abnormalities - Resp Clear to auscultation - Abd + bowel sounds - GI Soft Deferred - No abnormalities - Ext No significant edema - MSK 4/5 weakness in both lower extremities. - Neuro 4/5 strength bilaterally upper and lower extremities. - Psych No abnormalities ASSESSMENT: Pt. is a 80 yo white female.On 07/22/2021 she was admitted to [facility] with diagnosis Parkinson's Disease with resulting pelvic fx.Her impairment category is Neurologic Conditio ns 03 - Parkinsonism (03.2).Pre-morbidly, Pt. was independent/mod-I in Locomotion, Safety Awareness, Social Cognition, Balance, Sphincter Control, Communication, Endurance, Self-Care, and Transfers Con trol; and she had good Locomotion, Safety Awareness, Social Cognition, Balance, Transfers Control, Sp hincter Control, Self-Care, Endurance, and Communication.Currently, she has deficits of Locomotion, S afety Awareness, Balance, Transfers Control, Self-Care, and Endurance.Pt. is now referred to [facility] for acute in-patient rehabilitation in order to maximize patient's function al independence in activities of daily living, strength, ROM, and mobility.- Rehab Goal Patient has realistic goal of being discharged at assistance level 7-Ind to reside at Home with Fami ly/Relatives. MDM/PLAN: - Physical Therapy Gait dysfunction - to improve, our physical therapists will perform initial evaluation of pt's statu s upon admission and devise an individualized program for Gait Training, and Wheel Chair mobility Inability to transfer - to improve, our physical therapists will perform initial evaluation of pt's status upon admission and devise an individualized program for Bed mobility Need for home safety evaluation - to improve, our physical therapists will perform initial evaluatio n of pt's status upon admission and devise an individualized program for Home Evaluation Need in caregiver upon discharge - to improve, our physical therapists will perform initial evaluati on of pt's status upon admission and devise an individualized program for Caregiver Training New precaution - to improve, our physical therapists will perform initial evaluation of pt's status upon admission and devise an individualized program for Patient precaution education Edema - to improve, our physical therapists will perform initial evaluation of pt's status upon admi ssion and devise an individualized program for Elevation Training, and Lymphedema Therapy Poor balance - to improve, our physical therapists will perform initial evaluation of pt's status up on admission and devise an individualized program for Balance Training Poor endurance - to improve, our physical therapists will perform initial evaluation of pt's status upon admission and devise an individualized program for Endurance Training Weakness - to improve, our physical therapists will perform initial evaluation of pt's status upon a dmission and devise an individualized program for Aquatic Therapy, Neuromuscular Reeducation, and Str engthening Achieving independence - to improve, our physical therapists will perform initial evaluation of pt's status upon admission and devise an individualized program for Community Reintegration Activities - Occupational Therapy ADL deficits - to improve, our occupation therapists will perform initial evaluation of pt's status upon admission and devise an individualized program for Bathing, Bed mobility, Community Reintegratio n, Cooking, Dressing, Eating, Fine Motor Skills, Grooming, Homemaking, Kitchen Mobility, Laundry, Pat ient Education, Safety Awareness, Splinting - Positioning, Transfers(Toilet, Tub, Shower), and Wheel Chair Management Need for career technical education instructor - to improve, our occupation therapists will perform initial evaluation of pt's status upon admission and devise an individualized program for Caregiver Training Weakness - to improve, our occupation therapists will perform initial evaluation of pt's status upon admission and devise an individualized program for Aquatic Therapy, Balance, Endurance, UE ROM, and UE strengthening - Other See attached MAR (Medication Administration Record) - Diet Type Continue Heart Healthy - Diet - Liquid Texture Continue Regular - Tube Feed Continue N/A - Weight Bearing Precaution Weight bearing as tolerated 2WW for 2weeks - Fall Precaution Bed alarm fall bracelet - N/A Perform Neuro consult - Diet - Solid Texture Continue Regular - Shower allowing shower FUNCTIONAL STATUS: UPDATED AT WEEKLY TEAM CONFERENCE - Bladder Same accident frequency: 7-Ind - No accidents in the past 7 days - Bowel Same accident frequency: 7-Ind - No accidents in the past 7 days - Walking Same score based on distance walked: 0(N/A) Same score based on distance walked: 2(50-149ft) - Wheelchair Same score based on distance traveled: 0(N/A) FUNCTIONAL STATUS: - Self-Care A. Eating Ind B. Grooming Ind C. Bathing Bindu D. Dressing - Upper Bindu E. Dressing - Lower modA F. Toileting Bindu - Sphincter Control G. Bladder control Vi H. Bowel control Vi - Transfers Control I. Bed/Chair/Wheelchair sup J. Toilet sup K. Tub/Shower sup - Locomotion L. Walk/Wheelchair (B) Bindu M. Stairs maxA - Communication N. Comprehension (B) Vi O. Expression (B) Vi - Social Cognition P. Social Interaction Ind Q. Problem Solving Vi R. Memory Vi - Endurance Fair - Balance Fair - Safety Awareness Good QI SCORES: - Self-Care A. Eating 05-Setup or clean-up assistance B. Oral hygiene 03-Partial/moderate assistance C. Toileting hygiene 03-Partial/moderate assistance E. Shower/bathe self 88-Not attempted due to medical condition or safety concerns F. Upper body dressing 03-Partial/moderate assistance G. Lower body dressing 03-Partial/moderate assistance H. Putting on/taking off footwear 02-Substantial/maximal assistance - Mobility A. Roll left and right 03-Partial/moderate assistance B. Sit to lying 03-Partial/moderate assistance C. Lying to sitting on side of bed 03-Partial/moderate assistance D. Sit to stand 03-Partial/moderate assistance E. Chair/epf-mi-[id number] transfer 03-Partial/moderate assistance F. Toilet transfer 03-Partial/moderate assistance G. Car transfer 88-Not attempted due to medical condition or safety concerns I. Walk 10 feet 04-Supervision or touching assistance J. Walk 50 feet with two turns 04-Supervision or touching assistance K. Walk 150 feet 88-Not attempted due to medical condition or safety concerns L. Walking 10 feet on uneven surfaces 88-Not attempted due to medical condition or safety concerns M. 1 step (curb) 88-Not attempted due to medical condition or safety concerns N. 4 steps 88-Not attempted due to medical condition or safety concerns O. 12 steps 88-Not attempted due to medical condition or safety concerns P. Picking up object 88-Not attempted due to medical condition or safety concerns R. Wheel 50 feet with two turns S. Wheel 150 feet 09-Not applicable - Bladder and Bowel Bladder continence Bowel continence - Endurance Fair - Balance Fair - Safety Awareness Fair CURRENT FUNC. DEFICITS: Self-Care, Mobility, Endurance, Balance, and Safety Awareness SIGNATURE PANEL: (CDT)
--- NOTE | 2021-08-12 07:03 | DS ---
Date of Discharge: 08/11/2021 Disposition: Discharged from rehab. Physical Examination: HEENT: Unremarkable. Lungs: Clear to auscultation. Heart: Heart sounds normal. Abdomen: Soft. Bowel sounds normal. No guarding, rigidity, tenderness, distention. Extremities: No leg edema. Hospital Course: This 81-year-old very pleasant female patient was admitted to medical floor on 2020 after she fell down at home and was brought into the ER. On further evaluation revealed the patient had laceration of the left elbow, which was sutured and had fracture of the left sacral ala, left pubic symphysis, and left superior pubic rami. Dr. Harris was consulted for all these p roblems and conservative medical management was advised by him. We started the patient on empiric an tibiotic, as we were concerned about possibility of infection in form of cellulitis in the left elbow region around the area of the laceration. Daily dressing changes provided. The patient was brought to rehab floor and we continued her antibiotic. We changed antibiotic to Levaquin from IV antibioti cs and she responded actually very well to oral Levaquin and her left elbow laceration has significan tly improved. There are no more sutures present now and she had soft tissue swelling, has almost com pletely resolved. Redness almost has completely resolved. So, overall this left elbow laceration an d cellulitis has . She was getting pain medication initially hydrocodone on a scheduled ba sis and subsequently her pain was lot well controlled with hydrocodone and at that time we added ibup rofen and sometime last weekend her pain got worse. There was no recurrent fall, but she does not kn ow exactly what she did, but last weekend as of Saturday, her pain got worse. We added initially fen tanyl patch 25 mcg every 3 days and 48 hours later we actually increased the dose to 50 mcg fentanyl patch because her pain was not well controlled and we also had increased her dose of hydrocodone and she was continued on Motrin. We also added IV morphine. Her pain was actually getting worse over la st few days to the extent that she could not participate much in the physical therapy. She ended up having urinary retention requiring Macias catheter placement few days ago. Yesterday, her urine outpu t was low, so we started her on IV fluid. She has poor appetite, has some constipation that has been managed with stool softener and laxative. Considering her pain has gotten lot worse in last few day s and she is not able to participate with the physical therapy, Dr. Harris was requested to come b y and evaluate her to see if there is anything else we need to do and he advised us to continue conse rvative treatment with pain medications, physical therapy, etc. Today, when I saw her this morning, the patient and her . Considering worsening of her pain, I contacted Dr. Harris again t his morning and he communicated with Dr. Sami Chua, environmental services specialist in [place], who dealt wi th this kind of pelvis fracture problems and I also communicated with this physician and requested hi m to see if there is anything he can do to assist this patient considering worsening of her pain and worsening of condition. Dr. Chua is willing to assist us after he is able to evaluate her, then _ if there is anything he can do surgically on this patient or not and after he accepted the patient, we started making arrangements for transfer to [facility]. T he patient's was contacted with all this information. He understands and he agrees with the transfer process as well. The patient also agrees with the transfer process. We initiated the trans kaushal process, but we found out that this particular hospital did not have any bed available, so we dis charged the patient from our hospital and the patient will go to the emergency room of this [facility] since there are no beds available. Final Diagnoses: 1.Fracture, left sacral ala, left superior pubic rami, left pubic symphysis. 2.Left elbow laceration. 3. . 4.Constipation. 5.Anemia, unspecified. 6.Hypokalemia. MICHELLE/MODL Voice ID: [id number] Report ID: [id number]
== END 2021-08-11 14:23 | disposition home or self-care (01) | DRG 560 ==
LOC: 5TH 07-28 10:36
PROVIDERS: ADMIT Internal Medicine; ATTEND Psychiatry & Neurology Neurology with Special Qualifications in Child Neurology
DX: S32.502D Unspecified fracture of left pubis, subsequent encounter for fracture with routine healing (principal); L03.114 Cellulitis of left upper limb; S32.592D Other specified fracture of left pubis, subsequent encounter for fracture with routine healing; G20 Parkinson's disease; E03.9 Hypothyroidism, unspecified; I10 Essential (primary) hypertension; E78.5 Hyperlipidemia, unspecified; K21.9 Gastro-esophageal reflux disease without esophagitis; K57.90 Diverticulosis of intestine, part unspecified, without perforation or abscess without bleeding; M19.90 Unspecified osteoarthritis, unspecified site; M81.0 Age-related osteoporosis without current pathological fracture; S51.012A Laceration without foreign body of left elbow, initial encounter; E87.6 Hypokalemia; R33.9 Retention of urine, unspecified; D64.9 Anemia, unspecified; Z88.0 Allergy status to penicillin; Z88.2 Allergy status to sulfonamides; Z20.822 Contact with and (suspected) exposure to COVID-19
CPT/HCPCS: 36415; 72170; 72192; 72220; 80048; 80053; 81001; 81003; 82040; 83735; 84134; 85025; 87086; 87088; 92523; 94010; 97110; 97112; 97116; 97124; 97127; 97162; 97165; 97530; 97542; J1650; J2270; J7030; U0002; U0003

== ENCOUNTER 2024-03-16 18:43 | Inpatient (IN) | payer OTHER ==
--- OUTSIDE RECORDS SUMMARY | 2024-03-16 18:51 | XMS REPORT | Continuity of Care Document ---
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 Name Role Phone JONATHAN_GCBZW_Chelyala_S Attending Clinician UnavailPreston Dai Attending Clinician Unavailable JONATHAN_HAKEEMZW_Maribella_S Admitting Clinician UnavailPreston Dai Admitting Clinician Unavailable Payers Payer Name Policy Type Policy Number Effective Date Expirati on Date Source Allergies, Adverse Reactions, Alerts Allergy Name Allergy Type Status Severity Reaction(s) Onset Date Inactive Date Treating Clinician Comments Source Penicill ins DA Active SV RASH 2020-10 00:00: 00 [facility] Sulfa (Sulfona mide Antibiot ics) DA Active SV RASH 2020-10 00:00: 00 [facility] Procedures Procedure Date / Time Performed Performing Clinicia n Source [id number] 2021-08-14 00:00:00 [email or web address] [facility] Encounters Start Date/Time End Date/Time Encounter Type Admission Type Attending Clinicians Care Facility Care Department Encounter ID Source 2023-08-02 00:00:00 2023-08-02 00:00:00 Outpatient GC_GCBZW_Ka diyala_S PRIV PRIV [id number] [facility] 2021 17:54:00 2021-08-18 22:03:00 Inpatient Preston Verduzco [facility] [id number] 49 [facility] Results Test Description Test Time Test Comments Results Result Co mments Source COMPREHENSIVE METABOLIC [id number] 05:13:00* Test Item Value Reference Range Interpretation Comme nts SODIUM (test code = NA) 138 mmol/L 136-145 N Please note: New Reference Range Nov 2020 POTASSIUM (test code = K) 4.1 mmol/L 3.5-5.1 N CHLORIDE (test code = CL) 102 mmol/L 98-107 N Please note: New Reference Range Nov 2020 CARBON DIOXIDE (test code = CO2) 29 mmol/L 20-31 N Please note: N ew Reference Range Nov 2020 GLUCOSE (test code = GLU) 98 mg/dL 74-106 N Please note: New Reference Range Nov 2020 BLOOD UREA NITROGEN (test code = BUN) 16 mg/dL 9-23 N Please note: N ew Reference Range Nov 2020 GLOMERULAR FILTRATION RATE (test code = GFR) >=60 max estimate mL/min >60 Units are mL/min/1.73m2 The estimated glomerular filtration rate is computed usingpatient race, age (>18), sex, and serum creatinine. If anyof the needed data elements are missing the Laboratory cannot compute an estimation of the glomerular filtration rate. CREATININE (test code = CREAT) 0.60 mg/dL 0.55-1.02 N Please note: New Reference Range Nov 2020 TOTAL PROTEIN (test code = PROT) 5.3 g/dL 5.7-8.2 L Please note: New Reference Range Nov 2020 ALBUMIN (test code = ALB) 3.3 g/dL 3.2-4.8 N Please note: New Reference Range Nov 2020 CALCIUM (test code = CA) 8.8 mg/dL 8.7-10.4 N Please note: New Reference Range Nov 2020 BILIRUBIN TOTAL (test code = BILT) 0.4 mg/dL 0.3-1.2 N Please note: New Reference Range Nov 2020 SGOT/AST (test code = AST) 17 U/L <34 N Please note: New Reference Range Nov 2020 SGPT/ALT (test code = ALT) < 7 U/L 10-49 L Please note: New Reference Range Nov 2020 ALKALINE PHOSPHATASE (test code = ALKP) 115 U/L 46-116 N Please note: New Reference Range Nov 2020 CBC W/AUTO [id number] 05:04:00* Test Item Value Reference Range Interpretation Comme nts WHITE BLOOD CELL (test code = WBC) 5.7 x10 3/uL 4.8-10.8 N RED BLOOD CELL (test code = RBC) 3.63 x10 6/uL 4.20-5.40 L HEMOGLOBIN (test code = HGB) 11.3 g/dL 12.0-16.0 L HEMATOCRIT (test code = HCT) 34.3 % 37.0-47.0 L MEAN CELL VOLUME (test code = MCV) 94.5 fL 81.0-99.0 N MEAN CELL HGB (test code = MCH) 31.1 pg 27-31 H MEAN CELL HGB CONCENTRATION (test code = MCHC) 32.9 G/DL 33-36.5 L RED CELL DISTRIBUTION WIDTH (test code = RDW) 12.7 % 12.9-16.9 L PLATELET COUNT (test code = PLT) 277 x10 3/uL 150-440 N MEAN PLATELET VOLUME (test c ode = MPV) 9.7 fL 8.9-12.4 N NEUTROPHIL % (test code = NT%) 50.7 % 42.2-75.2 N LYMPHOCYTE % (test code = LY%) 30.2 % 20.5-51.1 N MONOCYTE % (test code = MO%) 12.6 % 1.7-9.3 H EOSINOPHIL % (test code = EO%) 5.6 % 0.0-7.0 N BASOPHIL % (test code = BA%) 0.7 % 0-2.5 N NEUTROPHIL # (test code = NT#) 2.90 x10 3/uL 1.80-7.70 N LYMPHOCYTE # (test code = LY#) 1.73 x10 3/uL 1.00-4.80 N MONOCYTE # (test code = MO#) 0.72 x10 3/uL 0.00-0.80 N EOSINOPHIL # (test code = EO#) 0.32 x10 3/uL 0.00-0.45 N BASOPHIL # (test code = BA#) 0.04 x10 3/uL 0.0-0.20 N - XR HIP W/PEL UNI 2+V [id number] 08:34:00 [facility] : 1940 Sex: FPatient Name: PRABHAKAR HASTINGS Unit No: [id number] EXAMS: CPT CODE: [id number] XR HIP W/PEL UNI 2+[place] [address] LEFT HIP, 2 VIEWS DICTATION LOCATION A1 HISTORY: Injury. IMPRESSION: 2 views of the left hip at 7:45 AM show mildly displaced superior and inferior pubic rami fractures but no other acute findings. at 0834 Reported and signed by:Rex Simon Jr, MD CC: Sami Chua MD; Preston Torres MD Technologist: Wyatt Miranda Time:DAP (Gy m2): Air Kerma (mGy): Trscr Dt/Tm: 08/16/2021 (0834) by:Arlen Printed Date/Time: 08/16/2021 (0838) Name: PRABHAKAR HASTINGS [facility] Phys: Sami Mcdaniels MD [address] :1940 Age: 81 Sex: [place] [address] Loc: P.0608 1 Exam Date: 08/16/2021 Status: ADM IN PH: FAX: PAGE 1 Signed ReportCOMPREHENSIVE METABOLIC [id number] 07:44:00* Test Item Value Reference Range Interpretation Comme nts SODIUM (test code = NA) 138 mmol/L 136-145 N Please note: New Reference Range Nov 2020 POTASSIUM (test code = K) 4.7 mmol/L 3.5-5.1 N CHLORIDE (test code = CL) 99 mmol/L 98-107 N Please note: New Reference Range Nov 2020 CARBON DIOXIDE (test code = CO2) 28 mmol/L 20-31 N Please note: N ew Reference Range Nov 2020 GLUCOSE (test code = GLU) 88 mg/dL 74-106 N Please note: New Reference Range Nov 2020 BLOOD UREA NITROGEN (test code = BUN) 17 mg/dL 9-23 N Please note: N ew Reference Range Nov 2020 GLOMERULAR FILTRATION RATE (test code = GFR) >=60 max estimate mL/min >60 Units are mL/min/1.73m2 The estimated glomerular filtration rate is computed usingpatient race, age (>18), sex, and serum creatinine. If anyof the needed data elements are missing the Laboratory cannot compute an estimation of the glomerular filtration rate. CREATININE (test code = CREAT) 0.70 mg/dL 0.55-1.02 N Please note: New Reference Range Nov 2020 TOTAL PROTEIN (test code = PROT) 6.1 g/dL 5.7-8.2 N Please note: New Reference Range Nov 2020 ALBUMIN (test code = ALB) 3.9 g/dL 3.2-4.8 N Please note: New Reference Range Nov 2020 CALCIUM (test code = CA) 8.7 mg/dL 8.7-10.4 N Please note: New Reference Range Nov 2020 BILIRUBIN TOTAL (test code = BILT) 0.5 mg/dL 0.3-1.2 N Please note: New Reference Range Nov 2020 SGOT/AST (test code = AST) 28 U/L <34 N Please note: New Reference Range Nov 2020 SGPT/ALT (test code = ALT) < 7 U/L 10-49 L Please note: New Reference Range Nov 2020 ALKALINE PHOSPHATASE (test code = ALKP) 133 U/L 46-116 H Please note: New Reference Range Nov 2020 CBC W/AUTO [id number] 07:22:00* Test Item Value Reference Range Interpretation Comme nts WHITE BLOOD CELL (test code = WBC) 7.3 x10 3/uL 4.8-10.8 N RED BLOOD CELL (test code = RBC) 3.94 x10 6/uL 4.20-5.40 L HEMOGLOBIN (test code = HGB) 12.3 g/dL 12.0-16.0 N HEMATOCRIT (test code = HCT) 37.4 % 37.0-47.0 N MEAN CELL VOLUME (test code = MCV) 94.9 fL 81.0-99.0 N MEAN CELL HGB (test code = MCH) 31.2 pg 27-31 H MEAN CELL HGB CONCENTRATION (test code = MCHC) 32.9 G/DL 33-36.5 L RED CELL DISTRIBUTION WIDTH (test code = RDW) 12.4 % 12.9-16.9 L PLATELET COUNT (test code = PLT) 312 x10 3/uL 150-440 N MEAN PLATELET VOLUME (test c ode = MPV) 10.3 fL 8.9-12.4 N NEUTROPHIL % (test code = NT%) 58.1 % 42.2-75.2 N LYMPHOCYTE % (test code = LY%) 22.4 % 20.5-51.1 N MONOCYTE % (test code = MO%) 16.5 % 1.7-9.3 H EOSINOPHIL % (test code = EO%) 2.2 % 0.0-7.0 N BASOPHIL % (test code = BA%) 0.5 % 0-2.5 N NEUTROPHIL # (test code = NT#) 4.25 x10 3/uL 1.80-7.70 N LYMPHOCYTE # (test code = LY#) 1.64 x10 3/uL 1.00-4.80 N MONOCYTE # (test code = MO#) 1.21 x10 3/uL 0.00-0.80 H EOSINOPHIL # (test code = EO#) 0.16 x10 3/uL 0.00-0.45 N BASOPHIL # (test code = BA#) 0.04 x10 3/uL 0.0-0.20 N COMPREHENSIVE METABOLIC [id number] 06:40:00* Test Item Value Reference Range Interpretation Comme nts SODIUM (test code = NA) 139 mmol/L 136-145 N Please note: New Reference Range Nov 2020 POTASSIUM (test code = K) 4.2 mmol/L 3.5-5.1 N CHLORIDE (test code = CL) 101 mmol/L 98-107 N Please note: New Reference Range Nov 2020 CARBON DIOXIDE (test code = CO2) 30 mmol/L 20-31 N Please note: N ew Reference Range Nov 2020 GLUCOSE (test code = GLU) 95 mg/dL 74-106 N Please note: New Reference Range Nov 2020 BLOOD UREA NITROGEN (test code = BUN) 16 mg/dL 9-23 N Please note: N ew Reference Range Nov 2020 GLOMERULAR FILTRATION RATE (test code = GFR) >=60 max estimate mL/min >60 Units are mL/min/1.73m2 The estimated glomerular filtration rate is computed usingpatient race, age (>18), sex, and serum creatinine. If anyof the needed data elements are missing the Laboratory cannot compute an estimation of the glomerular filtration rate. CREATININE (test code = CREAT) 0.60 mg/dL 0.55-1.02 N Please note: New Reference Range Nov 2020 TOTAL PROTEIN (test code = PROT) 5.7 g/dL 5.7-8.2 N Please note: New Reference Range Nov 2020 ALBUMIN (test code = ALB) 3.7 g/dL 3.2-4.8 N Please note: New Reference Range Nov 2020 CALCIUM (test code = CA) 8.6 mg/dL 8.7-10.4 L Please note: New Reference Range Nov 2020 BILIRUBIN TOTAL (test code = BILT) 0.4 mg/dL 0.3-1.2 N Please note: New Reference Range Nov 2020 SGOT/AST (test code = AST) 21 U/L <34 N Please note: New Reference Range Nov 2020 SGPT/ALT (test code = ALT) < 7 U/L 10-49 L Please note: New Reference Range Nov 2020 ALKALINE PHOSPHATASE (test code = ALKP) 131 U/L 46-116 H Please note: New Reference Range Nov 2020 CBC W/AUTO [id number] 06:30:00* Test Item Value Reference Range Interpretation Comme nts WHITE BLOOD CELL (test code = WBC) 6.2 x10 3/uL 4.8-10.8 N RED BLOOD CELL (test code = RBC) 4.11 x10 6/uL 4.20-5.40 L HEMOGLOBIN (test code = HGB) 12.7 g/dL 12.0-16.0 N HEMATOCRIT (test code = HCT) 39.2 % 37.0-47.0 N MEAN CELL VOLUME (test code = MCV) 95.4 fL 81.0-99.0 N MEAN CELL HGB (test code = MCH) 30.9 pg 27-31 N MEAN CELL HGB CONCENTRATION (test code = MCHC) 32.4 G/DL 33-36.5 L RED CELL DISTRIBUTION WIDTH (test code = RDW) 12.5 % 12.9-16.9 L PLATELET COUNT (test code = PLT) 284 x10 3/uL 150-440 N MEAN PLATELET VOLUME (test c ode = MPV) 9.6 fL 8.9-12.4 N NEUTROPHIL % (test code = NT%) 61.5 % 42.2-75.2 N LYMPHOCYTE % (test code = LY%) 19.0 % 20.5-51.1 L MONOCYTE % (test code = MO%) 14.8 % 1.7-9.3 H EOSINOPHIL % (test code = EO%) 3.7 % 0.0-7.0 N BASOPHIL % (test code = BA%) 0.5 % 0-2.5 N NEUTROPHIL # (test code = NT#) 3.79 x10 3/uL 1.80-7.70 N LYMPHOCYTE # (test code = LY#) 1.17 x10 3/uL 1.00-4.80 N MONOCYTE # (test code = MO#) 0.91 x10 3/uL 0.00-0.80 H EOSINOPHIL # (test code = EO#) 0.23 x10 3/uL 0.00-0.45 N BASOPHIL # (test code = BA#) 0.03 x10 3/uL 0.0-0.20 N - MRI L-SPINE W/O [id number] 00:02:00 [facility] : 1940 Sex: FPatient Name: PRABHAKAR HASTINGS Unit No: [id number] EXAMS: CPT CODE: [id number] MRI L-SPINE W/O CONT [id number] EXAMINATION: - MRI L-SPINE W/O CONT LOCATION: H61 HISTORY: back pain COMPARISON: Pelvic MRI 08/14/2021. TECHNIQUE: MRI of the lumbar spine was performed, utilizing the following sequences: Sagittal T1, T2,STIR; axial T1 and T2. FINDINGS: Vertebral body numbering: For purposes of this dictation, it is assumed that there are 5 nonrib-bearing lumbar type vertebra, and the most caudal fully segmented lumbar vertebra is labeled L5. Alignment: Normal lordosis. No spondylolisthesis or scoliosis. Vertebrae:No compression deformities or osteomyelitis. Bone marrow: No marrow edema within the lumbar spine. Marrow edema within the bilateral sacral ala related to acute sacral fractures as described on pelvic MRI. Abdominal soft tissues: No AAA or renal mass. Small cyst in the right kidney. Small mild fluid in the presacral space.. Posterior paraspinal muscles: Moderate diffuse fatty atrophy of posterior paraspinal muscles. Lower thoracic cord: Normal in size and signal. The tip of the conus is at theL1-L2 level. Cauda equina: No masses or arachnoiditis. Level specific analysis: L1-L2: Disc desiccation. No disc herniation. Spinal canal and neural foramina are patent. L2-L3: Disc desiccation. No disc herniation. Spinal canal and neural foramina are patent. L3-L4: Disc desiccation. Small disc bulge. Spinal canal and neural foramina are patent. Mild bilateral facet arthrosis. L4- L5: Disc desiccation. Small disc bulge. Mild bilateral facet arthrosis and ligamentum flavum thickening. No significant spinal canal stenosis. Mild bilateral neural foraminal stenosis. L5-S1: Disc desiccation. Mild bilateral facet arthrosis. No spinal Name: PRABHAKAR HASTINGS [facility] Phys: VALERIE.[email or web address] - Preston Torres MD [address] : 1940 Age: 81 Sex: [place] [address] Loc: P.08 1 Exam Date: 08/12/2021 Status: ADM IN PH: FAX: PAGE 1 Signed Report (CONTINUED) Patient Name: PRABHAKAR HASTINGS Unit No: [id number] EXAMS: CPT CODE: [id number] MRI L-SPINE W/O CONT 13263 (Continued) canal or neural foraminal stenosis. Early termination of the thecal sac at the S1 level. IMPRESSION: 1. Edema signal in the bilateral sacral ala related to sacral insufficiency fractures. 2. No acute fracture within the lumbar spine. 3. Mild lumbar spine spondylosis. at 0002 Reported and signed by: Tiesha [place] M.D. CC: Preston Torres MD Technologist: Alex Oliva [facility] [place] Dt/Tm: 08/15/2021 (0002) by:[email or web address] Printed Date/Time: 08/15/2021 (0005) Name: PRABHAKAR HASTINGS [facility] Phys: Preston Todd MD [address] : 1940 Age: 81 Sex: [place] [address] Loc: P.0608 1 Exam Date: 08/12/2021 Sta tus: ADM IN PH: FAX: PAGE 2 Signed Report- MRI PELVIS W/O [id number] 15:04:00[facility] : 1940 Sex: FPatient Name: PRABHAKAR HASTINGS Unit No: [id number] EXAMS: CPT CODE: [id number] MRI PELVIS W/O CONT 94697 INDICATIONS: Pelvic pain, fracture. Location Code: B2 FINDINGS: MRI examination of the hips was performed using multiplanar T1 and T2-weighted imaging. There is increased T2 signal with diminished T1 signalwithin the bilateral sacral ala suggestive of insufficiency fractures. There is moderate presacral soft tissue edema visualized. There are are nondisplaced left superior-inferior pubic rami fractures. The femoral heads are well-seated within the acetabula. There is moderate joint space narrowing visualized bilaterally, with mild articular surface chondromalacia. No evidence of femoral acetabular i mpingement. No gross labral tears or paralabral cyst identified. Mild edema within the left obturator internus and externus muscles. No abnormality within the iliopsoas bursa. Dqcb-uf-[id number] fluid in the bilateral greater trochanteric bursa. Mild increased T2 signal at the origin of the hamstring tendons, which are intact. Within the pelvis, the urinary bladder is within normal limits. Orozco catheter present. Uterus is mildly atrophic CONCLUSION: 1. Bilateral sacral alar insufficiency fractures. 2. Left superior and inferior pubic rami nondisplaced fractures 3. Moderate strain of the left obturator internus and extends muscles Moderate arthritis. 4. Mild to moderate bilateral greater trochanteric bursitis. 5. Moderate hip arthritis at 1504 Reported and signed by: Ace Arellano M.D. CC: Preston Torres MD Technologist: Alex Oliva [facility] [place] Dt/Tm: 08/14/2021 (0304) by:[email or web address] Printed Date/Time: 08/14/2021 (5133) Name: PRABHAKAR HASTINGS [facility] Phys: VALERIE.01 - Preston Torres MD [address] : 1940 Age: 81 Sex: [place] [address] Loc: P.0608 1 Exam Date: 08/12/2021 Status: ADM IN PH: FAX: PAGE 1 Signed Report- XR [id number] 13:24:00 [facility] : 1940 Sex: FPatient Name: PRABHAKAR HASTINGS Unit No: [id number] EXAMS: CPT CODE: [id number] XR CYSTOGRAM 93180 Cystogram6 views 08/14/2021 CLINICAL HISTORY: Urinary retention, pelvic fracture COMPARISON: None available LOCATION: W1 IMPRESSION: No bladder or ureteral injury is evident. Left pubic rami fractures are noted. There is a substantial colonic fecal burden suggesting constipation. at 1324 Reported and signed by: SKYLAR ORONA M.D. CC: Kaz (UROLOGY) Kerri GUTIERREZ; Preston Torres MD Technologist: Wyatt Castelan Fluoro Time: DAP (Gy m2): Air Kerma (mGy): Trscr Dt/Tm: 08/14/2021 (1324) by:[email or web address] Printed Date/Time: 08/14/2021 (1327) Name: PRABHAKAR HASTINGS [facility] Phys: Torrey Leonard MD (UR [address] : 1940 Age: 81 Sex: [place] [address] Loc: P.0608 1 Exam Date: 08/14/2021 Status: ADM IN PH: FAX: PAGE 1 Signed ReportCOMPREHENSIVE METABOLIC [id number] 05:14:00* Test Item Value Reference Range Interpretation Comme nts SODIUM (test code = NA) 138 mmol/L 136-145 N Please note: New Reference Range Nov 2020 POTASSIUM (test code = K) 3.9 mmol/L 3.5-5.1 N CHLORIDE (test code = CL) 102 mmol/L 98-107 N Please note: New Reference Range Nov 2020 CARBON DIOXIDE (test code = CO2) 28 mmol/L 20-31 N Please note: N ew Reference Range Nov 2020 GLUCOSE (test code = GLU) 84 mg/dL 74-106 N Please note: New Reference Range Nov 2020 BLOOD UREA NITROGEN (test code = BUN) 19 mg/dL 9-23 N Please note: N ew Reference Range Nov 2020 GLOMERULAR FILTRATION RATE (test code = GFR) >=60 max estimate mL/min >60 Units are mL/min/1.73m2 The estimated glomerular filtration rate is computed usingpatient race, age (>18), sex, and serum creatinine. If anyof the needed data elements are missing the Laboratory cannot compute an estimation of the glomerular filtration rate. CREATININE (test code = CREAT) 0.70 mg/dL 0.55-1.02 N Please note: New Reference Range Nov 2020 TOTAL PROTEIN (test code = PROT) 5.7 g/dL 5.7-8.2 N Please note: New Reference Range Nov 2020 ALBUMIN (test code = ALB) 3.6 g/dL 3.2-4.8 N Please note: New Reference Range Nov 2020 CALCIUM (test code = CA) 9.0 mg/dL 8.7-10.4 N Please note: New Reference Range Nov 2020 BILIRUBIN TOTAL (test code = BILT) 0.3 mg/dL 0.3-1.2 N Please note: New Reference Range Nov 2020 SGOT/AST (test code = AST) 20 U/L <34 N Please note: New Reference Range Nov 2020 SGPT/ALT (test code = ALT) < 7 U/L 10-49 L Please note: New Reference Range Nov 2020 ALKALINE PHOSPHATASE (test code = ALKP) 125 U/L 46-116 H Please note: New Reference Range Nov 2020 CBC W/AUTO [id number] 05:00:00* Test Item Value Reference Range Interpretation Comme nts WHITE BLOOD CELL (test code = WBC) 6.1 x10 3/uL 4.8-10.8 N RED BLOOD CELL (test code = RBC) 3.91 x10 6/uL 4.20-5.40 L HEMOGLOBIN (test code = HGB) 12.1 g/dL 12.0-16.0 N HEMATOCRIT (test code = HCT) 37.0 % 37.0-47.0 N MEAN CELL VOLUME (test code = MCV) 94.6 fL 81.0-99.0 N MEAN CELL HGB (test code = MCH) 30.9 pg 27-31 N MEAN CELL HGB CONCENTRATION (test code = MCHC) 32.7 G/DL 33-36.5 L RED CELL DISTRIBUTION WIDTH (test code = RDW) 12.9 % 12.9-16.9 N PLATELET COUNT (test code = PLT) 308 x10 3/uL 150-440 N MEAN PLATELET VOLUME (test c ode = MPV) 9.7 fL 8.9-12.4 N NEUTROPHIL % (test code = NT%) 60.0 % 42.2-75.2 N LYMPHOCYTE % (test code = LY%) 22.6 % 20.5-51.1 N MONOCYTE % (test code = MO%) 12.5 % 1.7-9.3 H EOSINOPHIL % (test code = EO%) 4.0 % 0.0-7.0 N BASOPHIL % (test code = BA%) 0.7 % 0-2.5 N NEUTROPHIL # (test code = NT#) 3.64 x10 3/uL 1.80-7.70 N LYMPHOCYTE # (test code = LY#) 1.37 x10 3/uL 1.00-4.80 N MONOCYTE # (test code = MO#) 0.76 x10 3/uL 0.00-0.80 N EOSINOPHIL # (test code = EO#) 0.24 x10 3/uL 0.00-0.45 N BASOPHIL # (test code = BA#) 0.04 x10 3/uL 0.0-0.20 N UA RFLX MICR CULT IF [id number] 18:18:00* Test Item Value Reference Range Interpretation Comme nts UA COLOR (test code = COLU) OTHER DISCRIPT YELLOW UA APPEARANCE (test code = APPU) CLEAR DISCRIPT CLEAR UA GLUCOSE DIPSTICK (test code = DGLUU) NEGATIVE mg/dL NEGATIVE UA BILIRUBIN DIPSTICK (test code = BILU) NEGATIVE NEGATIVE UA KETONE DIPSTICK (test cod e = KETU) 15 mg/dL NEGATIVE A UA SPECIFIC GRAVITY (test code = SGU) 1.015 1.005-1.030 UA BLOOD DIPSTICK (test code = DAMON) TRACE NEGATIVE A UA PH DIPSTICK (test code = FRANCESCA) 7.0 5.0-9.0 UA PROTEIN DIPSTICK (test code = PROU) NEGATIVE mg/dL NEGATIVE UA UROBILINOGEN DIPSTICK (test code = URO) 0.2 mg/dL 0.2-1.0 UA NITRITE DIPSTICK (test code = MARY) NEGATIVE NEGATIVE UA LEUKOCYTE ESTERASE DIPSTICK (test code = LEUU) NEGATIVE NEGATIVE UA WBC (test code = WBCU) 0-2 #WBC/HPF 0-2 UA RBC (test code = RBCU) 0-2 #RBC/HPF 0-2 UA BACTERIA (test code = BACU) OCCASIONAL /HPF NONE-TRACE A UA SQUAMOUS CELLS (test code = SQU) OCCASIONAL /LPF NONE-TRACE Indication for culture: Suprapubic PainSpecimen Description: OROZCO CATHETERIZED URINECOMPREHENSIVE METABOLIC [id number] 06:16:00* Test Item Value Reference Range Interpretation Comme nts SODIUM (test code = NA) 140 mmol/L 136-145 N Please note: New Reference Range Nov 2020 POTASSIUM (test code = K) 4.0 mmol/L 3.5-5.1 N CHLORIDE (test code = CL) 104 mmol/L 98-107 N Please note: New Reference Range Nov 2020 CARBON DIOXIDE (test code = CO2) 30 mmol/L 20-31 N Please note: N ew Reference Range Nov 2020 GLUCOSE (test code = GLU) 85 mg/dL 74-106 N Please note: New Reference Range Nov 2020 BLOOD UREA NITROGEN (test code = BUN) 22 mg/dL 9-23 N Please note: N ew Reference Range Nov 2020 GLOMERULAR FILTRATION RATE (test code = GFR) >=60 max estimate mL/min >60 Units are mL/min/1.73m2 The estimated glomerular filtration rate is computed usingpatient race, age (>18), sex, and serum creatinine. If anyof the needed data elements are missing the Laboratory cannot compute an estimation of the glomerular filtration rate. CREATININE (test code = CREAT) 0.80 mg/dL 0.55-1.02 N Please note: New Reference Range Nov 2020 TOTAL PROTEIN (test code = PROT) 5.6 g/dL 5.7-8.2 L Please note: New Reference Range Nov 2020 ALBUMIN (test code = ALB) 3.6 g/dL 3.2-4.8 N Please note: New Reference Range Nov 2020 CALCIUM (test code = CA) 8.5 mg/dL 8.7-10.4 L Please note: New Reference Range Nov 2020 BILIRUBIN TOTAL (test code = BILT) 0.4 mg/dL 0.3-1.2 N Please note: New Reference Range Nov 2020 SGOT/AST (test code = AST) 21 U/L <34 N Please note: New Reference Range Nov 2020 SGPT/ALT (test code = ALT) < 7 U/L 10-49 L Please note: New Reference Range Nov 2020 ALKALINE PHOSPHATASE (test code = ALKP) 124 U/L 46-116 H Please note: New Reference Range Nov 2020 CBC W/AUTO [id number] 05:54:00* Test Item Value Reference Range Interpretation Comme nts WHITE BLOOD CELL (test code = WBC) 6.0 x10 3/uL 4.8-10.8 N RED BLOOD CELL (test code = RBC) 3.82 x10 6/uL 4.20-5.40 L HEMOGLOBIN (test code = HGB) 12.0 g/dL 12.0-16.0 N HEMATOCRIT (test code = HCT) 36.6 % 37.0-47.0 L MEAN CELL VOLUME (test code = MCV) 95.8 fL 81.0-99.0 N MEAN CELL HGB (test code = MCH) 31.4 pg 27-31 H MEAN CELL HGB CONCENTRATION (test code = MCHC) 32.8 G/DL 33-36.5 L RED CELL DISTRIBUTION WIDTH (test code = RDW) 13.0 % 12.9-16.9 N PLATELET COUNT (test code = PLT) 344 x10 3/uL 150-440 N MEAN PLATELET VOLUME (test c ode = MPV) 10.5 fL 8.9-12.4 N NEUTROPHIL % (test code = NT%) 60.5 % 42.2-75.2 N LYMPHOCYTE % (test code = LY%) 23.0 % 20.5-51.1 N MONOCYTE % (test code = MO%) 11.5 % 1.7-9.3 H EOSINOPHIL % (test code = EO%) 4.0 % 0.0-7.0 N BASOPHIL % (test code = BA%) 0.5 % 0-2.5 N NEUTROPHIL # (test code = NT#) 3.63 x10 3/uL 1.80-7.70 N LYMPHOCYTE # (test code = LY#) 1.38 x10 3/uL 1.00-4.80 N MONOCYTE # (test code = MO#) 0.69 x10 3/uL 0.00-0.80 N EOSINOPHIL # (test code = EO#) 0.24 x10 3/uL 0.00-0.45 N BASOPHIL # (test code = BA#) 0.03 x10 3/uL 0.0-0.20 N - CT ABD PELVIS W/O [id number] 21:42:00 [facility] : 1940 Sex: FPatient Name: PRABHAKAR HASTINGS Unit No: [id number] Report Has Been Amended EXAMS: CPT CODE: [id number] CTABD PELVIS W/O CONT [id number] Addendum - 2021 SIGNED 2021 ADDENDUM: [id number] CT/CTABPLWO Addendum correction: There is a comminuted fracture of the left sacral ala extending from S1 through S3 (series 2, image 111). There is a small amount of subtle hyperdensity adjacent to this fracture which may reflect callus formation suggesting it is subacute. A subtle cortical step-off is noted at the right sacral ala at the level of S1 which could represent another fracture (series 2, image 107). Findings were communicated to Dr. Torres by telephone on 2021 9:42 PM. FORINTERNAL CODING PURPOSES ONLY RESULT CODE: CVR at 2142 Reported and signed by: CHRISSY OROZCO M.D. Transcribed: 2021 (2141) [email or web address] Report EXAM: CT ABDOMEN AND PELVIS WITHOUT CONTRAST INDICATION: hx pelvic fx 3 wks ago, no surg, pain increased LOCATION: H50 COMPARISON: None TECHNIQUE: CT ofthe abdomen and pelvis was performed without intravenous contrast. All CT scans are performed usingradiation dose reduction technique. Technical factors are evaluated and adjusted to insure appropriate moderation of exposure. Automated dose management technology is applied to adjust the radiation dose to minimize exposure while achieving a diagnostic quality image. FINDINGS: Statements: Lack of intravenous contrast compromises evaluation of abdominopelvic organs and vasculature. Thoracic: Included images of the lower chest demonstrate no abnormalities. Hepatobiliary: There are several small hypodensities scattered Name: PRABHAKAR HASTINGS [facility] Phys: Dominick Dickson [address] : 1940 Age: 81 Sex: [place] [address] Loc: P.ERMS 4 Exam Date: 2021 Status: ADM IN : FAX: PAGE 1 Signed Report (CONTINUED) Patient Name: PRABHAKAR HASTINGS Unit No: [id number] Report Has Been Amended EXAMS: CPT CODE: [id number] CT ABD PELVIS W/O CONT 92681 (Continued) throughout the liver measuring up to 0.5 cm which are too small to fully characterize. No intrahepatic or extrahepatic biliary dilatation is seen. Gallbladder: The gallbladder is normal. Pancreas: Unremarkable. Spleen: Unremarkable. Adrenals: Unremarkable. Kidneys: There is no evidence of renal calculus. There is no evidence of hydronephrosis of either kidney. Bladder/Reproductive system: There is severe distention of the urinary bladder. No urinary bladder wall thickening is seen. No obvious abnormalities of the uterus or ovaries. Gastrointestinal: No bowel obstruction or perienteric inflammation. The appendix is normal. Vascular: Atherosclerotic calcifications are seen within the aorta and branch vessels. Lymphatics: No enlarged lymph nodes by CT size criteria. Bones/Soft Tissues: There is a mildly comminuted fracture involving the left superior pubic ramus which is mildly displaced with some early callus formation noted. Mildly comminuted fracture is also noted at t he left inferior pubic ramus also with mild callus formation. There continues to be mild soft tissue stranding around the fracture sites.. No ventral hernias. Peritoneum/Other: No extraluminal air. No extraluminal fluid. IMPRESSION: 1. Subacute fractures of the left superior and inferior pubic ramiwith signs of healing. 2. Few scattered small hypodensities throughout the liver, too small to fully characterize. 3. Severe distention of the urinary bladder. Recommend correlation for clinical symptoms of urinary retention. Name: [facility] Phys: Dominick Dickson [address], DOB: 1940 Age: 81 Sex: F [place] [address] Loc: P.ERMS 4 Exam Date: 2021 Status: ADM IN PH: FAX: PAGE 2 Signed Report (CONTINUED) Patient Name: PRABHAKAR HASTINGS Unit No: [id number] Report Has Been Amended EXAMS: CPT CODE: [id number] CT ABD PELVIS W/O CONT 15471 (Continued) at 1759 Reported and signed by: HCRISSY OROZCO M.D. CC: Technologist: UBALDO PATEL RT(R),(CT); JILLIAN CADENA RT (R) CTDI: 12.63 DLP: 702 Trscr Dt/Tm: 2021 (1759) by:[email or web address] Printed Date/Time: 2021 (4736) Name: [facility] Phys: Dominick Dickson [address]: 1940 Age: 81 Sex: [place] [address] Loc: P.ERMS 4 ExamDate: 2021 Status: ADM IN PH: FAX: PAGE 3 Signed Report- XR PELVIS 3 + V 2021 21:33:00 [facility] : 1940 Sex: FPatient Name: PRABHAKAR HASTINGS Unit No: [id number] EXAMS: CPT CODE: [id number] XR PELVIS 3 + V 19091 EXAM: - XRPELVIS 3 + V INDICATION: sacral fracture LOCATION CODE: H50 COMPARISON: CT abdomen pelvis dated 2021 at 1714 hours TECHNIQUE: 3 views of the pelvis were obtained. FINDINGS: The sacrum is obscured by overlying bowel gas and stool. There are mildly displaced, mildly comminuted fractures of the le ft superior and inferior pubic rami. The soft tissues are unremarkable. IMPRESSION: Mildly displaced, mildly comminuted fractures of the left superior and inferior pubic rami. Sacrum is obscured by overlying bowel gas and stool. at 2133 Reported and signed by: CHRISSY OROZCO M.D. CC: Sami Chua MD; Preston Torres MD Technologist: Sayda Miranda Time: DAP (Gy m2): Air Kerma (mGy): Trscr Dt/Tm: 2021 (2132) by:[email or web address] Printed Date/Time: 2021 (2136) Name: PRABHAKAR HASTINGS [facility] Phys: Sami Mcdaniels MD [address] : 1940 Age: 81 [facility]: [place] [address] [facility] [id number] Loc: [place] Exam Date: 2021 Status: ADM IN PH: FAX: PAGE 1 Signed ReportCOMPREHENSIVE METABOLIC [id number] 20:30:00* Test Item Value Reference Range Interpretation Comme nts SODIUM (test code = NA) 138 mmol/L 136-145 N Please note: New Reference Range Nov 2020 POTASSIUM (test code = K) 4.6 mmol/L 3.5-5.1 N CHLORIDE (test code = CL) 104 mmol/L 98-107 N Please note: New Reference Range Nov 2020 CARBON DIOXIDE (test code = CO2) 29 mmol/L 20-31 N Please note: N ew Reference Range Nov 2020 GLUCOSE (test code = GLU) 113 mg/dL 74-106 H Please note: New Reference Range Nov 2020 BLOOD UREA NITROGEN (test code = BUN) 22 mg/dL 9-23 N Please note: N ew Reference Range Nov 2020 GLOMERULAR FILTRATION RATE (test code = GFR) >=60 max estimate mL/min >60 Units are mL/min/1.73m2 The estimated glomerular filtration rate is computed usingpatient race, age (>18), sex, and serum creatinine. If anyof the needed data elements are missing the Laboratory cannot compute an estimation of the glomerular filtration rate. CREATININE (test code = CREAT) 0.90 mg/dL 0.55-1.02 N Please note: New Reference Range Nov 2020 TOTAL PROTEIN (test code = PROT) 5.9 g/dL 5.7-8.2 N Please note: New Reference Range Nov 2020 ALBUMIN (test code = ALB) 3.8 g/dL 3.2-4.8 N Please note: New Reference Range Nov 2020 CALCIUM (test code = CA) 8.2 mg/dL 8.7-10.4 L Please note: New Reference Range Nov 2020 BILIRUBIN TOTAL (test code = BILT) 0.4 mg/dL 0.3-1.2 N Please note: New Reference Range Nov 2020 SGOT/AST (test code = AST) 22 U/L <34 N Please note: New Reference Range Nov 2020 SGPT/ALT (test code = ALT) < 7 U/L 10-49 L Please note: New Reference Range Nov 2020 ALKALINE PHOSPHATASE (test code = ALKP) 132 U/L 46-116 H Please note: New Reference Range Nov 2020 LIPID PROFILE (CORONARY RISK)2021 20:30:00* Test Item Value Reference Range Interpretation Comme nts TRIGLYCERIDES (test code = TRIG) 71 mg/dL <150 N Please note: New Reference Range Nov 2020 CHOLESTEROL (test code = CHOL) 140 mg/dL <200 N Please note: New Reference Range Nov 2020 HDL CHOLESTEROL (test code = HDL) 46 mg/dL <60 N Please note: New Reference Range Nov 2020 LIPOPROTEIN LDL (test code = LDLC) 96 mg/dL <100 N INTERPRETATIVE DATA:LDL Cholesterol: Reference RangesOptimal: <100 mg/dLNear Optimal: 100 -129 mg/dLBorderline High: 130 - 159 mg/dLHigh: 160 - 189 mg/dLVery High: = or > 190 mg/dL CORONARY RISK FACTOR (test code = RISK) 3.04 CHOL/HDL RISK MALE: 1/2 AVG 3.43 FEMALE: 1/2 AVG 3.27 AVG 4.97 AVG 4.44 2X AVG 9.55 2X AVG 7.05 3X AVG 23.39 3X AVG 11.04~~~~~~~~~~~~~~~~~ ~~~~~~~~~~~~~~~~~~~~~~ ~~~~~~~~~~~~~~~~~~~~~[facility] Cholesterol Education (NCEP) Guidelines:~~~~~~~~~~~ ~~~~~~~~~~~~~~~~~~~~~~ ~~~~~~~~~~~~~~~~~~~~~~ ~~~~~ HDL Cholesterol<40mg/dL: HDL Cholesterol (Major risk factor for CHD)>60mg/dL: HDL Cholesterol (Negative risk factor for CHD)40-59mg/dL: Borderline Risk LDL Cholesterol<100mg/dL : Desirable LDL-C lssehjfefmpgf175-272sq /dL: Borderline High Risk LDL-C ejojvjpaqpuxg971-193gk /dL: High risk LDL-C concentration HDL-LDL Cholesterol is affected by a number of factors suchas smoking, age and sex.~~~~~~~~~~~~~~~~~~ ~~~~~~~~~~~~~~~~~~~~~~ ~~~~~~~~~~~~~~~~~~~~ [id number] 20:30:00* Test Item Value Reference Range Interpretation Comme nts PHOSPHOROUS (test code = PHOS) 3.3 mg/dL 2.4-5.1 N Please note: New Reference Range Nov 2020 URIC [id number] 20:30:00* Test Item Value Reference Range Interpretation Comme nts URIC ACID (test code = URIC) 4.0 mg/dL 3.1-7.8 N Please note: New Reference Range Nov 2020 CREATINE KINASE (CK)2021 20:30:00* Test Item Value Reference Range Interpretation Comme nts CREATINE KINASE (CK) (test code = CK) 117 U/L 34-171 N Please note: Ne w Reference Range Nov 2020 [id number] 20:30:00* Test Item Value Reference Range Interpretation Comme nts LIPASE (test code = LIP) 29 U/L 12-53 N Please note: New Reference Range Nov 2020 [id number] 20:30:00* Test Item Value Reference Range Interpretation Comme nts MAGNESIUM (test code = MAG) 2.3 mg/dL 1.6-2.6 N Please note: New Reference Range Nov 2020 T3 [id number] 20:30:00* Test Item Value Reference Range Interpretation Comme nts T3 FREE (test code = T3F) 2.16 pg/mL 3.0-4.7 L Please note: New Reference Range Nov 2020 T4 [id number] 20:30:00* Test Item Value Reference Range Interpretation Comme nts T4 FREE (test code = T4F) 1.29 ng/dL 0.89-1.76 N Please note: New Reference Range Nov 2020 THYROID STIMULATING [id number] 20:30:00* Test Item Value Reference Range Interpretation Comme nts THYROID STIMULATING HORMONE (test code = TSH) 5.04 mIU/mL 0.55-4.78 H Please note: New Reference Range Nov 2020 [id number] 20:30:00* Test Item Value Reference Range Interpretation Comme nts PREALBUMIN (test code = PREALB) 13.2 mg/dL 10-40 N Please note: New Reference Range Nov 2020 PROSTATE SPECIFIC [id number] 20:30:00* Test Item Value Reference Range Interpretation Comme nts PROSTATE SPECIFIC ANTIGEN (t est code = PSA SCREEN) 0.03 ng/mL VITAMIN [id number] 20:30:00* Test Item Value Reference Range Interpretation Comme nts VITAMIN B12 (test code = VITB12) 412 pg/mL 211-911 N Please note: New Reference Range Nov 2020 [id number] 20:29:00* Test Item Value Reference Range Interpretation Comme nts AMMONIA (test code = AMM) < 10 mcmol/L 11-32 L B-TYPE NATRIURETIC [id number] 20:29:00* Test Item Value Reference Range Interpretation Comme nts B-TYPE NATRIURETIC PEPTIDE ( test code = BNP) 58 pg/mL <100 N COVID 19 INHOUSE [id number] 20:08:00* Test Item Value Reference Range Interpretation Comme nts COVID 19 INHOUSE AG (test code = [id number]) NEGATIVE NEGATIVE Negative results , from patients with symptom onset beyondfive days, should be treated as presumptive and confirmationwith a molecular assay, if necessary for patientmanagement, may be performed. Negative results do not ruleout COVID-19 and should not be used as the sole basis fortreatment or patient management decisions, includinginfection control decisions. Negative results should beconsidered in the context of a patient's recent exposures,history and the presence of clinical signs and symptomsconsistent with COVID-19. BASIC METABOLIC [id number] 18:09:00* Test Item Value Reference Range Interpretation Comme nts SODIUM (test code = NA) 136 mmol/L 136-145 N Please note: New Reference Range Nov 2020 POTASSIUM (test code = K) 4.5 mmol/L 3.5-5.1 N CHLORIDE (test code = CL) 100 mmol/L 98-107 N Please note: New Reference Range Nov 2020 CARBON DIOXIDE (test code = CO2) 28 mmol/L 20-31 N Please note: N ew Reference Range Nov 2020 GLUCOSE (test code = GLU) 111 mg/dL 74-106 H Please note: New Reference Range Nov 2020 BLOOD UREA NITROGEN (test code = BUN) 24 mg/dL 9-23 H Please note: New Reference Range Nov 2020 GLOMERULAR FILTRATION RATE (test code = GFR) >=60 max estimate mL/min >60 Units are mL/min/1.73m2 The estimated glomerular filtration rate is computed usingpatient race, age (>18), sex, and serum creatinine. If anyof the needed data elements are missing the Laboratory cannot compute an estimation of the glomerular filtration rate. CREATININE (test code = CREAT) 0.90 mg/dL 0.55-1.02 N Please note: New Reference Range Nov 2020 CALCIUM (test code = CA) 8.2 mg/dL 8.7-10.4 L Please note: New Reference Range Nov 2020 CBC W/AUTO [id number] 18:02:00* Test Item Value Reference Range Interpretation Comme nts WHITE BLOOD CELL (test code = WBC) 7.1 x10 3/uL 4.8-10.8 N RED BLOOD CELL (test code = RBC) 4.18 x10 6/uL 4.20-5.40 L HEMOGLOBIN (test code = HGB) 13.0 g/dL 12.0-16.0 N HEMATOCRIT (test code = HCT) 39.9 % 37.0-47.0 N MEAN CELL VOLUME (test code = MCV) 95.5 fL 81.0-99.0 N MEAN CELL HGB (test code = MCH) 31.1 pg 27-31 H MEAN CELL HGB CONCENTRATION (test code = MCHC) 32.6 G/DL 33-36.5 L RED CELL DISTRIBUTION WIDTH (test code = RDW) 13.0 % 12.9-16.9 N PLATELET COUNT (test code = PLT) 351 x10 3/uL 150-440 N MEAN PLATELET VOLUME (test c ode = MPV) 10.2 fL 8.9-12.4 N NEUTROPHIL % (test code = NT%) 71.4 % 42.2-75.2 N LYMPHOCYTE % (test code = LY%) 14.4 % 20.5-51.1 L MONOCYTE % (test code = MO%) 9.9 % 1.7-9.3 H EOSINOPHIL % (test code = EO%) 3.3 % 0.0-7.0 N BASOPHIL % (test code = BA%) 0.6 % 0-2.5 N NEUTROPHIL # (test code = NT#) 5.04 x10 3/uL 1.80-7.70 N LYMPHOCYTE # (test code = LY#) 1.02 x10 3/uL 1.00-4.80 N MONOCYTE # (test code = MO#) 0.70 x10 3/uL 0.00-0.80 N EOSINOPHIL # (test code = EO#) 0.23 x10 3/uL 0.00-0.45 N BASOPHIL # (test code = BA#) 0.04 x10 3/uL 0.0-0.20 N Notes Date/Time Note Provider Source 2021-08-23 05:47:00 [id number] [id number] dNI3gLIg5uSdUem8Nkt1Xgd3+yx3629-21-27T86:47:96204 7-[address] [address] PATIENT NAME: PRABHAKAR HASTINGS ADMIT DATE: 08/11/21ACCOUNT NO: [id number] ROOM NO: [facility] AGE: 81 REPORT TYPE: DISCHARGE SUMMARY SEX: F ADMITTING PHYSICIAN:Preston Torres MD ATTENDING PHYSICIAN:Preston Torres MD ADMISSION DATE: 2021ISCHARGE DATE: 08/18/2021 FINAL DIAGNOSES:1. Pelvic fracture.2. Uncontrolled pain.3. Hypertension.4. Hyperlipidemia.5. Parkinson's disease.6. Coronary artery disease.7. History of falls. MEDICATIONS AT DISCHARGE: Per DEC. DISPOSITION: To acute rehabilitation. CONDITION ON DISCHARGE: Stable. LEVEL OF CARE: Full code. DIET: Cardiac. ACTIVITY: As tolerated. CONSULTANTS:1. Dr. Chua.2. Dr. Gonzales. PROCEDURE: None. COMPLICATIONS: None. Instructions given to the patient and her and stressed the importance ofcompliance with medication and outpatient followup. FOLLOWUP CARE: With primary care physician in 1 week. LEVEL OF CARE: Full code. REASON FOR ADMISSION: Fall with pelvic pain. COURSE OF HOSPITALIZATION: The patient with history of Parkinson's, debility,borderline dementia, who had a fall, patient with pelvic fracture. The patient PATIENT NAME: PRABHAKAR HASTINGS was hospitalized. Orthopedic surgery service consultation was obtained. Nosurgical intervention with Dr. Chua. The patient received physical therapy. Pain management consultation with Dr. Gonzales was obtained. The patient wasambulatory. The patient was discharged to acute rehabilitation. Dictated By: Preston Torres MD WT: DS:EDILIA/VALERIE.Edmund/NTSDD: 08/23/2021 05:47:50DT: 08/23/2021 07:58:38Conf#: [id number]/DID#: [id number] Authenticated by Preston Torres MD On 08/23/2021 11:57:46 AM at 1157 PATIENT NAME: PRABHAKAR HASTINGS zzqyhky6687-41-23K11:58:00P.[id number] ilable for patient qmqcDCTRZDHIWBNEGW9525-40-47P36:58:27 [facility] 2021-08-17 16:37:00 [id number] EYmTnntQdt3pVYKE72B8sy3TP2mO2 l9CqW5/Jd6Cu2ow4LVkvBaptYNY2771-29-17U31:37:15568 2-[address] [place] [address] PATIENT NAME: PRABHAKAR HASTINGS ADMIT DATE: 08/11/21ACCOUNT NO: [id number] ROOM NO: P.0608 AGE: 81 REPORT TYPE: PROGRESS NOTE SEX: F ADMITTING PHYSICIAN:Preston Torres MD ATTENDING PHYSICIAN:Preston Torres MD DATE: 08/17/2021 PROGRESS NOTE SUBJECTIVE: Events noted. Discussed with nursing staff. Doing about the same. Awake and alert, ambulatory with physical therapies. No chest pain, no nausea,no other issues reported overnight. OBJECTIVE:VITAL SIGNS: Blood pressure 100/60, heart rate of 91, temperature 97.7,respiratory rate of 17.HEENT: Head is normocephalic.NECK: Supple.CHEST AND LUNGS: Bilateral breathing sounds.HEART: Normal S1, S2.ABDOMEN: Soft.EXTREMITIES: No edema. PERTINENT FINDINGS: Potassium 4.7. ASSESSMENT AND PLAN:1. Pelvic fracture. PT, OT, fall precaution. Case management department isfollowing the patient. Rehab placement is in progress. Dr. Chua, orthopedicsurgery today service consulted. The patient does not need any surgicalintervention at this time.2. Deep venous thrombosis prophylaxis. Continue the patient on Lovenox 40 mgsubQ daily.3. Bowel regimen. The patient is on MiraLax and Colace.4. Acute pain due to pelvic fracture. Dr. Gonzales, pain management followingthe patient. Continue the patient on tramadol. Dictated By: Preston Torres MD WT: PN:P.BETTYE/VALERIE.01/NTSDD: 08/17/2021 16:37:43DT: 08/17/2021 18:21:02Conf#: [id number]/DID#: [id number] Authenticated by Preston Torres MD On 08/19/2021 02:28:12 AM PATIENT NAME: PRABHAKAR HASTINGS at 0228 PATIENT NAME: PRABHAKAR HASTINGS Lwvh6309-84-64J75:21:00P.[id number] ble for patient ttmkSNEYTHXURGNBYO0180-26-90Q22:28:45 [facility] 2021-08-16 12:06:00 [id number] UYxM2mWBxbddyBjE1dC8ap1M8wk1U YuU8jRVPgyH+MP9BWSYKn8Wz+pZ7789-63-79N80:06:14192 0-0064 [facility] [address] [place] [address] PATIENT NAME: PRABHAKAR HASTINGS ADMIT DATE: 08/11/21ACCOUNT NO: [id number] ROOM NO: P.0608 AGE: 81 REPORT TYPE: PROGRESS NOTE SEX: F ADMITTING PHYSICIAN:Preston Torres MD ATTENDING PHYSICIAN:Preston Torres MD DATE: 08/16/2021 PROGRESS NOTE SUBJECTIVE: Events noted, doing well, awake and alert and walks with physicaltherapies. No chest pain, no nausea, no abdominal pain. No other issuesreported overnight. Discussed with nursing staff at the bedside. OBJECTIVE:VITAL SIGNS: Blood pressure 121/50, heart rate 94, temperature 97.8, andrespiratory rate 17.HEENT: Head is normocephalic.NECK: Supple.CHEST AND LUNGS: Bilateral breathing sounds.HEART: Normal S1, S2.ABDOMEN: Soft.EXTREMITIES: No edema. PERTINENT FINDINGS:1. Potassium 4.7.2. Creatinine 0.7.3. Hemoglobin 12.3.4. WBC 7.3. ASSESSMENT AND PLAN:1. Hip fracture. MRI noted and no surgery needed. Discussed with Dr. Chua. Rehab placement is in progress and case management following.2. Debility. PT, OT, fall precaution. Rehab placement is in progress.3. Dementia, stable at baseline. Discussed with . The patient remainsfull code.4. Deep venous thrombosis prophylaxis. Continue the patient on Lovenox 40 mgsubQ daily.5. Chronic pain. Pain management, Dr. Gonzales, is following the patient. Thepatient is being weaned off IV narcotics. Continue the patient on [place]. Dictated By: Preston Torres MD WT: PN:PRAMON/VALERIE./NTSDD: 08/16/2021 12:06:19DT: 08/16/2021 12:59:48Conf#: [id number]/DID#: [id number] PATIENT NAME: PRABHAKAR HASTINGS Authenticated by Preston Torres MD On 08/16/2021 03:20:45 PM at 0320 PATIENT NAME: PRABHAKAR HASTINGS Wwdo5469-06-07H63:59:00P.[id number] ble for patient hqyrMOWQOJKTKMYILP3166-27-29Z54:21:18 [facility] 2021-08-15 13:02:00 [id number]+/ zn/+dgXDb3cKecw1B97z4RXcVWhxs gPNspii9b3JxTdBTejAlnIhgbvD6498-91-46U04:02:70287 [facility] [address] [place] [address] PATIENT NAME: PRABHAKAR HASTINGS ADMIT DATE: 08/11/21ACCOUNT NO: [id number] ROOM NO: P.0608 AGE: 81 REPORT TYPE: PROGRESS NOTE SEX: F ADMITTING PHYSICIAN:Preston Torres MD ATTENDING PHYSICIAN:Preston Torres MD DATE: 08/15/2021 PROGRESS NOTE SUBJECTIVE: Events noted. MRI noted. Discussed with the patient. Discussedwith . Nothing to be done for surgery going. Dr. Chua already sawthe patient. Pain is better controlled. Dr. Gonzales is following. OBJECTIVE:VITAL SIGNS: Blood pressure 126/60, heart rate of 87, temperature 97.1, andrespiratory rate 18.HEENT: Head is normocephalic.NECK: Supple.CHEST AND LUNGS: Bilateral breathing sounds.HEART: Normal S1, S2.ABDOMEN: Soft.EXTREMITIES: No edema. ASSESSMENT AND PLAN:1. Hip fracture. Dr. Chua is following. Case management consult for rehabplacement.2. Deep venous thrombosis prophylaxis. The patient is on Lovenox 40 mg subQdaily.3. Chronic pain. Pain management, Dr. Gonzales, is following the patient. Continue the patient on oral narcotics and try to avoid IV narcotics.3. Hypertension. Dictated By: Preston Torres MD WT: PN:P.BETTYE/VALERIE.Edmund/NTSDD: 08/15/2021 13:02:02DT: 08/15/2021 13:37:55Conf#: [id number]/DID#: [id number] Authenticated by Preston Torres MD On 08/15/2021 06:33:43 PM at 0633 PATIENT NAME: PRABHAKAR HASTINGS Zuos4739-35-72P31:37:00P.UZE23874882-7256KQSxwpwl ble for patient ljcrKLTADMZCQLKJOO6066-30-24Z34:34:09 [facility] 2021-08-14 15:36:00 [id number] ITGftUmWq5968We071hOvdXVu3GFN 1EAir6QrQSJCkNV7B9TNTT0/hbe3349-02-11J08:36:94924 9-0008 [facility] [address] [place] [address] PATIENT NAME: PRABHAKAR HASTINGS ADMIT DATE: 08/11/21ACCOUNT NO: [id number] ROOM NO: [facility] AGE: 81 REPORT TYPE: PROGRESS NOTE SEX: F ADMITTING PHYSICIAN:Preston Torres MD ATTENDING PHYSICIAN:Preston Torres MD DATE: 08/14/2021 PROGRESS NOTE SUBJECTIVE: Events noted. Discussed with at the bedside. MRI ofpelvis is in progress. The patient is awake and alert and the pain is wellcontrolled. OBJECTIVE:VITAL SIGNS: Blood pressure 136/70, heart rate of 90, temperature 36.5,respiratory rate 14.HEENT: Head is normocephalic.NECK: Supple.CHEST AND LUNGS: Bilateral breathing sounds.CARDIOVASCULAR: S1, S2.ABDOMEN: Soft.EXTREMITIES: No edema. PERTINENT FINDINGS: Urine culture pending. ASSESSMENT AND PLAN:1. History of urinary tract infection, treated. Dr. Avalos following thepatient. Levaquin discontinued.2. Pelvic fracture. Dr. Chua, orthopedic surgery service following thepatient. MRI pelvis will be obtained.3. Urinary retention. Urology following the patient, the patient cleared.4. Acute pain. Pain management, Dr. Gonzales following the patient.5. Debility. PT, OT, fall precaution. Dictated By: Preston Torres MD WT: PN:P.BETTYE/VALERIE.01/NTSDD: 08/14/2021 15:36:59DT: 08/14/2021 17:16:56Conf#: [id number]/DID#: [id number] Authenticated by Preston Torres MD On 08/15/2021 01:29:51 PM at 0129 PATIENT NAME: PRABHAKAR HASTINGS Dhhz9101-91-18G99:16:00P.[id number] ble for patient roucMUSOABKQQRGGWG6191-86-49I71:30:18 [facility] 2021-08-13 12:20:00 [id number] zMaJEvgiMQtdgct8Q9FcS9unSBZWQ iMzED8nP6IdkAFPuX5R9hzDvFXx2734-03-57E29:20:05362 7-0022 [facility] [address] [place] [address] PATIENT NAME: PRABHAKAR HASTINGS ADMIT DATE: 08/11/21ACCOUNT NO: [id number] ROOM NO: P[facility] AGE: 81 REPORT TYPE: PROGRESS NOTE SEX: F ADMITTING PHYSICIAN:Preston Torres MD ATTENDING PHYSICIAN:Preston Torres MD DATE: 08/13/2021 PROGRESS NOTE SUBJECTIVE: Events noted. Doing about the same. Complains of severe hip pain. No nausea, no vomiting. at the bedside. Long conversation with bothof them. OBJECTIVE:VITAL SIGNS: Blood pressure 133/80, heart rate of 80, temperature 97.1, andrespiratory rate 17.HEENT: Head is normocephalic.NECK: Supple.CHEST AND LUNGS: Bilateral breathing sounds.HEART: Normal S1, S2.ABDOMEN: Soft.EXTREMITIES: No edema. PERTINENT FINDINGS:1. Potassium 3.9.2. Glucose 843. Creatinine 0.7.4. Hemoglobin is 12.1.5. WBC 6.1. ASSESSMENT AND PLAN:1. Pelvic fracture. Dr. Chua, orthopedic surgery service is following thepatient ____ consulted. CT of the pelvis noted. We will obtain MRI. Painmanagement consult will be obtained.2. Urinary retention. Dr. Buck, urology following the patient. Monitor thebladder scan.3. Debility. PT, OT, fall precaution.4. Acute pain. Pain management, Dr. Gonzales consulted.5. Parkinson's disease. The patient was seen in physical therapy. Remains onSinemet. Resume home medication. Dictated By: Preston Torres MD WT: PN:P.BETTYE/VALERIE./NTSDD: 08/13/2021 12:20:16DT: 08/13/2021 12:38:46Conf#: [id number]/DID#: [id number] PATIENT NAME: PRABHAKAR HASTINGS Authenticated by Preston Torres MD On 08/13/2021 03:08:51 PM at 0308 PATIENT NAME: PRABHAKAR HASTINGS [id number]:38:00P.[id number] ble for patient kplzARGQAIZYCQLVSI6389-54-96B21:09:16 [facility] 2021-08-12 20:23:00 [id number] d5eyt9Wk9nzb92oFECd/6esUq9b3062-16-57A32:23:54902 6-0041 [facility] [address] [place] [address] PATIENT NAME: PRABHAKAR HASTINGS ADMIT DATE: 08/11/21ACCOUNT NO: [id number] ROOM NO: P.0608 AGE: 81 REPORT TYPE: CONSULTATION SEX: F ADMITTING PHYSICIAN:Preston Torres MD ATTENDING PHYSICIAN:Preston Torres MD CONSULTATION DATE: 08/12/2021 CONSULTING PHYSICIAN: Sami Chua MD ALGORITHM DEVELOPER: Sami Chua MD, Orthopedics. HISTORY OF PRESENT ILLNESS: This is an 81-year-old who unfortunately had a fallfrom standing height on 07/22/2021 and was initially doing pretty well intherapy and then all of a sudden started having some more problems includingincreased pain and was transferred up here for further evaluation of her lefthip pain. REVIEW OF SYSTEMS: The patient's review of systems is positive for someParkinson's, but otherwise no other heart, lung, GI, or endocrine problems. PHYSICAL EXAMINATION: She has a normal toe motion, normal sensation. Capillaryrefill less than 3 seconds. 2+ dorsalis pedis and skin is intact. Definitelyhas pain kind of in the left groin area as well as on the left back side. ASSESSMENT AND PLAN: We reviewed the CT scan and putting everything together, David think that she has had some displacement of it and it almost looks like thehemipelvis is flexed a little bit with some increased displacement in the frontrami. I think the posterior still looks like it was nicely reduced, so I do notthink that we need to do any surgery on it, but we are going to try to mobilizeher with physical therapy. I will redo touchdown weightbearing on that leftside with no range of motion or strengthening and see if it changes at all herx-rays. We did get an AP pelvis, but we will probably get an AP pelvis in a fewdays to help with kind of making sure that it is not moving anymore and we willsee how she does with that. In terms of the pain, I think we will start her onsome Neurontin as well to see if that potentially gives her some relief. Thank you again for the kind consultation. If you have any comments orquestions, please give me a call. Dictated By: Sami Chua MD WT: CON:EDILIA/REHAN/NTSDD: 08/12/2021 20:23:17DT: 08/12/2021 21:58:43Conf#: [id number]/DID#: [id number] PATIENT NAME: PRABHAKAR HASTINGS Authenticated by Sami Chua MD On 08/14/2021 01:55:03 PM at 0155 PATIENT NAME: PRABHAKAR HASTINGS :58:00P.IL [id number] for patient oqxaXGHYRYVSWGSSYQ2866-03-72Q38:55:45 [facility] 2021-08-12 16:38:00 [id number] sUkk/3DEyxDPDKKuCUwkirmhT2AHi SsG5qc/AZHMMWZlR2bameHtPChB6608-12-55X58:38:[id number] -0037 [facility] [address] [place] [address] PATIENT NAME: PRABHAKAR HASTINGS ADMIT DATE: 08/11/21ACCOUNT NO: [id number] [facility] 81 REPORT TYPE: PROGRESS NOTE SEX: F ADMITTING PHYSICIAN:Preston Torres MD ATTENDING PHYSICIAN:Preston Torres MD DATE: 08/12/2021 PROGRESS NOTE SUBJECTIVE: Events noted. Awake and alert and very confused. Discussed withhusband at bedside. Complains of severe hip pain. Complains of low back pain.No fever, no nausea, no other issues reported overnight. OBJECTIVE:VITAL SIGNS: Blood pressure 111/60, heart rate of 86, temperature 97.4,respiratory rate of 18.HEENT: Head is normocephalic.NECK: Supple.CHEST AND LUNGS: Bilateral breathing sounds.HEART: Normal S1, S2.ABDOMEN: Soft.EXTREMITIES: No edema. PERTINENT FINDINGS:1. Potassium 4.2. Glucose 85.3. Creatinine 0.8.4. AST 71.5. ALT 36.6. Hemoglobin is 12.7. WBC 6. ASSESSMENT AND PLAN:1. Pelvic fracture. I had a long conversation with the patient and .Apparently, she was in rehab, ambulating, but last week she has severelydeteriorated. I ordered MRI of lumbar spine and pelvic. Dr. Chua,orthopedic surgery, is following the patient.2. Acute pain. Pain management, Dr. Gonzales following the patient.3. Parkinson's disease. Resume home medication. The patient is on fallprecaution.4. Deep vein thrombosis prophylaxis. Continue the patient on Lovenox 40 mgsubQ daily. Dictated By: Preston Torres MD WT: PN:PRAMON/VALERIE./NTSDD: 08/12/2021 16:38:15DT: 08/12/2021 19:14:38 PATIENT NAME: PRABHAKAR HASTINGS Conf#: [id number]/DID#: [id number] Authenticated and Edited by Preston Torres MD On 08/13/21 11:15:09 AM at 1117 PATIENT NAME: PRABHAKAR HASTINGS [id number]:14:00P.[id number] ble for patient xkxqFMOUQDCQESYLBV5639-52-12Y42:17:47 [facility] 2021 21:03:00 [id number] GaKTUNdArp7wjrXgItPZ4icPEzyVj xAE[id number]:03:[id number] 5-0116 [facility] [address] [place] [address] PATIENT NAME: PRABHAKAR HASTINGS ADMIT DATE: 08/11/21ACCOUNT NO: [id number] ROOM NO: P.0608 AGE: 81 REPORT TYPE: HISTORY AND PHYSICAL SEX: F ADMITTING PHYSICIAN:Preston Torres MD ATTENDING PHYSICIAN:Preston Torres MD ADMISSION DATE: 2021 REASON FOR ADMISSION: Hip pain, unable to walk. HISTORY OF PRESENT ILLNESS: The patient is an 81-year-old female with pastmedical history significant for Parkinson disease, hypertension, hyperlipidemia,coronary artery disease, status post fall 2 weeks ago with pelvic rami fracture,recent UTI, debility. The patient presented to the Emergency Room with severehip pain. Apparently, the patient was then admitted to the Emergency Room. Thepatient reported a fall 2 weeks ago and was told about the pelvic fracture. Thepatient has been bedbound since then. The patient has severe pain. The patientwas seen as an outpatient too. The patient reported a recent urinary tractinfection. She is awake and alert. Denies any chest pain. Denies any nausea. PAST MEDICAL HISTORY: As I mentioned above. PAST SURGICAL HISTORY: No recent surgery. REVIEW OF SYSTEMS: As per history of present illness, 12-point review otherwisenegative. ALLERGIES: NOTED. HOME MEDICATIONS: List reconciled. SOCIAL HISTORY: Lives with her . No smoking or drug abuse. PHYSICAL EXAMINATION:GENERAL: The patient is in no acute respiratory distress.CURRENT VITAL SIGNS: Blood pressure 134/80, heart rate of 87, temperature 97.3,respiratory rate of 16.HEENT: Head is normocephalic.NECK: Supple.CHEST AND LUNGS: Bilateral breathing sounds.HEART: Normal S1, S2.ABDOMEN: Soft.EXTREMITIES: No edema.NEUROLOGIC: Awake and alert, nonfocal. PERTINENT FINDINGS:1. UA noted negative.2. CBC, BMP noted.3. CT of the pelvis showed pelvic rami fracture. PATIENT NAME: PRABHAKAR HASTINGS ASSESSMENT AND PLAN:1. Status post fall, with a pelvic ramus fracture. The patient is unable towalk. Dr. Chua, orthopedic surgery service is consulted. We consulted painmanagement, Dr. Gonzales. Continue the patient on Lovenox 40 mg subcutaneousdaily. Continue the patient on [place], morphine sulfate IV for uncontrolledpain.2. Parkinson's disease. Resume home medication. The patient is on Sinemet.3. The patient is on fall precaution. We will obtain infectious diseaseconsultation.4. Hypertension, controlled. Resume home medication.5. Recent urinary tract infection. The patient remains on Levaquin. Urineculture will be obtained.6. Moderate malnutrition. We will continue the patient on oral supplements.7. Level of care. The patient is full code. Dictated By: Preston Torres MD WT: HP:PRAMON/VALERIE.01/NTSDD: 2021 21:03:33DT: 2021 22:49:40Conf#: [id number]/DID#: [id number] by Preston Torres MD On 08/12/2021 07:16:39 AM at 0716 PATIENT NAME: PRABHAKAR HASTINGS and physical dfkbixrgkgo7417-12-12H51:49:00P.[id number] VAvailable for patient prwlIWBSOHNXMPFJFK0535-65-25T14:17:13 [facility] 2021 16:40:00 [id number] BXPzOxhkyfcEcV5IQW8FKsWPGJF9487-93-45U46:40:00 [facility] ([facility])EMERGENCY PROVIDER REPORTREPORT#:[id number] REPORT STATUS: SignedDATE:08/11/21 TIME: 1640 PATIENT: PRAHBAKAR HASTINGS UNIT #: [id number]#: [id number] ROOM: [facility] BED: 4AGE: 81 SEX: F PCP PHYS: No Primary or Family PhysicianSERVICE AUTHOR: Dominick Morgan MD * ALL edits or amendments must be made on the electronic/computer document * HPI-General Illness Free Text HPI NotesFree Text HPI NotesPatient transported here by EMS from a rehabilitation facility for evaluation byDr. Chua. Patient states she had a fall 3 weeks ago had a pelvic fracture. No surgery. Was being handled conservatively with inpatient rehab. Patient had been doing better with rehab up until Saturday. Started having a lot of pain muscular spasms. Unable to walk since then. They talk to Dr. Rangel from orthopedics andwas requested to come to this emergency room be admitted for second opinion and evaluation by the orthopedic surgeon. Patient denies any fever chills. Has mild constipation due to narcotic pain medicine. Tolerating p.o. intake. No neurovascular compromise. Currently no pain is. Patient pain is worse with ambulation. Relieved by rest. GeneralInitial Greet Date/Time 08/11/21 1632 PresentationChief Complaint __ (pain)Sudden in Onset? No Review of Systems ROS StatementsAll systems rev neg except as marked. Review of SystemsMusculoskeletalReports: Joint pain. Past Medical History - AdultStated Complaint PELVIC FRACTUREAllergiesCoded Allergies:Penicillins (Severe, RASH 08/11/21)Sulfa (Sulfonamide Antibiotics) (Severe, RASH 08/11/21) Review of Nursing Notes Rapid assess notes revAdditional Medical HistoryParkinson's Physical Exam Vital SignsVital SignsFirst Documented: Result Date Time Pulse Ox 96 08/11 1644 B/P 129/74 08/11 1644 B/P Mean 92 08/11 1644 Temp 37.0 08/11 1644 Pulse 91 08/11 1644 Resp 17 08/11 1644 Last Documented: Result Date Time Pulse Ox 96 08/11 164 B/P 129/74 08/11 1644 B/P Mean 92 08/11 1644 Temp 37.0 08/11 1644 Pulse 91 08/11 1644 Resp 17 08/11 1644 Review of Vital Signs Reviewed Physical ExamGeneral/Const General/Const Alert, No acute distress, Well appearingEars/Nose/Throat Ears/Nose/Throat Mucous membranes moistResp/Chest Respiratory/Chest No respiratory distressCardiovascular Cardiovascular Heart rate NLAbdomen/GI Abdomen/GI Soft, Non-tenderMS Upper Extrem Upper Extremity/MS Inspection NL, Full range of motionMS Lower Extrem Lower Ext/Pelvis/MS No swelling Pelvis Tender anterior. Skin Skin WarmNeurologic Neurologic Oriented X3, Speech NL, No motor deficits, No sensory deficits Interpretation Diagnostics Lab Results InterpretationConsiderations Independ review imaging, Reviewed prior recordsResultsLaboratory Tests 08/11/211744:[Embedded Image Not Available]Laboratory Tests: 08/11 1745 Chemistry Sodium (136 - 145 mmol/L) 136 Potassium (3.5 - 5.1 mmol/L) 4.5 Chloride (98 - 107 mmol/L) 100 Carbon Dioxide (20 - 31 mmol/L) 28 BUN (9 - 23 mg/dL) 24 H Creatinine (0.55 - 1.02 mg/dL) 0.90 Glomerular Filtr Rate (>60 mL/min) >=60 max estimate Glucose (74 - 106 mg/dL) 111 H Calcium (8.7 - 10.4 mg/dL) 8.2 L Hematology WBC (4.8 - 10.8 x10 3/uL) 7.1 RBC (4.20 - 5.40 x10 6/uL) 4.18 L Hgb (12.0 - 16.0 g/dL) 13.0 Hct (37.0 - 47.0 %) 39.9 MCV (81.0 - 99.0 fL) 95.5 MCH (27 - 31 pg) 31.1 H MCHC (33 - 36.5 G/DL) 32.6 L RDW (12.9 - 16.9 %) 13.0 Plt Count (150 - 440 x10 3/uL) 351 MPV (8.9 - 12.4 fL) 10.2 Neut % (Auto) (42.2 - 75.2 %) 71.4 Lymph % (Auto) (20.5 - 51.1 %) 14.4 L Aiken % (Auto) (1.7 - 9.3 %) 9.9 H Eos % (Auto) (0.0 - 7.0 %) 3.3 Baso % (Auto) (0 - 2.5 %) 0.6 Neut # (Auto) (1.80 - 7.70 x10 3/uL) 5.04 Lymph # (Auto) (1.00 - 4.80 x10 3/uL) 1.02 Aiken # (Auto) (0.00 - 0.80 x10 3/uL) 0.70 Eos # (Auto) (0.00 - 0.45 x10 3/uL) 0.23 Baso # (Auto) (0.0 - 0.20 x10 3/uL) 0.04 Recent Impressions:CAT SCAN - CT ABD PELVIS W/O CONT 08/11 1715 Report Impression - Status: SIGNED Entered: 2021 1802 IMPRESSION: 1. Subacute fractures of the left superior and inferior pubic ramiwith signs of healing. 2. Few scattered small hypodensities throughout the liver, too smallto fully characterize.3. Severe distention of the urinary bladder. Recommend correlationfor clinical symptoms of urinary retention. Impression By: BeckyEBDenae - CHRISSY OROZCO M.D. Lab StatementLaboratory studies reviewed and considered in the medical decision-making. Lab Imaging StatementLaboratory radiographic studies reviewed and considered in the medical decision-making. Re-Evaluation MDM Free Text MDM NotesFree Text MDM NotesNoted bladder distention possible retention. Orozco ordered ED CourseMedication(s) OrderedMedication(s) Ordered:Central Nervous System Agents Sig/Lexi Start time Last Medication Dose Route Stop Time Status Admin Acetaminophen 650 MG Q4H PRN PRN 08/11 1800 AC PO 08/12 1652 Morphine Sulfate 4 MG Q4H PRN PRN 08/11 1800 AC IV 08/12 165 Electrolytic, Caloric, And Prashant Sig/Lexi Start time Last Medication Dose Route Stop Time Status Admin Sodium Chloride 1,000 ML ONCE ONE 08/11 1800 AC IV 08/12 0359 Gastrointestinal Drugs Sig/Lexi Start time Last Medication Dose Route Stop Time Status Admin Ondansetron HCl 4 MG Q6H PRN PRN 08/11 1800 AC IV 08/12 165 Patient Discharge Departure Vital Signs/ConditionVital SignsFirst Documented: Result Date Time Pulse Ox 96 08/11 1644 B/P 129/74 08/11 1644 B/P Mean 92 08/11 1644 Temp 37.0 08/11 164 Pulse 91 08/11 1644 Resp 17 08/11 1644 Last Documented: Result Date Time Pulse Ox 96 08/11 1644 B/P 129/74 08/11 1644 B/P Mean 92 08/11 1644 Temp 37.0 08/11 1644 Pulse 91 08/11 1644 Resp 17 08/11 1644 All vital signs available at the time of this entry have been reviewed. Condition Stable Clinical ImpressionClinical ImpressionPrimary Impression: Pelvic fracture Disposition DecisionAdmit Admit Physician Name Preston Torres MD Admit Physician Ortho Hand Request Time 174 Request Date 08/11/21 )( Admission Accepts Yes )( Accepted Time 1741 )( Accepted Date 08/11/21 at 1811RPT #:[id number] OF REPORTEDEmergency department zbvgjm3634-24-79L35:40:00P.[id number] ilable for patient fdzoVSXTAYPKRDTREL0078-63-44G88:12:03 [facility]
[2024-03-16] MEDS ORDERED: MORPHINE 4 MG/ML SYR IV PRN (19:48)
[2024-03-16] MEDS ORDERED: MAGNESIUM HYDROXIDE 8% 30 ML PO PRN (19:48)
[2024-03-16] MEDS ORDERED: ONDANSETRON 4 MG/2 ML VIAL IV PRN (19:48)
[2024-03-16] MEDS ORDERED: ZOLPIDEM TARTRATE 5 MG TABLET PO PRN (19:52)
[2024-03-16 20:11] LABS: Absolute Lymphocytes (CBC) 0.8 K/uL (0.7-4.9); Absolute Monocytes 0.6 K/uL (0.1-1.3); Absolute Neutrophil 4.5 K/uL (1.8-8.0); Basophils % 0.5 % (0-1.3); Eosinophils % 0.4 % (0-4.4); Hematocrit 42.6 % (36.0-45.0); Lymphocytes % 13.1 % (15.3-44.8); MCHC 32.8 g/dL (32.0-36.0); MCV 94.6 fL (80-100); MPV 8.6 fL (7.6-11.3); Monocytes % 10.7 % (3.3-12.3); Neutrophils % 75.3 % (41.7-73.7); Platelets 159 thou/uL (152-406); RBC Red Blood Cell Count 4.51 M/uL (3.86-4.86); Red Cell Distribution Width 13.6 % (12.1-15.2)
[2024-03-16 20:25] LABS: Albumin 3.5 g/dL (3.4-5.0); Albumin/Globulin Ratio 0.9 (1.1-1.8); Alkaline Phosphatase 78 U/L (45-117); Anion Gap 7.3 mEq/L (5.0-15.0); BUN Blood Urea Nitrogen 21 mg/dL (7-18); Bicarbonate 28 mEq/L (21-32); Bilirubin Total 0.6 mg/dL (0.2-1.0); Globulin 3.8 g/dL (2.3-3.5); Glomerular Filtration Rate 57 ml/min (=/>90); Glucose Level 122 mg/dL (74-106); Magnesium 2.4 mg/dL (1.6-2.4); Potassium 3.3 mEq/L (3.5-5.1); Protein, Total 7.3 g/dL (6.4-8.2); Sodium Level 135 mEq/L (136-145)
[2024-03-16 20:32] LABS: ALT/SGPT < 14 U/L (13-56); AST/SGOT < 10 U/L (15-37)
[2024-03-16] MEDS: DOCUSATE NA/SENNA CONC 1 TAB PO SCH (20:48)
[2024-03-16] MEDS: CARBIDOPA/LEVODOPA 25/100 TAB PO SCH (20:49)
[2024-03-16] MEDS: TOPIRAMATE 25 MG TAB PO SCH (20:49)
[2024-03-16 20:50] LABS: Calcium Oxalate Crystals- Ur Few /HPF (None Seen); Specific Gravity > 1.030 (1.005-1.030); Sqamous Epithelial <5 /HPF (None Seen); Urine Bacteria None Seen /HPF (<20); Urine Bilirubin NEGATIVE (Negative); Urine Blood Negative (Negative); Urine Clarity Clear (Clear); Urine Color Yellow (Yellow); Urine Culture Reflex Order NOT NEEDED; Urine Glucose NEGATIVE (Negative); Urine Ketones 1+ (Negative); Urine Microscopic Reflex YN ORDER UMIC; Urine Mucus Slight /HPF (None Seen); Urine Nitrite NEGATIVE (Negative); Urine Protein 1+ (Negative); Urine Urobilinogen Normal (Normal)
[2024-03-16] MEDS: TRAMADOL HCL 50 MG TAB PO SCH (20:50)
[2024-03-16] MEDS: ROSUVASTATIN 5 MG TAB PO SCH (20:50)
[2024-03-16] MEDS: IBUPROFEN 600 MG TAB PO SCH (20:50)
[2024-03-16] MEDS: ACETAMINOPHEN 500 MG TAB PO SCH (20:51)
[2024-03-16] MEDS: METOPROLOL TAR 25 MG TAB PO SCH (20:51)
[2024-03-16] MEDS: FAMOTIDINE 20 MG TAB PO SCH (20:52)
--- NOTE | 2024-03-16 20:55 | RAD REPORT ---
EXAM DESCRIPTION: Ivette Single View03/16/2024 8:15 pm CLINICAL HISTORY: Hypertension COMPARISON: 2020 FINDINGS: A 13 millimeter opacity medial right lung base Left lung appears clear. The heart is mildly to moderately enlarged IMPRESSION: 13 millimeter opacity medial right lower lobe may represent pneumonia
[2024-03-16] MEDS: ENOXAPARIN 40 MG/0.4 ML SQ SCH (20:59)
--- NOTE | 2024-03-16 22:23 | RAD REPORT ---
EXAM DESCRIPTION: RAD - Lumbar Spine 3 Views - 03/16/2024 10:03 pm CLINICAL HISTORY: Back pain FINDINGS: Mild to moderate scoliosis thoracolumbar spine. Osteoporosis. No fracture lumbar spine. Minimal posterior subluxation of L3 on L4. Mild spondylosis involves the lumbar spine
--- NOTE | 2024-03-16 22:25 | RAD REPORT ---
EXAM DESCRIPTION: RAD - Thoracic Spine Ap/Lat - 03/16/2024 10:04 pm CLINICAL HISTORY: Back pain FINDINGS: Moderate compression fracture T12 vertebral body has progressed since March 15, 2024 No dislocation Mild spondylosis lumbar spine
[2024-03-16] MEDS: Levofloxacin500mg IV 500 MG/100 ML BAG IV ONE (22:28)
[2024-03-16] MEDS: POTASSIUM 25 MEQ EFFERV TAB PO ONE (22:57)
[2024-03-17 00:33] VITALS: BMI 23.8
[2024-03-17 04:01] LABS: Anion Gap 6.4 mEq/L (5.0-15.0); Potassium 3.4 mEq/L (3.5-5.1)
[2024-03-17] MEDS: POTASSIUM CL SA 10 MEQ TAB PO ONE (05:47)
[2024-03-17] MEDS: LEVOTHYROXINE SOD 0.075 MG TAB PO SCH (05:47)
--- NOTE | 2024-03-17 08:11 | HP ---
Date of Admission: 03/16/2024 Chief Complaint: Back pain. History Of Present Illness: This is an 83-year-old very pleasant female patient, who lives at home with her , fell down about 6 weeks ago and did not have any noticeable injury or pain after that fall. As of past weekend on Saturday, which is on 03/14/2024, she started to have severe lower back pain without any prior fall leading to this onset of the back pain and on Saturday which is on 03/15/2024, she came to our emergency room. After she was evaluated in the ER, workup was done in the emergency room that includes routine blood work and CAT scan of the abdomen and pelvis, and she was diagnosed as having 20% compression fracture of T12 spine. The patient was discharged to go home from emergency room with tramadol yesterday. Today, she was seen at office as she was brought in by her and she was in the wheelchair. The patient and her they both report very severe pain and on pain scale, she says her pain is 10/10. She reports her pain as a constant pain in her back and it gets worse anytime she tries to move that includes moving in chair or trying to get up. Walking is extremely difficult and says it take her about 15 minutes just to take few steps to go to bathroom from her bedroom to the bathroom. It is extremely difficult for her. They both live at home by themselves and he is very much concerned about not able to take care of her at home the way her condition is. After she was evaluated, decision was made to admit her to the hospital for further management of this problem. Allergies: TO PENICILLIN CAUSING THROAT SWELLING AND SULFA CAUSING NAUSEA. Medications: Aspirin 81 mg daily, Caltrate plus D 1 tablet 2 times a day, carbidopa/levodopa 25/100 one tablet 3 times a day, vitamin D3 1000 units daily, duloxetine 30 mg daily, famotidine 40 mg daily at bedtime, fluticasone nasal spray 1 spray each nostril 2 times a day as needed for allergies, levothyroxine 75 mcg daily, metoprolol tartrate 50 mg daily, rosuvastatin 5 mg daily at bedtime, topiramate 25 mg daily at bedtime, zolpidem 5 mg daily at bedtime as needed for sleep, and tramadol which was recently prescribed from emergency room for back pain. Review of Systems: Musculoskeletal: As mentioned above. GI: Having some constipation problem. All other systems reviewed and negative. Past Medical History: Significant for Parkinson's disease, hypertension, hypothyroidism, impaired fasting glucose, hyperlipidemia, gastroesophageal reflux disease, diverticulosis, osteoarthritis at multiple sites, and osteoporosis. Past Surgical History: Cataract surgery, tubal ligation, D and C, knee surgery, which is arthroscopic knee surgery. Family History: Father , had emphysema. Mother , had atherosclerosis. Brother with hyperlipidemia. Sister , had cerebral aneurysm and stroke. Social History: Negative for smoking and alcohol use. Physical Examination: Vital Signs: Upon admission, temperature 97.6, pulse 76, respiratory rate 16, blood pressure 154/79, oxygen saturation 93%. Height 5 feet 2 inches, weight 130 pounds, and I will have to verify her weight with the office record. General: Awake, alert, oriented, not in distress. HEENT: Head atraumatic, normocephalic. Conjunctivae nonerythematous. Sclerae white. Mouth, no thrush or edema noted. Ears/Nose, no mass, lesion, discharge noted. Neck: Supple. No JVD, lymph nodes, bruit, thyromegaly noted. Lungs: Bilateral good equal air entry. Clear to auscultation. No rhonchi. No rales. Heart: Normal heart sounds, no murmur or gallop. Abdomen: Soft, bowel sounds normal. No guarding, rigidity, tenderness, mass, hepatosplenomegaly, distention, or bruit noted. Extremities: No leg edema. No calf tenderness. Skin: No rash, ulcer, cellulitis. Lymphatics: No lymph node enlargement in neck, supraclavicular, infraclavicular region. Neuro: No focal neurological deficit. Chest: Unremarkable. External Genitalia: Deferred. Rectal: Deferred. Musculoskeletal: The patient has significant lower back pain with any attempt to move her lower extremities. She is able to move both feet and both thighs equally, but range of motion is slow and painful and it is limited. Laboratory Data: Workup done in the emergency room on 03/15/2024 visit reviewed including blood work and a CAT scan of abdomen and pelvis revealing 20% compression fracture of T12 spine. WBC 5.9, hemoglobin 14, platelets 159. Sodium 135, potassium 3.3, chloride 103, bicarb 28, BUN 21, creatinine 0.99, glucose 122. Liver function tests unremarkable. Urinalysis, leukocyte esterase 25, rbc 5 to 10, wbc 5 to 10. Chest x-ray shows infiltrate in right lower lobe. Impression: 1. Compression fracture of T12 spine. 2. Hypokalemia. 3. Pneumonia. 4. Constipation. 5. Hypothyroidism. 6. Hypertension. 7. Hyperlipidemia. 8. Impaired fasting glucose. 9. Osteoarthritis, multiple sites. 10. Gastroesophageal reflux disease. 11. Diverticulosis. 12. Osteoporosis. Plan: We will go ahead and admit the patient to hospital for further evaluation and management of this problem. The patient is appropriate for inpatient and is expected to spend 2 midnights in hospital. After I evaluated her, arrangements were made for her to be admitted directly to the hospital because of her severity of pain and the patient is not able to take care of herself at home and not able to provide the care that she needs and high risk of further deterioration at home was my main concern and also we will need to look at the severity of this compression fracture and this will allow us to have better plan of treatment in place for her. DVT prophylaxis will be given using Lovenox. We will go ahead and give tramadol 50 mg 3 times a day on a scheduled basis and morphine was ordered for as needed use. I will also add Tylenol 500 mg along with ibuprofen 800 mg 3 times a day on scheduled basis. We will add calcitonin nasal spray per order. X-ray of the thoracic spine and lumbar spine will be done. We will follow up on that result and tomorrow plan is to do MRI of the thoracic spine if she is able to tolerate that particular test depending on the pain control. Physical Therapy will be consulted and we will consult Social Service to assist with inpatient rehab consultation. We did talk about possibility of kyphoplasty/vertebroplasty type of procedure and obviously we will need to keep that in mind if we are not able to provide improvement with medical management. For pneumonia, we will start her on Levaquin as per order. For her hypertension, we will continue metoprolol and I will start her on 25 mg 2 times a day. Monitor blood pressure and if necessary, make adjustment on blood pressure medication. For hyperlipidemia, we will continue her statin therapy, which is rosuvastatin 5 mg daily at bedtime. For hypothyroidism, continue her levothyroxine per order. No need for further intervention. For gastroesophageal reflux disease, we will continue her famotidine and no need for any further intervention. Fall precaution was ordered and details and plan of treatment discussed with the patient and her . Total time spent 90 minutes that includes review of emergency room record from 03/15/2024, performing evaluation and management at office for this hospital admission including review of prior office record and taking care of this admission orders and coordination for this admission at the hospital. I will see her tomorrow morning for followup. MICHELLE/MODElyssa Voice ID: [id number] MTDD
[2024-03-17] MEDS: CALCITONIN NASAL SPRAY 200 IU/DOSE NAS SCH (09:00)
[2024-03-17] MEDS: ASPIRIN EC 81 MG TAB PO SCH (09:26)
[2024-03-17] MEDS: DULOXETINE 30 MG CAP PO SCH (09:26)
[2024-03-17] MEDS: LIDOCAINE 4% PATCH TOP SCH (09:26)
--- NOTE | 2024-03-17 21:11 | RAD REPORT ---
EXAM DESCRIPTION: MRI - Lumbar Spine Wo Con - 03/17/2024 3:15 pm CLINICAL HISTORY: T12 fracture COMPARISON: Lumbar Spine 3 Views dated 03/16/2024; Thoracic Spine Ap/Lat dated 03/16/2024; Abdomen P luis W Contrast dated 03/15/2024 TECHNIQUE: Multiplanar multisequence MRI of the lumbar spine performed, without intravenous gadolini um contrast. FINDINGS: Preserved lumbar lordosis without spondylolisthesis. Inferior endplate central wedge comp ression deformity with mild comminution and marrow edema throughout the anteroinferior aspects of the T12 vertebral body. Retropulsion of the posteroinferior fragment, extending 4-5 mm posterior to the T12 vertebral body margin. Lumbar vertebral body heights are well maintained. Cortical irregularity a long the anterior aspect of S2, likely related to a chronic/healed fracture. Small perineural cysts a long the sacral nerve roots. No other suspicious marrow signal. No paraspinal masses or edema. Conus terminates at the appropriate level. Cauda equina roots are unremarkable, with no clumping or t hickening. T12-L1 level: No significant findings. L1-L2 level: Mild broad-based disc bulge. No central canal or foraminal stenosis. L2-L3 level: Mild broad-based disc bulge. No central canal or foraminal stenosis. L3-L4 level: Broad-based posterior disc extrusion with the most pronounced component along the right central/ subarticular zone, contributing to mild right lateral recess narrowing. Central canal is oth erwise patent. Mild bilateral neural foraminal narrowing more so on the left. L4-L5 level: Broad-based posterior disc bulge. No central canal stenosis. Moderate right and mild lef t neural foraminal narrowing. L5-S1 level: Mild broad-based disc bulge without significant canal stenosis. Mild right neural forami nal narrowing. Endplate remodeling asymmetric to the right contribute to encroachment upon the extraf oraminal right L5 nerve root as well. IMPRESSION: Inferior endplate wedge compression capture at T12, likely of acute or recent nature. 4- 5 mm retropulsion of a posteroinferior fragment at T12, without significant canal stenosis. Other multilevel lumbar spine degenerative changes as above, without significant central canal stenos is. Asymmetric disc extrusion at L3-4 contributes to mild right lateral recess narrowing. Variable de grees of neural foraminal narrowing, up to moderate on the right at L4-5.
[2024-03-17] MEDS: Levofloxacin500mg IV 500 MG/100 ML BAG IV SCH (21:20)
--- NOTE | 2024-03-17 21:20 | RAD REPORT ---
EXAM DESCRIPTION: MRI - Thoracic Spine Wo Contr - 03/17/2024 2:47 pm CLINICAL HISTORY: T12 fracture COMPARISON: No comparisons TECHNIQUE: Multiplanar multisequence MRI of the thoracic spine, obtained without IV contrast. FINDINGS: Inferior endplate compression deformity at T12, with adjacent marrow edema. 4-5 mm retropu lsion of a posteroinferior fragment of the vertebral body, mildly effacing the ventral CSF space, wit hout significant canal stenosis. The vertebral body heights and disc spaces are otherwise maintained. Small atypical hemangiomas within bodies of T2 and T8, and a predominantly fat signal containing hem angioma within body of T11. Mild multilevel disc bulges, most notably with a central disc protrusion at T8-9. No significant ronnell l stenosis or foraminal stenosis at any level. No paraspinal mass or hematoma. The thoracic cord is normal in size and signal. IMPRESSION: Inferior endplate compression deformity at T12 as above, likely of acute or recent age. 4-5 mm retropulsion of a fragment along the posterior vertebral body margin at that level without sig nificant central canal stenosis.
--- NOTE | 2024-03-18 00:53 | PN ---
Date of Progress Note: 03/17/2024 Subjective: The patient was seen this morning for followup. She was lying in bed not in any distres s. Denies any complaints this morning. Her back pain is under better control with medical managemen t that has been provided to her so far. No new complaints overnight. The patient did get some rest last night as she reported. Objective: Vital Signs: Reviewed. HEENT: Unremarkable. Lungs: Clear to auscultation. Heart: Sounds normal. Abdomen: Soft. Bowel sounds normal. No guarding, rigidity, tenderness, distention. Extremities: No leg edema. Laboratory Data: Sodium 135, potassium 3.4, chloride 102, bicarb 30, BUN 22, creatinine 0.83, glucos e 108. Impression: 1.Compression fracture of T12 spine. 2.Parkinson's disease. 3.Hypertension. 4.Hyperlipidemia. 5.Hypokalemia. Plan: We will go ahead and continue to replace potassium per electrolyte replacement protocol. Cont inue current medical management for compression fracture of spine. The patient to continue to work w [facility] Physical Therapy and I have ordered MRI of thoracic and lumbar spine to be done today. Pharmacis t informed me today that calcitonin nasal spray is not available in the hospital pharmacy. We will continue other current medical management. I will see her tomorrow for followup. MICHELLE/MODL Voice ID: [id number] Report ID: [id number]
--- NOTE | 2024-03-18 21:58 | PN ---
Date of Progress Note: 03/18/2024 Subjective: The patient was seen this morning for followup. No new complaints or problems reported by the patient, lying in bed, not in distress. Her was with her at bedside and reported that the patient did not feel as well yesterday after she came back from MRI compared to before. I suspe ct that could have been due to morphine that she received because said she kept on sleeping m ost of the time after she came back from MRI. This morning, when I walked into her room, she was sle eping, but arousable, communicated with me and her , and denied any complaints at that time. Objective: Vital Signs: Reviewed. HEENT: Unremarkable. Lungs: Clear to auscultation. Heart: Sounds normal. Abdomen: Soft. Bowel sounds normal. No guarding, rigidity, tenderness, distention. Extremities: No leg edema. Impression: 1.Compression fracture, T12 spine. 2.Hypertension. 3.Hyperlipidemia. 4.Parkinson's disease. Plan: We will go ahead and continue current medications. I have instructed the patient's to communicate with Social Service who has been consulted to help make arrangements for disposition. T he patient is medically now stable for discharge and will work with social director regarding joseph foreman. I did send prescription for calcitonin nasal spray to her pharmacy and was instruc coleman to strip picker prescription and bring it to hospital given she can continue to use it while she is in the hospital since this medication is not available in the hospital pharmacy. Details of MRI findings discussed with the patient and her husba nd today. MICHELLE/MODL Voice ID: [id number] Report ID: [id number]
--- NOTE | 2024-03-19 08:00 | RAD REPORT ---
EXAM DESCRIPTION: Ivette Single View03/19/2024 7:45 am CLINICAL HISTORY: Chest pain COMPARISON: MARCH 16, 2024 FINDINGS: Right basilar lung opacity has resolved Lungs appear clear of infiltrate. Heart remains enlarged IMPRESSION: Resolution of small right lung opacity
[2024-03-19 08:28] LABS: Absolute Eosinophils 0.1 K/uL (0-0.5); Absolute Lymphocytes (CBC) 1.1 K/uL (0.7-4.9); Absolute Monocytes 0.7 K/uL (0.1-1.3); Basophils % 0.6 % (0-1.3); Eosinophils % 2.3 % (0-4.4); Hematocrit 42.1 % (36.0-45.0); Hemoglobin 14.2 g/dL (12.0-15.0); MCH 31.6 pg (27.0-35.0); MCHC 33.8 g/dL (32.0-36.0); MCV 93.4 fL (80-100); MPV 8.8 fL (7.6-11.3); Monocytes % 11.1 % (3.3-12.3); Platelets 173 thou/uL (152-406); RBC Red Blood Cell Count 4.51 M/uL (3.86-4.86); Red Cell Distribution Width 13.6 % (12.1-15.2)
[2024-03-19 08:41] LABS: Anion Gap 8.4 mEq/L (5.0-15.0); Magnesium 2.2 mg/dL (1.6-2.4); Potassium 3.4 mEq/L (3.5-5.1)
[2024-03-19] MEDS: POTASSIUM CL SA 10 MEQ TAB PO ONE (14:20)
[2024-03-19 16:25] VITALS: O2SAT 98
--- NOTE | 2024-03-19 20:40 | PN ---
Date of Progress Note: 03/19/2024 Subjective: The patient was seen this morning for followup. No new complaints or problems reported by her. Her was with her at bedside. Yesterday, she had uneventful day. She is trying to p articipate with physical therapy. Objective: Vital Signs: Reviewed. HEENT: Unremarkable. Lungs: Clear to auscultation. Heart: Sounds normal. Abdomen: Soft. Bowel sounds normal. No guarding, rigidity, tenderness, distention. Extremities: No leg edema. Impression: 1.Compression fracture, T12 spine. 2.Parkinson's disease. 3.Hypertension. 4.Hyperlipidemia. 5.Generalized weakness. 6.Debility. Plan: We will go ahead and continue current medications. Continue to work with Physical Therapy and other current medical management. The patient's informed me that their first preference is for her to go to inpatient rehab and for some reason if insurance refuses that, then his second prefe rence would be to take her home with home health and home physical therapy, and last option is [facility] as they informed me this morning. We will continue to work with Social Service. MICHELLE/MODL Voice ID: [id number] Report ID: [id number]
[2024-03-20] MEDS: levoFLOXacin 500 MG TAB PO SCH (09:08)
[2024-03-20] MEDS: NA CHLORIDE 0.9% 1,000 ML IV SCH (11:28)
--- NOTE | 2024-03-20 11:29 | PN ---
Date of Progress Note: 03/20/2024 Subjective: The patient was seen this morning for followup. She was sitting in chair. Her was with her at bedside and yesterday she did ambulate with physical therapy a lot better than the da y before. Her back pain has improved with medical management. This morning after I saw her, I noted her ambulating very well and actually better than yesterday as reported by Physical Therapy outside in the hallway. Objective: Vital Signs: Reviewed. HEENT: Unremarkable. Lungs: Clear to auscultation. Heart: Sounds normal. Abdomen: Soft. Bowel sounds normal. No guarding, rigidity, tenderness, distention. Extremities: No leg edema. Laboratory Data: Yesterday's chest x-ray shows resolution of density which was noted on initial [facility] t x-ray representing pneumonia in the right lower lobe and yesterday's lab results reviewed with the patient and her considering creatinine has gone up from the day before. Impression: 1.Compression fracture, T12 spine. 2.Hypertension. 3.Parkinson's disease. 4.Acute kidney injury. 5.Pneumonia. Plan: We will continue antibiotic Levaquin, but change it from IV to oral Levaquin as of today. For her compression fracture, we are using lidocaine patch, ibuprofen, Tylenol, and tramadol, and we felipe l continue all those. I will discontinue morphine use. is still not able to get a prescript ion for calcitonin nasal spray and he is working with her outpatient pharmacy and once he is able to get that, he will bring it to the hospital. Insurance company has denied inpatient rehab and now we are going through appeal process. If that gets denied, then 2 options, 1 is to take her home with [facility] and home physical therapy, other option is to take her to nursing home facility at [facility] and the patient's yesterday told me that his second option would be to take h er home with home health care and he informed long term care social worker that his second option would be to take h er to [facility], so when I talked to him about this today to clarify, he told me that he i s going back and forth between [facility] and home with home health care option and he is n ot able to make that firm decision yet. I have encouraged the patient and suggested the patient's jennifer gann to try to encourage her to drink at least 60 ounces of water daily and we will give her some IV fluid. Repeat blood work tomorrow morning. I will see her tomorrow for followup. MICHELLE/MODL Voice ID: [id number] Report ID: [id number]
[2024-03-21 08:29] LABS: Anion Gap 8.4 mEq/L (5.0-15.0); Potassium 3.4 mEq/L (3.5-5.1)
[2024-03-21] MEDS: POTASSIUM CL SA 10 MEQ TAB PO ONE ×2 (09:39→17:38)
[2024-03-21] MEDS: MAGNESIUM HYDROXIDE 8% 30 ML PO ONE (15:27)
[2024-03-21] MEDS: METHYLPREDNISOLONE 40 MG INJ IV ONE (15:28)
--- NOTE | 2024-03-21 20:02 | PN ---
Date of Progress Note: 03/21/2024 Subjective: The patient was seen this morning for followup. No new complaints or problems reported by her except increased back pain that has limited her ability to walk today compared to yesterday. Her back pain she describes radiates down to her leg. Objective: Vital Signs: Reviewed. This morning, temperature 97.8, pulse 75, respiratory rate 16, b lood pressure 140/78, oxygen saturation 98%. HEENT: Unremarkable. Lungs: Clear to auscultation. Heart: Sounds normal. Abdomen: Soft. Bowel sounds normal. No guarding, rigidity, tenderness, distention. Extremities: No leg edema. Laboratory Data: Sodium 138, potassium 3.4, chloride 106, bicarb 27, BUN 21, creatinine 1.01, glucos e 100. Impression: 1.Compression fracture, T12 spine. 2.Lumbar radiculopathy. 3.Hypokalemia. 4.Pneumonia. 5.Hypertension. Plan: We will go ahead and continue current antibiotic. Continue physical therapy to work with the patient. We will go ahead and add Solu-Medrol 40 mg 2 times a day for this lumbar radiculopathy type of problem. Meanwhile, we will continue her medications for Parkinson's, which is carbidopa/levodop a. Continue DVT prophylaxis with Lovenox. We will continue Tylenol as well as ibuprofen and tramado l as per order. I will go ahead and repeat blood work tomorrow morning and details and plan of treatment disc ussed with her. MICHELLE/MODL Voice ID: [id number] Report ID: [id number]
[2024-03-21] MEDS: METHYLPREDNISOLONE 40 MG INJ IV SCH (20:47)
[2024-03-22 07:13] LABS: Absolute Lymphocytes (CBC) 0.7 K/uL (0.7-4.9); Absolute Monocytes 0.3 K/uL (0.1-1.3); Absolute Neutrophil 4.2 K/uL (1.8-8.0); Basophils % 0.1 % (0-1.3); Hematocrit 37.1 % (36.0-45.0); Hemoglobin 12.6 g/dL (12.0-15.0); MCH 31.7 pg (27.0-35.0); MCV 93.3 fL (80-100); MPV 8.6 fL (7.6-11.3); Monocytes % 5.5 % (3.3-12.3); Neutrophils % 81.4 % (41.7-73.7); Platelets 186 thou/uL (152-406); RBC Red Blood Cell Count 3.98 M/uL (3.86-4.86); Red Cell Distribution Width 13.6 % (12.1-15.2)
[2024-03-22 07:19] LABS: Anion Gap 5.2 mEq/L (5.0-15.0); Magnesium 2.5 mg/dL (1.6-2.4); Potassium 4.2 mEq/L (3.5-5.1)
--- NOTE | 2024-03-22 13:13 | PN ---
Date of Progress Note: 03/22/2024 Subjective: Patient was seen this morning for followup. She was lying in bed. Her and son were present at bedside. She is feeling a lot better and actually is looking a lot better compared t o last few days. Objective: Vital Signs: Reviewed. HEENT: Unremarkable. Lungs: Clear to auscultation. Heart: Sounds normal. Abdomen: Soft. Bowel sounds normal. No guarding, rigidity, tenderness, distention. Extremities: No leg edema. Laboratory Data: White count 5.1, hemoglobin 12.6, platelets 186. Sodium 137, potassium 4.2, chlori de 106, bicarb 30, BUN 18, creatinine 0.85, glucose 134. Impression: 1.Compression fracture, T12 spine. 2.Lumbar radiculopathy. 3.Pneumonia. 4.Hypertension. Plan: We will go ahead and discontinue IV fluid. The patient was encouraged to continue to drink 60 ounce of water daily. We will continue current DVT prophylaxis. Continue Tylenol, ibuprofen, trama dol, and now Solu-Medrol as per order. is still awaiting on her pharmacy to get calcitonin n lynette spray. Once that is available, he will bring it. So we will start using it at that point. Hop efully, we will get a final decision from insurance company tomorrow and if we get denial from [facility], then now has decided to take her to [facility] as the second option. The patient should have a bone density on an elective outpatient basis and then definitely treatment for osteoporosis should be considered at that point depending on the bone density result, but meanwhile calcitonin will be started once that i s available. MICHELLE/MODL Voice ID: [id number] Report ID: [id number]
[2024-03-23] MEDS: ENSURE ENLIVE 237 ML CAN PO SCH (21:00)
[2024-03-23 21:28] VITALS: BP 152/82
[2024-03-23 21:52] VITALS: TEMP 98.5
--- NOTE | 2024-03-24 01:35 | DS ---
Date of Discharge: 03/23/2024 Disposition: Discharged to go to inpatient rehab. Physical Examination: HEENT: Unremarkable. Lungs: Clear to auscultation. Heart: Sounds normal. Abdomen: Soft. Bowel sounds normal. No guarding, rigidity, tenderness, distention. Extremities: No leg edema. Discharge Medications And Instructions: See copy of transfer order for more details. Hospital Course: This is an 83-year-old very pleasant female patient, who was admitted to the hospital with compression fracture of T12 spine. Please see dictated H and P for more information. After the patient was evaluated at office, she was admitted to the hospital. We started her on tramadol 50 mg 3 times a day, Tylenol 500 mg 3 times a day, and ibuprofen 600 mg 3 times a day on scheduled basis. Morphine was ordered for p.r.n. use. Lidocaine patch was ordered. We did MRI of lumbar and thoracic spine, results reviewed with the patient and her . MRI has shown compression fracture of T12 spine and lumbar spondylosis type of problem. She did have problem with pneumonia, which was treated with Levaquin and repeat chest x-ray showed resolution of pneumonia, so Levaquin was changed from IV to oral antibiotic. Physical Therapy was consulted and the patient participated well with physical therapy. Social Service was consulted to assist with discharge planning and the patient and her they both wanted to go to inpatient rehab, so Social Service did request insurance company to provide approval for inpatient rehab and initially insurance [employer] denied that request, so subsequently we went through appeal process and today insurance company approved her to go to inpatient rehab. She did start to have lower back pain radiating down to her leg over the weekend and we started her on IV Solu-Medrol 40 mg every 12 hours and that actually has helped to improve her symptoms very well. Calcitonin nasal spray was ordered which is not available in the hospital pharmacy, so I did send a prescription to her outside pharmacy and so far has not been able to get it because of supply problem. As soon as her outside pharmacy gets this particular prescription, will bring it to the hospital and will use it as per order. The patient did have problem with volume depletion, which was corrected with IV fluid hydration and she was encouraged to drink water at least 60 ounces of water on a daily basis. Overall, the patient's condition has improved and today she was discharged to go to inpatient rehab in stable condition with discharge medication and instruction as per discharge order. Laboratory Data: On 03/15/2024 CAT scan of abdomen and pelvis revealing 20% compression fracture of T12 spine. WBC 5.9, hemoglobin 14, platelets 159. Sodium 135, potassium 3.3, chloride 103, bicarb 28, BUN 21, creatinine 0.99, glucose 122. Liver function tests unremarkable. Urinalysis, leukocyte , rbc 5 to 10, wbc 5 to 10. Chest x-ray shows infiltrate in right lower lobe. On 03/22/2024 White count 5.1, hemoglobin 12.6, platelets 186. Sodium 137, potassium 4.2, chloride 106, bicarb 30, BUN 18, creatinine 0.85, glucose 134. Final Diagnoses: 1. Compression fracture of T12 spine. 2. Lumbar radiculopathy. 3. Pneumonia. 4. Volume depletion. 5. Acute kidney injury, resolved. 6. Hypertension. 7. Parkinson's disease. 8. Hyperlipidemia. Total time spent today 40 minutes. MICHELLE/MODL Voice ID: [id number] Report ID: [id number] MTDD
== END 2024-03-23 22:30 | DRG 551 ==
LOC: 2ND 18:43
PROVIDERS: ADMIT Internal Medicine; ATTEND Internal Medicine
DX: S22.089A Unspecified fracture of T11-T12 vertebra, initial encounter for closed fracture (principal); J18.9 Pneumonia, unspecified organism; N17.9 Acute kidney failure, unspecified; M48.36 Traumatic spondylopathy, lumbar region; G20.A1 Parkinson's disease without dyskinesia, without mention of fluctuations; I10 Essential (primary) hypertension; E03.9 Hypothyroidism, unspecified; E78.5 Hyperlipidemia, unspecified; E87.6 Hypokalemia; K59.00 Constipation, unspecified; K21.9 Gastro-esophageal reflux disease without esophagitis; E86.9 Volume depletion, unspecified; M47.26 Other spondylosis with radiculopathy, lumbar region; M81.0 Age-related osteoporosis without current pathological fracture; M19.09 Primary osteoarthritis, other specified site; K57.90 Diverticulosis of intestine, part unspecified, without perforation or abscess without bleeding; R73.01 Impaired fasting glucose; Z88.0 Allergy status to penicillin; Z88.2 Allergy status to sulfonamides; Z98.51 Tubal ligation status; Z79.82 Long term (current) use of aspirin; Z79.890 Hormone replacement therapy; Z79.899 Other long term (current) drug therapy; W19.XXXA Unspecified fall, initial encounter; Y93.9 Activity, unspecified; Y92.019 Unspecified place in single-family (private) house as the place of occurrence of the external cause; Y99.9 Unspecified external cause status
CPT/HCPCS: 36415; 71045; 72070; 72100; 72146; 72148; 74177; 80048; 80053; 81001; 83690; 83735; 84132; 84484; 85025; 93005; 96374; 97110; 97116; 97161; 97530; 99284; J1650; J2001; J2920; J7030; Q9967

== ENCOUNTER 2024-03-23 16:49 | Inpatient (IN) | payer OTHER ==
--- OUTSIDE RECORDS SUMMARY | 2024-03-23 21:59 | XMS REPORT | Continuity of Care Document ---
Author Name Unknown Address [address] [facility] [address] [place] [address] [facility] Address [address] [place] [address] Care Team Providers Care [employer] Name Role Phone JONATHAN_GCBZW_Chelyala_S Attending Clinician UnavailPreston Dai Attending Clinician Unavailable JONATHAN_HAKEEMZW_Maribella_S Admitting Clinician UnavailPreston Dai Admitting Clinician Unavailable Payers Payer Name Policy Type Policy Number Effective Date Expirati on Date Source Allergies, Adverse Reactions, Alerts Allergy Name Allergy Type Status Severity Reaction(s) Onset Date Inactive Date Treating Clinician Comments Source Penicill ins DA Active SV RASH 2020-10 00:00: 00 [facility] Sulfa (Sulfona mide Antibiot ics) DA Active SV RASH 2020-10 00:00: 00 [facility] Procedures Procedure Date / Time Performed Performing Clinicia n Source [id number] 2021-08-14 00:00:00 SEITI.01 [facility] Encounters Start Date/Time End Date/Time Encounter Type Admission Type Attending Clinicians Care Facility Care Department Encounter ID Source 2023-08-02 00:00:00 2023-08-02 00:00:00 Outpatient GC_GCBZW_Ka diyala_S PRIV PRIV [id number] [facility] 2021 17:54:00 2021-08-18 22:03:00 Inpatient Preston Verduzco [facility] MAS [id number] 49 [facility] Results Test Description Test Time Test Comments Results Result Co mments Source COMPREHENSIVE METABOLIC [id number] 05:13:00* Test Item Value Reference Range Interpretation [...] New Reference Range Nov 2020 CBC W/AUTO [id number] 05:04:00* Test Item Value Reference Range Interpretation [...] N - XR HIP W/PEL UNI 2+V [id number] 08:34:00 [facility] 1940 Sex: FPatient Name: PRABHAKAR HASTINGS Unit No: [id number] EXAMS: CPT CODE: [id number] XR HIP W/PEL UNI 2+[place] [address] LEFT HIP, 2 VIEWS DICTATION LOCATION A1 [...] Printed Date/Time: 08/16/2021 (0838) Name: PRABHAKAR HASTINGS [facility] Phys: Sami Mcdaniels MD [address] :1940 Age: 81 Sex: [place] [address] Loc: P.0608 1 Exam Date: 08/16/2021 Status: ADM IN PH: FAX: PAGE 1 Signed ReportCOMPREHENSIVE METABOLIC [id number] 07:44:00* Test Item Value Reference Range Interpretation [...] New Reference Range Nov 2020 CBC W/AUTO [id number] 07:22:00* Test Item Value Reference Range Interpretation [...] 0.04 x10 3/uL 0.0-0.20 N COMPREHENSIVE METABOLIC [id number] 06:40:00* Test Item Value Reference Range Interpretation [...] New Reference Range Nov 2020 CBC W/AUTO [id number] 06:30:00* Test Item Value Reference Range Interpretation [...] 3/uL 0.0-0.20 N - MRI L-SPINE W/O [id number] 00:02:00 [facility] : 1940 Sex: FPatient Name: PRABHAKAR HASTINGS Unit No: [id number] EXAMS: CPT CODE: [id number] MRI L-SPINE W/O CONT 59726 EXAMINATION: - MRI L-SPINE W/O CONT LOCATION: [...] facet arthrosis. No spinal Name: PRABHAKAR HASTINGS [facility] Phys: VALERIE.01 - Preston Torres MD [address] : 1940 Age: 81 Sex: [place] [address] Loc: P.08 1 Exam Date: 08/12/2021 Status: ADM IN PH: FAX: PAGE 1 Signed Report (CONTINUED) Patient Name: PRABHAKAR HASTINGS Unit No: [id number] EXAMS: CPT CODE: [id number] MRI L-SPINE W/O CONT 83946 (Continued) canal or neural foraminal stenosis. Early termination of the thecal sac at the S1 level. IMPRESSION: 1. Edema signal in the bilateral sacral ala related to sacral insufficiency fractures. 2. No acute fracture within the lumbar spine. 3. Mild lumbar spine spondylosis. at 0002 Reported and signed by: Tiesha [place] M.D. CC: Preston Torres MD Technologist: Alex Oliva [facility] Dt/Tm: 08/15/2021 (0002) by:[email or web address] Printed Date/Time: 08/15/2021 (0005) Name: PRABHAKAR HASTINGS [facility] Phys: Preston Todd MD [address] : 1940 Age: 81 Sex: [place] [address] Loc: P.0608 1 Exam Date: 08/12/2021 Sta tus: ADM IN PH: FAX: PAGE 2 Signed Report- MRI PELVIS W/O [id number] 15:04:00[facility] : 1940 Sex: FPatient Name: PRABHAKAR HASTINGS Unit No: [id number] EXAMS: CPT CODE: [id number] MRI PELVIS W/O CONT 31125 INDICATIONS: Pelvic pain, fracture. Location Code: B2 [...] muscles. No abnormality within the iliopsoas bursa. Zstt-vs-fyzxrjes fluid in the bilateral greater trochanteric bursa. [...] CC: Preston Torres MD Technologist: Alex Oliva [facility] Dt/Tm: 08/14/2021 (5453) by:[email or web address] Printed Date/Time: 08/14/2021 (8195) Name: PRABHAKAR HASTINGS [facility] Phys: VALERIE.01 - Preston Torres MD [address] : 1940 Age: 81 Sex: [place] [address] Loc: P.0608 1 Exam Date: 08/12/2021 Status: ADM IN PH: FAX: PAGE 1 Signed Report- XR [id number] 13:24:00 [facility] : 1940 Sex: FPatient Name: PRABHAKAR HASTINGS Unit No: [id number] EXAMS: CPT CODE: [id number] XR CYSTOGRAM 16448 Cystogram6 views 08/14/2021 CLINICAL HISTORY: Urinary retention, [...] Printed Date/Time: 08/14/2021 (1327) Name: PRABHAKAR HASTINGS [facility] Phys: Torrey Leonard MD (UR [address] : 1940 Age: 81 Sex: [place] [address] Loc: P.0608 1 Exam Date: 08/14/2021 Status: ADM IN PH: FAX: PAGE 1 Signed ReportCOMPREHENSIVE METABOLIC [id number] 05:14:00* Test Item Value Reference Range Interpretation [...] New Reference Range Nov 2020 CBC W/AUTO [id number] 05:00:00* Test Item Value Reference Range Interpretation [...] 0.0-0.20 N UA RFLX MICR CULT IF [id number] 18:18:00* Test Item Value Reference Range Interpretation [...] Suprapubic PainSpecimen Description: OROZCO CATHETERIZED URINECOMPREHENSIVE METABOLIC [id number] 06:16:00* Test Item Value Reference Range Interpretation [...] New Reference Range Nov 2020 CBC W/AUTO [id number] 05:54:00* Test Item Value Reference Range Interpretation [...] 0.0-0.20 N - CT ABD PELVIS W/O [id number] 21:42:00 [facility] : 1940 Sex: FPatient Name: PRABHAKAR HASTINGS Unit No: [id number] Report Has Been Amended EXAMS: CPT CODE: [id number] CTABD PELVIS W/O CONT 91111 Addendum - 2021 SIGNED 2021 ADDENDUM: [id number] CT/CTABPLWO Addendum correction: There is a comminuted [...] several small hypodensities scattered Name: PRABHAKAR HASTINGS [facility] Phys: Dominick Dickson [address] : 1940 Age: 81 Sex: [place] [address] Loc: P.ERMS 4 Exam Date: 2021 Status: ADM IN : FAX: PAGE 1 Signed Report (CONTINUED) Patient Name: PRABHAKAR HASTINGS Unit No: [id number] Report Has Been Amended EXAMS: CPT CODE: [id number] CT ABD PELVIS W/O CONT 78818 (Continued) throughout the liver measuring up to [...] for clinical symptoms of urinary retention. Name: [facility] Phys: Dominick Dickson [address], DOB: 1940 Age: 81 Sex: F [place] [address] Loc: P.ERMS 4 Exam Date: 2021 Status: ADM IN PH: FAX: PAGE 2 Signed Report (CONTINUED) Patient Name: PRABHAKAR HASTINGS Unit No: [id number] Report Has Been Amended EXAMS: CPT CODE: [id number] CT ABD PELVIS W/O CONT 94714 (Continued) at 1759 Reported and signed by: CHRISSY OROZCO M.D. CC: Technologist: UBALDO [place] RT(R),(CT); JILLIAN CADENA RT (R) CTDI: 12.63 DLP: 702 Trscr Dt/Tm: 2021 (1759) by:[email or web address] Printed Date/Time: 2021 (7297) Name: [facility] Phys: Dominick Dickson [address]: 1940 Age: 81 Sex: [place] [address] Loc: P.ERMS 4 ExamDate: 2021 Status: ADM IN PH: FAX: PAGE 3 Signed Report- XR PELVIS 3 + V 2021 21:33:00 [facility] : 1940 Sex: FPatient Name: PRABHAKAR HASTINGS Unit No: [id number] EXAMS: CPT CODE: [id number] XR PELVIS 3 + V 33930 EXAM: - XRPELVIS 3 + V INDICATION: [...] Printed Date/Time: 2021 (2136) Name: PRABHAKAR HASTINGS [facility] Phys: Sami Mcdaniels MD [address] : 1940 Age: 81 Sex: [place] [address] [id number] Loc: MONTSERRAT Argueta Exam Date: 2021 Status: ADM IN PH: FAX: PAGE 1 Signed ReportCOMPREHENSIVE METABOLIC [id number] 20:30:00* Test Item Value Reference Range Interpretation [...] 23.39 3X AVG 11.04~~~~~~~~~~~~~~~~~ ~~~~~~~~~~~~~~~~~~~~~~ ~~~~~~~~~~~~~~~~~~~~~N atformerly [facility] Cholesterol Education (NCEP) Guidelines:~~~~~~~~~~~ ~~~~~~~~~~~~~~~~~~~~~~ ~~~~~~~~~~~~~~~~~~~~~~ ~~~~~ HDL Cholesterol<40mg/dL: HDL Cholesterol (Major risk factor for CHD)>60mg/dL: HDL Cholesterol (Negative risk factor for CHD)40-59mg/dL: Borderline Risk LDL Cholesterol<100mg/dL : Desirable LDL-C kszcncbgwmcae286-043cr /dL: Borderline High Risk LDL-C aeutfpfqwkycz403-197mf /dL: High risk LDL-C concentration HDL-LDL Cholesterol is affected by a number of factors suchas smoking, age and sex.~~~~~~~~~~~~~~~~~~ ~~~~~~~~~~~~~~~~~~~~~~ ~~~~~~~~~~~~~~~~~~~~ [id number] 20:30:00* Test Item Value Reference Range Interpretation Comme nts PHOSPHOROUS (test code = PHOS) 3.3 mg/dL 2.4-5.1 N Please note: New Reference Range Nov 2020 URIC [id number] 20:30:00* Test Item Value Reference Range Interpretation Comme nts URIC ACID (test code = URIC) 4.0 mg/dL 3.1-7.8 N Please note: New Reference Range Nov 2020 CREATINE KINASE (CK)2021 20:30:00* Test Item Value Reference Range Interpretation Comme nts CREATINE KINASE (CK) (test code = CK) 117 U/L 34-171 N Please note: Ne w Reference Range Nov 2020 [id number] 20:30:00* Test Item Value Reference Range Interpretation Comme nts LIPASE (test code = LIP) 29 U/L 12-53 N Please note: New Reference Range Nov 2020 [id number] 20:30:00* Test Item Value Reference Range Interpretation Comme nts MAGNESIUM (test code = MAG) 2.3 mg/dL 1.6-2.6 N Please note: New Reference Range Nov 2020 T3 [id number] 20:30:00* Test Item Value Reference Range Interpretation Comme nts T3 FREE (test code = T3F) 2.16 pg/mL 3.0-4.7 L Please note: New Reference Range Nov 2020 T4 [id number] 20:30:00* Test Item Value Reference Range Interpretation Comme nts T4 FREE (test code = T4F) 1.29 ng/dL 0.89-1.76 N Please note: New Reference Range Nov 2020 THYROID STIMULATING [id number] 20:30:00* Test Item Value Reference Range Interpretation Comme nts THYROID STIMULATING HORMONE (test code = TSH) 5.04 mIU/mL 0.55-4.78 H Please note: New Reference Range Nov 2020 [id number] 20:30:00* Test Item Value Reference Range Interpretation Comme nts PREALBUMIN (test code = PREALB) 13.2 mg/dL 10-40 N Please note: New Reference Range Nov 2020 PROSTATE SPECIFIC [id number] 20:30:00* Test Item Value Reference Range Interpretation Comme nts PROSTATE SPECIFIC ANTIGEN (t est code = PSA SCREEN) 0.03 ng/mL VITAMIN [id number] 20:30:00* Test Item Value Reference Range Interpretation Comme nts VITAMIN B12 (test code = VITB12) 412 pg/mL 211-911 N Please note: New Reference Range Nov 2020 [id number] 20:29:00* Test Item Value Reference Range Interpretation Comme nts AMMONIA (test code = AMM) < 10 mcmol/L 11-32 L B-TYPE NATRIURETIC [id number] 20:29:00* Test Item Value Reference Range Interpretation Comme nts B-TYPE NATRIURETIC PEPTIDE ( test code = BNP) 58 pg/mL <100 N COVID 19 INHOUSE [id number] 20:08:00* Test Item Value Reference Range Interpretation Comme nts COVID 19 INHOUSE AG (test code = [id number]) NEGATIVE NEGATIVE Negative results , from patients [...] signs and symptomsconsistent with COVID-19. BASIC METABOLIC [id number] 18:09:00* Test Item Value Reference Range Interpretation [...] New Reference Range Nov 2020 CBC W/AUTO [id number] 18:02:00* Test Item Value Reference Range Interpretation [...] Notes Date/Time Note Provider Source 2021-08-23 05:47:00 [id number] 77iKGsDmFha3zHgk0m9mb6MHZW176 jJL1hTPa4nKaOdm2Jmf6Skp5+re6501-72-35H53:47:53821 7-[address] [address] PATIENT NAME: PRABHAKAR HASTINGS ADMIT DATE: 08/11/21ACCOUNT NO: [id number] ROOM NO: [facility] AGE: 81 REPORT TYPE: DISCHARGE SUMMARY SEX: [...] MD WT: DS:EDILIA/VALERIE.Edmund/NTSDD: 08/23/2021 05:47:50DT: 08/23/2021 07:58:38Conf#: [id number]/DID#: [id number] Authenticated by Preston Torres MD On 08/23/2021 11:57:46 AM at 1157 PATIENT NAME: PRABHAKAR HASTINGS mnkaunu8375-13-91Z97:58:00P.EET03005732-0118CRPhk ilable for patient pydwDRVEBFMIAPULGC8027-80-81W56:58:27 [facility] 2021-08-17 16:37:00 [id number] SAmUroqXyp0mSTDQ80W6ni3WA0hS9 l9CqW5/Xo5Fw9yb2DTldKdurJTW7048-14-00D52:37:67486 2-[address] [place] [address] PATIENT NAME: PRABHAKAR HASTINGS ADMIT DATE: 08/11/21ACCOUNT NO: [id number] ROOM NO: P.0608 AGE: 81 REPORT TYPE: [...] MD WT: PN:P.BETTYE/VALERIE.01/NTSDD: 08/17/2021 16:37:43DT: 08/17/2021 18:21:02Conf#: [id number]/DID#: [id number] Authenticated by Preston Torres MD On 08/19/2021 02:28:12 AM PATIENT NAME: PRABHAKAR HASTINGS at 0228 PATIENT NAME: PRABHAKAR HASTINGS Avgf5435-83-42N53:21:00P.CAH93809992-0357SXGljqma ble for patient jdgiOVREEVHIHWXKWO6056-26-79C18:28:45 [facility] 2021-08-16 12:06:00 [id number] JHyB6xYKizzekDuB7vF5zy0W6ag2T UkS9jYEIohT+VL4HGENQd8Kq+gY1255-28-35L50:06:58758 0-0064 [facility] [address] [place] [address] PATIENT NAME: PRABHAKAR HASTINGS ADMIT DATE: 08/11/21ACCOUNT NO: [id number] ROOM NO: P.0608 AGE: 81 REPORT TYPE: [...] off IV narcotics. Continue the patient on [place]. Dictated By: Preston Torres MD WT: PN:PRAMON/VALERIE./NTSDD: 08/16/2021 12:06:19DT: 08/16/2021 12:59:48Conf#: [id number]/DID#: [id number] PATIENT NAME: PRABHAKAR HASTINGS Authenticated by Preston Torres MD On 08/16/2021 03:20:45 PM at 0320 PATIENT NAME: PRABHAKAR HASTINGS Bonc5057-11-92G05:59:00P.ZNG41667247-0799CETkostb ble for patient btxvEFLOLHNRNQTQEJ6858-11-12T61:21:18 [facility] 2021-08-15 13:02:00 [id number]+/ zn/+tsMUc5fWnqg2Z82u6POhZPeql iZZczrf1i8OjXlFLqgNeaNiuoxB5764-62-91X07:02:93026 [facility] [address] [place] [address] PATIENT NAME: PRABHAKAR HASTINGS ADMIT DATE: 08/11/21ACCOUNT NO: [id number] ROOM NO: P.0608 AGE: 81 REPORT TYPE: [...] MD WT: PN:P.BETTYE/VALERIE.Edmund/NTSDD: 08/15/2021 13:02:02DT: 08/15/2021 13:37:55Conf#: [id number]/DID#: [id number] Authenticated by Preston Torres MD On 08/15/2021 06:33:43 PM at 0633 PATIENT NAME: PRABHAKAR HASTINGS Arnu2990-48-20P60:37:00P.HFA24884060-5565ZXIswent ble for patient ufeuFPMWUTHGIMDQVI5893-57-26F70:34:09 [facility] 2021-08-14 15:36:00 [id number] YSKkxVaLv9494Jf354tMruMYu9JTK 5MAmx7YgMPHRcMG9E6SIIH0/slh6099-61-17B16:36:37151 9-0008 [facility] [address] [place] [address] PATIENT NAME: PRABHAKAR HASTINGS ADMIT DATE: 08/11/21ACCOUNT NO: [id number] ROOM NO: [facility] AGE: 81 REPORT TYPE: PROGRESS NOTE SEX: [...] MD WT: PN:P.BETTYE/VALERIE.01/NTSDD: 08/14/2021 15:36:59DT: 08/14/2021 17:16:56Conf#: [id number]/DID#: [id number] Authenticated by Preston Torres MD On 08/15/2021 01:29:51 PM at 0129 PATIENT NAME: PRABHAKAR HASTINGS Smij4667-57-22V83:16:00P.XZG32506875-8225MUJriosh ble for patient oktsBVCFWNWYKFFGEQ6887-58-87C66:30:18 [facility] 2021-08-13 12:20:00 [id number] nTeKVnjgBYvrono5Z3TiU2pkLDUNJ cCoPE3lS0IhpDOPsZ1O2anEoWRb5021-29-69P01:20:58597 7-0022 [facility] [address] [place] [address] PATIENT NAME: PRABHAKAR HASTINGS ADMIT DATE: 08/11/21ACCOUNT NO: [id number] ROOM NO: P.[facility] AGE: 81 REPORT TYPE: PROGRESS NOTE [...] MD WT: PN:P.BETTYE/VALERIE./NTSDD: 08/13/2021 12:20:16DT: 08/13/2021 12:38:46Conf#: [id number]/DID#: [id number] PATIENT NAME: PRABHAKAR HASTINGS Authenticated by Preston Torres MD On 08/13/2021 03:08:51 PM at 0308 PATIENT NAME: PRABHAKAR HASTINGS Mdju5375-56-59U17:38:00P.UCW46152931-9333KQHnytmj ble for patient hrhbAHEGXHEFRCCAKW9827-90-45A70:09:16 [facility] 2021-08-12 20:23:00 [id number] n43uM3D9f1KxkKM7ZhQzSUneFTLfK k4gsc0Rx8ybm89hOCWp/5syGe4n5072-27-64I33:23:59926 6-0041 [facility] [address] [place] [address] PATIENT NAME: PRABHAKAR HASTINGS ADMIT DATE: 08/11/21ACCOUNT NO: [id number] ROOM NO: P.0608 AGE: 81 REPORT TYPE: CONSULTATION SEX: F ADMITTING PHYSICIAN:Preston Torres MD ATTENDING PHYSICIAN:Preston Torres MD CONSULTATION DATE: 08/12/2021 CONSULTING PHYSICIAN: Sami Chua MD PARTNER CCO: Sami Chua MD, Orthopedics. HISTORY OF PRESENT [...] MD WT: CON:EDILIA/REHAN/NTSDD: 08/12/2021 20:23:17DT: 08/12/2021 21:58:43Conf#: [id number]/DID#: [id number] PATIENT NAME: PRABHAKAR HASTINGS Authenticated by Sami Chua MD On 08/14/2021 01:55:03 PM at 0155 PATIENT NAME: PRABHAKAR HASTINGS :58:00P.MA [id number] for patient rqxcFRQZQYRZAUCCAO6748-97-37U79:55:45 [facility] 2021-08-12 16:38:00 [id number] sUkk/4DYmtJNURLwDBlbbtkmF8LGp SsG5qc/OJNIEMGkK6vlxuGrUMdP5738-06-42D69:38:31460 -0037 [facility] [address] [place] [address] PATIENT NAME: PRABHAKAR HASTINGS ADMIT DATE: 08/11/21ACCOUNT NO: [id number] [facility] AGE: 81 REPORT TYPE: PROGRESS NOTE SEX: [...] 08/12/2021 19:14:38 PATIENT NAME: PRABHAKAR HASTINGS Conf#: [id number]/DID#: [id number] Authenticated and Edited by Preston Torres MD On 08/13/21 11:15:09 AM at 1117 PATIENT NAME: PRABHAKAR HASTINGS Mehu6350-79-68Y87:14:00P.GWG57222026-7410FUOlfimx ble for patient dvypXAKQITCDTRCVYU7256-21-12N98:17:47 [facility] 2021 21:03:00 [id number]/3v MuCORDlXoy2bfjVlVcEZ5yrAZimIc yFPutW9vGaMtNM7kgqtEBY7HXLA7414-60-40L52:03:31120 5-0116 [facility] [address] [place] [address] PATIENT NAME: PRABHAKAR HASTINGS ADMIT DATE: 08/11/21ACCOUNT NO: [id number] ROOM NO: P.0608 AGE: 81 REPORT TYPE: [...] 40 mg subcutaneousdaily. Continue the patient on [place], morphine sulfate IV for uncontrolledpain.2. Parkinson's disease. [...] MD WT: HP:PRAMON/VALERIE.01/NTSDD: 2021 21:03:33DT: 2021 22:49:40Conf#: [id number]/DID#: [id number] by Preston Torres MD On 08/12/2021 07:16:39 AM at 0716 PATIENT NAME: PRABHAKAR HASTINGS and physical lhxamwrtqnb6412-44-58P16:49:00P.ROW63305897-1457G VAvailable for patient dwwtEHQLBJQIUCAQUD5432-37-31O54:17:13 [facility] 2021 16:40:00 [id number]+YAA2Nm f7fgBi7yUG0gHNnjVSSwHSTyWggJh PIWuHgvtiirQwZ7KHB8EPbMTUBY7320-15-82I85:40:00 [facility] ([facility])EMERGENCY PROVIDER REPORTREPORT#:[id number] REPORT STATUS: SignedDATE:08/11/21 TIME: 1640 PATIENT: PRABHAKAR HASTINGS UNIT #: [id number]#: [id number] [facility]OM: [facility] BED: 4AGE: 81 SEX: F PCP PHYS: [...] (Auto) (20.5 - 51.1 %) 14.4 L Hawkins % (Auto) (1.7 - 9.3 %) 9.9 H Eos % (Auto) (0.0 - 7.0 %) 3.3 Baso % (Auto) (0 - 2.5 %) 0.6 Neut # (Auto) (1.80 - 7.70 x10 3/uL) 5.04 Lymph # (Auto) (1.00 - 4.80 x10 3/uL) 1.02 Hawkins # (Auto) (0.00 - 0.80 x10 3/uL) [...] 1741 )( Accepted Date 08/11/21 at 1811RPT #:[id number] OF REPORTEDEmergency department lburdp7886-88-85B78:40:00P.MFYY21060539-3123FXYxv ilable for patient nerbNZZMPGNLTDEJUO4087-49-72N76:12:03 [facility]
[2024-03-23] MEDS ORDERED: BISACODYL 10 MG RECTAL SUPP PR PRN (22:28)
[2024-03-23] MEDS ORDERED: HYDROCODONE/APAP 7.5/325 MG TAB PO PRN (22:28)
[2024-03-23] MEDS ORDERED: MAGNESIUM HYDROXIDE 8% 30 ML PO PRN (22:28)
[2024-03-23] MEDS ORDERED: ZOLPIDEM TARTRATE 5 MG TABLET PO PRN (22:28)
[2024-03-23] MEDS ORDERED: ONDANSETRON 4 MG (ODT) TAB PO PRN (22:28)
[2024-03-23] MEDS ORDERED: cloNIDine HCL 0.1 MG TAB ONE (23:28)
[2024-03-23] MEDS: cloNIDine HCL 0.1 MG TAB PO PRN (23:33)
[2024-03-24] MEDS ORDERED: PANTOPRAZOLE 40MG TABLET PO SCH (06:30)
[2024-03-24] MEDS: levoFLOXacin 500 MG TAB PO SCH (07:27)
[2024-03-24] MEDS: LEVOTHYROXINE SOD 0.075 MG TAB PO SCH (07:27)
[2024-03-24] MEDS: POTASSIUM CL SA 10 MEQ TAB PO SCH (07:27)
[2024-03-24] MEDS: LIDOCAINE 4% PATCH TOP SCH (07:28)
[2024-03-24] MEDS: DOCUSATE NA/SENNA CONC 1 TAB PO SCH (07:28)
[2024-03-24] MEDS: PANTOPRAZOLE 40MG TABLET PO SCH (07:28)
[2024-03-24] MEDS: GABAPENTIN 100 MG CAP PO SCH ×2 (07:28→21:06)
[2024-03-24] MEDS: CALCIUM CARB 500MG/VIT D 200 IU TAB PO SCH (07:28)
[2024-03-24] MEDS: ASPIRIN EC 81 MG TAB PO SCH (07:28)
[2024-03-24] MEDS: METOPROLOL TAR 50 MG TAB PO SCH (07:41)
[2024-03-24] MEDS: IBUPROFEN 600 MG TAB PO SCH (07:41)
[2024-03-24] MEDS: ENSURE ENLIVE 237 ML CAN PO SCH (07:42)
[2024-03-24] MEDS: CALCITONIN NASAL SPRAY 200 IU/DOSE NAS SCH (07:44)
[2024-03-24 07:59] LABS: Absolute Lymphocytes (CBC) 0.8 K/uL (0.7-4.9); Absolute Monocytes 0.5 K/uL (0.1-1.3); Basophils % 0.4 % (0-1.3); Eosinophils % 0.1 % (0-4.4); Hematocrit 44.2 % (36.0-45.0); Hemoglobin 15.1 g/dL (12.0-15.0); Lymphocytes % 11.2 % (15.3-44.8); MCH 31.7 pg (27.0-35.0); MCHC 34.1 g/dL (32.0-36.0); MCV 92.9 fL (80-100); MPV 8.9 fL (7.6-11.3); Monocytes % 6.9 % (3.3-12.3); Neutrophils % 81.4 % (41.7-73.7); Nucleated Red Blood Cells % 0.2 % (0-0); Platelets 233 thou/uL (152-406); RBC Red Blood Cell Count 4.76 M/uL (3.86-4.86); Red Cell Distribution Width 13.3 % (12.1-15.2)
[2024-03-24] MEDS ORDERED: CALCITONIN NASAL SPRAY 200 IU/DOSE NAS SCH (08:00)
[2024-03-24 08:18] LABS: Albumin 3.5 g/dL (3.4-5.0); Anion Gap 8.1 mEq/L (5.0-15.0); Prealbumin 25.8 mg/dL (20-40)
[2024-03-24 08:19] LABS: Magnesium 2.4 mg/dL (1.6-2.4); Potassium 4.1 mEq/L (3.5-5.1)
[2024-03-24] MEDS: CARBIDOPA/LEVODOPA 25/100 TAB PO SCH (10:01)
[2024-03-24] MEDS: predniSONE 20 MG TAB PO SCH (10:01)
[2024-03-24] MEDS: ACETAMINOPHEN 500 MG TAB PO SCH (10:01)
[2024-03-24] MEDS: AMLODIPINE 2.5 MG TAB PO SCH (10:26)
[2024-03-24] MEDS: ENOXAPARIN 40 MG/0.4 ML SQ SCH (17:34)
[2024-03-24] MEDS: FAMOTIDINE 20 MG TAB PO SCH (21:06)
[2024-03-24] MEDS: TOPIRAMATE 25 MG TAB PO SCH (21:07)
--- NOTE | 2024-03-24 22:43 | PN ---
Date of Progress Note: 03/24/2024 Subjective: The patient was seen this morning for followup. No new complaints or problems reported by her this morning. Her was with her at bedside and the patient was on rehab floor. Objective: Vital Signs: Reviewed. Vital signs this morning, temperature 96.8, pulse 61, respirator y rate 17, blood pressure 157/84, oxygen saturation 94%. HEENT: Unremarkable. Lungs: Clear to auscultation. Heart: Sounds normal. Abdomen: Soft. Bowel sounds normal. No guarding, rigidity, tenderness, distention. Extremities: No leg edema. Laboratory Data: This morning, white count 7.3, hemoglobin 15.1, platelets 233. Sodium 138, potassi um 4.1, chloride 103, bicarb 31, BUN 23, creatinine 1.02, glucose 119, magnesium 2.4, albumin 3.5. Impression: 1.Compression fracture, T12 spine. 2.Lumbar radiculopathy. 3.Hypertension. 4.Parkinson's disease. Plan: We will continue current Parkinson's medication. Continue current blood pressure medication. Monitor blood pressure if necessary, adjust blood pressure medication. Continue Levaquin that she i s currently on for pneumonia and should be completing this antibiotic course within next 1 or 2 days. Continue physical therapy under guidance of Dr. Campbell. We will continue Tylenol, ibuprofen, and tramadol per order. We will start her on oral prednisone 20 mg daily starting this morning. She di d receive 2 to 3 days of IV steroid for lumbar radiculopathy problem. I will see her tomorrow for followup. MICHELLE/MODL Voice ID: [id number] Report ID: [id number]
--- NOTE | 2024-03-25 07:04 | HP ---
Date of Admission: 03/23/2024 Time Of Service: 1:10 p.m. Chief Complaint: "I am falling with my Parkinson disease getting worse." History Of Present Illness: Ms. Rai is an 83-year-old patient with Parkinson disease without dyskin esia with fluctuations and diagnosis code G20.02. She has had increasing back pain due to stiffness related to her Parkinson disease, limiting her mobility at home. About 6 weeks ago, she fell at home and had been significantly more immobilized since. Imaging identified a compression fracture at T12 and additional workup revealed hypokalemia, pneumonia, constipation, hypothyroidism, and dyslipidemi a. She was treated with pain management and comorbid conditions addressed. However, she did have wo rsening hyperglycemia, hypocalcemia, hypokalemia, hyponatremia, worsening renal function, decreased m obility with confusion and again worsening Parkinson's. Prior to her Parkinson disease worsening and generalized debility, she was independent at home without an assistive device, mobilizing and was ab le to occasionally do community activities. However, she did have occasional episodes of confusion, especially when taking medication for insomnia. Currently, she requires maximum assistance for bed m obilization, minimum assistance for performing some activities of daily living, and moderate assistan ce to maximum assistance for ambulation. She does require cuing to stay on tasks. She is medically cleared and now admitted to inpatient rehabilitation unit for helping her to return to her prior leve l of functioning and to reduce her risk of re-hospitalization. Past Medical History: Parkinson disease, hypertension, hypothyroidism, impaired fasting glucose, dys lipidemia, gastroesophageal reflux disease, diverticulosis, osteoarthritis, osteoporosis. Past Surgical History: Tubal ligation, cataract surgery, D and C, and arthroscopic knee surgery. Allergies: PENICILLIN, SULFA DRUGS. Medications: Moran 7.5/325 every 6 hours as needed, Tylenol 500 mg 3 times a day as scheduled, Norva sc 2.5 mg twice daily, aspirin 81 mg daily, Os-Sonu plus D 500/200 daily, Dulcolax 10 mg suppository a s needed daily, carbidopa/levodopa 25/100 one tablet 4 times daily, clonidine 0.1 mg every 2 hours as needed for systolic greater than 170, Lovenox 40 mg subcutaneously daily, Motrin 600 mg 3 times warner y, levofloxacin 500 mg daily, Synthroid 0.075 mg daily, lidocaine patch apply topically daily, milk o f magnesia 30 mL daily for constipation as needed, Lopressor 50 mg daily, Ensure Enlive 237 mL twice daily, Zofran 4 mg every 4 hours as needed, Protonix 40 mg daily, potassium 20 mEq daily, prednisone 20 mg daily, Senokot-S 2 twice daily, topiramate 25 mg at bedtime, tramadol 50 mg every 6 hours as ne eded, Ambien 5 mg at bedtime as needed for insomnia. Family History: Noncontributory. Laboratory Studies: White blood cell count 7.3, hemoglobin 15.1, platelets 233. Sodium 138, potassi um 4.1, chloride 103, carbon dioxide 31, BUN 23, creatinine 1.02, glucose 119. Calcium 9.8, magnesiu m 2.4. Albumin 3.5, prealbumin 25.8. Urinalysis pending. Family History: Noncontributory. Social History: The patient lives with . No alcohol, tobacco, or IV drug use. Again, she wa s previously independent prior to her recent state of falling and worsening electrolyte abnormalities and urinary tract infection. Review of Systems: Mild diffuse weakness in the extremities, some arthralgias/myalgias. Otherwise, no rash. No headach e. Just diffuse slowness throughout. No psychiatric issues except for mild depression. She has no issues of choking with foods. Otherwise, negative systems review. Current Level Of Functioning: Supervision for eating and oral hygiene. Maximal assistance for toile ting. Moderate assistance for showering. Upper body dressing, lower body dressing, donning/doffing footwear, all moderate assistance. Rolling sejr-su-ahuur for sit to lying and lying to sitting on th e side of bed, all maximal assistance. Ctg-is-jrktd and transfer from bed to chair to toilet, modera te assistance. Ambulation, moderate assistance with a rolling walker, she covered 90 feet. Physical Examination: Vital Signs: Blood pressure 128/75, pulse 68, respiratory rate of 16, temperature 96.8, oxygen satur ation 94%. Weight 130 pounds, height 5 feet 2 inches, BMI 23.8. General: Ms. Rai is resting comfortably in bed. Her is at bedside. HEENT: She is normocephalic, atraumatic. Sclerae anicteric. Oropharynx is moist. Neck: Supple. Chest: Clear. She has a mask-like face with generalized bradykinesia, mild cogwheeling bilaterally. Mild diffuse w eakness, upper and lower extremities. Sensation intact. Reflexes symmetric. Gait: She is being am bulated with a rolling walker, gait belt, and chair and tow with physical therapist. Rehabilitation And Medical Assessment And Plan: Ms. Marti Rai is admitted to the rehabilitation unit with impairment category, neurological condition. Etiologic diagnosis is Parkinson disease without dyskinesia with fluctuations, Code G20.02. Her comorbid conditions include hypertension, hypothyroid ism, impaired fasting glucose, dyslipidemia, gastroesophageal reflux disease, diverticulosis without diverticulitis, osteoarthritis at multiple sites, osteoporosis. She does have pneumonia on chest x-r ay on 03/16/2024, showing a 13 mm opacity in the right medial lobe of her lung. She is on antibiotic as noted, which is Levaquin 500 mg twice daily and has prednisone on board as well. Additional imag ing did show in the lumbar spine, the T12 vertebral compression fracture, which had progressed from a study done on 03/16 compared to 03/15, but there was no dislocation. An MRI of the lumbar spine on 03/17 did show a 4 to 5 mm retropulsion of the posterior fragment of the T12 without significant ronnell l stenosis. An MRI of the thoracic spine on 03/17 showed mild 4 to 5 mm retropulsion of the fragment as noted. Plan: 1.She will have physical and occupational therapy along with speech therapy, total of 3.5 hours, 5 o f 7 days. 2.Her comorbid conditions, which have been outlined, are managed by continuing the medications as no coleman. If need be, a pain patch will be applied to the T12 region. In addition, all medications for p ain will be continued. Her Parkinson's medication may be adjusted depending on how she does with mob ilization, if there is freezing and falling, or more dyskinesia. Continue Levaquin for urinary tract infection, DVT prophylaxis provided by Lovenox, aspirin for stroke risk reduction, Norvasc for blood pressure management. Continue with Synthroid for again hypothyroidism, and zolpidem for insomnia. Comorbidities That Are Impacting Rehabilitation: She currently has pneumonia. She will have a repea t chest x-ray to look for interval clearing. Will have nebulizer treatment and if need be, additiona l help from Pulmonary Service will be sought. She does have of course Parkinson disease with risk of falling after freezing and postural instability, and gait belt with 2-wheeled walker at all times as she is even transferring that will be continued. She again has multiple comorbidities. Those are b eing addressed daily. Rehab Specific Plan: Ms. Rai will have physical, occupational, and speech therapy 3.5 hours, 5 of 7 days to improve her ability to transfer from bed to chair to toilet to shower, and perform toilet an d showering; to ambulate at least 250 feet with a rolling walker; and mobilize a wheelchair 250 feet; and go up and down 10 steps. She will also have speech therapy to help with cognition, improve her ability to swallow and minimize the risk of aspiration, and help her with safe decision making. She will have assisted 24 hours a day, 7 days a week for daily evaluation and management of he r medical condition as appropriate adjustments needed for medications such as blood pressure medicati ons. Continue with antibiotics and adjustment of her Parkinson medication to address issues such as sleep, bowel movements, and nutrition status. She will have physical evaluation on a daily basis to integrate her care and therapy. She will also have Social Service evaluation for discharge planning, home equipment, and to have physician followup as appropriate. Ms. Rai has a good understanding of the process of admission to the inpatient rehabilitation facilit y and how she will benefit from physical, occupational, and speech therapy. If need be, additional h elp from Infectious Disease Service, Pulmonary Service, Hospitalist Service will be consulted. Given the risk of complications from her complicated medical condition and the need for her rehabilitation , rehabilitation cannot be safely or effectively performed at a lower level facility such as assisted. Barriers To Discharge: Her Parkinson disease is of course chronic and medication adjustment will be required, but she may still have significant postural instability and have a high risk of continued f alling. If need be, she may have to go to a skilled to continue to recover with adjustment of her me dications. Length Of Stay: About 12 days. Disposition: Planned to be home with family and continuing therapy via Home Health. Prognosis: Good. Rehab Specific Goals: 1.To become completely independent with upper and lower body dressing, toileting, showering, and per forming all activities of daily living. 2.Independently ambulate 250 feet with a rolling walker. 3.Independently propel a wheelchair 250 feet. 4.Independently go up and down 10 steps with bilateral handrails. 5.Independently perform all cognitive functioning. The above goals were reviewed with Ms. Rai and , and they are in agreement. By signing this document, I acknowledge that I personally performed a full physical examination on Ms Alexandru Rai no later than 24 hours after her admission to the inpatient rehabilitation facility and determ ined that she is able to tolerate the above course of treatment at an intensive level for a reasonabl e period of time. A detailed individualized plan of care for her will be completed by hospital day 4 based on the preadmission screen, history and physical, and therapy evaluations. EUN Voice ID: [id number]
[2024-03-25] MEDS: GABAPENTIN 300 MG CAP PO SCH (20:49)
--- NOTE | 2024-03-25 22:29 | PN ---
Date of Progress Note: 03/25/2024 Subjective: The patient was seen this morning for followup. No new complaints or problems reported by her except her ongoing back pain. Objective: Vital Signs: Reviewed. HEENT: Unremarkable. Lungs: Clear to auscultation. Heart: Sounds normal. Abdomen: Soft. Bowel sounds normal. No guarding, rigidity, tenderness, distention. Extremities: No leg edema. Laboratory Data: No new labs today. Impression: 1.Compression fracture of T12 spine. 2.Lumbar radiculopathy. 3.Parkinson's disease. 4.Hypertension. Plan: We will go ahead and continue current medication. Continue current steroid therapy for lumbar radiculopathy. Continue current pain medication per order and will follow up with Dr. Campbell who is managing her rehab therapy. I will see her tomorrow for followup. MICHELLE/MODL Voice ID: [id number] Report ID: [id number]
--- NOTE | 2024-03-26 01:06 | PN ---
Date of Progress Note: 03/25/2024 Time Of Service: 1:20 p.m. Subjective: Ms. Rai is resting in bed. She is feeling about the same today as she did yesterday, a lthough she did do somewhat more in terms of activity. She still has the stiffness associated with P arkinson's, bradykinesia, and mask-like face. Review of Systems: She denies any significant fevers or chills, nausea, or vomiting. No myalgias, arthralgias, rash. S he does have stiffness in upper and lower extremities, difficulty with mobilization. Physical Examination: Vital Signs: Blood pressure 138/75, pulse 69, respiratory rate 19, temperature 97.8, oxygen saturati on 99%. General: Ms. Rai is resting in bed. She is in no acute distress. She does have mask-like face. S he has bradykinesia and cogwheeling. No obvious tremor. Laboratory Studies: White blood cell count 7.3, hemoglobin 15.1, platelets 233. Sodium 138, potassi um 4.1, chloride 103, carbon dioxide 31, BUN 23, creatinine 1.04, glucose 119, calcium 9.8. Magnesiu m 2.4. Albumin 3.5. Prealbumin 25.8. X-ray/imaging: No new x-rays or imaging. Medications: Tylenol 500 mg 3 times daily, Pen[place]e 7.5/325 every 6 hours as needed, Norvasc 2.5 mg yury ly, aspirin 81 mg daily, Os-Sonu plus D 1 tablet daily, Sinemet 25/100 one 4 times daily, clonidine 0. 1 mg every 2 hours as needed, Lovenox 40 mg subcutaneously daily, Pepcid 20 mg daily, gabapentin 300 mg twice daily. She did have some pain in the lower back. The pain did radiate around the thigh are a and the gabapentin, which was 200 mg twice daily was increased to 300 mg twice daily. She is on le vofloxacin for urinary tract infection per Dr. Borden. Also, on Synthroid for hypothyroidism. Lidocai ne patch is appropriate for the thigh area daily, Lopressor 50 mg daily, and milk of Mag 30 mL daily for constipation, Ensure Enlive 237 mL twice daily, Protonix 40 mg daily, potassium 20 mEq daily, pre dnisone 20 mg daily, Senokot 2 twice daily, topiramate 25 mg at bedtime, zolpidem 5 mg at night for i nsomnia, and tramadol 50 mg every 4 hours as needed for moderate scale 5-7 range. Progress Made With Physical, Occupational, And Speech Therapy: With physical therapy today, she ambu lated 375 feet and 100 feet with a rolling walker and contact guard assistance. She ascended and red cended 10 steps with bilateral handrails with contact guard assistance. With occupational therapy, s [id number] transfers done with supervision, [id number] transfers done with supervision. With spe ech, recalled 2 of 3 unrelated pictures after 3 minutes and 3 of 3 on second attempt after 3 minutes. Divergent naming demonstrated a concrete category, done with 80% accuracy. Ms. Rai is making good progress with physical, occupational, and speech therapy. Plan: Continue with physical, occupational, and speech therapy. Also, we will continue her comorbid condition medications, which are as noted above. We will address urinary tract infection, hypothyro idism, hypertension, risk of stroke, and deep vein thrombosis. The pain patch is applied to the back and again Penokee is still present in addition to tramadol. Her Parkinson is addressed with the Nimo et. In terms of her assessment and plan, it is noted Parkinson disease, she has decreased mobility, decreased physical functioning, hypothyroidism, impaired fasting glucose, dyslipidemia, GE reflux, di verticulosis without diverticulitis, osteoarthritis, osteoporosis. Again, continue all therapy as above. Comorbidities That Are Impacting Rehabilitation: The arthritic pain is somewhat limiting, of course the Parkinson's stiffness. Despite that, she is actually doing very well, mobilizing well. Continue with management of osteoarthritis with pain medications as noted and continue antibiotics as per Dr. Borden. FRANCESCO/MICHAEL Voice ID: [id number] Report ID: [id number]
[2024-03-26] MEDS: LIDOCAINE 4% PATCH TOP SCH (06:52)
[2024-03-26 08:13] LABS: Absolute Eosinophils 0.1 K/uL (0-0.5); Absolute Lymphocytes (CBC) 1.9 K/uL (0.7-4.9); Absolute Monocytes 0.8 K/uL (0.1-1.3); Absolute Neutrophil 3.6 K/uL (1.8-8.0); Basophils % 0.3 % (0-1.3); Eosinophils % 0.9 % (0-4.4); Hematocrit 40.1 % (36.0-45.0); Hemoglobin 13.7 g/dL (12.0-15.0); Lymphocytes % 29.7 % (15.3-44.8); MCH 31.4 pg (27.0-35.0); MCHC 34.1 g/dL (32.0-36.0); MCV 92.2 fL (80-100); MPV 8.2 fL (7.6-11.3); Monocytes % 12.9 % (3.3-12.3); Neutrophils % 56.2 % (41.7-73.7); Nucleated Red Blood Cells % 0.1 % (0-0); Platelets 235 thou/uL (152-406); RBC Red Blood Cell Count 4.35 M/uL (3.86-4.86)
[2024-03-26 08:46] LABS: Albumin 2.8 g/dL (3.4-5.0); Anion Gap 8.3 mEq/L (5.0-15.0); Magnesium 2.1 mg/dL (1.6-2.4); Potassium 3.3 mEq/L (3.5-5.1); Prealbumin 23.4 mg/dL (20-40)
[2024-03-26] MEDS ORDERED: FENTANYL 50 MCG/PATCH TD SCH (09:00)
[2024-03-26] MEDS: MAGNESIUM OXIDE 400 MG TAB PO SCH (20:33)
--- NOTE | 2024-03-26 23:29 | PN ---
Date of Progress Note: 03/26/2024 Subjective: The patient was seen this morning for followup. No new complaints or problems reported by the patient. She was lying in bed, not in distress. Her was with her at bedside. Objective: Vital Signs: Reviewed. HEENT: Unremarkable. Lungs: Clear to auscultation. Heart: Sounds normal. Abdomen: Soft. Bowel sounds normal. No guarding, rigidity, tenderness, distention. Extremities: No leg edema. Impression: 1.Compression fracture of T12 spine. 2.Lumbar radiculopathy. 3.Parkinson's disease. 4.Hypertension. Plan: We will go ahead and discontinue Levaquin as she has received adequate number of days of thera py for pneumonia. We will continue Parkinson's medication which is carbidopa/levodopa per order. Ph ysical therapy to be provided under guidance of Dr. Campbell. For her compression fracture and lumba r radiculopathy, we have her on lidocaine patch, Tylenol, ibuprofen, and narcotic pain medication as needed, we will continue all this. The patient's so far has not been able to get prescriptio n for calcitonin nasal spray and continue to try and check with her outside pharmacy. As soon as he is able to get it, he will bring it to the hospital. I will be out of town us as of tomorrow morning and Dr. Campbell will cover this patient in my absence. MICHELLE/MODL Voice ID: [id number] Report ID: [id number]
[2024-03-27] MEDS: predniSONE 10 MG TAB PO SCH (08:05)
--- NOTE | 2024-03-27 13:28 | P.RH.PN ---
Estimated Length of Stay: 11 Expected Discharge Date: 04/01/24 Discharge Disposition Plan: Home Family Support: Yes Senior Living Goal: Mobility, Transfers, Self Care Vital Signs: Last Vital Signs Temp 97.5 F 03/27/24 07:17 Pulse 71 03/27/24 07:17 Resp 16 03/27/24 07:17 BP 135/75 03/27/24 07:17 Pulse Ox 96 03/27/24 07:17 Laboratory: Laboratory Last Values WBC 6.30 thou/uL (4.3-10.9) 03/26/24 07:42 RBC 4.35 M/uL (3.86-4.86) 03/26/24 07:42 Hgb 13.7 g/dL (12.0-15.0) 03/26/24 07:42 Hct 40.1 % (36.0-45.0) 03/26/24 07:42 MCV 92.2 fL (80-100) 03/26/24 07:42 MCH 31.4 pg (27.0-35.0) 03/26/24 07:42 MCHC 34.1 g/dL (32.0-36.0) 03/26/24 07:42 RDW 14.0 % (12.1-15.2) 03/26/24 07:42 Plt Count 235 thou/uL (152-406) 03/26/24 07:42 MPV 8.2 fL (7.6-11.3) 03/26/24 07:42 Neutrophils % 56.2 % (41.7-73.7) 03/26/24 07:42 Lymphocytes % 29.7 % (15.3-44.8) 03/26/24 07:42 Monocytes % 12.9 % (3.3-12.3) H 03/26/24 07:42 Eosinophils % 0.9 % (0-4.4) 03/26/24 07:42 Basophils % 0.3 % (0-1.3) 03/26/24 07:42 Absolute Neutrophils 3.6 K/uL (1.8-8.0) 03/26/24 07:42 Absolute Lymphocytes 1.9 K/uL (0.7-4.9) 03/26/24 07:42 Absolute Monocytes 0.8 K/uL (0.1-1.3) 03/26/24 07:42 Absolute Eosinophils 0.1 K/uL (0-0.5) 03/26/24 07:42 Absolute Basophils 0.0 K/uL (0-0.5) 03/26/24 07:42 Sodium 140 mEq/L (136-145) 03/26/24 07:42 Potassium 3.3 mEq/L (3.5-5.1) L 03/26/24 07:42 Chloride 105 mEq/L (98-107) 03/26/24 07:42 Carbon Dioxide 30 mEq/L (21-32) 03/26/24 07:42 Anion Gap 8.3 mEq/L (5.0-15.0) 03/26/24 07:42 BUN 23 mg/dL (7-18) H 03/26/24 07:42 Creatinine 1.02 mg/dL (0.55-1.02) 03/26/24 07:42 Est GFR (CKD-EPI) 55 ml/min (=/>90) L 03/26/24 07:42 Glucose 96 mg/dL (74-106) 03/26/24 07:42 Calcium 8.6 mg/dL (8.5-10.1) 03/26/24 07:42 Magnesium 2.1 mg/dL (1.6-2.4) 03/26/24 07:42 Albumin 2.8 g/dL (3.4-5.0) L 03/26/24 07:42 Prealbumin 23.4 mg/dL (20-40) 03/26/24 07:42 Triglycerides 126 mg/dL (<150) 03/27/24 06:51 Cholesterol 116 mg/dL (<200) 03/27/24 06:51 LDL Cholesterol, Calc 41 mg/dL (<130) 03/27/24 06:51 HDL Cholesterol 50 mg/dL (40-60) 03/27/24 06:51 Cholesterol/HDL Ratio 2.32 03/27/24 06:51 Urine Color Cancelled 03/24/24 05:25 Urine Clarity Cancelled 03/24/24 05:25 Urine pH Cancelled 03/24/24 05:25 Ur Specific Jansen Cancelled 03/24/24 05:25 Glucose (UA)(Auto) Cancelled 03/24/24 05:25 Urine Ketones Cancelled 03/24/24 05:25 Urine Blood Cancelled 03/24/24 05:25 Urine Nitrite Cancelled 03/24/24 05:25 Urine Bilirubin Cancelled 03/24/24 05:25 Urine Urobilinogen Cancelled 03/24/24 05:25 Ur Leukocyte Esterase Cancelled 03/24/24 05:25 Urine RBC Cancelled 03/24/24 05:25 Urine Red Cell Clumps Cancelled 03/24/24 05:25 Urine WBC Cancelled 03/24/24 05:25 Urine WBC Clumps Cancelled 03/24/24 05:25 Ur Squamous Epith Cells Cancelled 03/24/24 05:25 U Non-Squamous Epi Cells Cancelled 03/24/24 05:25 Ur Transition Epith Cell Cancelled 03/24/24 05:25 Ur Renal Epithelial Cell Cancelled 03/24/24 05:25 Calcium Carbonate Cryst Cancelled 03/24/24 05:25 Calcium Oxalate Crystal Cancelled 03/24/24 05:25 Leucine Crystals Cancelled 03/24/24 05:25 Cystine Crystals Cancelled 03/24/24 05:25 Uric Acid Crystals Cancelled 03/24/24 05:25 Triple Phos Crystals Cancelled 03/24/24 05:25 Tyrosine Crystals Cancelled 03/24/24 05:25 Unidentified Crystals Cancelled 03/24/24 05:25 Amorphous Crystals Cancelled 03/24/24 05:25 Urine Bacteria Cancelled 03/24/24 05:25 Hyaline Casts Cancelled 03/24/24 05:25 Granular Casts Cancelled 03/24/24 05:25 Waxy Casts Cancelled 03/24/24 05:25 RBC Casts Cancelled 03/24/24 05:25 WBC Casts Cancelled 03/24/24 05:25 Urine Mucus Cancelled 03/24/24 05:25 Urine Trichomonas Cancelled 03/24/24 05:25 Ur Yeast w Hyphae Cancelled 03/24/24 05:25 Urine Yeast (Budding) Cancelled 03/24/24 05:25 Urine Sperm Cancelled 03/24/24 05:25 Ur Oval Fat Bodies Cancelled 03/24/24 05:25 Urine Culture Reflexed Cancelled 03/24/24 05:25 Urine Total Protein Cancelled 03/24/24 05:25 Urine Ascorbic Acid Cancelled 03/24/24 05:25 Urine Fat Cancelled 03/24/24 05:25 Weight: 130 lb Wound Present: No Closed Surgical Incision Present: No Negative Pressure Wound Therapy Present: No Physician Update: Labs reviewed and are stable except mildly low K of 3.3. Pain is fairly well managed. SLUMS 11 poor orientation, processing and memory. 3/4 short and care home goals. RW 350' and 15 steps. Doing very well with occupational therapy goals. 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 Please see the Rehabilitation Signature page for all necessary signatures.
[2024-03-27] MEDS ORDERED: POTASSIUM 25 MEQ EFFERV TAB PO ONE (16:31)
[2024-03-28 05:51] VITALS: BMI 23.5
[2024-03-28 06:13] LABS: Anion Gap 5.7 mEq/L (5.0-15.0); Potassium 3.7 mEq/L (3.5-5.1)
[2024-03-30] MEDS: predniSONE 5 MG TAB PO SCH (08:04)
[2024-03-30 08:09] LABS: Absolute Basophils 0.1 K/uL (0-0.5); Absolute Eosinophils 0.3 K/uL (0-0.5); Absolute Lymphocytes (CBC) 2.1 K/uL (0.7-4.9); Absolute Monocytes 0.7 K/uL (0.1-1.3); Absolute Neutrophil 4.1 K/uL (1.8-8.0); Basophils % 0.7 % (0-1.3); Eosinophils % 3.6 % (0-4.4); Hematocrit 40.2 % (36.0-45.0); Hemoglobin 13.6 g/dL (12.0-15.0); Lymphocytes % 29.4 % (15.3-44.8); MCH 32.1 pg (27.0-35.0); MCHC 33.9 g/dL (32.0-36.0); MCV 94.7 fL (80-100); MPV 8.3 fL (7.6-11.3); Monocytes % 9.9 % (3.3-12.3); Neutrophils % 56.4 % (41.7-73.7); Platelets 247 thou/uL (152-406); RBC Red Blood Cell Count 4.24 M/uL (3.86-4.86); Red Cell Distribution Width 14.1 % (12.1-15.2)
[2024-03-30 08:20] LABS: Anion Gap 6.9 mEq/L (5.0-15.0); Magnesium 2.4 mg/dL (1.6-2.4); Potassium 3.9 mEq/L (3.5-5.1)
[2024-03-30] MEDS: TRAMADOL HCL 50 MG TAB PO PRN (09:49)
[2024-03-30 20:24] VITALS: O2SAT 96
--- NOTE | 2024-03-30 21:52 | PN ---
Date of Progress Note: 03/30/2024 Subjective: The patient was seen this morning for followup. She was lying in bed, not in any distre ss. Her was with her at bedside. The patient and her reported that her back pain re ally has not improved much at all during this hospitalization, and she has significant level of pain as she reports. She is participating with the physical therapy and she is scheduled to get discharge from rehab floor on day after tomorrow. Objective: Vital Signs: Reviewed. HEENT: Unremarkable. Lungs: Clear to auscultation. Heart: Sounds normal. Abdomen: Soft. Bowel sounds normal. No guarding, rigidity, tenderness, distention. Extremities: No leg edema. Laboratory Data: Blood work was ordered after I saw her today and results reviewed. Impression: 1.Compression fracture, T12 spine. 2.Hypertension. 3.Parkinson disease. Plan: We will continue current medications. The patient was encouraged to continue to drink more wa ter, continue current pain medication, and I have advised her that on outpatient basis, she should fo llow up with a back specialist in [place] for evaluation and consideration of kyphoplasty/vertebroplasty procedure. I will assist her with appropriate referral. MICHELLE/MODL Voice ID: [id number] Report ID: [id number]
--- NOTE | 2024-03-30 23:55 | PN ---
Date of Progress Note: 03/30/2024 Time Of Service: 1:10 p.m. Subjective: Ms. Rai is sitting in bed using a sock aid to put sock on with the occupational therapi st at bedside. is at bedside. She said she is making good progress. She is still of course very bradykinetic from her Parkinson disease and has masklike face. Review of Systems: She denies fevers, chills, nausea, vomiting, myalgias, arthralgias. Still has some back pain which h as been chronic and very difficult to manage with medication modalities. Physical Examination: Vital Signs: Blood pressure 114/65, pulse , respiratory rate 18, temperature 97.2, oxygen saturation 96% on room air. General: Ms. Rai is sitting at the side of the bed. HEENT: She is normocephalic, atraumatic. Sclerae anicteric. Oropharynx is moist. Neck: Supple. Chest: Clear. Heart: Regular. Extremities: Show no significant edema, cyanosis, or clubbing. Neurological: Masklike face. Diffuse weakness in upper and lower extremities. Generalized bradykin esia. Laboratory Studies: Complete blood count with differential is completely normal. Sodium 139, potass ium 3.9, chloride 105, carbon dioxide 31, BUN 27, creatinine 0.96, glucose 111, calcium 8.9. Magnesi um 2.4. X-ray/imaging: No new x-rays or imaging. Medications: Medications have been reviewed and are unchanged. She does have, however, prednisone 5 mg daily, which is being tapered. Progress Made With Physical, Occupational, And Speech Therapy: Today with physical therapy, she was able to do ketzkk-nv-kcq transfer independently, multiple transfers done independently. She ambulate d 425 feet and 250 feet independently with a rolling walker. She ascended and descended 15 steps wit h bilateral handrails independently. With occupational therapy, she did cskbks-yh-lab, adb-ea-wqgqu transfers, toilet and shower transfers with independence. With speech therapy, she did have a declin e in BIMS score, potentially due to pain that was decreased from 10 to 7. She did not sustain ____ to do the SLUMS score. She does make great progress with physical and occupational therapy, but somewhat regressed in speech . Potentially, due to the patient having some pain and not being able to pay attention or focus. Pa in is being managed with multiple modalities including topicals and systemic neuromodulators along wi th other medication modalities. Assessment: Ms. Rai is an 83-year-old patient admitted to the rehabilitation unit with Parkinson's disease, dyskinesia. She has decreased mobility, decreased physical functioning, urinary tract infec tion, hyper and hypotension, hypothyroidism, dyslipidemia, gastroesophageal reflux, diverticulosis wi thout diverticulitis, osteoarthritis, and osteoporosis. Plan: She will continue with physical, occupational, and speech therapy and will be discharged in e morning. She will be discharged to home and continue home health. She will follow up with Dr. Kailee jaramillo and her comorbid condition medications will be continued. She will also follow up with Dr. Nohelia oates's office for Parkinson disease. FRANCESCO/MICHAEL Voice ID: [id number] Report ID: [id number]
[2024-03-31 08:49] VITALS: BP 145/77
[2024-03-31 09:18] VITALS: TEMP 97.1
--- NOTE | 2024-04-18 10:36 | DS ---
Date of Discharge: 03/31/2024 Disposition: Discharged to go home. Physical Examination: HEENT: Unremarkable. Lungs: Clear to auscultation. Heart: Sounds normal. Abdomen: Soft. Bowel sounds normal. No guarding, rigidity, tenderness, distention. Extremities: No leg edema. Discharge Medications And Instructions: 1.Continue all prior home medication. 2.Take Tylenol 500 mg 3 times a day. 3.Take tramadol 50 mg 4 times a day as needed for back pain. 4.Follow up at my office in 1-2 weeks. 5.Follow up with credit operations specialist in [place] and my office will schedule appointment for her. Laboratory Data: On initial CBC on 03/24/2024, white count 7.3, hemoglobin 15.1, platelets 233. Las t CBC from yesterday, white count 7.3, hemoglobin 13.6, platelets 247. Initial chemistry from 2023, sodium 138, potassium 4.1, chloride 103, bicarb 31, BUN 23, creatinine 1.02 glucose 119. Magne sium 2.4. Last chemistry from yesterday, sodium 139, potassium 3.9, chloride 105, bicarb 31, BUN 27, creatinine 0.96, glucose 111. Magnesium 2.4. Hospital Course: This is an 83-year-old very pleasant female patient who was initially admitted to m edical floor on 03/16/2024 and on 03/23/2024, patient was admitted from medical floor to inpatient re hab. While on the rehab floor, patient received physical therapy under guidance of Dr. Campbell. We continued to provide her management for her chronic medical problems that remained stable. Initiall y, she was doing well as far as physical therapy is concerned, but during her stay on the rehab floor , she started to have more and more pain in her back. DICTATION ENDS HERE. MICHELLE/MODL Voice ID: [id number] Report ID: [id number]
--- NOTE | 2024-04-18 14:27 | DS ---
Date of Discharge: 03/31/2024 Discharge Diagnoses: 1.Compression fracture, T12 spine. 2.Lumbar radiculopathy. 3.Pneumonia. 4.Volume depletion. 5.Hypertension. 6.Hyperlipidemia. 7.Parkinson disease. Hospital Course: This 83-year-old pleasant female patient who was initially admitted to [facility] on 03/16/2024 and on 03/23/2024, she was transferred from medical floor to inpatient rehab. While she was on rehab floor, the patient received physical therapy under guidance of Dr. Campbell. We con tinued to provide her management for her chronic medical problems and her medical problems remained s table. Initially, she was doing fine, improving with physical therapy, but subsequently during her s alejo on the rehab floor, her lower back pain started getting worse and she was having increasing pain with the reducing mobility. So, I have communicated with the patient and her that I will try to make arrangements for her to see a living specialist in [place] as soon as possible, and in fact, I was able to get appointment for her to see the living specialist in 2 days after her discharge and a ll the necessary information provided to patient and her regarding this appointment in [facility]. They will take copy of MRI thoracic and lumbar spine and x-ray of thoracic and lumbar spine with them. Total time spent, 40 minutes. MICHELLE/MICHAEL Voice ID: [id number] Report ID: [id number]
== END 2024-03-31 10:45 | disposition home health service (06) | DRG 56 ==
LOC: 5TH 21:54
PROVIDERS: ADMIT Internal Medicine; ATTEND Internal Medicine
DX: G20.A2 Parkinson's disease without dyskinesia, with fluctuations (principal); J18.9 Pneumonia, unspecified organism; N39.0 Urinary tract infection, site not specified; I10 Essential (primary) hypertension; I95.9 Hypotension, unspecified; R73.01 Impaired fasting glucose; E78.5 Hyperlipidemia, unspecified; K21.9 Gastro-esophageal reflux disease without esophagitis; K57.90 Diverticulosis of intestine, part unspecified, without perforation or abscess without bleeding; M19.90 Unspecified osteoarthritis, unspecified site; M81.0 Age-related osteoporosis without current pathological fracture; G47.00 Insomnia, unspecified; E03.9 Hypothyroidism, unspecified; S22.089D Unspecified fracture of T11-T12 vertebra, subsequent encounter for fracture with routine healing; M54.16 Radiculopathy, lumbar region
CPT/HCPCS: 36415; 80048; 80061; 82040; 83735; 84134; 85025; 92523; 97110; 97116; 97129; 97163; 97165; 97530; 97542; J1650; J2001; J7512

== ENCOUNTER 2024-09-18 16:39 | Emergency (ER) | payer OTHER ==
--- NOTE | 2024-09-18 17:18 | RAD REPORT ---
EXAMINATION: CT HEAD WITHOUT CONTRAST CT CERVICAL SPINE WITHOUT CONTRAST CLINICAL INDICATION: Female, 84 years old. TRAUMA TECHNIQUE: Axial CT images from the skull base to the vertex without intravenous contrast. Axial CT i mages through the cervical spine were obtained without intravenous contrast. Sagittal and coronal reformatted images were created from the data set. Coronal and sagittal reformatted images were creat ed from the data set. One or more of the following dose reduction techniques were used: Automated exposure control, adjustment of the mA and/or kV according to patient size, and/or iterative reconstr uction. Unless otherwise specified, incidental findings do not require dedicated imaging follow-up. [id number]. COMPARISON: No prior exam. FINDINGS: Head: INTRACRANIAL: No acute intracranial hemorrhage. No hydrocephalus. No mass effect or midline shift. Mi ld chronic small vessel ischemic changes. VASCULATURE: No visualized abnormalities in the arteries or dural venous sinuses. SCALP/SKULL: No significant soft tissue or osseous abnormalities. SINUSES: The visualized paranasal sinuses and mastoid air cells are predominantly clear. Cervical spine: ALIGNMENT: There is approximate 2 mm of retrolisthesis of C3 on C4 and 2 mm anterolisthesis of C4 on C5. BONE: Vertebral body heights are maintained. No aggressive osseous lesions. DEGENERATIVE CHANGES: Multilevel cervical spondylosis with varying degrees of neural foraminal narrow ing. This is likely moderate on the left at C3-4 and C4-5. No high-grade central spinal stenosis. SOFT TISSUE: No significant abnormalities in the soft tissue of the neck. The visualized lung apices are clear. IMPRESSION: No acute intracranial abnormality. No acute fracture or traumatic malalignment of the cervical spine.
[2024-09-18] MEDS ORDERED: ONDANSETRON 4 MG (ODT) TAB ONE (17:24)
[2024-09-18] MEDS ORDERED: HYDROCODONE/APAP 5/325 MG TAB ONE (17:24)
--- NOTE | 2024-09-18 17:28 | RAD REPORT ---
EXAM: CT CHEST, ABDOMEN AND PELVIS WITHOUT CONTRAST CLINICAL INDICATION: Female, 84 years old Abdominal distention;Pain TECHNIQUE: CT chest, abdomen and pelvis was performed, without IV contrast, as per department protoco l. Axial, sagittal and coronal reconstructions were obtained. One or more of the following dose reduction techniques were used: Automated exposure control, adjustment of the mA and/or kV according to the patient size, and/or iterative reconstruction. Unless otherwise specified, incidental findings do not require dedicated imaging follow-up. [id number]. COMPARISON: Thoracic spine MRI 03/13/2024, CT abdomen/pelvis 03/15/2024 FINDINGS: The lack of intravenous contrast limits the sensitivity of this exam for evaluation of solid visceral organs, vascular structures, and retroperitoneum. Chest: LOWER NECK/CHEST WALL: Visualized thyroid gland and soft tissues are normal. LUNGS AND AIRWAYS: Airways are clear. No evidence of airspace or interstitial process. No nodules. PLEURA: No pleural effusion. No pneumothorax. Hemidiaphragms are normally positioned. MEDIASTINUM AND LYMPH NODES: No mediastinal mass or fluid collection. Normal size mediastinal, hilar, and axillary lymph nodes. THORACIC AORTA: Normal caliber and configuration. PULMONARY ARTERIES: Normal caliber. HEART: Mitral annular calcifications. Mild coronary calcifications. Abdomen/Pelvis LIVER: Subcentimeter low-density lesion in the hepatic dome is likely benign. GALLBLADDER/BILE DUCTS: No biliary ductal dilatation. PANCREAS: No mass, ductal dilation, or jasbir-pancreatic fluid. SPLEEN: Normal size. No focal lesion. ADRENALS: Normal; no mass. KIDNEYS AND URETERS: Normal size and contour. No hydronephrosis. GASTROINTESTINAL TRACT: Stomach is non-dilated. Small bowel has normal course and caliber. No colonic wall thickening or pericolonic inflammatory changes. No appendicitis identified. No secondary signs acute appendicitis. PERITONEUM: No free fluid. LYMPH NODES: No lymphadenopathy. ABDOMINAL AORTA AND OTHER VESSELS: Normal caliber aorta and IVC. Atherosclerosis. URINARY BLADDER: Normal contour. REPRODUCTIVE ORGANS: No pathologic process. MUSCULOSKELETAL: Lucency through the left lateral third of the clavicle may be a nutrient channel or nondisplaced fracture. Nondisplaced left lateral ninth rib fracture. Remote left obturator ring fracture. Chronic T12 compression fracture but with increased height loss compared with 03/17/2024. Th ere is significant bony retropulsion the results in severe central spinal stenosis. ADDITIONAL FINDINGS: None IMPRESSION: 1. Minimally displaced left lateral ninth rib fracture. No underlying pneumothorax. Lucency through t he left lateral third of the clavicle may represent a nondisplaced fracture or nutrient channel. Correlate with site of pain. 2. Chronic T12 compression fracture but with significantly increased height loss compared with 024. There is also significant bony retropulsion that is increased and likely contributes to severe central spinal stenosis. The change in the fracture is age indeterminant.
--- NOTE | 2024-09-18 17:40 | ER ---
Nurse's Notes [facility] Name: Marti Rai Age: 84 yrs Sex: Female : 1940 Arrival Date: 09/18/2024 Time: 16:39 Bed 16 Private MD: Diagnosis: Fall on same level, unspecified;Unspecified injury of head, initial encounter;Contusion of back wall of thorax;Contusion of front wall of thorax;Contusion of abdominal wall;Fracture of one rib, left side Presentation: 09/18 16:42 Chief complaint: Patient states: fell this morning about 1130 and hit back of head and ko1 left hip (more above the hip in the flank area). Coronavirus screen: At this time, the client does not indicate any symptoms associated with coronavirus-19. Ebola Screen: No symptoms or risks identified at this time. Initial Sepsis Screen: Does the patient meet any 2 criteria? No. Patient's initial sepsis screen is negative. Does the patient have a suspected source of infection? No. Patient's initial sepsis screen is negative. Risk Assessment: Do you want to hurt yourself or someone else? Patient reports no desire to harm self or others. Onset of symptoms was September 18, 2024. 16:42 Method Of Arrival: Wheelchair ko1 16:42 Acuity: PAVAN 3 ko1 Triage Assessment: 16:47 General: Appears in no apparent distress. Behavior is calm, cooperative, appropriate ko1 for age. Pain: Complains of pain in left flank/hip and back of head. Historical: - Allergies: 16:47 PENICILLINS; ko1 - PMHx: 16:47 Hypertensive disorder; Hypothyroidism; Parkinson's disease; ko1 - Immunization history:: Adult Immunizations up to date. - Infectious Disease History:: Denies. - Social history:: Smoking status: Patient denies any tobacco usage or history of. Screenin:[facility] ED Fall Risk Assessment (Adult) History of falling in the last 3 months, tm6 including since admission No falls in past 3 months (0 pts) Confusion or Disorientation No (0 pts) Intoxicated or Sedated No (0 pts) Impaired Gait No (0 pts) Mobility Assist Device Used No (0 pt) Altered Elimination No (0 pt) Score/Fall Risk Level 0 - 2 = Low Risk Oriented to surroundings, Maintained a safe environment, Educated pt \T\ family on fall prevention, incl call for assistance when getting out of bed. Abuse screen: Denies threats or abuse. Denies injuries from another. Nutritional screening: No deficits noted. Tuberculosis screening: No symptoms or risk factors identified. Assessment: 16:50 General: Appears in no apparent distress. uncomfortable, Behavior is calm, cooperative. tm6 Pain: Complains of pain in left lateral anterior chest and left lateral posterior chest and left upper quadrant and posterior aspect of left lateral abdomen and right base of the skull and right occipital area and left base of the skull and left occipital area Pain currently is 7 out of 10 on a pain scale. Neuro: Level of Consciousness is awake, alert, obeys commands, Oriented to person, place, time, situation. Cardiovascular: Patient's skin is warm and dry. Respiratory: Airway is patent Respiratory effort is even, unlabored, Respiratory pattern is regular, symmetrical. GI: No signs and/or symptoms were reported involving the gastrointestinal system. Abdomen is flat, non-distended. : No signs and/or symptoms were reported regarding the genitourinary system. EENT: No signs and/or symptoms were reported regarding the EENT system. Derm: No signs and/or symptoms reported regarding the dermatologic system. Musculoskeletal: Reports pain in left lateral anterior chest and left lateral posterior chest and left upper quadrant and posterior aspect of left lateral abdomen and right base of the skull and right occipital area and left base of the skull and left occipital area Pain is 7 out of 10 on a pain scale. Vital Signs: 16:42 BP 136 / 73; Pulse 88; Resp 16; Temp 98.2; Pulse Ox 99% ; ko1 18:36 BP 145 / 77; Pulse 88; Resp 16; Temp 98.2; Pulse Ox 99% on R/A; MAP 97 mmHg; Pain 5/10; tm6 18:36 Pain Scale: Adult tm6 Jayde Coma Score: 17:01 Eye Response: spontaneous(4). Motor Response: obeys commands(6). Verbal Response: dora oriented(5). Total: 15. ED Course: 16:40 Patient arrived in ED. im 16:45 Lowell Kelly MD is Attending Physician. dora 16:47 Triage completed. ko1 16:47 Arm band placed on right wrist. Patient placed in an exam room, Patient notified of ko1 wait time. 16:50 Patient has correct armband on for positive identification. Bed in low position. Call tm6 light in reach. Side rails up X2. Provided Education on: use of call barr. Client placed on continuous cardiac and pulse oximetry monitoring. NIBP monitoring applied. Pulse ox on. NIBP on. Door closed. Noise minimized. Warm blanket given. Pillow given. 17:12 CT Head C Spine In Process Unspecified. EDMS 17:12 CT Chest Abdomen Pelvis W/O Contrast In Process Unspecified. EDMS 17:20 Clemente Suero, RN is Primary Nurse. tm6 18:13 Urinalysis w/ reflexes Sent. tm6 18:22 INCENTIVE SPIROMETRY Sent. aa5 18:37 No provider procedures requiring assistance completed. Patient did not have IV access tm6 during this emergency room visit. Administered Medications: 17:49 Drug: [place] PO 5 mg-325 mg 1 tabs PO once Route: PO; tm6 18:38 Follow up: Response: No adverse reaction tm6 17:49 Drug: Ondansetron Oral Disintegrating Tablet Oral Disintegrating Tablet 4 mg PO once tm6 Route: PO; 18:38 Follow up: Response: No adverse reaction tm6 Medication: 16:50 VIS not applicable for this client. tm6 Outcome: 17:39 Discharge ordered by . dora 18:37 Discharged to home via wheelchair, with family, tm6 18:37 Condition: stable 18:37 Discharge instructions given to patient, family, Instructed on discharge instructions, follow up and referral plans. medication usage, incentive spirometer Demonstrated understanding of instructions, follow-up care, medications, incentive spirometer 18:37 Prescriptions given X 3, tm6 18:37 Patient left the ED. tm6 Signatures: Dispatcher [employer] [facility] Lowell Kelly MD MD cha Calderon, Audri, RN RN aa5 Josefina Carter, RN RN ko1 Otilia Hughes Tawney, RN RN tm6
--- NOTE | 2024-09-18 17:40 | EDPHYS ---
Physician Documentation [facility] Name: Marti Rai Age: 84 yrs Sex: Female : 1940 Arrival Date: 09/18/2024 Time: 16:39 Bed 16 Private MD: ED Physician Lowell Kelly HPI: 09/18 17:01 This 84 yrs old Female presents to ER via Wheelchair with complaints of Head dora Injury Without LOC-Adult, Fall Injury, Hip Injury. 17:01 The patient or guardian reports pain, tenderness. The complaints affect the left dora occipital area, left base of the skull, right occipital area and right base of the skull. Historical: - Allergies: 16:47 PENICILLINS; ko1 - PMHx: 16:47 Hypertensive disorder; Hypothyroidism; Parkinson's disease; ko1 - Immunization history:: Adult Immunizations up to date. - Infectious Disease History:: Denies. - Social history:: Smoking status: Patient denies any tobacco usage or history of. ROS: 17:01 Constitutional: Negative for fever, chills, and weight loss, Eyes: Negative for injury, dora pain, redness, and discharge, ENT: Negative for injury, pain, and discharge, Neck: Negative for injury, pain, and swelling, Cardiovascular: Negative for chest pain, palpitations, and edema, Respiratory: Negative for shortness of breath, cough, wheezing, and pleuritic chest pain, : Negative for injury, bleeding, discharge, and swelling, MS/Extremity: Negative for injury and deformity, Skin: Negative for injury, rash, and discoloration, Neuro: Negative for headache, weakness, numbness, tingling, and seizure, Psych: Negative for depression, anxiety, suicide ideation, homicidal ideation, and hallucinations, Allergy/Immunology: Negative for hives, rash, and allergies, Endocrine: Negative for neck swelling, polydipsia, polyuria, polyphagia, and marked weight changes, Hematologic/Lymphatic: Negative for swollen nodes, abnormal bleeding, and unusual bruising, 17:01 Abdomen/GI: Positive for abdominal pain, abdominal cramps, of the posterior aspect of left lateral abdomen and left upper quadrant, Exam: 17:01 Constitutional: This is a well developed, well nourished patient who is awake, alert, dora and in no acute distress. Head/Face: Normocephalic, atraumatic. Eyes: Pupils equal round and reactive to light, extra-ocular motions intact. Lids and lashes normal. Conjunctiva and sclera are non-icteric and not injected. Cornea within normal limits. Periorbital areas with no swelling, redness, or edema. ENT: Nares patent. No nasal discharge, no septal abnormalities noted. Tympanic membranes are normal and external auditory canals are clear. Oropharynx with no redness, swelling, or masses, exudates, or evidence of obstruction, uvula midline. Mucous membranes moist. Neck: Trachea midline, no thyromegaly or masses palpated, and no cervical lymphadenopathy. Supple, full range of motion without nuchal rigidity, or vertebral point tenderness. No Meningismus. Cardiovascular: Regular rate and rhythm with a normal S1 and S2. No gallops, murmurs, or rubs. Normal PMI, no JVD. No pulse deficits. Respiratory: Lungs have equal breath sounds bilaterally, clear to auscultation and percussion. No rales, rhonchi or wheezes noted. No increased work of breathing, no retractions or nasal flaring. Back: No spinal tenderness. No costovertebral tenderness. Full range of motion. Female : Normal external genitalia. Skin: Warm, dry with normal turgor. Normal color with no rashes, no lesions, and no evidence of cellulitis. MS/ Extremity: Pulses equal, no cyanosis. Neurovascular intact. Full, normal range of motion., bilateral aka Neuro: Awake and alert, GCS 15, oriented to person, place, time, and situation. Cranial nerves II-XII grossly intact. Motor strength 5/5 in all extremities. Sensory grossly intact. Cerebellar exam normal. Normal gait. Psych: Awake, alert, with orientation to person, place and time. Behavior, mood, and affect are within normal limits. 17:01 Chest/axilla: Inspection: normal, Palpation: tenderness, that is mild, that is moderate, of the left lateral posterior chest and left lateral anterior chest, Axilla: are normal, Breasts: are normal, Lymph nodes: lymphadenopathy is not appreciated, Vital Signs: 16:42 BP 136 / 73; Pulse 88; Resp 16; Temp 98.2; Pulse Ox 99% ; ko1 18:36 BP 145 / 77; Pulse 88; Resp 16; Temp 98.2; Pulse Ox 99% on R/A; MAP 97 mmHg; Pain 5/10; tm6 18:36 Pain Scale: Adult tm6 Jayde Coma Score: 17:01 Eye Response: spontaneous(4). Motor Response: obeys commands(6). Verbal Response: dora oriented(5). Total: 15. MDM: 16:45 Medical Screening Exam initiated dora 17:01 Differential diagnosis: Contusion of Hematoma on Intracranial bleed- Concussion without dora LOC. cerebral contusion. Data reviewed: vital signs, nurses notes, lab test result(s), radiologic studies, CT scan. Consideration of Admission/Observation Escalation of care including admission/observation considered. I considered the following discharge prescriptions or medication management in the emergency department Medications were administered in the Emergency Department. See MAR. Independent interpretation of the following test(s) in the Emergency Department CT Scan: My interpretation is CT TRAUMA WITHOUT. Test considered but Not performed: Labs: NO CBC , NO COMP MET. Historians other than the Patient: Spouse/Significant Other: WELL INFORMED. Care significantly affected by the following chronic conditions: Hypertension, PARKINSON, HYPOTHYROID. 09/18 17:01 Order name: Urinalysis w/ reflexes [facility] 09/18 16:45 Order name: CT Head C Spine; Complete Time: 17:38 [facility] 09/18 17:01 Order name: CT Chest Abdomen Pelvis W/O Contrast; Complete Time: 17:38 [facility] 09/18 17:01 Order name: INCENTIVE SPIROMETRY dora Administered Medications: 17:49 Drug: [place] PO 5 mg-325 mg 1 tabs PO once Route: PO; tm6 18:38 Follow up: Response: No adverse reaction tm6 17:49 Drug: Ondansetron Oral Disintegrating Tablet Oral Disintegrating Tablet 4 mg PO once tm6 Route: PO; 18:38 Follow up: Response: No adverse reaction tm6 Disposition Summary: 09/18/24 17:39 Discharge Ordered Notes: Location: Home dora Problem: new dora Symptoms: have improved dora Condition: Stable dora Diagnosis - Fall on same level, unspecified dora - Unspecified injury of head, initial encounter dora - Contusion of back wall of thorax dora - Contusion of front wall of thorax dora - Contusion of abdominal wall dora - Fracture of one rib, left side dora Followup: dora - With: Private Physician - When: 2 - 3 days - Reason: Recheck today's complaints, Continuance of care, Re-evaluation by your physician Discharge Instructions: - Discharge Summary Sheet [facility] - Head Injury, Adult [facility] - Fall Prevention in the Home, Adult [facility] - Rib Fracture [facility] - How to Use an Incentive Spirometer [facility] - Fall Prevention in the Home, Adult, [id number] dora - Head Injury, Adult, [id number] [facility] - Rib Fracture, [id number] [facility] Forms: - Medication Reconciliation Form [facility] - Antibiotic Education [facility] - Prescription Opioid Use [facility] - Patient Portal Instructions [facility] - Leadership Thank You Letter [facility] Prescriptions: - acetaminophen-codeine 300-30 mg Oral tablet - take 1 tablet ORAL route every 4-6 hours PRN PAIN; 20 tablet; Refills: 0, [facility] Product Selection Permitted - ondansetron 4 mg Oral Tablet,disintegrating - take 1 tablet ORAL route every 4 to 6 hours for 5 days; 20 tablet; Refills: 0, [facility] Product Selection Permitted - Motrin IB 200 mg Oral tablet - take 1 tablet ORAL route every 6 hours As needed as needed with food; 30 [facility] tablet; Refills: 0, Product Selection Permitted Signatures: Dispatcher [employer] Lowell Arana MD MD cha Oliver, Kathy, RN RN ko1 Clemente Suero RN RN tm6
[2024-09-18 18:23] LABS: Sqamous Epithelial <5 /HPF (None Seen); Urine Bacteria <20 /HPF (<20); Urine Bilirubin NEGATIVE (Negative); Urine Blood Trace (Negative); Urine Clarity Clear (Clear); Urine Color Light-Yellow (Yellow); Urine Culture Reflex Order NOT NEEDED; Urine Glucose NEGATIVE (Negative); Urine Ketones NEGATIVE (Negative); Urine Microscopic Reflex YN ORDER UMIC; Urine Mucus Slight /HPF (None Seen); Urine Nitrite NEGATIVE (Negative); Urine Protein NEGATIVE (Negative); Urine RBC <5 /HPF (None Seen); Urine Urobilinogen Normal (Normal); Urine WBC <5 /HPF (<5)
[2024-09-18 18:50] VITALS: TEMP 98.2; O2SAT 99
[2024-09-18 18:51] VITALS: BP 145/77
== END 2024-09-18 18:37 | disposition home or self-care (01) ==
LOC: ER 16:39
DX: S22.32XA Fracture of one rib, left side, initial encounter for closed fracture (principal); S09.90XA Unspecified injury of head, initial encounter; S20.222A Contusion of left back wall of thorax, initial encounter; S20.212A Contusion of left front wall of thorax, initial encounter; S30.1XXA Contusion of abdominal wall, initial encounter; W18.30XA Fall on same level, unspecified, initial encounter; I10 Essential (primary) hypertension; G20.A1 Parkinson's disease without dyskinesia, without mention of fluctuations
CPT/HCPCS: 81001; 70450; 71250; 72125; 74176; 99284; Q0162